=== PATIENT | male | born 1945 | race Caucasian/White ===

== ENCOUNTER 2017-03-01 21:36 | Inpatient (IN) | payer MEDICARE ==
[2017-03-01] MEDS ORDERED: SODIUM CHLORIDE 0.9% 1,000 ML IV STA (23:37)
[2017-03-01] MEDS ORDERED: IV VANCOMYCIN PER PHARMACY 1 EACH MISC MISCELLANE PRN (23:38)
[2017-03-01] MEDS ORDERED: VANCOMYCIN 1,750 MG in SODIUM CHLORIDE 0.9% 250 ML IVPB STA (23:39)
--- NOTE | 2017-03-01 23:43 | ED ---
Extremity Problem HPI - General Chief complaint: Extremity Problem,Nontraumatic Stated complaint: leg sores Time Seen by Provider: 03/01/17 23:31 Source: patient, RN notes reviewed Mode of arrival: wheelchair Limitations: no limitations - History of Present Illness Initial comments: 71 yo Male presents emergency department with a chief complaint of weeping wounds to the left calf. Patient does have chronic swollen legs. 3 days ago they noticed some purulent filled sacs to the lower leg and now they've opened and they have started to drain. Patient is now some eye redness and pain to the legs today was concerned. The patient has not been seen by his physician for this problem yet. There is been no fever or chills. There's been no nausea vomiting. Patient states that his legs is tender. Patient states is not really have sutures at this time.Patient denies any recent fever, chills, shortness of breath, chest pain, back pain, abdominal pain, nausea vomiting, numbness or tingling, dysuria or hematuria, constipation or diarrhea, headaches or visual changes, or any other current symptoms. - Related Data Home Medications Medication Instructions Recorded Confirmed Allopurinol [Zyloprim] 300 mg PO DAILY 08/23/16 03/01/17 Aspirin EC [Ecotrin Low Dose] 81 mg PO DAILY 08/23/16 03/01/17 Atorvastatin [Lipitor] 40 mg PO DAILY 08/23/16 03/01/17 Ergocalciferol [Vitamin D2 50,000 unit PO HALL 08/23/16 03/01/17 (DRISDOL)] Insulin Aspart [NovoLOG] 20 units SQ AC-TID 08/23/16 03/01/17 Insulin Glargine [Lantus] 60 units SQ HS 08/23/16 03/01/17 Lisinopril [Zestril] 10 mg PO DAILY 08/23/16 03/01/17 Omeprazole 20 mg PO DAILY 08/23/16 03/01/17 Torsemide [Demadex] 20 mg PO DAILY 08/23/16 03/01/17 amLODIPine [Norvasc] 5 mg PO BID 08/23/16 03/01/17 glipiZIDE [Glucotrol] 10 mg PO AC-BID 08/23/16 03/01/17 Pregabalin [Lyrica] 25 mg PO TID 03/01/17 03/01/17 Previous Rx's Medication Instructions Recorded Furosemide [Lasix] 40 mg PO BID@0900,1600 #60 tab 08/26/16 hydrALAZINE HCL [Apresoline] 25 mg PO TID #90 tab 08/26/16 Allergies Allergy/AdvReac Type Severity Reaction Status Date / Time cephalexin [From Keflex] Allergy Unknown Verified 03/01/17 23:43 Review of Systems ROS Statement: Those systems with pertinent positive or pertinent negative responses have been documented in the HPI. ROS Other: All systems not noted in ROS Statement are negative. 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, obesity, hyperlipidemia, hypertension, loud snoring, chronic lower oximetry edema, chronic hypersomnia, gout Last Myocardial Infarction Date:: unk History of Any Multi-Drug Resistant Organisms: None Reported Past Surgical History: Heart Catheterization With Stent Additional Past Surgical History / Comment(s): Cardiac catheterization and stenting of the LAD Past Anesthesia/Blood Transfusion Reactions: No Reported Reaction Date of Last Stent Placement:: unk date Past Psychological History: No Psychological Hx Reported Smoking Status: Former smoker Past Alcohol Use History: None Reported Additional Past Alcohol Use History / Comment(s): started smoking at age 22(1967 ), quit by 1975 Past Drug Use History: None Reported - Past Family History Father Family Medical History: Cancer Mother Family Medical History: Renal Disease General Exam - General Exam Comments Initial Comments: General: The patient is awake and alert, in no distress, and does not appear acutely ill. Eye: Pupils are equal, round and reactive to light, extra-ocular movements are intact; there is normal conjunctiva bilaterally. No signs of icterus. Ears, nose, mouth and throat: There are moist mucous membranes. Neck: The neck is supple, there is no tenderness. Cardiovascular: There is a regular rate and rhythm. No murmur, rub or gallop is appreciated. Respiratory: Lungs are clear to auscultation, respirations are non-labored, breath sounds are equal. No wheezes, stridor, rales, or rhonchi. Gastrointestinal: Soft, non-distended, non-tender abdomen without masses or organomegaly noted. There is no rebound or guarding present. No CVA tenderness. Bowel sounds are unremarkable. Back: There is no tenderness to palpation in the midline. There is no obvious deformity. No rashes noted. Musculoskeletal: Normal ROM, no tenderness, There is bilateral calf tenderness and swelling. There is bilateral erythema with increased erythema to the left leg with 2 purulent pus filled sacs to the anterior left leg. Sensation intact. Pulses equal bilaterally 2+. Neurological: CN II-XII intact, There are no obvious motor or sensory deficits. Coordination appears grossly intact. Speech is normal. Skin: Skin is warm and dry and no rashes or lesions are noted. Psychiatric: Cooperative, appropriate mood & affect, normal judgment. Limitations: no limitations Course Vital Signs 03/01/17 03/02/17 22:04 00:28 Temperature 99.1 F Pulse Rate 86 71 Respiratory 20 22 Rate Blood Pressure 228/89 186/84 O2 Sat by Pulse 93 L 93 L Oximetry Medical Decision Making - Medical Decision Making 71-year-old male presents with what appears to be cellulitis left lower extremity associated with abscess. This time the wound culture and blood work. Due to the severity of the patient's legs along with a history of diabetes in for circulation we will admit the patient for IV antibiotics and evaluation. This is discussed the patient is in agreement with the plan and all questions have been answered. Patient will be admitted. - Lab Data Result diagrams: 03/01/17 23:50 Lab Results 03/01/17 Range/Units 23:50 WBC 10.7 H (3.8-10.6) k/uL RBC 4.36 (4.30-5.90) m/uL Hgb 12.4 L (13.0-17.5) gm/dL Hct 36.7 L (39.0-53.0) % MCV 84.2 (80.0-100.0) fL MCH 28.5 (25.0-35.0) pg MCHC 33.8 (31.0-37.0) g/dL RDW 15.2 (11.5-15.5) % Plt Count 157 (150-450) k/uL Neutrophils % 85 % Lymphocytes % 8 % Monocytes % 6 % Eosinophils % 0 % Basophils % 0 % Neutrophils # 9.1 H (1.3-7.7) k/uL Lymphocytes # 0.8 L (1.0-4.8) k/uL Monocytes # 0.6 (0-1.0) k/uL Eosinophils # 0.0 (0-0.7) k/uL Basophils # 0.0 (0-0.2) k/uL - Radiology Data Radiology results: report reviewed, image reviewed Disposition Clinical Impression: Left leg cellulitis, Abscess of left leg Disposition: ADMITTED IP TO THIS [facility] Condition: Stable Referrals: Ankur Burnett DO [Primary Care Provider] - 1-2 days Time of Disposition: 00:42 Decision Date: 03/02/17 Decision Time: 00:42
--- NOTE | 2017-03-02 00:17 | XR ---
EXAM:LEFT TIB/FIB, 2 VIEWS INDICATION: 71-year-old male with pain. COMPARISON: None. FINDINGS: 2 views of the left tibia and fibula are obtained. Bony structures are intact. Bone mineralization is within normal limits. Diffuse soft tissue swelling is nonspecific. No radio-opaque foreign bodies seen. IMPRESSION: No acute osseous abnormality.
[2017-03-02 00:23] LABS: Basophils % (A) 0 %; CH 28.7; CHCM 34.1; Eosinophils % (A) 0 %; HCT 36.7 % (39.0-53.0); HGB 12.4 gm/dL (13.0-17.5); Luc # (Auto) 0.18; Luc % (Auto) 2; Lymphocytes # (A) 0.8 k/uL (1.0-4.8); Lymphocytes % (A) 8 %; MCH 28.5 pg (25.0-35.0); MCHC 33.8 g/dL (31.0-37.0); MCV 84.2 fL (80.0-100.0); Mean Platelet Volume 7.4; Monocytes # (A) 0.6 k/uL (0-1.0); Monocytes % (A) 6 %; Neutrophils # (A) 9.1 k/uL (1.3-7.7); Neutrophils % (A) 85 %; RBC 4.36 m/uL (4.30-5.90); RDW 15.2 % (11.5-15.5); WBC 10.7 k/uL (3.8-10.6); WBC (Perox) 10.11
[2017-03-02] MEDS ORDERED: HYDROmorphone 1 MG/ML 1 ML SYRINGE IVP STA (00:41)
[2017-03-02] MEDS ORDERED: IBUPROFEN 400 MG TAB PO PRN (00:42)
[2017-03-02 00:58] LABS: ALT 20 U/L (21-72); AST 19 U/L (17-59); Alkaline Phosphatase 133 U/L (38-126); Anion Gap 12 mmol/L; Blood Urea Nitrogen 36 mg/dL (9-20); Calcium 8.5 mg/dL (8.4-10.2); Carbon Dioxide 22 mmol/L (22-30); Chloride 105 mmol/L (98-107); Glucose 292 mg/dL (74-99); Non-African American GFR(MDRD) 37 (>60 ml/min/1.73 sqM); Potassium 4.8 mmol/L (3.5-5.1); Sodium 139 mmol/L (137-145); Total Bilirubin 0.8 mg/dL (0.2-1.3); Total Protein 6.9 g/dL (6.3-8.2)
[2017-03-02 01:10] LABS: Erythrocyte Sedimentation Rate 95 mm/hr (0-15)
[2017-03-02] MEDS: SODIUM CHLORIDE 0.9% 1,000 ML IV SCH ×2 (02:02→11:38)
[2017-03-02 02:09] LABS: C Reactive Protein 279.2 mg/L (<10.0)
[2017-03-02] MEDS: HYDROmorphone 1 MG/ML 1 ML SYRINGE IV PRN (05:02)
[2017-03-02 07:04] LABS: Glucose,Whole Blood 271 mg/dL (75-99)
[2017-03-02] MEDS: ENOXAPARIN 40 MG/0.4 ML SYRINGE SQ SCH (08:34)
[2017-03-02] MEDS: ATORVASTATIN 40 MG TAB PO SCH (08:34)
[2017-03-02] MEDS: ASPIRIN 81 MG CHEW PO SCH (08:34)
[2017-03-02] MEDS: PANTOPRAZOLE 40 MG TABLET PO SCH (08:35)
[2017-03-02] MEDS: LISINOPRIL 10 MG TAB PO SCH (08:35)
[2017-03-02] MEDS: hydrALAZINE HCL 25 MG TAB PO SCH ×3 (08:35→21:18)
[2017-03-02] MEDS: INSULIN LISPRO (humaLOG) 300 UNIT/3 ML VIAL SQ SCH ×4 (08:46→21:18)
[2017-03-02] MEDS ORDERED: amLODIPine 5 MG TAB PO SCH (09:00)
[2017-03-02] MEDS ORDERED: ALLOPURINOL 300 MG TAB PO SCH (09:00)
[2017-03-02] MEDS ORDERED: TORSEMIDE 20 MG TAB PO SCH (10:00)
[2017-03-02 11:22] LABS: Hemoglobin A1C 9.9 % (4.2-6.1)
[2017-03-02 11:24] LABS: Glucose,Whole Blood 308 mg/dL (75-99)
[2017-03-02] MEDS: VANCOMYCIN 1,750 MG in SODIUM CHLORIDE 0.9% 250 ML IVPB SCH (11:34)
[2017-03-02] MEDS: FUROSEMIDE 40 MG TAB PO SCH ×2 (11:39→21:17)
[2017-03-02] MEDS ORDERED: PREGABALIN 100 MG CAP ONE (12:19)
--- NOTE | 2017-03-02 15:26 | P.HPIM ---
History of Present Illness H&P Date: 03/02/17 This is a 71-year-old gentleman comes into the hospital with progressive worsening of lower extremity swelling and tenderness over the last 3-4 days. Patient states that he's had chronic changes in his lower extremities for a long period of time. His primary care physician has recommended him to follow up with a subspecialist however patient has not done that yet Patient stated that he's had intermittent chills over the last few days. Pain has been progressively getting worse hence came to the hospital for ongoing care. Patient denies having any recent trauma. Patient states that he's had some blisters on his left lower extremity and noted the symptoms after the blister has popped. No significant tenderness is reported at this time Blood cultures were sent Patient is started on IV vancomycin at this time Patient denies having any history of having heart failure or renal problems He was told that his lower extremity edema are secondary to lymphedema No headaches blurry vision nausea vomiting chest pain difficulty breathing urinary urgency frequency or diarrhea is reported Review of Systems All systems: negative (Noted in HPI) Past Medical History Past Medical History: Chest Pain / Angina, Diabetes Mellitus, Hyperlipidemia, Hypertension, Myocardial Infarction ([place]) Additional Past Medical History / Comment(s): Coronary artery disease and the patient had an acute anterior wall myocardial infarction 2009 requiring emergent cardiac catheterization and stenting and 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 then 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, obesity, hyperlipidemia, hypertension, loud snoring, chronic lower oximetry edema, chronic hypersomnia, gout Last Myocardial Infarction Date:: unk History of Any Multi-Drug Resistant Organisms: None Reported Past Surgical History: Heart Catheterization With Stent Additional Past Surgical History / Comment(s): Cardiac catheterization and stenting of the LAD Past Anesthesia/Blood Transfusion Reactions: No Reported Reaction Date of Last Stent Placement:: unk date Past Psychological History: No Psychological Hx Reported Smoking Status: Former smoker Past Alcohol Use History: None Reported Additional Past Alcohol Use History / Comment(s): started smoking at age 22(1967 ), quit by 1975 Past Drug Use History: None Reported - Past Family History Father Family Medical History: Cancer Mother Family Medical History: Renal Disease Medications and Allergies Home Medications Medication Instructions Recorded Confirmed Type Allopurinol [Zyloprim] 300 mg PO DAILY 08/23/16 03/01/17 History Aspirin EC [Ecotrin Low Dose] 81 mg PO DAILY 08/23/16 03/01/17 History Atorvastatin [Lipitor] 40 mg PO DAILY 08/23/16 03/01/17 History Ergocalciferol [Vitamin D2 50,000 unit PO HALL 08/23/16 03/01/17 History (DRISDOL)] Insulin Aspart [NovoLOG] 20 units SQ AC-TID 08/23/16 03/01/17 History Insulin Glargine [Lantus] 60 units SQ HS 08/23/16 03/01/17 History Omeprazole 20 mg PO DAILY 08/23/16 03/01/17 History glipiZIDE [Glucotrol] 10 mg PO AC-BID 08/23/16 03/01/17 History Pregabalin [Lyrica] 25 mg PO TID 03/01/17 03/01/17 History Allergies Allergy/AdvReac Type Severity Reaction Status Date / Time cephalexin [From Keflex] Allergy Unknown Verified 03/02/17 02:01 Physical Exam Vitals: Vital Signs Temp Pulse Pulse Resp BP BP Pulse Ox 03/02/17 07:00 97.4 F L 89 12 133/85 97 03/02/17 01:58 98.2 F 75 16 145/70 91 L 03/02/17 01:12 75 20 155/66 93 L 03/02/17 00:54 85 16 182/79 92 L 03/02/17 00:28 71 22 186/84 93 L 03/01/17 22:04 99.1 F 86 20 228/89 93 L Intake and Output 03/02/17 03/02/17 03/02/17 06:59 14:59 22:59 Intake Total 400 Output Total 400 Balance 400 -400 Intake: IV 400 Sodium Chloride 0.9% 1, 400 000 ml @ 100 mls/hr IV . Q10H BILLY Rx#:[id number] Output: Urine 400 Other: Voiding Method Urinal Bedside Commode Urinal Diaper # Voids 2 Weight 117.934 kg 117.934 kg Patient Weight 03/03/17 06:59 Weight 117.934 kg Gen. appearance obese male does not appear to be in distress alert oriented 3 Neck is thick supple no JVD Lungs good air movement clear to auscultation no rhonchi or wheezing or crackles Heart S1 and S2 heart regular rate and rhythm no murmurs appreciable Abdomen is soft nontender organomegaly Lower extremities chronic skin changes bilaterally on the left lower extremity there is a wound anteriorly over the lower tibial surface with the previous blister with dried blood that is noted nontender to palpation there is a pus pocket that is noted lateral to it or graft neuro no focal motor or sensory deficits noted Results CBC & Chem 7: 03/01/17 23:50 03/01/17 23:50 Labs: Abnormal Lab Results - Last 24 Hours (Table) 03/01/17 03/01/17 03/01/17 Range/Units 23:50 23:50 23:50 WBC 10.7 H (3.8-10.6) k/uL Hgb 12.4 L (13.0-17.5) gm/dL Hct 36.7 L (39.0-53.0) % Neutrophils # 9.1 H (1.3-7.7) k/uL Lymphocytes # 0.8 L (1.0-4.8) k/uL ESR 95 H (0-15) mm/hr BUN 36 H (9-20) mg/dL Creatinine 1.80 H (0.66-1.25) mg/dL Glucose 292 H (74-99) mg/dL POC Glucose (mg/dL) (75-99) mg/dL Hemoglobin A1c 9.9 H (4.2-6.1) % ALT 20 L (21-72) U/L Alkaline Phosphatase 133 H (38-126) U/L C-Reactive Protein 279.2 H (<10.0) mg/L Albumin 3.3 L (3.5-5.0) g/dL 03/02/17 03/02/17 Range/Units 06:56 11:21 WBC (3.8-10.6) k/uL Hgb (13.0-17.5) gm/dL Hct (39.0-53.0) % Neutrophils # (1.3-7.7) k/uL Lymphocytes # (1.0-4.8) k/uL ESR (0-15) mm/hr BUN (9-20) mg/dL Creatinine (0.66-1.25) mg/dL Glucose (74-99) mg/dL POC Glucose (mg/dL) 271 H 308 H (75-99) mg/dL Hemoglobin A1c (4.2-6.1) % ALT (21-72) U/L Alkaline Phosphatase (38-126) U/L C-Reactive Protein (<10.0) mg/L Albumin (3.5-5.0) g/dL Microbiology - Last 24 Hours (Table) 03/02/17 00:43 Gram Stain - Preliminary Leg - Left Wound Culture - Preliminary Thrombosis Risk Factor Assmnt - Choose All That Apply Each Factor Represents 1 point: Obesity (BMI >25), Swollen legs (current) Each Risk Factor Represents 2 Points: Age 61-74 years Thrombosis Risk Factor Assessment Total Risk Factor Score: 4 Thrombosis Risk Factor Assessment Level: Moderate Risk Assessment and Plan Plan: #1 left lower extremity cellulitis with some concern for systemic infection #2 micrognathia #3 history of a second-degree heart block #4 hypertension. #5 obesity. #6 diabetes most type II #7 chronic lymphedema #8 dyslipidemia #9 gout plan We'll continue with antiemetics at this time. Await blood cultures. Continue diuretics. We'll obtain a lower extremity Doppler to rule out a DVT Wound care with the Aquasol Silver and wrap We'll consult an infectious disease doctor in order for the patient to follow- up with an outpatient as well. Medications were reconciled patient was on 2 diuretics which one abnormal be permanently discontinued her graft patient is also on amlodipine which is also discontinued as it could cause worsening edema as well lisinopril will be increased to 20mg Dvto prophylaxis
[2017-03-02] MEDS ORDERED: FUROSEMIDE 10 MG/ML 4 ML VIAL IV STA (15:27)
[2017-03-02] MEDS: PREGABALIN 25 MG CAP PO SCH ×3 (16:50→21:18)
[2017-03-02 17:31] LABS: Glucose,Whole Blood 229 mg/dL (75-99)
--- NOTE | 2017-03-02 17:33 | US ---
EXAMINATION TYPE: US venous doppler duplex LE BI DATE OF EXAM: 03/02/2017 5:02 PM COMPARISON: 08/25/2016 CLINICAL HISTORY: 71-year-old male, rule out DVT. Bilateral leg swelling, no hx of blood clots. Cell ulitis. SIDE PERFORMED: Bilateral TECHNIQUE: The lower extremity deep venous system is examined utilizing real time linear array sonog carlos with graded compression, doppler sonography and color-flow sonography. 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 IMPRESSION: Technically difficult exam due to soft tissue swelling. No evidence for DVT within the bilateral lowe r extremities imaged from the groin to the upper calves.
[2017-03-02] MEDS: ACETAMINOPHEN TAB 325 MG TAB PO PRN (17:38)
[2017-03-02 20:08] LABS: Glucose,Whole Blood 209 mg/dL (75-99)
[2017-03-02 20:57] LABS: Basophils % (A) 0 %; CH 28.4; Eosinophils % (A) 0 %; HCT 40.1 % (39.0-53.0); HDW 2.95; HGB 12.6 gm/dL (13.0-17.5); Hypochromasia Slight; Luc # (Auto) 0.09; Luc % (Auto) 1; Lymphocytes # (A) 0.9 k/uL (1.0-4.8); Lymphocytes % (A) 11 %; MCH 27.9 pg (25.0-35.0); MCHC 31.4 g/dL (31.0-37.0); Mean Platelet Volume 7.3; Monocytes # (A) 0.2 k/uL (0-1.0); Monocytes % (A) 3 %; Neutrophils # (A) 6.4 k/uL (1.3-7.7); Neutrophils % (A) 84 %; RBC 4.51 m/uL (4.30-5.90); RDW 15.4 % (11.5-15.5); WBC 7.6 k/uL (3.8-10.6); WBC (Perox) 7.76
[2017-03-02 21:07] LABS: Calcium 8.1 mg/dL (8.4-10.2); Potassium 4.6 mmol/L (3.5-5.1)
[2017-03-02] MEDS ORDERED: ACETAMINOPHEN TAB 325 MG TAB PO ONE (21:10)
[2017-03-03] MEDS: ACETAMINOPHEN TAB 325 MG TAB PO PRN ×3 (04:05→21:53)
[2017-03-03] MEDS: HYDROmorphone 1 MG/ML 1 ML SYRINGE IV PRN ×2 (05:59→11:28)
[2017-03-03 06:59] LABS: Glucose,Whole Blood 298 mg/dL (75-99)
[2017-03-03 07:29] LABS: Calcium 7.4 mg/dL (8.4-10.2); Potassium 4.9 mmol/L (3.5-5.1)
[2017-03-03 07:57] LABS: Basophils % (A) 0 %; CH 27.9; Eosinophils % (A) 0 %; HCT 33.5 % (39.0-53.0); HDW 2.91; HGB 10.7 gm/dL (13.0-17.5); Hypochromasia Slight; Luc # (Auto) 0.06; Luc % (Auto) 1; Lymphocytes # (A) 0.4 k/uL (1.0-4.8); Lymphocytes % (A) 4 %; MCH 27.9 pg (25.0-35.0); MCHC 31.8 g/dL (31.0-37.0); MCV 87.6 fL (80.0-100.0); Mean Platelet Volume 8.4; Monocytes # (A) 0.3 k/uL (0-1.0); Monocytes % (A) 4 %; Neutrophils # (A) 8.5 k/uL (1.3-7.7); Neutrophils % (A) 92 %; RBC 3.82 m/uL (4.30-5.90); RDW 15.3 % (11.5-15.5); WBC 9.3 k/uL (3.8-10.6); WBC (Perox) 9.78
[2017-03-03] MEDS: INSULIN LISPRO (humaLOG) 300 UNIT/3 ML VIAL SQ SCH ×4 (08:36→23:06)
[2017-03-03] MEDS: ERGOCALCIFEROL 50,000 UNIT CAP PO SCH (08:37)
[2017-03-03] MEDS: hydrALAZINE HCL 25 MG TAB PO SCH ×3 (08:37→22:58)
[2017-03-03] MEDS: PREGABALIN 25 MG CAP PO SCH ×2 (08:37→18:29)
[2017-03-03] MEDS: VANCOMYCIN 1,750 MG in SODIUM CHLORIDE 0.9% 250 ML IVPB SCH (08:37)
[2017-03-03] MEDS: ENOXAPARIN 40 MG/0.4 ML SYRINGE SQ SCH (08:37)
[2017-03-03] MEDS: ASPIRIN 81 MG CHEW PO SCH (08:37)
[2017-03-03] MEDS: LISINOPRIL 10 MG TAB PO SCH (08:37)
[2017-03-03] MEDS: FUROSEMIDE 40 MG TAB PO SCH (08:37)
[2017-03-03] MEDS: PANTOPRAZOLE 40 MG TABLET PO SCH (08:37)
[2017-03-03] MEDS: ATORVASTATIN 40 MG TAB PO SCH (08:37)
[2017-03-03 11:18] LABS: Glucose,Whole Blood 278 mg/dL (75-99)
[2017-03-03] MEDS: NALOXONE 0.4 MG/ML 1 ML VIAL IV PRN ×3 (13:10→15:03)
[2017-03-03] MEDS ORDERED: SODIUM CHLORIDE 0.9% 250 ML IV ONE (13:30)
[2017-03-03] MEDS ORDERED: SODIUM CHLORIDE 0.9% 1,000 ML IV ONE (15:08)
[2017-03-03 15:40] LABS: ABG PH 7.31 (7.35-7.45)
[2017-03-03 15:41] LABS: ABG Base Excess -6.6 mmol/L; ABG HCO3 18 mmol/L (21-25); ABG Oxygen Saturation 97.2 % (94-97); ABG PCO2 37 mmHg (35-45); ABG PO2 100 mmHg (83-108); ABG TCO2 20 mmol/L (19-24)
[2017-03-03 16:10] LABS: Potassium 4.8 mmol/L (3.5-5.1)
[2017-03-03 17:31] LABS: Glucose,Whole Blood 223 mg/dL (75-99)
--- NOTE | 2017-03-03 17:49 | P.PN ---
Subjective This is a 71-year-old gentleman comes into the hospital with progressive worsening of lower extremity swelling and tenderness over the last 3-4 days. Patient states that he's had chronic changes in his lower extremities for a long period of time. His primary care physician has recommended him to follow up with a subspecialist however patient has not done that yet Patient stated that he's had intermittent chills over the last few days. Pain has been progressively getting worse hence came to the hospital for ongoing care. Patient denies having any recent trauma. Patient states that he's had some blisters on his left lower extremity and noted the symptoms after the blister has popped. No significant tenderness is reported at this time Blood cultures were sent Patient is started on IV vancomycin at this time Patient denies having any history of having heart failure or renal problems He was told that his lower extremity edema are secondary to lymphedema No headaches blurry vision nausea vomiting chest pain difficulty breathing urinary urgency frequency or diarrhea is reported 03/03 today Rapid response was initiated due to pt's AMS had a fever 102.8 Multiple doses of narcan were given which showed some improvement Pt however worsened ABG was done, appear appropriate with metabolic acidosis with appropriate respiratory compensation multiple new blisters were noted in the lower ext. Objective - Vital Signs Vital signs: Vital Signs Temp 101.7 F H 03/03/17 14:57 Pulse 104 H 03/03/17 14:57 Resp 14 03/03/17 14:57 BP 118/56 03/03/17 14:57 Pulse Ox 94 L 03/03/17 14:57 Intake & Output 03/02/17 03/03/17 03/03/17 18:59 06:59 18:59 Intake Total 1050 2080 Output Total 400 Balance 650 2080 Weight 117.934 kg Intake: IV 800 700 Sodium Chloride 0.9% 1, 800 700 000 ml @ 100 mls/hr IV . Q10H BILLY Rx#:[id number] Intake, IV Titration 250 Amount Vancomycin 1,750 mg In 250 Sodium Chloride 0.9% 250 ml @ 125 mls/hr IVPB Q24H BILLY Rx#:[id number] Oral 1380 Output: Urine 400 Other: Voiding Method Bedside Commode Toilet Urinal Diaper # Voids 2 8 # Bowel Movements 1 - Constitutional General appearance: Present: disheveled, obese - EENT Eyes: Present: EOMI, PERRLA - Respiratory Respiratory: bilateral: diminished, negative: dullness, rales, rhonchi - Cardiovascular Rhythm: regular Heart sounds: normal: S1, S2 Abnormal Heart Sounds: Absent: systolic murmur - Gastrointestinal General gastrointestinal: Present: distended, normal bowel sounds, soft. Absent : organomegaly - Integumentary Integumentary Comment(s): multiple blisters noted in the bilateral lower ext. LEft side ant tibia right foot: blister with eschar noted. large blister on the right foot. - Neurologic Neurologic Comment(s): lethargic - Labs CBC & Chem 7: 03/03/17 06:53 03/03/17 15:41 Labs: Abnormal Lab Results - Last 24 Hours (Table) 03/02/17 03/02/17 03/02/17 Range/Units 20:06 20:48 20:48 RBC (4.30-5.90) m/uL Hgb 12.6 L (13.0-17.5) gm/dL Hct (39.0-53.0) % Plt Count 135 L (150-450) k/uL Neutrophils # (1.3-7.7) k/uL Lymphocytes # 0.9 L (1.0-4.8) k/uL ABG pH (7.35-7.45) ABG HCO3 (21-25) mmol/L ABG O2 Saturation (94-97) % Chloride 108 H (98-107) mmol/L Carbon Dioxide 19 L (22-30) mmol/L BUN 44 H (9-20) mg/dL Creatinine 2.15 H (0.66-1.25) mg/dL Glucose 214 H (74-99) mg/dL POC Glucose (mg/dL) 209 H (75-99) mg/dL Calcium 8.1 L (8.4-10.2) mg/dL Total Protein (6.3-8.2) g/dL Albumin (3.5-5.0) g/dL 03/03/17 03/03/17 03/03/17 Range/Units 06:53 06:53 06:57 RBC 3.82 L (4.30-5.90) m/uL Hgb 10.7 L (13.0-17.5) gm/dL Hct 33.5 L (39.0-53.0) % Plt Count 114 L (150-450) k/uL Neutrophils # 8.5 H (1.3-7.7) k/uL Lymphocytes # 0.4 L (1.0-4.8) k/uL ABG pH (7.35-7.45) ABG HCO3 (21-25) mmol/L ABG O2 Saturation (94-97) % Chloride 109 H (98-107) mmol/L Carbon Dioxide 16 L (22-30) mmol/L BUN 50 H (9-20) mg/dL Creatinine 2.63 H (0.66-1.25) mg/dL Glucose 279 H (74-99) mg/dL POC Glucose (mg/dL) 298 H (75-99) mg/dL Calcium 7.4 L (8.4-10.2) mg/dL Total Protein 6.0 L (6.3-8.2) g/dL Albumin 2.6 L (3.5-5.0) g/dL 03/03/17 03/03/17 03/03/17 Range/Units 11:16 15:20 15:41 RBC (4.30-5.90) m/uL Hgb (13.0-17.5) gm/dL Hct (39.0-53.0) % Plt Count (150-450) k/uL Neutrophils # (1.3-7.7) k/uL Lymphocytes # (1.0-4.8) k/uL ABG pH 7.31 L (7.35-7.45) ABG HCO3 18 L (21-25) mmol/L ABG O2 Saturation 97.2 H (94-97) % Chloride 108 H (98-107) mmol/L Carbon Dioxide 19 L (22-30) mmol/L BUN (9-20) mg/dL Creatinine (0.66-1.25) mg/dL Glucose (74-99) mg/dL POC Glucose (mg/dL) 278 H (75-99) mg/dL Calcium (8.4-10.2) mg/dL Total Protein (6.3-8.2) g/dL Albumin (3.5-5.0) g/dL 03/03/17 Range/Units 16:49 RBC (4.30-5.90) m/uL Hgb (13.0-17.5) gm/dL Hct (39.0-53.0) % Plt Count (150-450) k/uL Neutrophils # (1.3-7.7) k/uL Lymphocytes # (1.0-4.8) k/uL ABG pH (7.35-7.45) ABG HCO3 (21-25) mmol/L ABG O2 Saturation (94-97) % Chloride (98-107) mmol/L Carbon Dioxide (22-30) mmol/L BUN (9-20) mg/dL Creatinine (0.66-1.25) mg/dL Glucose (74-99) mg/dL POC Glucose (mg/dL) 223 H (75-99) mg/dL Calcium (8.4-10.2) mg/dL Total Protein (6.3-8.2) g/dL Albumin (3.5-5.0) g/dL Microbiology - Last 24 Hours (Table) 03/01/17 23:50 Blood Culture Gram Stain - Preliminary Blood Blood Culture - Preliminary Presumptive Staph aureus 03/02/17 00:43 Gram Stain - Preliminary Leg - Left Wound Culture - Preliminary Presumptive Staph aureus Strep agalactiae - (group b) Non Hemolytic Strep 03/01/17 23:50 Blood Culture - Preliminary Blood Assessment and Plan Plan: #1 sepsis sec to cellulitis with bacteremia #2 micrognathia #3 history of a second-degree heart block #4 hypertension. #5 obesity. #6 diabetes mellitus type II #7 chronic lymphedema #8 dyslipidemia #9 gout #10. Clinical [place] plan We'll continue with antiemetics at this time. Await blood cultures. Continue diuretics. repeat cxr in the am strict I/O Wound care with the Aquasol Silver and wrap HOld diuretics 2 l crystalloids increase abx coverage to cefepime and vancomycin Dvt prophylaxis
[2017-03-03] MEDS: SODIUM BICARBONATE TAB 650 MG TAB PO SCH ×2 (18:30→22:58)
--- NOTE | 2017-03-03 18:54 | XR ---
EXAMINATION TYPE: XR foot limited RT DATE OF EXAM: 03/03/2017 6:23 PM COMPARISON: NONE HISTORY: 71-year-old male rule out osteomyelitis TECHNIQUE: 2 views FINDINGS: There is severe soft tissue swelling of the foot with possible subtle air dorsal mid foot soft tissue s. Air is seen along the plantar mid to hindfoot soft tissues and there is a metallic wire measuring approximately 3.7 cm long pointing vertically up within the wire projecting over the tarsal bones. No acute fracture. No focal osseous destruction seen radiographically. IMPRESSION: A 3.7 cm long metal wire embedded within the plantar mid to hindfoot soft tissues. This is aligned ve rtically with the tip of the wire projecting over the plantar aspect of the tarsal bones. Contact wit h the underlying bone is not excluded. There is swelling throughout the foot with foci of air. Findings concerning for infection with gas fo rming organism.
[2017-03-03 20:57] LABS: Glucose,Whole Blood 243 mg/dL (75-99)
[2017-03-03 21:43] LABS: Glucose,Whole Blood 265 mg/dL (75-99)
[2017-03-03] MEDS: AZTREONAM 1 GM in SODIUM CHLORIDE 0.9% 50 ML IVPB SCH (21:53)
[2017-03-04 06:30] LABS: Glucose,Whole Blood 156 mg/dL (75-99)
[2017-03-04 06:36] LABS: Basophils % (A) 0 %; CH 27.9; CHCM 31.1; Eosinophils % (A) 0 %; HCT 35.1 % (39.0-53.0); HDW 2.82; HGB 10.8 gm/dL (13.0-17.5); Hypochromasia Slight; Luc # (Auto) 0.31; Luc % (Auto) 4; Lymphocytes % (A) 13 %; MCH 27.7 pg (25.0-35.0); MCHC 30.8 g/dL (31.0-37.0); MCV 90.2 fL (80.0-100.0); Mean Platelet Volume 8.7; Monocytes # (A) 0.4 k/uL (0-1.0); Monocytes % (A) 5 %; Neutrophils # (A) 5.8 k/uL (1.3-7.7); Neutrophils % (A) 78 %; RDW 15.6 % (11.5-15.5); WBC 7.4 k/uL (3.8-10.6)
[2017-03-04] MEDS: PREGABALIN 25 MG CAP PO SCH ×3 (06:50→18:52)
[2017-03-04] MEDS: AZTREONAM 1 GM in SODIUM CHLORIDE 0.9% 50 ML IVPB SCH ×3 (06:52→16:00)
[2017-03-04] MEDS: INSULIN LISPRO (humaLOG) 300 UNIT/3 ML VIAL SQ SCH ×3 (06:53→18:53)
[2017-03-04] MEDS: PANTOPRAZOLE 40 MG TABLET PO SCH (06:55)
[2017-03-04 07:12] LABS: Bilirubin, Delta 0.7 mg/dL (0.0-0.2); Calcium 7.6 mg/dL (8.4-10.2); Total Bilirubin 0.8 mg/dL (0.2-1.3); Total Protein 6.2 g/dL (6.3-8.2)
--- NOTE | 2017-03-04 09:03 | XR ---
EXAMINATION TYPE: XR chest 1V portable DATE OF EXAM: 03/04/2017 8:53 AM HISTORY: CASTILLO. REFERENCE: Previous study dated 08/25/2016. FINDINGS: The heart is enlarged. There is some linear atelectasis in the right midlung. There is mini mal atelectasis at the left lung base. No pleural fluid is seen. IMPRESSION: 1. CARDIOMEGALY. 2. BILATERAL AREAS OF PLATELIKE ATELECTASIS.
[2017-03-04] MEDS: hydrALAZINE HCL 25 MG TAB PO SCH ×2 (09:47→18:52)
[2017-03-04] MEDS: ASPIRIN 81 MG CHEW PO SCH (09:47)
[2017-03-04] MEDS: SODIUM BICARBONATE TAB 650 MG TAB PO SCH ×2 (09:47→18:53)
[2017-03-04] MEDS: ATORVASTATIN 40 MG TAB PO SCH (09:47)
[2017-03-04] MEDS: ENOXAPARIN 40 MG/0.4 ML SYRINGE SQ SCH (09:48)
[2017-03-04 11:25] LABS: Glucose,Whole Blood 227 mg/dL (75-99)
[2017-03-04] MEDS: ACETAMINOPHEN TAB 325 MG TAB PO PRN (14:28)
--- NOTE | 2017-03-04 16:09 | CONS ---
DATE OF CONSULTATION: 03/04/2017 This it s 71-year-old gentleman who has been admitted to [facility] with a history of bilateral lower extremity marked swelling, redness and blister formation. Patient has history of chronic lower extremity changes for a long period of time. Patient also has a history of intermittent chills in the past. He has been admitted for further management. He had some blisters on the left lower extremity. According to the patient, he ruptured them himself. Also now he has developed a large blister on the right foot. Past medical history includes: 1. History of diabetes mellitus. 2. Hyperlipidemia. 3. Hypertension. 4. Myocardial infarction. 5. COPD. PHYSICAL EXAMINATION: Patient was seen in his room. Patient has nasal oxygen. He has some crackles on the lung bases bilaterally. He also has bilateral lower extremity swelling with a large blister formation noted on the right foot. Also he has blister formation of the left big toe and also on the left lower extremity. His femoral pulses are present; posterior dorsalis pedis and tibial by Doppler. Patient has marked swelling in both lower extremities. PLAN: Debridement of the wound. Will continue with local wound care and follow with you. RUTHY
[2017-03-04 16:38] LABS: Glucose,Whole Blood 231 mg/dL (75-99)
--- NOTE | 2017-03-04 17:08 | P.PN ---
Subjective This is a 71-year-old gentleman comes into the hospital with progressive worsening of lower extremity swelling and tenderness over the last 3-4 days. Patient states that he's had chronic changes in his lower extremities for a long period of time. His primary care physician has recommended him to follow up with a subspecialist however patient has not done that yet Patient stated that he's had intermittent chills over the last few days. Pain has been progressively getting worse hence came to the hospital for ongoing care. Patient denies having any recent trauma. Patient states that he's had some blisters on his left lower extremity and noted the symptoms after the blister has popped. No significant tenderness is reported at this time Blood cultures were sent Patient is started on IV vancomycin at this time Patient denies having any history of having heart failure or renal problems He was told that his lower extremity edema are secondary to lymphedema No headaches blurry vision nausea vomiting chest pain difficulty breathing urinary urgency frequency or diarrhea is reported 03/03 today Rapid response was initiated due to pt's AMS had a fever 102.8 Multiple doses of narcan were given which showed some improvement Pt however worsened ABG was done, appear appropriate with metabolic acidosis with appropriate respiratory compensation multiple new blisters were noted in the lower ext. 03/04 on 4 l o2 states to have pain in his lower ext there was concern over 3rd degree heart block overnight no fevers at this time urine output has been suboptimal Objective - Vital Signs Vital signs: Vital Signs Temp 97.1 F L 03/04/17 08:00 Pulse 64 03/04/17 08:00 Resp 18 03/04/17 08:00 BP 122/60 03/04/17 08:00 Pulse Ox 95 03/04/17 08:00 Intake & Output 03/03/17 03/04/17 03/04/17 18:59 06:59 18:59 Intake Total 120 360 Output Total 400 Balance -280 360 Weight 118.5 kg 118.5 kg Intake: Oral 120 360 Output: Urine 400 Other: Voiding Method Toilet Toilet Toilet # Voids 0 0 2 # Bowel Movements 1 - Constitutional General appearance: Present: no acute distress - EENT Eyes: Present: EOMI, PERRLA - Respiratory Respiratory: bilateral: diminished, negative: dullness, rales, rhonchi - Cardiovascular Rhythm: regular Heart sounds: normal: S1, S2 Abnormal Heart Sounds: Absent: systolic murmur - Gastrointestinal General gastrointestinal: Present: normal bowel sounds, soft. Absent: organomegaly - Integumentary Integumentary: Present: ulcer (on the left ant tibial wound, serosanguinous drainage, right blister on the foot with eschar at the base) - Neurologic Neurologic: Present: CNII-XII intact, focal deficits - Labs CBC & Chem 7: 03/04/17 06:01 03/04/17 06:01 Labs: Abnormal Lab Results - Last 24 Hours (Table) 03/03/17 03/03/17 03/03/17 Range/Units 16:49 20:56 21:41 RBC (4.30-5.90) m/uL Hgb (13.0-17.5) gm/dL Hct (39.0-53.0) % MCHC (31.0-37.0) g/dL RDW (11.5-15.5) % Plt Count (150-450) k/uL Chloride (98-107) mmol/L Carbon Dioxide (22-30) mmol/L BUN (9-20) mg/dL Creatinine (0.66-1.25) mg/dL Glucose (74-99) mg/dL POC Glucose (mg/dL) 223 H 243 H 265 H (75-99) mg/dL Calcium (8.4-10.2) mg/dL Delta Bilirubin (0.0-0.2) mg/dL Total Protein (6.3-8.2) g/dL Albumin (3.5-5.0) g/dL 03/04/17 03/04/17 03/04/17 Range/Units 06:01 06:01 06:07 RBC 3.90 L (4.30-5.90) m/uL Hgb 10.8 L (13.0-17.5) gm/dL Hct 35.1 L (39.0-53.0) % MCHC 30.8 L (31.0-37.0) g/dL RDW 15.6 H (11.5-15.5) % Plt Count 122 L (150-450) k/uL Chloride 111 H (98-107) mmol/L Carbon Dioxide 13 L (22-30) mmol/L BUN 71 H (9-20) mg/dL Creatinine 4.05 H (0.66-1.25) mg/dL Glucose 170 H (74-99) mg/dL POC Glucose (mg/dL) 156 H (75-99) mg/dL Calcium 7.6 L (8.4-10.2) mg/dL Delta Bilirubin 0.7 H (0.0-0.2) mg/dL Total Protein 6.2 L (6.3-8.2) g/dL Albumin 2.6 L (3.5-5.0) g/dL 03/04/17 03/04/17 Range/Units 11:23 16:25 RBC (4.30-5.90) m/uL Hgb (13.0-17.5) gm/dL Hct (39.0-53.0) % MCHC (31.0-37.0) g/dL RDW (11.5-15.5) % Plt Count (150-450) k/uL Chloride (98-107) mmol/L Carbon Dioxide (22-30) mmol/L BUN (9-20) mg/dL Creatinine (0.66-1.25) mg/dL Glucose (74-99) mg/dL POC Glucose (mg/dL) 227 H 231 H (75-99) mg/dL Calcium (8.4-10.2) mg/dL Delta Bilirubin (0.0-0.2) mg/dL Total Protein (6.3-8.2) g/dL Albumin (3.5-5.0) g/dL Microbiology - Last 24 Hours (Table) 03/02/17 00:43 Gram Stain - Preliminary Leg - Left Wound Culture - Preliminary Presumptive Staph aureus Strep agalactiae - (group b) Strep agalactiae - (group b)#2 03/01/17 23:50 Blood Culture - Final Blood Assessment and Plan Plan: #1 sepsis sec to cellulitis with bacteremia #2 micrognathia #3 history of a second-degree heart block #4 hypertension. #5 obesity. #6 diabetes mellitus type II #7 chronic lymphedema #8 dyslipidemia #9 gout #10. Clinical CLAYTON MADELAINE, likely prerenal non oliguric at this time, likely due to diuresis plan Await blood cultures. Continue diuretics. repeat cxr in the am strict I/O Wound care with the Aquasol Silver and wrap start sodium bicarb solution moniter urine output abx coverage with azactam and vancomycin surgery consult for debridement Dvt prophylaxis
[2017-03-04] MEDS ORDERED: HYDROcodone/APAP 5-325MG 1 EACH TAB PO PRN (19:08)
--- NOTE | 2017-03-04 20:32 | US ---
EXAMINATION TYPE: US kidneys/renal and bladder DATE OF EXAM: 03/04/2017 8:19 PM COMPARISON: NONE CLINICAL HISTORY: Elevated BUN and Creat. EXAM MEASUREMENTS: Right Kidney: 11.0 x 5.1 x 6.2 cm Left Kidney: 10.6 x 4.8 x 4.9 cm Spleen: 15.4 cm Right Kidney: No hydronephrosis or masses seen Left Kidney: No hydronephrosis or masses seen Bladder: Bilateral Jets seen: No, unable to visualize bilateral jets on this exam Incidental findings: 1.Splenomegaly 2.Ascites noted in the RUQ/RLQ IMPRESSION: No evidence of renal mass or obstruction. Mild ascites fluid noted. Mild splenomegaly.
[2017-03-04 20:53] LABS: Glucose,Whole Blood 191 mg/dL (75-99)
[2017-03-04] MEDS ORDERED: AZTREONAM 1 GM in SODIUM CHLORIDE 0.9% 50 ML IVPB SCH (21:00)
[2017-03-05] MEDS: SODIUM BICARBONATE TAB 650 MG TAB PO SCH (00:13)
[2017-03-05] MEDS: PREGABALIN 25 MG CAP PO SCH ×4 (00:14→21:30)
[2017-03-05] MEDS: INSULIN LISPRO (humaLOG) 300 UNIT/3 ML VIAL SQ SCH ×5 (00:14→21:30)
[2017-03-05] MEDS: hydrALAZINE HCL 25 MG TAB PO SCH ×3 (00:14→17:59)
[2017-03-05] MEDS: DEXTROSE 5% IN WATER 1,000 ML with SODIUM BICARB (1 MEQ/ML) 150 ML IV SCH ×3 (02:53→12:40)
[2017-03-05] MEDS: CLINDAMYCIN 900 MG in DEXTROSE 5% IN WATER 50 ML IVPB SCH ×6 (02:53→17:49)
[2017-03-05 06:23] LABS: Glucose,Whole Blood 226 mg/dL (75-99)
--- NOTE | 2017-03-05 06:36 | PCN ---
DATE OF PROCEDURE: 03/04/2017 PREOPERATIVE DIAGNOSES: 1. Blister right foot, plantar aspect 4 x 5 cm. 2. Necrotic skin, left foot, big toe. PROCEDURE: 1. Debridement of the right foot, excision of the leaking blister. 2. Selective debridement of the left foot big toe. Patient was seen in his room. Right foot was prepped and draped in the usual sterile manner. Hurricaine was applied to the plantar aspect of the foot. Using sharp scissors, we excised the blister. This blister was leaking and full-thickness skin was removed. Underneath we found decent granulation tissue. We took some culture from the right foot. No active bleeding was noted. Then there was some superficial necrosis noted of the left foot big toe. Using sharp scissors, we debrided down to subcutaneous tissue. No active bleeding was noted. After that, Aquacel Silver was applied to the right foot and left foot big toe. Dressing applied. The patient tolerated the procedure well. RUTHY
[2017-03-05 06:58] LABS: Basophils % (A) 0 %; CHCM 31.9; Eosinophils % (A) 1 %; HGB 10.8 gm/dL (13.0-17.5); Luc # (Auto) 0.25; Luc % (Auto) 3; Lymphocytes # (A) 0.8 k/uL (1.0-4.8); Lymphocytes % (A) 10 %; MCH 27.9 pg (25.0-35.0); MCHC 31.7 g/dL (31.0-37.0); MCV 88.1 fL (80.0-100.0); Mean Platelet Volume 8.1; Monocytes # (A) 0.4 k/uL (0-1.0); Monocytes % (A) 5 %; Neutrophils % (A) 81 %; RBC 3.86 m/uL (4.30-5.90); RDW 15.7 % (11.5-15.5); WBC 7.4 k/uL (3.8-10.6); WBC (Perox) 7.66
--- NOTE | 2017-03-05 07:03 | CONS ---
DATE OF CONSULTATION: DATE OF SERVICE: 03/04/2017 Reason for followup is right lower extremity wound, cellulitis and bacteremia. HISTORY OF PRESENT ILLNESS: The patient is a 71-year-old male presenting to the ER at [facility] on 03/01/2017 with chief complaints of extensive swelling of his lower extremity with blister formation and redness. The patient initially did develop some blister on his left anterior allen area which the patient said he ruptured himself; however, subsequently developed another blister on the right medial foot area, which significantly increased in size. The foot became swollen and red and painful and throbbing 5 to 6 out of 10 and no radiation. patient was evaluated by the ER. The patient did have some chills and subsequently spiked a fever of 102 degrees Fahrenheit. The patient did have lower extremity Doppler that was negative for DVT. Blood culture was sent and the patient was started on the vancomycin because of his KEFLEX allergy. Blood culture came back positive for Staphylococcus aureus. Hence, ID was consulted for further recommendation regarding antibiotic therapy. REVIEW OF SYSTEMS: CONSTITUTIONAL: Positive for weakness and fever. EYES: No complaint. ENT: No complaint. RESPIRATORY: Shortness of breath. CARDIOVASCULAR: As per HPI. GENITOURINARY: No complaint. GASTROINTESTINAL: No complaint. MUSCULOSKELETAL: As per HPI. INTEGUMENTARY: As per HPI. PSYCHOLOGIC: No complaint. ENDOCRINE: No complaint. NEUROLOGIC: No complaint. Past medical history is significant for hypertension, hyperlipidemia, diabetes melitis, coronary artery disease, gout and morbid obesity. PAST SURGICAL HISTORY: Cardiac cath and stenting to LAD. SOCIAL HISTORY: Remote history of smoking, quit back in 1975. Denies any drinking or drug use. FAMILY HISTORY: Father had history of cancer. Mother had history of renal disease. Allergy to CEPHALEXIN, which he described to be more of a itching and feeling nauseous. Medications include the patient will be continued on Tylenol, [place], aspirin, Lipitor, aztreonam 1 gram q.12. He is on Lovenox, vitamin D2, hydralazine, vancomycin, pharmacy to dose, Lyrica, Narcan. On examination, blood pressure is 112/64 with a pulse of 81, temperature 97 .3 and T-max is 100.6. He is 96% on 4 L nasal cannula. General description is an elderly male up in the bed in no distress. No tachypnea or accessory muscle of respiration use. HEENT examination shows pallor. No scleral icterus. Oral mucous membranes dry. NECK: Trachea is central. No thyromegaly. LUNGS: Unlabored breathing. Clear to auscultation anteriorly with crackles. HEART: S1, S2. Regular rate and rhythm. ABDOMEN: Soft, no tenderness. Right medial foot area with a large blister with purulent material, surrounding redness, warm to touch. Left leg anterior leg with superficial wound. Some dry necrotic skin area. NEUROLOGICAL: The patient is awake, alert, oriented x3. Mood and affect normal. LABS: Hemoglobin is 10.8, white count 7.4 with a BUN of 71, creatinine is 4.05. On admission, creatinine was 1.80. Random vanco was 17. Wound culture with presumptive staph aureus and Streptococcus agalactiae. Blood culture with presumptive staph aureus. DIAGNOSTIC IMPRESSION AND PLAN: 1. Patient with infected right foot blister with likely underlying abscess and secondary cellulitis. Right leg now with secondary bacteremia with a culture positive for Staphylococcus aureus and Streptococcus agalactiae in a patient who did have worsening of his kidney function and high risk of nephrotoxicity from continued use of vancomycin. 2. Patient with history of CEPHALEXIN allergy that will limit a number of antibiotics that would be safe to use. PLAN: 1. Discontinue vancomycin as well as the Azactam. 2. We will start the patient on daptomycin to cover for the Staphylococcus aureus bacteremia and clindamycin that should provide coverage for Streptococcus agalactiae as well as staph aureus. 3. The patient needs surgical debridement of the blister, which needs to be surgically debrided for which Vascular Surgery has consulted. 4. Will follow up on the clinical condition and cultures to further adjust medications if needed. Thank you for this consultation. Will follow this patient along with you. RUTHY
[2017-03-05] MEDS: PANTOPRAZOLE 40 MG TABLET PO SCH (07:10)
[2017-03-05 07:50] LABS: Calcium 7.5 mg/dL (8.4-10.2); Potassium 4.8 mmol/L (3.5-5.1); Total Bilirubin 0.6 mg/dL (0.2-1.3)
[2017-03-05] MEDS ORDERED: ENOXAPARIN 30 MG/0.3 ML SYRINGE SQ SCH (09:00)
--- NOTE | 2017-03-05 09:39 | P.NPCON ---
History of Present Illness - Reason for Consult acute renal failure - History of Present Illness Reason for consultation: Acute kidney injury History of present illness: Patient is a 71-year-old male seen in renal consultation for acute kidney injury on chronic kidney disease. Patient appears to have chronic kidney disease stage III with baseline creatinine in the range of 1.6-1.7 secondary to diabetic kidney disease. His urinalysis from 2016 revealed 1+ proteinuria without any hematuria. Patient does not follow with a key holder as an outpatient. His creatinine this admission was 1.8 and is progressively getting worse. It is up to 4.17 today. His urine output is also been low and he's only made 50 mL overnight. He does have a Villas[place]or catheter in place. Patient presented to the hospital with lower extremity weeping wounds. He did undergo debridement of the right foot with excision of the leaking blister as well as debridement of the left big toe on March 04. There is no evidence of hydronephrosis. Additionally he was receiving diuretics when he initially came to the hospital but is now maintained on IV fluids. He is noted to have staph aureus bacteremia and his wound cultures are positive for staph aureus as well as strep agalactiae group B. He was initially on IV vancomycin but is now maintained on IV clindamycin as well as daptomycin. Vancomycin level at its highest was 20.2 from this morning. He denies chest pain or shortness of breath. Hemodynamically stable. Denies use of NSAIDs. No family history of renal disease. He does have a long-standing history of insulin-dependent diabetes mellitus. Vital signs are stable. General: The patient appeared well nourished and normally developed. HEENT: Head exam is unremarkable. Neck is without jugular venous distension. LUNGS: Lungs are clear to auscultation and percussion. Breath sounds decreased. HEART: Rate and Rhythm are regular. First and second heart sounds normal. No murmurs, rubs or gallops. ABDOMEN: Abdominal exam reveals normal bowel sounds. Non-tender and non- distended. No evidence of peritonitis. EXTREMITITES: 1+ edema. Wounds wrapped with no obvious drainage. Past Medical History Past Medical History: Chest Pain / Angina, Diabetes Mellitus, Hyperlipidemia, Hypertension, Myocardial Infarction ([place]) Additional Past Medical History / Comment(s): Coronary artery disease and the patient had an acute anterior wall myocardial infarction 2009 requiring emergent cardiac catheterization and stenting and since then he has not seen his dinker, obesity, hyperlipidemia, hypertension, loud snoring, chronic lower oximetry edema, chronic hypersomnia, gout Last Myocardial Infarction Date:: unk History of Any Multi-Drug Resistant Organisms: None Reported Past Surgical History: Heart Catheterization With Stent Additional Past Surgical History / Comment(s): Cardiac catheterization and stenting of the LAD Past Anesthesia/Blood Transfusion Reactions: No Reported Reaction Date of Last Stent Placement:: unk date Past Psychological History: No Psychological Hx Reported Smoking Status: Former smoker Past Alcohol Use History: None Reported Additional Past Alcohol Use History / Comment(s): started smoking at age 22(1967 ), quit by 1975 Past Drug Use History: None Reported - Past Family History Father Family Medical History: Cancer Mother Family Medical History: Renal Disease Medications and Allergies Home Medications Medication Instructions Recorded Confirmed Type Allopurinol [Zyloprim] 300 mg PO DAILY 08/23/16 03/01/17 History Aspirin EC [Ecotrin Low Dose] 81 mg PO DAILY 08/23/16 03/01/17 History Atorvastatin [Lipitor] 40 mg PO DAILY 08/23/16 03/01/17 History Ergocalciferol [Vitamin D2 50,000 unit PO HALL 08/23/16 03/01/17 History (DRISDOL)] Insulin Aspart [NovoLOG] 20 units SQ AC-TID 08/23/16 03/01/17 History Insulin Glargine [Lantus] 60 units SQ HS 08/23/16 03/01/17 History Omeprazole 20 mg PO DAILY 08/23/16 03/01/17 History glipiZIDE [Glucotrol] 10 mg PO AC-BID 08/23/16 03/01/17 History Pregabalin [Lyrica] 25 mg PO TID 03/01/17 03/01/17 History Allergies Allergy/AdvReac Type Severity Reaction Status Date / Time cephalexin [From Keflex] Allergy Unknown Verified 03/02/17 02:01 Physical Exam Vitals: Vital Signs Temp Pulse Resp BP Pulse Ox 03/05/17 08:34 96 03/05/17 08:00 97.3 F L 78 16 108/52 96 03/05/17 07:52 78 16 03/05/17 04:00 98.0 F 72 18 124/80 97 03/05/17 00:00 98.6 F 80 20 133/60 94 L 03/04/17 23:00 98.6 F 80 20 133/60 94 L 03/04/17 20:00 97.3 F L 81 18 112/64 96 03/04/17 16:00 73 18 103/53 98 03/04/17 12:00 66 18 100/52 98 Intake and Output 03/04/17 03/05/17 03/05/17 22:59 06:59 14:59 Intake Total 120 1350 390 Output Total 800 200 50 Balance -680 1150 340 Intake: Intake, IV Titration 1350 Amount Aztreonam 1 gm In Sodium 50 Chloride 0.9% 50 ml @ 100 mls/hr IVPB Q12HR BILLY Rx #:[id number] Clindamycin 900 mg In 50 Dextrose 5% in Water 50 ml @ 100 mls/hr IVPB Q8HR BILLY Rx#:[id number] DAPTOmycin 700 mg In 50 Sodium Chloride 0.9% 50 ml @ 100 mls/hr IV Q48H BILLY Rx#:[id number] Dextrose 5% in Water 1, 1200 000 ml @ 100 mls/hr IV . [id number] BILLY with Sodium Bicarb (1 Meq/ml) 150 ml Rx#:[id number] Oral 120 390 Output: Urine 800 200 50 Other: Voiding Method Toilet Toilet Indwelling Catheter # Voids 1 1 Weight 118.5 kg 126 kg 126 kg Patient Weight 03/06/17 06:59 Weight 126 kg Results - Lab Results Most recent lab results ABG pH 7.31 (7.35-7.45) L 03/03/17 15:20 ABG pCO2 37 mmHg (35-45) 03/03/17 15:20 ABG pO2 100 mmHg (83-108) 03/03/17 15:20 ABG HCO3 18 mmol/L (21-25) L 03/03/17 15:20 ABG O2 Saturation 97.2 % (94-97) H 03/03/17 15:20 Calcium 7.5 mg/dL (8.4-10.2) L 03/05/17 06:23 03/05/17 06:23 03/05/17 06:23 Assessment and Plan Plan: Assessment: #1. Oliguric acute kidney injury secondary to ATN secondary to severe sepsis. Creatinine up to 4.17 today. No evidence of hydronephrosis. #2. Chronic kidney disease stage III secondary to diabetic kidney disease with baseline creatinine near 1.6-1.7. #3. Severe sepsis secondary to staph aureus bacteremia as well as lower extremity cellulitis. #4. Metabolic acidosis secondary to acute kidney injury. #5. Insulin-dependent diabetes mellitus. #6. Hypertension with chronic kidney disease. Controlled. Plan: Continue with isotonic sodium bicarbonate drip to be run at 100 mL an hour. Check urinalysis as well as urine eosinophils. Avoid nephrotoxic agents and hypotensive episodes. Antibiotics per infectious disease recommendations. Repeat electrolytes in the morning. At this time the patient states he does not want renal replacement therapy. Will continue to discuss with him on a day-to-day basis. Thank you for the consultation. I will continue to follow the patient with you during his hospital stay.
[2017-03-05] MEDS ORDERED: VANCOMYCIN 1,750 MG in SODIUM CHLORIDE 0.9% 250 ML IVPB SCH (10:00)
[2017-03-05] MEDS: ASPIRIN 81 MG CHEW PO SCH (11:08)
[2017-03-05 11:21] LABS: Glucose,Whole Blood 224 mg/dL (75-99)
[2017-03-05 11:50] LABS: Appearance,Urine Cloudy (Clear); Bacteria,Urine Rare /hpf; Bilirubin,Urine Negative (Negative); Glucose,Urine (UA) Negative (Negative); Ketones,Urine Negative (Negative); Leukocyte Esterase,Urine Moderate (Negative); Mucus,Urine Rare /hpf; Nitrite,Urine Negative (Negative); Particle Count 21094; Protein,Urine 1+ (Negative); RBC,Urine 50 /hpf (0-5); Specific Gravity,Urine 1.014 (1.001-1.035); Squamous Epithelial Cell,Urine <1 /hpf (0-4); UA Billing (MACRO vs. MICRO) MICRO; WBC,Urine 17 /hpf (0-5)
[2017-03-05] MEDS: traMADol 50 MG TAB PO PRN (12:41)
--- NOTE | 2017-03-05 15:49 | P.PN ---
Subjective This is a 71-year-old gentleman comes into the hospital with progressive worsening of lower extremity swelling and tenderness over the last 3-4 days. Patient states that he's had chronic changes in his lower extremities for a long period of time. His primary care physician has recommended him to follow up with a subspecialist however patient has not done that yet Patient stated that he's had intermittent chills over the last few days. Pain has been progressively getting worse hence came to the hospital for ongoing care. Patient denies having any recent trauma. Patient states that he's had some blisters on his left lower extremity and noted the symptoms after the blister has popped. No significant tenderness is reported at this time Blood cultures were sent Patient is started on IV vancomycin at this time Patient denies having any history of having heart failure or renal problems He was told that his lower extremity edema are secondary to lymphedema No headaches blurry vision nausea vomiting chest pain difficulty breathing urinary urgency frequency or diarrhea is reported 03/03 today Rapid response was initiated due to pt's AMS had a fever 102.8 Multiple doses of narcan were given which showed some improvement Pt however worsened ABG was done, appear appropriate with metabolic acidosis with appropriate respiratory compensation multiple new blisters were noted in the lower ext. 03/04 on 4 l o2 states to have pain in his lower ext there was concern over 3rd degree heart block overnight no fevers at this time urine output has been suboptimal 03/05/17 today pt complaints of pain in his penis since the insertion of gongora states his lower extremity pain is improved No fevers, chills, nausea, vomiting reported Urine output has been 400cc over the last 16 hrs Objective - Vital Signs Vital signs: Vital Signs Temp 97.0 F L 03/05/17 11:25 Pulse 65 03/05/17 11:25 Resp 20 03/05/17 11:25 BP 110/53 03/05/17 11:25 Pulse Ox 97 03/05/17 11:25 Intake & Output 03/04/17 03/05/17 03/05/17 18:59 06:59 18:59 Intake Total 890 1350 1040 Output Total 1000 100 Balance 890 350 940 Weight 118.5 kg 126 kg 126 kg Intake: Intake, IV Titration 50 1350 50 Amount Aztreonam 1 gm In Sodium 50 Chloride 0.9% 50 ml @ 100 mls/hr IVPB Q12HR [facility] Rx #:[id number] Aztreonam 1 gm In Sodium 50 Chloride 0.9% 50 ml @ 100 mls/hr IVPB Q8HR [facility] Rx# :[id number] Clindamycin 900 mg In 50 50 Dextrose 5% in Water 50 ml @ 100 mls/hr IVPB Q8HR [facility] Rx#:[id number] DAPTOmycin 700 mg In 50 Sodium Chloride 0.9% 50 ml @ 100 mls/hr IV Q48H [facility] Rx#:[id number] Dextrose 5% in Water 1, 1200 000 ml @ 100 mls/hr IV . [id number] [facility] with Sodium Bicarb (1 Meq/ml) 150 ml Rx#:[id number] Oral 840 990 Output: Urine 1000 100 Other: Voiding Method Toilet Toilet Indwelling Catheter # Voids 2 1 1 - Constitutional General appearance: Present: mild distress, obese - EENT Eyes: Present: EOMI - Respiratory Respiratory: bilateral: CTA, dullness, negative: diminished, rales, rhonchi, wheezing - Cardiovascular Rhythm: regular Heart sounds: normal: S1, S2 Abnormal Heart Sounds: Absent: systolic murmur - Gastrointestinal General gastrointestinal: Present: normal bowel sounds, soft. Absent: organomegaly - Integumentary Integumentary: Present: cellulitis (bilateral lower extremities, with multiple areas of blisters worse on the left tibial surface and right lower extremity s/ p debridement) - Neurologic Neurologic: Present: CNII-XII intact. Absent: focal deficits - Psychiatric Psychiatric: Present: A&O x's 3 - Labs CBC & Chem 7: 03/05/17 06:23 03/05/17 06:23 Labs: Abnormal Lab Results - Last 24 Hours (Table) 03/04/17 03/04/17 03/05/17 Range/Units 16:25 20:50 06:20 RBC (4.30-5.90) m/uL Hgb (13.0-17.5) gm/dL Hct (39.0-53.0) % RDW (11.5-15.5) % Plt Count (150-450) k/uL Lymphocytes # (1.0-4.8) k/uL Carbon Dioxide (22-30) mmol/L BUN (9-20) mg/dL Creatinine (0.66-1.25) mg/dL Glucose (74-99) mg/dL POC Glucose (mg/dL) 231 H 191 H 226 H (75-99) mg/dL Calcium (8.4-10.2) mg/dL Alkaline Phosphatase (38-126) U/L Total Protein (6.3-8.2) g/dL Albumin (3.5-5.0) g/dL Urine Protein (Negative) Urine Blood (Negative) Ur Leukocyte Esterase (Negative) Urine RBC (0-5) /hpf Urine WBC (0-5) /hpf Urine Bacteria (None) /hpf Hyaline Casts (0-2) /lpf Urine Mucus (None) /hpf Urine Yeast (Budding) (None) /hpf 03/05/17 03/05/17 03/05/17 Range/Units 06:23 06:23 11:15 RBC 3.86 L (4.30-5.90) m/uL Hgb 10.8 L (13.0-17.5) gm/dL Hct 34.0 L (39.0-53.0) % RDW 15.7 H (11.5-15.5) % Plt Count 127 L (150-450) k/uL Lymphocytes # 0.8 L (1.0-4.8) k/uL Carbon Dioxide 17 L (22-30) mmol/L BUN 90 H* (9-20) mg/dL Creatinine 4.17 H (0.66-1.25) mg/dL Glucose 218 H (74-99) mg/dL POC Glucose (mg/dL) (75-99) mg/dL Calcium 7.5 L (8.4-10.2) mg/dL Alkaline Phosphatase 133 H (38-126) U/L Total Protein 6.0 L (6.3-8.2) g/dL Albumin 2.5 L (3.5-5.0) g/dL Urine Protein 1+ H (Negative) Urine Blood Moderate H (Negative) Ur Leukocyte Esterase Moderate H (Negative) Urine RBC 50 H (0-5) /hpf Urine WBC 17 H (0-5) /hpf Urine Bacteria Rare H (None) /hpf Hyaline Casts 3 H (0-2) /lpf Urine Mucus Rare H (None) /hpf Urine Yeast (Budding) Few H (None) /hpf 03/05/17 Range/Units 11:19 RBC (4.30-5.90) m/uL Hgb (13.0-17.5) gm/dL Hct (39.0-53.0) % RDW (11.5-15.5) % Plt Count (150-450) k/uL Lymphocytes # (1.0-4.8) k/uL Carbon Dioxide (22-30) mmol/L BUN (9-20) mg/dL Creatinine (0.66-1.25) mg/dL Glucose (74-99) mg/dL POC Glucose (mg/dL) 224 H (75-99) mg/dL Calcium (8.4-10.2) mg/dL Alkaline Phosphatase (38-126) U/L Total Protein (6.3-8.2) g/dL Albumin (3.5-5.0) g/dL Urine Protein (Negative) Urine Blood (Negative) Ur Leukocyte Esterase (Negative) Urine RBC (0-5) /hpf Urine WBC (0-5) /hpf Urine Bacteria (None) /hpf Hyaline Casts (0-2) /lpf Urine Mucus (None) /hpf Urine Yeast (Budding) (None) /hpf Microbiology - Last 24 Hours (Table) 03/04/17 11:57 Blood Culture - Preliminary Blood No Growth after 24 hours 03/04/17 13:08 Gram Stain - Preliminary Foot - Right Tissue Culture - Preliminary 03/02/17 00:43 Gram Stain - Preliminary Leg - Left Wound Culture - Preliminary Presumptive Staph aureus Strep agalactiae - (group b) Strep agalactiae - (group b)#2 03/01/17 23:50 Blood Culture - Final Blood Assessment and Plan Plan: #1 sepsis sec to cellulitis with bacteremia #2 micrognathia #3 history of a second-degree heart block #4 hypertension. #5 obesity. #6 diabetes mellitus type II #7 chronic lymphedema #8 dyslipidemia #9 gout #10. Clinical CLAYTON MADELAINE, with oliguric ATN due to diuretics and sepsis plan Await blood cultures. strict I/O Sodium bicarb 150meq isotonic solution 100c/hr moniter urine output Antibiotics were changed to daptomycin and clindamycin wound care critcally ill. May need HD if pt's renal function does not improve. Dvt prophylaxis
--- NOTE | 2017-03-05 16:14 | P.CRDCN ---
<Laurie Schafer E - Last Filed: 03/05/17 16:03> History of Present Illness Consult date: 03/05/17 Requesting physician: Aicha Joe Consult reason: hypertension Chief complaint: Cellulitis History of present illness: This is a 71-year-old gentleman comes into the hospital with progressive worsening of lower extremity swelling and tenderness over the last 3-4 days. Patient states that he's had chronic changes in his lower extremities for a long period of time. His primary care physician has recommended him to follow up with a subspecialist however patient has not done that yet.Patient stated that he's had intermittent chills over the last few days. Pain has been progressively getting worse hence came to the hospital for ongoing care. Patient denies having any recent trauma.Patient states that he's had some blisters on his left lower extremity and noted the symptoms after the blister has popped. No significant tenderness is reported at this time. Does have a history of chronic kidney disease. Also has history of diabetes, hypertension, hyperlipidemia, prior myocardial infarction and stent placements. Pressure on arrival here 228/89. A cardiogram with Doppler study remains pending. Patient did have acute mental status changes with associated fever of 102.8. Multiple doses of Narcan were given which did show some improvement in the patient. This occurred on the . Today the patient is more alert. Pressure 110/50 with a heart rate in the 60s. Past Medical History Past Medical History: Chest Pain / Angina, Diabetes Mellitus, Hyperlipidemia, Hypertension, Myocardial Infarction ([place]) Additional Past Medical History / Comment(s): Coronary artery disease and the patient had an acute anterior wall myocardial infarction 2009 requiring emergent cardiac catheterization and stenting and since then he has not seen his psychiatric social worker supervisor, obesity, hyperlipidemia, hypertension, loud snoring, chronic lower oximetry edema, chronic hypersomnia, gout Last Myocardial Infarction Date:: unk History of Any Multi-Drug Resistant Organisms: None Reported Past Surgical History: Heart Catheterization With Stent Additional Past Surgical History / Comment(s): Cardiac catheterization and stenting of the LAD Past Anesthesia/Blood Transfusion Reactions: No Reported Reaction Date of Last Stent Placement:: unk date Past Psychological History: No Psychological Hx Reported Smoking Status: Former smoker Past Alcohol Use History: None Reported Additional Past Alcohol Use History / Comment(s): started smoking at age 22(1967 ), quit by 1975 Past Drug Use History: None Reported - Past Family History Father Family Medical History: Cancer Mother Family Medical History: Renal Disease Medications and Allergies Home Medications Medication Instructions Recorded Confirmed Type Allopurinol [Zyloprim] 300 mg PO DAILY 08/23/16 03/01/17 History Aspirin EC [Ecotrin Low Dose] 81 mg PO DAILY 08/23/16 03/01/17 History Atorvastatin [Lipitor] 40 mg PO DAILY 08/23/16 03/01/17 History Ergocalciferol [Vitamin D2 50,000 unit PO HALL 08/23/16 03/01/17 History (DRISDOL)] Insulin Aspart [NovoLOG] 20 units SQ AC-TID 08/23/16 03/01/17 History Insulin Glargine [Lantus] 60 units SQ HS 08/23/16 03/01/17 History Omeprazole 20 mg PO DAILY 08/23/16 03/01/17 History glipiZIDE [Glucotrol] 10 mg PO AC-BID 08/23/16 03/01/17 History Pregabalin [Lyrica] 25 mg PO TID 03/01/17 03/01/17 History Allergies Allergy/AdvReac Type Severity Reaction Status Date / Time cephalexin [From Keflex] Allergy Unknown Verified 03/02/17 02:01 Physical Exam Vitals: Vital Signs Temp Pulse Resp BP Pulse Ox 03/05/17 11:25 97.0 F L 65 20 110/53 97 03/05/17 08:34 96 03/05/17 08:00 97.3 F L 78 16 108/52 96 03/05/17 07:52 78 16 03/05/17 04:00 98.0 F 72 18 124/80 97 03/05/17 00:00 98.6 F 80 20 133/60 94 L 03/04/17 23:00 98.6 F 80 20 133/60 94 L 03/04/17 20:00 97.3 F L 81 18 112/64 96 Intake and Output 03/05/17 03/05/17 03/05/17 06:59 14:59 22:59 Intake Total 1350 1040 Output Total 200 100 Balance 1150 940 Intake: Intake, IV Titration 1350 50 Amount Aztreonam 1 gm In Sodium 50 Chloride 0.9% 50 ml @ 100 mls/hr IVPB Q12HR [facility] Rx #:[id number] Clindamycin 900 mg In 50 50 Dextrose 5% in Water 50 ml @ 100 mls/hr IVPB Q8HR [facility] Rx#:[id number] DAPTOmycin 700 mg In 50 Sodium Chloride 0.9% 50 ml @ 100 mls/hr IV Q48H [facility] Rx#:[id number] Dextrose 5% in Water 1, 1200 000 ml @ 100 mls/hr IV . [id number] [facility] with Sodium Bicarb (1 Meq/ml) 150 ml Rx#:[id number] Oral 990 Output: Urine 200 100 Other: Voiding Method Toilet Indwelling Catheter # Voids 1 1 Weight 126 kg 126 kg Patient Weight 03/06/17 06:59 Weight 126 kg PHYSICAL EXAMINATION: HEENT: Head is atraumatic, normocephalic. Pupils equal, round. Neck is supple. There is no elevated jugular venous pressure. HEART EXAMINATION: S1 and S2 with systolic murmur is heard. CHEST EXAMINATION: Lungs reveal diminished air entry to bilateral bases with wheezing bilaterally. ABDOMEN: Soft, nontender. Bowel sounds are heard. No organomegaly noted. EXTREMITIES: 2+ peripheral pulses with no evidence of peripheral edema and no calf tenderness noted. NEUROLOGIC pulses with evidence of bilateral cellulitis and multiple areas of blisters. . Results 03/05/17 06:23 03/05/17 06:23 Cardiac Enzymes 03/05/17 Range/Units 06:23 AST 37 (17-59) U/L CBC 03/05/17 Range/Units 06:23 WBC 7.4 (3.8-10.6) k/uL RBC 3.86 L (4.30-5.90) m/uL Hgb 10.8 L (13.0-17.5) gm/dL Hct 34.0 L (39.0-53.0) % Plt Count 127 L (150-450) k/uL Comprehensive Metabolic Panel 03/05/17 Range/Units 06:23 Sodium 137 (137-145) mmol/L Potassium 4.8 (3.5-5.1) mmol/L Chloride 107 (98-107) mmol/L Carbon Dioxide 17 L (22-30) mmol/L BUN 90 H* (9-20) mg/dL Creatinine 4.17 H (0.66-1.25) mg/dL Glucose 218 H (74-99) mg/dL Calcium 7.5 L (8.4-10.2) mg/dL AST 37 (17-59) U/L ALT 33 (21-72) U/L Alkaline Phosphatase 133 H (38-126) U/L Total Protein 6.0 L (6.3-8.2) g/dL Albumin 2.5 L (3.5-5.0) g/dL Current Medications Generic Name Dose Route Start Last Admin Trade Name Freq PRN Reason Stop Dose Admin Acetaminophen 650 mg 03/02/17 00:42 03/04/17 14:28 Tylenol Tab PO 650 mg Q6HR PRN Administration Mild Pain or Fever > 100.5 Aspirin 81 mg 03/02/17 09:00 03/05/17 11:08 Aspirin PO 81 mg DAILY [facility] Administration Ergocalciferol 50,000 unit 03/03/17 09:00 03/03/17 08:37 Vitamin D2 PO 50,000 unit Hall@0900 [facility] Administration Heparin Sodium (Porcine) 5,000 unit 03/05/17 16:00 Heparin SQ Q8HR [facility] Hydralazine HCl 25 mg 03/02/17 09:00 03/05/17 11:08 Apresoline PO 25 mg TID [facility] Administration Sodium Bicarbonate 150 ml/ 1,150 mls @ 100 mls/hr 03/04/17 19:00 03/05/17 12: 40 Dextrose/Water IV 100 mls/hr .[id number] [facility] Administration Clindamycin Phosphate 900 mg/ 56 mls @ 100 mls/hr 03/05/17 00:00 03/05/17 08: 19 Dextrose/Water IVPB 100 mls/hr Q8HR [facility] Administration Daptomycin 700 mg/ Sodium 50 mls @ 100 mls/hr 03/04/17 23:00 03/05/17 01:19 Chloride IV 100 mls/hr Q48H [facility] Administration Insulin Human Lispro 0 unit 03/02/17 07:30 03/05/17 12:44 Humalog SQ 4 unit ACHS [facility] Administration Protocol Naloxone HCl 0.2 mg 03/02/17 00:42 03/03/17 15:03 Narcan IV 0.2 mg Q2M PRN Administration Opioid Reversal Pantoprazole Sodium 40 mg 03/02/17 07:30 03/05/17 07:10 Protonix PO 40 mg AC-BRKFST [facility] Administration Pregabalin 25 mg 03/02/17 09:00 03/05/17 11:08 Lyrica PO 25 mg TID [facility] Administration Tramadol HCl 50 mg 03/05/17 11:31 03/05/17 12:41 Ultram PO 50 mg TID PRN Administration MODERATE Pain Intake and Output 03/05/17 03/05/17 03/05/17 06:59 14:59 22:59 Intake Total 1350 1040 Output Total 200 100 Balance 1150 940 Intake: Intake, IV Titration 1350 50 Amount Aztreonam 1 gm In Sodium 50 Chloride 0.9% 50 ml @ 100 mls/hr IVPB Q12HR [facility] Rx #:[id number] Clindamycin 900 mg In 50 50 Dextrose 5% in Water 50 ml @ 100 mls/hr IVPB Q8HR [facility] Rx#:[id number] DAPTOmycin 700 mg In 50 Sodium Chloride 0.9% 50 ml @ 100 mls/hr IV Q48H [facility] Rx#:[id number] Dextrose 5% in Water 1, 1200 000 ml @ 100 mls/hr IV . [id number] [facility] with Sodium Bicarb (1 Meq/ml) 150 ml Rx#:[id number] Oral 990 Output: Urine 200 100 Other: Voiding Method Toilet Indwelling Catheter # Voids 1 1 Weight 126 kg 126 kg Patient Weight 03/06/17 06:59 Weight 126 kg 03/05/17 06:23 03/05/17 06:23 EKG Interpretations (text) EKG shows normal sinus rhythm with first-degree AV block and right bundle branch block pattern intermittent second-degree AV block. Assessment and Plan (1) Sepsis Status: Acute (2) Second degree heart block Status: Acute (3) HTN (hypertension) Status: Acute (4) Obesity Status: Acute (5) Diabetes Status: Acute (6) Lymphedema Status: Acute (7) Hyperlipemia Status: Acute (8) Gout Status: Acute (9) HTN (hypertension) Status: Acute Plan: Cardiology's perspective we will review the patient's echocardiogram with Doppler study, continue current medications. DNP note has been reviewed, I agree with a documented findings and plan of care. Patient was seen and examined. <Luís Quezada - Last Filed: 03/05/17 17:47> Physical Exam Vitals: Vital Signs Temp Pulse Resp BP Pulse Ox 03/05/17 16:00 76 20 134/60 97 03/05/17 11:25 97.0 F L 65 20 110/53 97 03/05/17 08:34 96 03/05/17 08:00 97.3 F L 78 16 108/52 96 03/05/17 07:52 78 16 03/05/17 04:00 98.0 F 72 18 124/80 97 03/05/17 00:00 98.6 F 80 20 133/60 94 L 03/04/17 23:00 98.6 F 80 20 133/60 94 L 03/04/17 20:00 97.3 F L 81 18 112/64 96 Intake and Output 03/05/17 03/05/17 03/05/17 06:59 14:59 22:59 Intake Total 1350 1040 Output Total 200 100 Balance 1150 940 Intake: Intake, IV Titration 1350 50 Amount Aztreonam 1 gm In Sodium 50 Chloride 0.9% 50 ml @ 100 mls/hr IVPB Q12HR [facility] Rx #:[id number] Clindamycin 900 mg In 50 50 Dextrose 5% in Water 50 ml @ 100 mls/hr IVPB Q8HR [facility] Rx#:[id number] DAPTOmycin 700 mg In 50 Sodium Chloride 0.9% 50 ml @ 100 mls/hr IV Q48H [facility] Rx#:[id number] Dextrose 5% in Water 1, 1200 000 ml @ 100 mls/hr IV . [id number] [facility] with Sodium Bicarb (1 Meq/ml) 150 ml Rx#:[id number] Oral 990 Output: Urine 200 100 Other: Voiding Method Toilet Indwelling Catheter # Voids 1 1 Weight 126 kg 126 kg Patient Weight 03/06/17 06:59 Weight 126 kg Results 03/05/17 06:23 03/05/17 06:23 Cardiac Enzymes 03/05/17 Range/Units 06:23 AST 37 (17-59) U/L CBC 03/05/17 Range/Units 06:23 WBC 7.4 (3.8-10.6) k/uL RBC 3.86 L (4.30-5.90) m/uL Hgb 10.8 L (13.0-17.5) gm/dL Hct 34.0 L (39.0-53.0) % Plt Count 127 L (150-450) k/uL Comprehensive Metabolic Panel 03/05/17 Range/Units 06:23 Sodium 137 (137-145) mmol/L Potassium 4.8 (3.5-5.1) mmol/L Chloride 107 (98-107) mmol/L Carbon Dioxide 17 L (22-30) mmol/L BUN 90 H* (9-20) mg/dL Creatinine 4.17 H (0.66-1.25) mg/dL Glucose 218 H (74-99) mg/dL Calcium 7.5 L (8.4-10.2) mg/dL AST 37 (17-59) U/L ALT 33 (21-72) U/L Alkaline Phosphatase 133 H (38-126) U/L Total Protein 6.0 L (6.3-8.2) g/dL Albumin 2.5 L (3.5-5.0) g/dL Current Medications Generic Name Dose Route Start Last Admin Trade Name Freq PRN Reason Stop Dose Admin Acetaminophen 650 mg 03/02/17 00:42 03/04/17 14:28 Tylenol Tab PO 650 mg Q6HR PRN Administration Mild Pain or Fever > 100.5 Aspirin 81 mg 03/02/17 09:00 03/05/17 11:08 Aspirin PO 81 mg DAILY [facility] Administration Ergocalciferol 50,000 unit 03/03/17 09:00 03/03/17 08:37 Vitamin D2 PO 50,000 unit Hall@0900 [facility] Administration Heparin Sodium (Porcine) 5,000 unit 03/05/17 16:00 Heparin SQ Q8HR [facility] Hydralazine HCl 25 mg 03/02/17 09:00 03/05/17 11:08 Apresoline PO 25 mg TID [facility] Administration Sodium Bicarbonate 150 ml/ 1,150 mls @ 100 mls/hr 03/04/17 19:00 03/05/17 12: 40 Dextrose/Water IV 100 mls/hr .[id number] [facility] Administration Clindamycin Phosphate 900 mg/ 56 mls @ 100 mls/hr 03/05/17 00:00 03/05/17 08: 19 Dextrose/Water IVPB 100 mls/hr Q8HR [facility] Administration Daptomycin 700 mg/ Sodium 50 mls @ 100 mls/hr 03/04/17 23:00 03/05/17 01:19 Chloride IV 100 mls/hr Q48H [facility] Administration Insulin Human Lispro 0 unit 03/02/17 07:30 03/05/17 12:44 Humalog SQ 4 unit ACHS [facility] Administration Protocol Naloxone HCl 0.2 mg 03/02/17 00:42 03/03/17 15:03 Narcan IV 0.2 mg Q2M PRN Administration Opioid Reversal Pantoprazole Sodium 40 mg 03/02/17 07:30 03/05/17 07:10 Protonix PO 40 mg AC-BRKFST [facility] Administration Pregabalin 25 mg 03/02/17 09:00 03/05/17 11:08 Lyrica PO 25 mg TID [facility] Administration Tramadol HCl 50 mg 03/05/17 11:31 03/05/17 12:41 Ultram PO 50 mg TID PRN Administration MODERATE Pain Intake and Output 03/05/17 03/05/17 03/05/17 06:59 14:59 22:59 Intake Total 1350 1040 Output Total 200 100 Balance 1150 940 Intake: Intake, IV Titration 1350 50 Amount Aztreonam 1 gm In Sodium 50 Chloride 0.9% 50 ml @ 100 mls/hr IVPB Q12HR [facility] Rx #:[id number] Clindamycin 900 mg In 50 50 Dextrose 5% in Water 50 ml @ 100 mls/hr IVPB Q8HR [facility] Rx#:[id number] DAPTOmycin 700 mg In 50 Sodium Chloride 0.9% 50 ml @ 100 mls/hr IV Q48H [facility] Rx#:[id number] Dextrose 5% in Water 1, 1200 000 ml @ 100 mls/hr IV . [id number] [facility] with Sodium Bicarb (1 Meq/ml) 150 ml Rx#:[id number] Oral 990 Output: Urine 200 100 Other: Voiding Method Toilet Indwelling Catheter # Voids 1 1 Weight 126 kg 126 kg Patient Weight 03/06/17 06:59 Weight 126 kg 03/05/17 06:23 03/05/17 06:23
[2017-03-05 16:22] LABS: Glucose,Whole Blood 252 mg/dL (75-99)
[2017-03-05 18:50] LABS: ABG HCO3 21 mmol/L (21-25); ABG PCO2 44 mmHg (35-45); ABG PO2 171 mmHg (83-108); ABG TCO2 23 mmol/L (19-24)
[2017-03-05] MEDS ORDERED: SODIUM CHLORIDE 0.9% 1,000 ML IV ONE (19:35)
[2017-03-05 20:35] LABS: Glucose,Whole Blood 245 mg/dL (75-99)
[2017-03-06 05:48] LABS: Glucose,Whole Blood 252 mg/dL (75-99)
[2017-03-06 06:42] LABS: Basophils % (A) 0 %; CH 28.1; CHCM 31.3; Eosinophils # (A) 0.1 k/uL (0-0.7); Eosinophils % (A) 1 %; HCT 33.2 % (39.0-53.0); HDW 2.81; HGB 10.5 gm/dL (13.0-17.5); Hypochromasia Slight; Luc # (Auto) 0.15; Luc % (Auto) 2; Lymphocytes # (A) 0.8 k/uL (1.0-4.8); Lymphocytes % (A) 13 %; MCH 28.5 pg (25.0-35.0); MCHC 31.7 g/dL (31.0-37.0); Mean Platelet Volume 8.3; Monocytes # (A) 0.3 k/uL (0-1.0); Monocytes % (A) 5 %; Neutrophils # (A) 4.8 k/uL (1.3-7.7); Neutrophils % (A) 79 %; RBC 3.69 m/uL (4.30-5.90); RDW 15.9 % (11.5-15.5); WBC 6.1 k/uL (3.8-10.6); WBC (Perox) 6.54
[2017-03-06 07:01] LABS: Calcium 7.3 mg/dL (8.4-10.2); Magnesium 1.7 mg/dL (1.6-2.3); Potassium 4.8 mmol/L (3.5-5.1); Total Bilirubin 0.6 mg/dL (0.2-1.3); Total Protein 5.8 g/dL (6.3-8.2)
[2017-03-06] MEDS: PANTOPRAZOLE 40 MG TABLET PO SCH (07:16)
[2017-03-06] MEDS: INSULIN LISPRO (humaLOG) 300 UNIT/3 ML VIAL SQ SCH ×4 (07:18→21:03)
--- NOTE | 2017-03-06 07:36 | PN ---
DATE OF SERVICE: 03/05/2017 Reason for followup is staph aureus bacteremia and right foot infection. INTERVAL HISTORY: The patient is afebrile. Has been breathing comfortably. Patient denies chest pain, cough, no abdominal pain. Patient complaining of the Villasenor catheter and for the same. Patient denies any worsening pain in the right foot wound area. On examination, blood pressure 93/55 with a pulse of 60, temperature 97. He is 98% on CPAP. General description is an elderly male, up in the chair in no distress. RESPIRATORY SYSTEM: Unlabored breathing with decreased breath sounds at the bases. No wheeze. HEART: S1, S2, regular rate and rhythm. ABDOMEN: Soft, no tenderness. Right foot wound is currently dressed. There was some drainage on the dressing. LABS: Hemoglobin of 10.8, white count of 7.4 and BUN of 90 with a creatinine of 4.17. Blood culture with staph aureus, sensitivities pending. Wound culture with staph aureus and Streptococcus agalactiae. DIAGNOSTIC IMPRESSION AND PLAN: Patient with right foot infection with infected pustule, status post debridement. Culture has been obtained with secondary bacteremia. Patient does have an allergy to cephalexin, is currently on daptomycin. PLAN: Continue local wound care as ordered. Will reevaluate the patient tomorrow. Continue supportive care. RUTHY
[2017-03-06] MEDS ORDERED: FUROSEMIDE 10 MG/ML 10 ML VIAL IV STA (09:02)
--- NOTE | 2017-03-06 09:06 | P.PN ---
Subjective Patient is seen in follow-up for acute kidney injury on chronic kidney disease. Patient has chronic kidney disease stage III secondary to diabetic kidney disease with baseline creatinine near 1.6. Renal function is worsening and creatinine is up to 4.6 today. His urine output overnight was only 100 mL an hour. Patient is currently being treated for staph aureus bacteremia as well as right foot infection for which she underwent debridement this admission. Patient is currently sitting up in chair. Appetite is good. No vomiting or diarrhea. Denies chest pain or shortness of breath. He does have a Villasenor catheter in place. Vital signs are stable. General: The patient appeared well nourished and normally developed. HEENT: Head exam is unremarkable. Neck is without jugular venous distension. LUNGS: Lungs are clear to auscultation and percussion. Breath sounds decreased. HEART: Rate and Rhythm are regular. First and second heart sounds normal. No murmurs, rubs or gallops. ABDOMEN: Abdominal exam reveals normal bowel sounds. Non-tender and non- distended. No evidence of peritonitis. EXTREMITITES: 1+ edema. Wound dressing intact with no obvious drainage. Objective - Vital Signs Vital signs: Vital Signs Temp 96.8 F L 03/06/17 04:00 Pulse 56 L 03/06/17 04:00 Resp 20 03/06/17 04:00 BP 109/66 03/06/17 04:00 Pulse Ox 96 03/06/17 04:00 Intake & Output 03/05/17 03/06/17 03/06/17 18:59 06:59 18:59 Intake Total 1040 660 Output Total 100 100 Balance 940 560 Weight 126 kg 128 kg Intake: Intake, IV Titration 50 Amount Clindamycin 900 mg In 50 Dextrose 5% in Water 50 ml @ 100 mls/hr IVPB Q8HR [facility] Rx#:[id number] Oral 990 660 Output: Urine 100 100 Other: Voiding Method Indwelling Catheter Indwelling Catheter # Voids 1 1 - Labs CBC & Chem 7: 03/06/17 06:13 03/06/17 06:13 Labs: Abnormal Lab Results - Last 24 Hours (Table) 03/05/17 03/05/17 03/05/17 Range/Units 11:15 11:19 16:19 RBC (4.30-5.90) m/uL Hgb (13.0-17.5) gm/dL Hct (39.0-53.0) % RDW (11.5-15.5) % Plt Count (150-450) k/uL Lymphocytes # (1.0-4.8) k/uL ABG pH (7.35-7.45) ABG pO2 (83-108) mmHg ABG O2 Saturation (94-97) % Carbon Dioxide (22-30) mmol/L BUN (9-20) mg/dL Creatinine (0.66-1.25) mg/dL Glucose (74-99) mg/dL POC Glucose (mg/dL) 224 H 252 H (75-99) mg/dL Calcium (8.4-10.2) mg/dL Alkaline Phosphatase (38-126) U/L Total Protein (6.3-8.2) g/dL Albumin (3.5-5.0) g/dL Urine Protein 1+ H (Negative) Urine Blood Moderate H (Negative) Ur Leukocyte Esterase Moderate H (Negative) Urine RBC 50 H (0-5) /hpf Urine WBC 17 H (0-5) /hpf Urine Bacteria Rare H (None) /hpf Hyaline Casts 3 H (0-2) /lpf Urine Mucus Rare H (None) /hpf Urine Yeast (Budding) Few H (None) /hpf 03/05/17 03/05/17 03/06/17 Range/Units 18:45 20:32 05:46 RBC (4.30-5.90) m/uL Hgb (13.0-17.5) gm/dL Hct (39.0-53.0) % RDW (11.5-15.5) % Plt Count (150-450) k/uL Lymphocytes # (1.0-4.8) k/uL ABG pH 7.30 L (7.35-7.45) ABG pO2 171 H (83-108) mmHg ABG O2 Saturation 99.0 H (94-97) % Carbon Dioxide (22-30) mmol/L BUN (9-20) mg/dL Creatinine (0.66-1.25) mg/dL Glucose (74-99) mg/dL POC Glucose (mg/dL) 245 H 252 H (75-99) mg/dL Calcium (8.4-10.2) mg/dL Alkaline Phosphatase (38-126) U/L Total Protein (6.3-8.2) g/dL Albumin (3.5-5.0) g/dL Urine Protein (Negative) Urine Blood (Negative) Ur Leukocyte Esterase (Negative) Urine RBC (0-5) /hpf Urine WBC (0-5) /hpf Urine Bacteria (None) /hpf Hyaline Casts (0-2) /lpf Urine Mucus (None) /hpf Urine Yeast (Budding) (None) /hpf 03/06/17 03/06/17 Range/Units 06:13 06:13 RBC 3.69 L (4.30-5.90) m/uL Hgb 10.5 L (13.0-17.5) gm/dL Hct 33.2 L (39.0-53.0) % RDW 15.9 H (11.5-15.5) % Plt Count 125 L (150-450) k/uL Lymphocytes # 0.8 L (1.0-4.8) k/uL ABG pH (7.35-7.45) ABG pO2 (83-108) mmHg ABG O2 Saturation (94-97) % Carbon Dioxide 17 L (22-30) mmol/L BUN 105 H* (9-20) mg/dL Creatinine 4.62 H (0.66-1.25) mg/dL Glucose 251 H (74-99) mg/dL POC Glucose (mg/dL) (75-99) mg/dL Calcium 7.3 L (8.4-10.2) mg/dL Alkaline Phosphatase 129 H (38-126) U/L Total Protein 5.8 L (6.3-8.2) g/dL Albumin 2.4 L (3.5-5.0) g/dL Urine Protein (Negative) Urine Blood (Negative) Ur Leukocyte Esterase (Negative) Urine RBC (0-5) /hpf Urine WBC (0-5) /hpf Urine Bacteria (None) /hpf Hyaline Casts (0-2) /lpf Urine Mucus (None) /hpf Urine Yeast (Budding) (None) /hpf Microbiology - Last 24 Hours (Table) 03/02/17 00:43 Gram Stain - Final Leg - Left Wound Culture - Preliminary Presumptive Staph aureus Strep agalactiae - (group b) Strep agalactiae - (group b)#2 03/01/17 23:50 Blood Culture Gram Stain - Final Blood Blood Culture - Preliminary Presumptive Staph aureus 03/04/17 11:57 Blood Culture - Preliminary Blood No Growth after 24 hours Assessment and Plan Plan: Assessment: #1. Oliguric acute kidney injury secondary to ATN secondary to severe sepsis. Creatinine up to 4.62 today. No evidence of hydronephrosis. Urine eosinophils negative. #2. Chronic kidney disease stage III secondary to diabetic kidney disease with baseline creatinine near 1.6-1.7. #3. Severe sepsis secondary to staph aureus bacteremia as well as lower extremity cellulitis. #4. Metabolic acidosis secondary to acute kidney injury. #5. Insulin-dependent diabetes mellitus. #6. Hypertension with chronic kidney disease. Controlled. Plan: Continue with isotonic sodium bicarbonate drip to be run at 100 mL an hour. Lasix 100 mg IV once today. Maintain Villasenor catheter. Strict I's and O's. Check serologies including complement levels and Anca titers. Avoid nephrotoxic agents and hypotensive episodes. Antibiotics per infectious disease recommendations. Repeat electrolytes in the morning. I did discuss with the patient the need for renal replacement therapy in view of minimal urine output and worsening renal function. Patient continues to refuse dialysis and states he will continue to think about it.
[2017-03-06] MEDS: CLINDAMYCIN 900 MG in DEXTROSE 5% IN WATER 50 ML IVPB SCH ×8 (09:23→23:53)
[2017-03-06] MEDS: DEXTROSE 5% IN WATER 1,000 ML with SODIUM BICARB (1 MEQ/ML) 150 ML IV SCH ×2 (09:24→17:23)
[2017-03-06] MEDS: PREGABALIN 25 MG CAP PO SCH ×3 (09:42→21:03)
[2017-03-06] MEDS: traMADol 50 MG TAB PO PRN (09:42)
[2017-03-06] MEDS: ASPIRIN 81 MG CHEW PO SCH (09:43)
--- NOTE | 2017-03-06 11:32 | P.CNPUL ---
History of Present Illness Consult date: 03/06/17 Requesting physician: Gabe Deras Reason for consult: other (Respiratory status decline) Chief complaint: Lower extremities swelling and cellulitis History of present illness: This is a 71-year-old white male with history of multiple medical problems including diabetes, hypertension, coronary artery disease and previous PR, history of pleural effusion requiring drainage by Dr. Acharya, back in August of 2016. Patient presented this time with mostly significant swelling of lower extremities/lymphedema, and ulcerations with cellulitis findings on both lower extremities. Patient is being treated for cellulitis, he is also receiving diuretics for chronic swelling of lower extremities, however he is at a point where he is not responding more to Lasix, and his renal functioning seems to be worsening gradually to the point that the patient is becoming quite oliguric. Hemodialysis is being considered but according the low voltage electrician, patient is declining to have hemodialysis at this point. I was asked to see the patient because of slight shortness of breath and impending fluid overload and pulmonary edema. At the time of my evaluation today, patient denied any shortness of breath, no cough, no wheezing, and his chest x-ray which was done on this admission showed cardiomegaly, and bilateral areas of platelike atelectasis. At least no evidence of congestive heart failure on the chest x- ray based on the chest x-ray from 03/04/2017. Today the patient denies any cough no wheezing no shortness of breath. No fever no chills no hemoptysis no chest pain. No nausea no vomiting no abdominal pain. He is complaining however of significant worsening swelling and lymphedema of both lower extremities both are wrapped with Odell bandage. Patient is being treated by infectious disease specialist for staph aureus bacteremia and for coverage of Streptococcus agalactiae as well as staph aureus. He is now on daptomycin and clindamycin, patient was on vancomycin and Azactam on admission. Review of Systems 14 point review of systems were obtained, please refer to pertinent positives and negatives as per HPI. 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 Acharya. Last Myocardial Infarction Date:: unk History of Any Multi-Drug Resistant Organisms: None Reported Past Surgical History: Heart Catheterization With Stent Additional Past Surgical History / Comment(s): Cardiac catheterization and stenting of the LAD Past Anesthesia/Blood Transfusion Reactions: No Reported Reaction Date of Last Stent Placement:: unk date Past Psychological History: No Psychological Hx Reported Smoking Status: Former smoker Past Alcohol Use History: None Reported Additional Past Alcohol Use History / Comment(s): started smoking at age 22(1967 ), quit by 1975 Past Drug Use History: None Reported - Past Family History Father Family Medical History: Cancer Mother Family Medical History: Renal Disease Medications and Allergies Home Medications Medication Instructions Recorded Confirmed Type Allopurinol [Zyloprim] 300 mg PO DAILY 08/23/16 03/01/17 History Aspirin EC [Ecotrin Low Dose] 81 mg PO DAILY 08/23/16 03/01/17 History Atorvastatin [Lipitor] 40 mg PO DAILY 08/23/16 03/01/17 History Ergocalciferol [Vitamin D2 50,000 unit PO HALL 08/23/16 03/01/17 History (DRISDOL)] Insulin Aspart [NovoLOG] 20 units SQ AC-TID 08/23/16 03/01/17 History Insulin Glargine [Lantus] 60 units SQ HS 08/23/16 03/01/17 History Omeprazole 20 mg PO DAILY 08/23/16 03/01/17 History glipiZIDE [Glucotrol] 10 mg PO AC-BID 08/23/16 03/01/17 History Pregabalin [Lyrica] 25 mg PO TID 03/01/17 03/01/17 History Allergies Allergy/AdvReac Type Severity Reaction Status Date / Time cephalexin [From Keflex] Allergy Unknown Verified 03/02/17 02:01 Physical Exam Vitals: Vital Signs Temp Pulse Resp BP BP Pulse Ox 03/06/17 09:45 97.8 F 64 16 105/59 96 03/06/17 04:00 96.8 F L 56 L 20 109/66 96 03/06/17 00:00 96.8 F L 52 L 20 125/60 97 05/23/17 20:00 97.0 F L 60 20 84/46 93/54 98 03/05/17 16:00 76 20 134/60 97 03/05/17 11:25 97.0 F L 65 20 110/53 97 Intake and Output 03/05/17 03/06/17 03/06/17 22:59 06:59 14:59 Intake Total 460 200 240 Output Total 100 Balance 360 200 240 Intake: Oral 460 200 240 Output: Urine 100 Other: Voiding Method Indwelling Catheter Indwelling Catheter Indwelling Catheter # Voids 1 Weight 128 kg Physical Exam: Revealed a 71-year-old, obese, in no distress. Patient is on nasal cannula, O2 saturation at present is 97% on 2 L nasal cannula. HEENT:[Neck is supple.] [No neck masses.] [No thyromegaly.] [No JVD.] The neck is short obese, patient very narrow oropharynx. Chest: [Diminished breath sounds at the bases no crackles or rhonchi or wheezes] Cardiac Exam: [Normal S1 and S2, no S3 gallop, no murmur.] Abdomen: [Soft, nontender, no megaly, no rebound, no guarding, normal bowel sounds.] Extremities: [Extensive edema is noted, no cyanosis, both lower extremities are wrapped with sterile bandages and Odell wrapping. Neurological Exam: [No focal neurologic deficit.] Results - Laboratory Findings CBC and BMP: 03/06/17 06:13 03/06/17 06:13 ABG ABG pH 7.30 (7.35-7.45) L 03/05/17 18:45 ABG pCO2 44 mmHg (35-45) 03/05/17 18:45 ABG pO2 171 mmHg (83-108) H 03/05/17 18:45 ABG O2 Saturation 99.0 % (94-97) H 03/05/17 18:45 Abnormal lab findings: Abnormal Labs 03/01/17 03/01/17 03/01/17 23:50 23:50 23:50 WBC 10.7 H RBC Hgb 12.4 L Hct 36.7 L MCHC RDW Plt Count Neutrophils # 9.1 H Lymphocytes # 0.8 L ESR 95 H ABG pH ABG pO2 ABG HCO3 ABG O2 Saturation Chloride Carbon Dioxide BUN 36 H Creatinine 1.80 H Glucose 292 H POC Glucose (mg/dL) Hemoglobin A1c 9.9 H Calcium Delta Bilirubin ALT 20 L Alkaline Phosphatase 133 H C-Reactive Protein 279.2 H Total Protein Albumin 3.3 L Urine Protein Urine Blood Ur Leukocyte Esterase Urine RBC Urine WBC Urine Bacteria Hyaline Casts Urine Mucus Urine Yeast (Budding) 03/02/17 03/02/17 03/02/17 06:56 11:21 17:28 WBC RBC Hgb Hct MCHC RDW Plt Count Neutrophils # Lymphocytes # ESR ABG pH ABG pO2 ABG HCO3 ABG O2 Saturation Chloride Carbon Dioxide BUN Creatinine Glucose POC Glucose (mg/dL) 271 H 308 H 229 H Hemoglobin A1c Calcium Delta Bilirubin ALT Alkaline Phosphatase C-Reactive Protein Total Protein Albumin Urine Protein Urine Blood Ur Leukocyte Esterase Urine RBC Urine WBC Urine Bacteria Hyaline Casts Urine Mucus Urine Yeast (Budding) 03/02/17 03/02/17 03/02/17 20:06 20:48 20:48 WBC RBC Hgb 12.6 L Hct MCHC RDW Plt Count 135 L Neutrophils # Lymphocytes # 0.9 L ESR ABG pH ABG pO2 ABG HCO3 ABG O2 Saturation Chloride 108 H Carbon Dioxide 19 L BUN 44 H Creatinine 2.15 H Glucose 214 H POC Glucose (mg/dL) 209 H Hemoglobin A1c Calcium 8.1 L Delta Bilirubin ALT Alkaline Phosphatase C-Reactive Protein Total Protein Albumin Urine Protein Urine Blood Ur Leukocyte Esterase Urine RBC Urine WBC Urine Bacteria Hyaline Casts Urine Mucus Urine Yeast (Budding) 03/03/17 03/03/17 03/03/17 06:53 06:53 06:57 WBC RBC 3.82 L Hgb 10.7 L Hct 33.5 L MCHC RDW Plt Count 114 L Neutrophils # 8.5 H Lymphocytes # 0.4 L ESR ABG pH ABG pO2 ABG HCO3 ABG O2 Saturation Chloride 109 H Carbon Dioxide 16 L BUN 50 H Creatinine 2.63 H Glucose 279 H POC Glucose (mg/dL) 298 H Hemoglobin A1c Calcium 7.4 L Delta Bilirubin ALT Alkaline Phosphatase C-Reactive Protein Total Protein 6.0 L Albumin 2.6 L Urine Protein Urine Blood Ur Leukocyte Esterase Urine RBC Urine WBC Urine Bacteria Hyaline Casts Urine Mucus Urine Yeast (Budding) 03/03/17 03/03/17 03/03/17 11:16 15:20 15:41 WBC RBC Hgb Hct MCHC RDW Plt Count Neutrophils # Lymphocytes # ESR ABG pH 7.31 L ABG pO2 ABG HCO3 18 L ABG O2 Saturation 97.2 H Chloride 108 H Carbon Dioxide 19 L BUN Creatinine Glucose POC Glucose (mg/dL) 278 H Hemoglobin A1c Calcium Delta Bilirubin ALT Alkaline Phosphatase C-Reactive Protein Total Protein Albumin Urine Protein Urine Blood Ur Leukocyte Esterase Urine RBC Urine WBC Urine Bacteria Hyaline Casts Urine Mucus Urine Yeast (Budding) 03/03/17 03/03/17 03/03/17 16:49 20:56 21:41 WBC RBC Hgb Hct MCHC RDW Plt Count Neutrophils # Lymphocytes # ESR ABG pH ABG pO2 ABG HCO3 ABG O2 Saturation Chloride Carbon Dioxide BUN Creatinine Glucose POC Glucose (mg/dL) 223 H 243 H 265 H Hemoglobin A1c Calcium Delta Bilirubin ALT Alkaline Phosphatase C-Reactive Protein Total Protein Albumin Urine Protein Urine Blood Ur Leukocyte Esterase Urine RBC Urine WBC Urine Bacteria Hyaline Casts Urine Mucus Urine Yeast (Budding) 03/04/17 03/04/17 03/04/17 06:01 06:01 06:07 WBC RBC 3.90 L Hgb 10.8 L Hct 35.1 L MCHC 30.8 L RDW 15.6 H Plt Count 122 L Neutrophils # Lymphocytes # ESR ABG pH ABG pO2 ABG HCO3 ABG O2 Saturation Chloride 111 H Carbon Dioxide 13 L BUN 71 H Creatinine 4.05 H Glucose 170 H POC Glucose (mg/dL) 156 H Hemoglobin A1c Calcium 7.6 L Delta Bilirubin 0.7 H ALT Alkaline Phosphatase C-Reactive Protein Total Protein 6.2 L Albumin 2.6 L Urine Protein Urine Blood Ur Leukocyte Esterase Urine RBC Urine WBC Urine Bacteria Hyaline Casts Urine Mucus Urine Yeast (Budding) 03/04/17 03/04/17 03/04/17 11:23 16:25 20:50 WBC RBC Hgb Hct MCHC RDW Plt Count Neutrophils # Lymphocytes # ESR ABG pH ABG pO2 ABG HCO3 ABG O2 Saturation Chloride Carbon Dioxide BUN Creatinine Glucose POC Glucose (mg/dL) 227 H 231 H 191 H Hemoglobin A1c Calcium Delta Bilirubin ALT Alkaline Phosphatase C-Reactive Protein Total Protein Albumin Urine Protein Urine Blood Ur Leukocyte Esterase Urine RBC Urine WBC Urine Bacteria Hyaline Casts Urine Mucus Urine Yeast (Budding) 03/05/17 03/05/17 03/05/17 06:20 06:23 06:23 WBC RBC 3.86 L Hgb 10.8 L Hct 34.0 L MCHC RDW 15.7 H Plt Count 127 L Neutrophils # Lymphocytes # 0.8 L ESR ABG pH ABG pO2 ABG HCO3 ABG O2 Saturation Chloride Carbon Dioxide 17 L BUN 90 H* Creatinine 4.17 H Glucose 218 H POC Glucose (mg/dL) 226 H Hemoglobin A1c Calcium 7.5 L Delta Bilirubin ALT Alkaline Phosphatase 133 H C-Reactive Protein Total Protein 6.0 L Albumin 2.5 L Urine Protein Urine Blood Ur Leukocyte Esterase Urine RBC Urine WBC Urine Bacteria Hyaline Casts Urine Mucus Urine Yeast (Budding) 03/05/17 03/05/17 03/05/17 11:15 11:19 16:19 WBC RBC Hgb Hct MCHC RDW Plt Count Neutrophils # Lymphocytes # ESR ABG pH ABG pO2 ABG HCO3 ABG O2 Saturation Chloride Carbon Dioxide BUN Creatinine Glucose POC Glucose (mg/dL) 224 H 252 H Hemoglobin A1c Calcium Delta Bilirubin ALT Alkaline Phosphatase C-Reactive Protein Total Protein Albumin Urine Protein 1+ H Urine Blood Moderate H Ur Leukocyte Esterase Moderate H Urine RBC 50 H Urine WBC 17 H Urine Bacteria Rare H Hyaline Casts 3 H Urine Mucus Rare H Urine Yeast (Budding) Few H 03/05/17 03/05/17 03/06/17 18:45 20:32 05:46 WBC RBC Hgb Hct MCHC RDW Plt Count Neutrophils # Lymphocytes # ESR ABG pH 7.30 L ABG pO2 171 H ABG HCO3 ABG O2 Saturation 99.0 H Chloride Carbon Dioxide BUN Creatinine Glucose POC Glucose (mg/dL) 245 H 252 H Hemoglobin A1c Calcium Delta Bilirubin ALT Alkaline Phosphatase C-Reactive Protein Total Protein Albumin Urine Protein Urine Blood Ur Leukocyte Esterase Urine RBC Urine WBC Urine Bacteria Hyaline Casts Urine Mucus Urine Yeast (Budding) 03/06/17 03/06/17 06:13 06:13 WBC RBC 3.69 L Hgb 10.5 L Hct 33.2 L MCHC RDW 15.9 H Plt Count 125 L Neutrophils # Lymphocytes # 0.8 L ESR ABG pH ABG pO2 ABG HCO3 ABG O2 Saturation Chloride Carbon Dioxide 17 L BUN 105 H* Creatinine 4.62 H Glucose 251 H POC Glucose (mg/dL) Hemoglobin A1c Calcium 7.3 L Delta Bilirubin ALT Alkaline Phosphatase 129 H C-Reactive Protein Total Protein 5.8 L Albumin 2.4 L Urine Protein Urine Blood Ur Leukocyte Esterase Urine RBC Urine WBC Urine Bacteria Hyaline Casts Urine Mucus Urine Yeast (Budding) - Diagnostic Findings Chest x-ray: image reviewed (No evidence of congestive heart failure, there is cardiomegaly, and there is by basilar atelectasis.) Assessment and Plan Plan: Impression: 1 impending congestive heart failure and fluid overload secondary to oliguria and secondary to acute on chronic renal failure. Patient is not showing much response to diuretics at this point. 2 acute bacteremia from cellulitis, blood cultures are positive for presumptive staph, one cultures from the lower left lower extremity were positive for strep agalactiae group B. 2 multiple comorbidities including morbid obesity, chronic lower extremity lymph edema with cellulitis, features of obstructive sleep apnea syndrome, diabetes, insulin-dependent, hyperlipidemia, coronary artery disease and previous acute anterior wall PR requiring LAD stenting and history of hypertension. History of right pleural effusion back in August requiring thoracentesis. Recommendation: I fully agree with the present treatment plan, I will strongly recommend hemodialysis for this patient, however the patient himself seems to be reluctant to proceed with hemodialysis plans at this point. Prognosis is definitely poor and guarded, we'll continue to follow. I reviewed the chest x- ray, no evidence of significant fluid overload at this point and no evidence of pleural effusion at this point. Time with Patient: Greater than 30
[2017-03-06 11:38] LABS: Glucose,Whole Blood 252 mg/dL (75-99)
[2017-03-06] MEDS: HEPARIN SODIUM,PORCINE 5,000 UNIT/ML 1 ML VIAL SQ SCH ×3 (12:08→23:53)
[2017-03-06 13:41] LABS: Hepatitis B Surface Ag Index 0.06
[2017-03-06 13:46] LABS: Hepatitis B Core IgM Index 0.02
[2017-03-06 13:58] LABS: Hepatitis C Virus IgG Ab Negative (Negative); Hepatitis C Virus IgG Index 0.04
[2017-03-06 16:37] LABS: Glucose,Whole Blood 252 mg/dL (75-99)
--- NOTE | 2017-03-06 16:41 | P.PN ---
Subjective This is a 71-year-old gentleman comes into the hospital with progressive worsening of lower extremity swelling and tenderness over the last 3-4 days. Patient states that he's had chronic changes in his lower extremities for a long period of time. His primary care physician has recommended him to follow up with a subspecialist however patient has not done that yet Patient stated that he's had intermittent chills over the last few days. Pain has been progressively getting worse hence came to the hospital for ongoing care. Patient denies having any recent trauma. Patient states that he's had some blisters on his left lower extremity and noted the symptoms after the blister has popped. No significant tenderness is reported at this time Blood cultures were sent Patient is started on IV vancomycin at this time Patient denies having any history of having heart failure or renal problems He was told that his lower extremity edema are secondary to lymphedema No headaches blurry vision nausea vomiting chest pain difficulty breathing urinary urgency frequency or diarrhea is reported 03/03 today Rapid response was initiated due to pt's AMS had a fever 102.8 Multiple doses of narcan were given which showed some improvement Pt however worsened ABG was done, appear appropriate with metabolic acidosis with appropriate respiratory compensation multiple new blisters were noted in the lower ext. 03/04 on 4 l o2 states to have pain in his lower ext there was concern over 3rd degree heart block overnight no fevers at this time urine output has been suboptimal 03/05/17 today pt complaints of pain in his penis since the insertion of gongora states his lower extremity pain is improved No fevers, chills, nausea, vomiting reported Urine output has been 400cc over the last 16 hrs 03/06/17 pt appears to have episodes of confusion during my eval, pt was awake, denies having any complaints does not want to undergo HD yet no fevers, chills, nausea, vomiting. Objective - Vital Signs Vital signs: Vital Signs Temp 97.5 F L 03/06/17 13:04 Pulse 64 03/06/17 13:04 Resp 20 03/06/17 13:04 BP 118/58 03/06/17 13:04 Pulse Ox 93 L 03/06/17 13:04 Intake & Output 03/05/17 03/06/17 03/06/17 18:59 06:59 18:59 Intake Total 1040 660 480 Output Total 100 100 250 Balance 940 560 230 Weight 126 kg 128 kg Intake: Intake, IV Titration 50 Amount Clindamycin 900 mg In 50 Dextrose 5% in Water 50 ml @ 100 mls/hr IVPB Q8HR [facility] Rx#:[id number] Oral 990 660 480 Output: Urine 100 100 250 Other: Voiding Method Indwelling Catheter Indwelling Catheter Indwelling Catheter # Voids 1 1 # Bowel Movements 0 - Constitutional General appearance: Present: mild distress - EENT Eyes: Present: EOMI - Respiratory Respiratory: bilateral: rales, negative: diminished, dullness, rhonchi, wheezing - Cardiovascular Rhythm: regular Heart sounds: normal: S1, S2 Abnormal Heart Sounds: Absent: systolic murmur - Gastrointestinal General gastrointestinal: Present: normal bowel sounds, soft. Absent: organomegaly - Integumentary Integumentary: Present: cellulitis (bilaterally, wrapped today. 2 + edema bilaterally to the knees.) - Neurologic Neurologic: Present: CNII-XII intact. Absent: focal deficits - Musculoskeletal Musculoskeletal: Present: generalized weakness - Psychiatric Psychiatric: Present: A&O x's 3 (however has periods of confusion) - Labs CBC & Chem 7: 03/06/17 06:13 03/06/17 06:13 Labs: Abnormal Lab Results - Last 24 Hours (Table) 03/05/17 03/05/17 03/06/17 Range/Units 18:45 20:32 05:46 RBC (4.30-5.90) m/uL Hgb (13.0-17.5) gm/dL Hct (39.0-53.0) % RDW (11.5-15.5) % Plt Count (150-450) k/uL Lymphocytes # (1.0-4.8) k/uL ABG pH 7.30 L (7.35-7.45) ABG pO2 171 H (83-108) mmHg ABG O2 Saturation 99.0 H (94-97) % Carbon Dioxide (22-30) mmol/L BUN (9-20) mg/dL Creatinine (0.66-1.25) mg/dL Glucose (74-99) mg/dL POC Glucose (mg/dL) 245 H 252 H (75-99) mg/dL Calcium (8.4-10.2) mg/dL Alkaline Phosphatase (38-126) U/L Total Protein (6.3-8.2) g/dL Albumin (3.5-5.0) g/dL 03/06/17 03/06/17 03/06/17 Range/Units 06:13 06:13 11:36 RBC 3.69 L (4.30-5.90) m/uL Hgb 10.5 L (13.0-17.5) gm/dL Hct 33.2 L (39.0-53.0) % RDW 15.9 H (11.5-15.5) % Plt Count 125 L (150-450) k/uL Lymphocytes # 0.8 L (1.0-4.8) k/uL ABG pH (7.35-7.45) ABG pO2 (83-108) mmHg ABG O2 Saturation (94-97) % Carbon Dioxide 17 L (22-30) mmol/L BUN 105 H* (9-20) mg/dL Creatinine 4.62 H (0.66-1.25) mg/dL Glucose 251 H (74-99) mg/dL POC Glucose (mg/dL) 252 H (75-99) mg/dL Calcium 7.3 L (8.4-10.2) mg/dL Alkaline Phosphatase 129 H (38-126) U/L Total Protein 5.8 L (6.3-8.2) g/dL Albumin 2.4 L (3.5-5.0) g/dL Microbiology - Last 24 Hours (Table) 03/04/17 11:57 Blood Culture - Preliminary Blood No Growth after 48 hours 03/02/17 00:43 Gram Stain - Final Leg - Left Wound Culture - Preliminary Presumptive Staph aureus Strep agalactiae - (group b) Strep agalactiae - (group b)#2 03/01/17 23:50 Blood Culture Gram Stain - Final Blood Blood Culture - Preliminary Presumptive Staph aureus Assessment and Plan Plan: #1 sepsis sec to cellulitis with bacteremia #2 micrognathia #3 history of a second-degree heart block #4 hypertension. #5 obesity. #6 diabetes mellitus type II #7 chronic lymphedema #8 dyslipidemia #9 gout #10. Clinical CLAYTON MADELAINE, with Anuric ATN due to diuretics and sepsis plan Await final blood cultures. strict I/O moniter urine output Antibiotics were changed to daptomycin and clindamycin wound care critcally ill. will need HD. pt is currently not ready to undergo HD did discuss that would cause his demise if he chooses not to undergo HD even temporarily. Dvt prophylaxis
--- NOTE | 2017-03-06 16:55 | PN ---
DATE OF SERVICE: 03/06/2017 REASON FOR FOLLOWUP: Right lower extremity infected blister with secondary cellulitis and bacteremia. INTERVAL HISTORY: The patient is afebrile. He is complaining of some shortness of breath and cough. Denies any significant chest pain or cough. No significant abdominal pain or any worsening pain in the leg area. On examination, blood pressure is 118/58 with pulse of 55, temperature 97.5. He is 93% on 3 L nasal cannula. General description is an elderly male up in the bed in no distress. RESPIRATORY SYSTEM: Unlabored breathing with decreased breath sounds at the base. No wheeze. HEART: S1, S2. Regular rate and rhythm. ABDOMEN: Soft. No tenderness. LABS: Hemoglobin is 10.5, white count 6.1. BUN of 105 with a creatinine of 4.62. The culture is presumptive Staph aureus. Sensitivities are still pending. Follow-up blood cultures from 03/04 are negative so far. DIAGNOSTIC IMPRESSION AND PLAN: Patient with a right lower extremity infected blister, status post drainage with secondary cellulitis and bacteremia. Patient is currently on daptomycin and clindamycin. Because of high risk of nephrotoxicity, patient kidney function get worse and is being followed by Nephrology closely. Local wound care to continue. Continue with current antibiotics. Continue supportive care. MTDD
[2017-03-06 20:56] LABS: Glucose,Whole Blood 206 mg/dL (75-99)
[2017-03-06] MEDS: INSULIN DETEMIR 100 UNIT/ML 10 ML VIAL SQ SCH (21:03)
[2017-03-07] MEDS: DEXTROSE 5% IN WATER 1,000 ML with SODIUM BICARB (1 MEQ/ML) 150 ML IV SCH (03:33)
[2017-03-07] MEDS: traMADol 50 MG TAB PO PRN ×2 (03:38→21:38)
[2017-03-07 06:27] LABS: Calcium 7.2 mg/dL (8.4-10.2); Potassium 4.2 mmol/L (3.5-5.1)
[2017-03-07 06:28] LABS: Glucose,Whole Blood 169 mg/dL (75-99)
[2017-03-07] MEDS: PANTOPRAZOLE 40 MG TABLET PO SCH (06:29)
[2017-03-07] MEDS: INSULIN LISPRO (humaLOG) 300 UNIT/3 ML VIAL SQ SCH ×4 (06:29→21:27)
[2017-03-07] MEDS: CLINDAMYCIN 900 MG in DEXTROSE 5% IN WATER 50 ML IVPB SCH ×4 (09:21→16:54)
[2017-03-07] MEDS ORDERED: FUROSEMIDE 10 MG/ML 10 ML VIAL IV STA (09:47)
--- NOTE | 2017-03-07 09:47 | P.PN ---
Subjective Patient is seen in follow-up for acute kidney injury on chronic kidney disease. Patient has chronic kidney disease stage III secondary to diabetic kidney disease with baseline creatinine near 1.6. Creatinine peaked at 4.6 to this admission and is down to 4.14 today. His urine output overnight was 700 mL. Patient is currently being treated for staph aureus bacteremia as well as right foot infection for which she underwent debridement this admission. Patient is currently sitting up in chair. Appetite is good. No vomiting or diarrhea. Denies chest pain or shortness of breath. He does have a Villasenor catheter in place. He feels uncomfortable with the Villasenor catheter. Vital signs are stable. General: The patient appeared well nourished and normally developed. HEENT: Head exam is unremarkable. Neck is without jugular venous distension. LUNGS: Lungs are clear to auscultation and percussion. Breath sounds decreased. HEART: Rate and Rhythm are regular. First and second heart sounds normal. No murmurs, rubs or gallops. ABDOMEN: Abdominal exam reveals normal bowel sounds. Non-tender and non- distended. No evidence of peritonitis. EXTREMITITES: 1+ edema. Wound dressing intact with no obvious drainage. Objective - Vital Signs Vital signs: Vital Signs Temp 97.1 F L 03/07/17 04:00 Pulse 60 03/07/17 04:00 Resp 20 03/07/17 04:00 BP 130/59 03/07/17 04:00 Pulse Ox 93 L 03/07/17 09:09 Intake & Output 03/06/17 03/07/17 03/07/17 18:59 06:59 18:59 Intake Total 480 1200 Output Total 250 700 Balance 230 500 Weight 131 kg Intake: Intake, IV Titration 1200 Amount Clindamycin 900 mg In 50 Dextrose 5% in Water 50 ml @ 100 mls/hr IVPB Q8HR [facility] Rx#:[id number] DAPTOmycin 700 mg In 50 Sodium Chloride 0.9% 50 ml @ 100 mls/hr IV Q48H [facility] Rx#:[id number] Dextrose 5% in Water 1, 1100 000 ml @ 100 mls/hr IV . [id number] [facility] with Sodium Bicarb (1 Meq/ml) 150 ml Rx#:[id number] Oral 480 Output: Urine 250 700 Other: Voiding Method Indwelling Catheter Indwelling Catheter # Bowel Movements 0 - Labs CBC & Chem 7: 03/06/17 06:13 03/07/17 05:42 Labs: Abnormal Lab Results - Last 24 Hours (Table) 03/06/17 03/06/17 03/06/17 Range/Units 11:36 16:35 20:55 BUN (9-20) mg/dL Creatinine (0.66-1.25) mg/dL Glucose (74-99) mg/dL POC Glucose (mg/dL) 252 H 252 H 206 H (75-99) mg/dL Calcium (8.4-10.2) mg/dL 03/07/17 03/07/17 Range/Units 05:42 06:27 BUN 112 H* (9-20) mg/dL Creatinine 4.14 H (0.66-1.25) mg/dL Glucose 163 H (74-99) mg/dL POC Glucose (mg/dL) 169 H (75-99) mg/dL Calcium 7.2 L (8.4-10.2) mg/dL Microbiology - Last 24 Hours (Table) 03/04/17 13:08 Gram Stain - Preliminary Foot - Right Tissue Culture - Preliminary Escherichia coli Strep agalactiae - (group b) Presumptive Staph aureus 03/04/17 11:57 Blood Culture - Preliminary Blood No Growth after 48 hours 03/02/17 00:43 Gram Stain - Final Leg - Left Wound Culture - Preliminary Presumptive Staph aureus Strep agalactiae - (group b) Strep agalactiae - (group b)#2 Assessment and Plan Plan: Assessment: #1. Oliguric - now nonoliguric - acute kidney injury secondary to ATN secondary to severe sepsis. Creatinine peaked at 4.6 to this admission and is 4.14. No evidence of hydronephrosis. Urine eosinophils negative. Serologic workup negative so far. #2. Chronic kidney disease stage III secondary to diabetic kidney disease with baseline creatinine near 1.6-1.7. #3. Severe sepsis secondary to staph aureus bacteremia as well as lower extremity cellulitis. #4. Metabolic acidosis secondary to acute kidney injury. Improved. #5. Insulin-dependent diabetes mellitus. #6. Hypertension with chronic kidney disease. Controlled. Plan: Discontinue sodium bicarbonate drip. Start normal saline to be run at 100 mL an hour. Start oral sodium bicarbonate 1300 mg twice daily. Lasix 80 mg IV once today. Maintain Villasenor catheter. Strict I's and O's. Follow-up serologies. Avoid nephrotoxic agents and hypotensive episodes. Antibiotics per infectious disease recommendations. Repeat electrolytes in the morning. I have been discussing daily with the patient the need for renal replacement therapy and he continues to refuse. Urine output and renal function are both a little improved. Continue to monitor closely.
[2017-03-07] MEDS: PREGABALIN 25 MG CAP PO SCH ×3 (10:10→21:27)
[2017-03-07] MEDS: ASPIRIN 81 MG CHEW PO SCH (10:10)
[2017-03-07] MEDS: HEPARIN SODIUM,PORCINE 5,000 UNIT/ML 1 ML VIAL SQ SCH ×2 (11:11→17:02)
[2017-03-07 11:56] LABS: Glucose,Whole Blood 160 mg/dL (75-99)
--- NOTE | 2017-03-07 12:06 | P.PN ---
Subjective This is a 71-year-old white male with history of multiple medical problems including diabetes, hypertension, coronary artery disease and previous [place], history of pleural effusion requiring drainage by Dr. Acharya, back in August of 2016. Patient presented this time with mostly significant swelling of lower extremities/lymphedema, and ulcerations with cellulitis findings on both lower extremities. Patient is being treated for cellulitis, he is also receiving diuretics for chronic swelling of lower extremities, however he is at a point where he is not responding more to Lasix, and his renal functioning seems to be worsening gradually to the point that the patient is becoming quite oliguric. Hemodialysis is being considered but according the flat ironer, patient is declining to have hemodialysis at this point. I was asked to see the patient because of slight shortness of breath and impending fluid overload and pulmonary edema. At the time of my evaluation today, patient denied any shortness of breath, no cough, no wheezing, and his chest x-ray which was done on this admission showed cardiomegaly, and bilateral areas of platelike atelectasis. At least no evidence of congestive heart failure on the chest x- ray based on the chest x-ray from 03/04/2017. Today the patient denies any cough no wheezing no shortness of breath. No fever no chills no hemoptysis no chest pain. No nausea no vomiting no abdominal pain. He is complaining however of significant worsening swelling and lymphedema of both lower extremities both are wrapped with Odell bandage. Patient is being treated by infectious disease specialist for staph aureus bacteremia and for coverage of Streptococcus agalactiae as well as staph aureus. He is now on daptomycin and clindamycin, patient was on vancomycin and Azactam on admission. The patient is seen again today 03/07/2017 in follow-up on the selective care unit. He is currently sitting up in a chair at the bedside. He is in no acute distress. He denies any worsening shortness of breath, cough or congestion. He is maintaining O2 saturations in the 90s on 3 L/m per nasal cannula. Currently afebrile. BUN 112, creatinine 4.14. Objective - Vital Signs Vital signs: Vital Signs Temp 96.1 F L 03/07/17 08:00 Pulse 82 03/07/17 08:00 Resp 20 03/07/17 08:00 BP 143/97 03/07/17 08:00 Pulse Ox 93 L 03/07/17 09:09 Intake & Output 03/06/17 03/07/17 03/07/17 18:59 06:59 18:59 Intake Total 480 1200 Output Total 250 700 Balance 230 500 Weight 131 kg 131 kg Intake: Intake, IV Titration 1200 Amount Clindamycin 900 mg In 50 Dextrose 5% in Water 50 ml @ 100 mls/hr IVPB Q8HR [facility] Rx#:[id number] DAPTOmycin 700 mg In 50 Sodium Chloride 0.9% 50 ml @ 100 mls/hr IV Q48H [facility] Rx#:[id number] Dextrose 5% in Water 1, 1100 000 ml @ 100 mls/hr IV . [id number] [facility] with Sodium Bicarb (1 Meq/ml) 150 ml Rx#:[id number] Oral 480 Output: Urine 250 700 Other: Voiding Method Indwelling Catheter Indwelling Catheter # Bowel Movements 0 - Exam GENERAL EXAM: Morbidly obese. Alert, comfortable in no apparent distress. HEAD: Normocephalic. EYES: Normal reaction of pupils, equal size. NOSE: Clear with pink turbinates. THROAT: There is crowding of the posterior pharynx. No erythema or exudates. NECK: Short. No masses, no JVD. CHEST: No chest wall deformity. LUNGS: Equal air entry diminished in the posterior bases. CVS: S1 and S2 normal with no audible mumurs, regular rhythm. ABDOMEN: No hepatosplenomegaly, normal bowel sounds, no guarding or rigidity. Extremities: ODELL wraps to the bilateral lower extremities. No clubbing, no cyanosis. Peripheral pulses are intact. - Labs CBC & Chem 7: 03/06/17 06:13 03/07/17 05:42 Labs: Abnormal Lab Results - Last 24 Hours (Table) 03/06/17 03/06/17 03/07/17 Range/Units 16:35 20:55 05:42 BUN 112 H* (9-20) mg/dL Creatinine 4.14 H (0.66-1.25) mg/dL Glucose 163 H (74-99) mg/dL POC Glucose (mg/dL) 252 H 206 H (75-99) mg/dL Calcium 7.2 L (8.4-10.2) mg/dL 03/07/17 Range/Units 06:27 BUN (9-20) mg/dL Creatinine (0.66-1.25) mg/dL Glucose (74-99) mg/dL POC Glucose (mg/dL) 169 H (75-99) mg/dL Calcium (8.4-10.2) mg/dL Microbiology - Last 24 Hours (Table) 03/04/17 13:08 Gram Stain - Preliminary Foot - Right Tissue Culture - Preliminary Escherichia coli Strep agalactiae - (group b) Presumptive Staph aureus 03/04/17 11:57 Blood Culture - Preliminary Blood No Growth after 48 hours Assessment and Plan Plan: Impression: 1 impending congestive heart failure and fluid overload secondary to oliguria and secondary to acute on chronic renal failure. Patient is not showing much response to diuretics at this point. 2 acute bacteremia from cellulitis, blood cultures are positive for presumptive staph, one cultures from the lower left lower extremity were positive for strep agalactiae group B and presumptive staph aureus, right foot cultures positive for E. coli and strep agalactiae group B. 2 multiple comorbidities including morbid obesity, chronic lower extremity lymph edema with cellulitis, features of obstructive sleep apnea syndrome, diabetes, insulin-dependent, hyperlipidemia, coronary artery disease and previous acute anterior wall WA requiring LAD stenting and history of hypertension. History of right pleural effusion back in August requiring thoracentesis. Plan: The patient was seen and evaluated by Dr. Louis. The patient is currently stable from the pulmonary standpoint. Maintain O2 saturations in the 90s on 3 L. The patient does continue to refuse hemodialysis. Nephrology is on the case and has discontinued the bicarb drip and started him on oral sodium bicarbonate and discontinue her Lasix 80 mg 1 today. Continue antibiotics. Continue to follow.
[2017-03-07 13:47] LABS: C-ANCA <1:20 Titer (<1:20); P-ANCA <1:20 Titer (<1:20)
[2017-03-07 17:03] LABS: Glucose,Whole Blood 154 mg/dL (75-99)
[2017-03-07] MEDS: SODIUM CHLORIDE 0.9% 1,000 ML IV SCH (18:15)
--- NOTE | 2017-03-07 18:15 | PN ---
A 71-year-old admitted with sepsis, acute tubular necrosis. Patient is unable to make urine and patient will require dialysis and patient is declining dialysis at this point of time. I had an extensive discussion with him today and we are unable to treat him appropriately, as patient is denying a lot of things, including placement in subacute rehabilitation, which will take some time, and declining to take IV antibiotics as an outpatient, for example in subacute rehabilitation, and patient declining hemodialysis. Extensive discussion was done with him. Only 2 choices: Treatment or comfort care. The same thing was discussed with the patient and patient's family members will be here at 3:00 p.m. Will also discuss with the family regarding the options and overall goals of care. Patient is excessively drowsy, although I am unable to assess orientation, although he appears to understand about his medical problems. I had an extensive discussion with him today and patient went into respiratory failure during this hospitalization due to acute pulmonary edema as patient is unable to urinate, because of which he will need hemodialysis. Patient is presently on 3L of oxygen, saturating at 93%. REVIEW OF SYSTEMS: Unable to obtain due to his clinical condition. Medications were reviewed. PHYSICAL EXAMINATION: VITAL SIGNS: Temperature 96.1, pulse of 82, respiratory rate of 20. Blood pressure is 143/97, saturating at 93% on 3L of O2 by nasal cannula. GENERAL: The patient is arousable by verbal stimulus; excessively drowsy, unable to assess orientation. Patient is very ill-appearing. HEENT: Pupils are round and equally reacting to light. EOMI. No scleral icterus. No conjunctival pallor. Normocephalic, atraumatic. No pharyngeal erythema. No thyromegaly. CARDIOVASCULAR: S1 and S2 present. I am unable to appreciate JVD. No murmurs, rubs, or gallops. PULMONARY: Rhonchus sounds bilaterally. ABDOMEN: Soft, nontender, nondistended, normoactive bowel sounds. No palpable organomegaly. MUSCULOSKELETAL: No joint swelling or deformity. EXTREMITIES: Patient has bilateral lower limb edema, most significant on the right side, with lymphedema and cellulitis of the right lower extremity. NEUROLOGICAL: Gross neurological examination did not reveal any focal deficits. SKIN: No rashes. LABORATORY DATA: CBC and BMP are abnormal for elevated BUN and creatinine of 112 and 4.14. ASSESSMENT: 1. Sepsis secondary to cellulitis with bacteremia with Escherichia coli, Streptococcus agalactiae and Staphylococcus aureus. Initial blood cultures showed Staphylococcus aureus. Patient is presently on clindamycin and daptomycin and Dr. Ling is following the patient. 2. Second-degree heart block. 3. Hypertension. 4. Acute renal failure secondary to acute tubular necrosis from diuretics and from sepsis and patient will require at least temporary hemodialysis. 5. Chronic lymphedema. 6. Dyslipidemia. 7. Gout. 8. Obesity. PLAN: As mentioned in the interval history, continue with antibiotics. Discuss with the family regarding his overall goals of care and hemodialysis.
[2017-03-07 20:30] LABS: Glucose,Whole Blood 137 mg/dL (75-99)
[2017-03-07] MEDS: INSULIN DETEMIR 100 UNIT/ML 10 ML VIAL SQ SCH (21:27)
[2017-03-07] MEDS: SODIUM BICARBONATE TAB 650 MG TAB PO SCH (21:27)
[2017-03-08] MEDS ORDERED: traMADol 50 MG TAB PO STA (00:55)
[2017-03-08] MEDS: CLINDAMYCIN 900 MG in DEXTROSE 5% IN WATER 50 ML IVPB SCH ×6 (01:01→16:08)
[2017-03-08] MEDS: HEPARIN SODIUM,PORCINE 5,000 UNIT/ML 1 ML VIAL SQ SCH ×3 (01:01→16:12)
[2017-03-08 03:36] LABS: Complement Total (CH50) 289 CAE (54-144)
[2017-03-08] MEDS: SODIUM CHLORIDE 0.9% 1,000 ML IV SCH ×3 (05:00→21:41)
[2017-03-08 06:10] LABS: Glucose,Whole Blood 119 mg/dL (75-99)
[2017-03-08] MEDS: INSULIN LISPRO (humaLOG) 300 UNIT/3 ML VIAL SQ SCH ×4 (06:26→21:32)
[2017-03-08 06:27] LABS: Basophils % (A) 0 %; CH 28.2; CHCM 32.8; Eosinophils # (A) 0.1 k/uL (0-0.7); Eosinophils % (A) 1 %; HCT 31.8 % (39.0-53.0); HDW 2.79; HGB 10.4 gm/dL (13.0-17.5); Luc # (Auto) 0.16; Luc % (Auto) 2; Lymphocytes # (A) 0.6 k/uL (1.0-4.8); Lymphocytes % (A) 7 %; MCH 28.3 pg (25.0-35.0); MCHC 32.8 g/dL (31.0-37.0); MCV 86.3 fL (80.0-100.0); Mean Platelet Volume 7.3; Monocytes # (A) 0.4 k/uL (0-1.0); Monocytes % (A) 5 %; Neutrophils # (A) 7.1 k/uL (1.3-7.7); Neutrophils % (A) 86 %; RBC 3.69 m/uL (4.30-5.90); RDW 15.6 % (11.5-15.5); WBC 8.3 k/uL (3.8-10.6); WBC (Perox) 8.85
[2017-03-08 06:38] LABS: Calcium 7.2 mg/dL (8.4-10.2); Phosphorous 6.6 mg/dL (2.5-4.5); Potassium 4.3 mmol/L (3.5-5.1); Total Bilirubin 0.7 mg/dL (0.2-1.3); Total Protein 5.9 g/dL (6.3-8.2)
[2017-03-08] MEDS: PANTOPRAZOLE 40 MG TABLET PO SCH (06:47)
--- NOTE | 2017-03-08 08:05 | P.PN ---
Subjective Patient is seen in follow-up for acute kidney injury on chronic kidney disease. Patient has chronic kidney disease stage III secondary to diabetic kidney disease with baseline creatinine near 1.6. Creatinine peaked at 4.6 to this admission and is down to 3.37 today. His urine output has also improved significantly with near 2 L in the last 24 hours. Patient is currently being treated for staph aureus bacteremia as well as right foot infection for which she underwent debridement this admission. Patient is currently resting in bed. Appetite is good. No vomiting or diarrhea. Denies chest pain or shortness of breath. He does have a Villasenor catheter in place. He feels uncomfortable with the Villasenor catheter. Vital signs are stable. General: The patient appeared well nourished and normally developed. HEENT: Head exam is unremarkable. Neck is without jugular venous distension. LUNGS: Lungs are clear to auscultation and percussion. Breath sounds decreased. HEART: Rate and Rhythm are regular. First and second heart sounds normal. No murmurs, rubs or gallops. ABDOMEN: Abdominal exam reveals normal bowel sounds. Non-tender and non- distended. No evidence of peritonitis. EXTREMITITES: 1+ edema. Wound dressing intact with no obvious drainage. Objective - Vital Signs Vital signs: Vital Signs Temp 97.2 F L 03/08/17 04:00 Pulse 62 03/08/17 04:00 Resp 20 03/08/17 04:00 BP 136/61 03/08/17 04:00 Pulse Ox 93 L 03/08/17 04:00 Intake & Output 03/07/17 03/08/17 03/08/17 18:59 06:59 18:59 Intake Total 120 1200 Output Total 1300 675 Balance -1180 525 Weight 131 kg 130 kg Intake: Intake, IV Titration 1150 Amount Clindamycin 900 mg In 50 Dextrose 5% in Water 50 ml @ 100 mls/hr IVPB Q8HR B[facility] Rx#:[id number] Sodium Chloride 0.9% 1, 1100 000 ml @ 100 mls/hr IV . Q10H [facility]Y Rx#:[id number] Oral 120 50 Output: Urine 1300 675 Other: Voiding Method Indwelling Catheter - Labs CBC & Chem 7: 03/08/17 05:51 03/08/17 05:51 Labs: Abnormal Lab Results - Last 24 Hours (Table) 0503/07/17 03/07/17 Range/Units 11:45 11:18 16:55 RBC (4.30-5.90) m/uL Hgb (13.0-17.5) gm/dL Hct (39.0-53.0) % RDW (11.5-15.5) % Lymphocytes # (1.0-4.8) k/uL BUN (9-20) mg/dL Creatinine (0.66-1.25) mg/dL Glucose (74-99) mg/dL POC Glucose (mg/dL) 160 H 154 H (75-99) mg/dL Calcium (8.4-10.2) mg/dL Phosphorus (2.5-4.5) mg/dL Alkaline Phosphatase (38-126) U/L Total Protein (6.3-8.2) g/dL Albumin (3.5-5.0) g/dL Tot Complement (CH50) 289 H (54-144) [facility] 03/07/17 03/08/17 03/08/17 Range/Units 20:29 05:51 05:51 RBC 3.69 L (4.30-5.90) m/uL Hgb 10.4 L (13.0-17.5) gm/dL Hct 31.8 L (39.0-53.0) % RDW 15.6 H (11.5-15.5) % Lymphocytes # 0.6 L (1.0-4.8) k/uL BUN 111 H* (9-20) mg/dL Creatinine 3.37 H (0.66-1.25) mg/dL Glucose 123 H (74-99) mg/dL POC Glucose (mg/dL) 137 H (75-99) mg/dL Calcium 7.2 L (8.4-10.2) mg/dL Phosphorus 6.6 H (2.5-4.5) mg/dL Alkaline Phosphatase 189 H (38-126) U/L Total Protein 5.9 L (6.3-8.2) g/dL Albumin 2.4 L (3.5-5.0) g/dL Tot Complement (CH50) (54-144) 03/08/17 Range/Units 06:09 RBC (4.30-5.90) m/uL Hgb (13.0-17.5) gm/dL Hct (39.0-53.0) % RDW (11.5-15.5) % Lymphocytes # (1.0-4.8) k/uL BUN (9-20) mg/dL Creatinine (0.66-1.25) mg/dL Glucose (74-99) mg/dL POC Glucose (mg/dL) 119 H (75-99) mg/dL Calcium (8.4-10.2) mg/dL Phosphorus (2.5-4.5) mg/dL Alkaline Phosphatase (38-126) U/L Total Protein (6.3-8.2) g/dL Albumin (3.5-5.0) g/dL Tot Complement (CH50) (54-144) Microbiology - Last 24 Hours (Table) 03/04/17 13:08 Gram Stain - Preliminary Foot - Right Tissue Culture - Preliminary Escherichia coli Strep agalactiae - (group b) Presumptive Staph aureus Clostridium perfringens 03/04/17 11:57 Blood Culture - Preliminary Blood No Growth after 72 hours Assessment and Plan Plan: Assessment: #1. Oliguric - now nonoliguric - acute kidney injury secondary to ATN secondary to severe sepsis. Creatinine peaked at 4.6 to this admission and is 3.37. No evidence of hydronephrosis. Urine eosinophils negative. Serologic workup also negative. #2. Chronic kidney disease stage III secondary to diabetic kidney disease with baseline creatinine near 1.6-1.7. #3. Severe sepsis secondary to staph aureus bacteremia as well as lower extremity cellulitis. #4. Metabolic acidosis secondary to acute kidney injury. Improved. #5. Insulin-dependent diabetes mellitus. #6. Hypertension with chronic kidney disease. Controlled. Plan: Decrease normal saline to be run at 75 mL an hour. Continue oral sodium bicarbonate 1300 mg twice daily. Lasix 80 mg IV once today (he received a dose of Lasix the last 2 days as well). Maintain Villasenor catheter. Strict I's and O's. Avoid nephrotoxic agents and hypotensive episodes. Antibiotics per infectious disease recommendations. Repeat electrolytes in the morning. The last 2 days his urine output was low with worsening renal function. Dialysis was discussed in detail however the patient was declining. His renal function is now improving and so is his urine output No need for for renal replacement therapy at this time.
--- NOTE | 2017-03-08 08:17 | XR ---
EXAMINATION TYPE: XR chest 1V portable DATE OF EXAM: 03/08/2017 8:14 AM COMPARISON: 03/04/2017 HISTORY: CHF TECHNIQUE: Single frontal view of the chest is obtained. FINDINGS: Bilateral consolidation and pleural effusion seen. No pneumothorax. Heart enlarged. IMPRESSION: 1. Stable bilateral consolidation and pleural effusion. Mild central edema not excluded
--- NOTE | 2017-03-08 08:17 | PN ---
DATE OF SERVICE: 03/07/2017 Reason for followup is right foot infected blister with secondary cellulitis and bacteremia. INTERVAL HISTORY: The patient is afebrile. Has been breathing slightly comfortably. Denies significant chest pain. Occasional cough. No abdominal pain. Denies any worsening pain in the right foot area. On examination, blood pressure is 147/66 with a pulse of 60, temperature 97. He is 94% on 3 L nasal cannula. General description is an elderly male up in the bed in no distress. RESPIRATORY SYSTEM: Unlabored breathing. Clear to auscultation anteriorly. HEART: S1, S2. Regular rate and rhythm. ABDOMEN: Soft, no tenderness. Right foot remains to be swollen and red and with wound on the medial aspect has the infected blister. LABS: BUN is 112 with a creatinine 4.14. Sensitivities of Staphylococcus aureus remains to be pending. DIAGNOSTIC IMPRESSION AND PLAN: Patient with right foot infected blister, status post debridement at the bedside. Culture has been positive for Escherichia coli and strep with staph in the blood. Unfortunately sensitivity of the staph still pending. He is currently on daptomycin and clindamycin because of his risk of nephrotoxicity from vancomycin and CEPHALEXIN allergy. Local wound care with Aquacel Silver. Continue supportive care. MTDD
[2017-03-08] MEDS: ASPIRIN 81 MG CHEW PO SCH (09:34)
[2017-03-08] MEDS: PREGABALIN 25 MG CAP PO SCH ×3 (09:34→21:48)
[2017-03-08] MEDS: SODIUM BICARBONATE TAB 650 MG TAB PO SCH ×2 (09:35→21:40)
[2017-03-08] MEDS ORDERED: FUROSEMIDE 10 MG/ML 10 ML VIAL IV ONE (11:00)
[2017-03-08 11:35] LABS: Glucose,Whole Blood 127 mg/dL (75-99)
--- NOTE | 2017-03-08 14:15 | P.PN ---
Subjective This is a 71-year-old white male with history of multiple medical problems including diabetes, hypertension, coronary artery disease and previous ME, history of pleural effusion requiring drainage by Dr. Acharya, back in August of 2016. Patient presented this time with mostly significant swelling of lower extremities/lymphedema, and ulcerations with cellulitis findings on both lower extremities. Patient is being treated for cellulitis, he is also receiving diuretics for chronic swelling of lower extremities, however he is at a point where he is not responding more to Lasix, and his renal functioning seems to be worsening gradually to the point that the patient is becoming quite oliguric. Hemodialysis is being considered but according the automobile damage appraiser, patient is declining to have hemodialysis at this point. I was asked to see the patient because of slight shortness of breath and impending fluid overload and pulmonary edema. At the time of my evaluation today, patient denied any shortness of breath, no cough, no wheezing, and his chest x-ray which was done on this admission showed cardiomegaly, and bilateral areas of platelike atelectasis. At least no evidence of congestive heart failure on the chest x- ray based on the chest x-ray from 03/04/2017. Today the patient denies any cough no wheezing no shortness of breath. No fever no chills no hemoptysis no chest pain. No nausea no vomiting no abdominal pain. He is complaining however of significant worsening swelling and lymphedema of both lower extremities both are wrapped with Odell bandage. Patient is being treated by infectious disease specialist for staph aureus bacteremia and for coverage of Streptococcus agalactiae as well as staph aureus. He is now on daptomycin and clindamycin, patient was on vancomycin and Azactam on admission. The patient is seen again today 03/07/2017 in follow-up on the selective care unit. He is currently sitting up in a chair at the bedside. He is in no acute distress. He denies any worsening shortness of breath, cough or congestion. He is maintaining O2 saturations in the 90s on 3 L/m per nasal cannula. Currently afebrile. BUN 112, creatinine 4.14. The patient is seen again today 03/08/2017 in follow-up on the selective care unit. He is currently resting quite comfortably in bed. He is maintaining good O2 saturations in the mid 90s on 3 L/m per nasal cannula. Today's chest x- ray shows stable bilateral consolidation/pleural effusion. No worse. He has been afebrile. Hemodynamically stable. Hemoglobin 10.4. BUN is 111 with a creatinine of 3.37. He is making urine currently in a -1125 balance. He has improved and nephrology now feels the patient may not require renal replacement therapy as the patient has been declining it anyway. Objective - Vital Signs Vital signs: Vital Signs Temp 96.6 F L 03/08/17 12:00 Pulse 64 03/08/17 12:00 Resp 18 03/08/17 12:00 BP 134/84 03/08/17 12:00 Pulse Ox 94 L 03/08/17 12:00 Intake & Output 03/07/17 03/08/17 03/08/17 18:59 06:59 18:59 Intake Total 120 1200 330 Output Total 1300 675 Balance -1180 525 330 Weight 131 kg 130 kg Intake: Intake, IV Titration 1150 Amount Clindamycin 900 mg In 50 Dextrose 5% in Water 50 ml @ 100 mls/hr IVPB Q8HR [facility] Rx#:[id number] Sodium Chloride 0.9% 1, 1100 000 ml @ 100 mls/hr IV . Q10H [facility]ILL[facility] Rx#:[id number] Oral 120 50 330 Output: Urine 1300 675 Other: Voiding Method Indwelling Catheter Indwelling Catheter - Exam GENERAL EXAM: Morbidly obese. Alert, comfortable in no apparent distress. HEAD: Normocephalic. EYES: Normal reaction of pupils, equal size. NOSE: Clear with pink turbinates. THROAT: There is crowding of the posterior pharynx. No erythema or exudates. NECK: Short. No masses, no JVD. CHEST: No chest wall deformity. LUNGS: Equal air entry diminished in the posterior bases. CVS: S1 and S2 normal with no audible mumurs, regular rhythm. ABDOMEN: No hepatosplenomegaly, normal bowel sounds, no guarding or rigidity. Extremities: ODELL wraps to the bilateral lower extremities. No clubbing, no cyanosis. Peripheral pulses are intact. - Labs CBC & Chem 7: 03/08/17 05:51 03/08/17 05:51 Labs: Abnormal Lab Results - Last 24 Hours (Table) 03/06/17 03/07/17 03/07/17 Range/Units 11:45 16:55 20:29 RBC (4.30-5.90) m/uL Hgb (13.0-17.5) gm/dL Hct (39.0-53.0) % RDW (11.5-15.5) % Lymphocytes # (1.0-4.8) k/uL BUN (9-20) mg/dL Creatinine (0.66-1.25) mg/dL Glucose (74-99) mg/dL POC Glucose (mg/dL) 154 H 137 H (75-99) mg/dL Calcium (8.4-10.2) mg/dL Phosphorus (2.5-4.5) mg/dL Alkaline Phosphatase (38-126) U/L Total Protein (6.3-8.2) g/dL Albumin (3.5-5.0) g/dL Tot Complement (CH50) 289 H (54-144) [facility] 03/08/17 03/08/17 03/08/17 Range/Units 05:51 05:51 06:09 RBC 3.69 L (4.30-5.90) m/uL Hgb 10.4 L (13.0-17.5) gm/dL Hct 31.8 L (39.0-53.0) % RDW 15.6 H (11.5-15.5) % Lymphocytes # 0.6 L (1.0-4.8) k/uL BUN 111 H* (9-20) mg/dL Creatinine 3.37 H (0.66-1.25) mg/dL Glucose 123 H (74-99) mg/dL POC Glucose (mg/dL) 119 H (75-99) mg/dL Calcium 7.2 L (8.4-10.2) mg/dL Phosphorus 6.6 H (2.5-4.5) mg/dL Alkaline Phosphatase 189 H (38-126) U/L Total Protein 5.9 L (6.3-8.2) g/dL Albumin 2.4 L (3.5-5.0) g/dL Tot Complement (CH50) (54-144) 03/08/17 Range/Units 11:33 RBC (4.30-5.90) m/uL Hgb (13.0-17.5) gm/dL Hct (39.0-53.0) % RDW (11.5-15.5) % Lymphocytes # (1.0-4.8) k/uL BUN (9-20) mg/dL Creatinine (0.66-1.25) mg/dL Glucose (74-99) mg/dL POC Glucose (mg/dL) 127 H (75-99) mg/dL Calcium (8.4-10.2) mg/dL Phosphorus (2.5-4.5) mg/dL Alkaline Phosphatase (38-126) U/L Total Protein (6.3-8.2) g/dL Albumin (3.5-5.0) g/dL Tot Complement (CH50) (54-144) Microbiology - Last 24 Hours (Table) 03/04/17 13:08 Gram Stain - Preliminary Foot - Right Tissue Culture - Preliminary Escherichia coli Strep agalactiae - (group b) Presumptive Staph aureus Clostridium perfringens 03/04/17 11:57 Blood Culture - Preliminary Blood No Growth after 72 hours Assessment and Plan Plan: Impression: 1 impending congestive heart failure and fluid overload secondary to oliguria and secondary to acute on chronic renal failure. Patient is not showing much response to diuretics at this point. 2 acute bacteremia from cellulitis, blood cultures are positive for presumptive staph, one cultures from the lower left lower extremity were positive for strep agalactiae group B and presumptive staph aureus, right foot cultures positive for E. coli and strep agalactiae group B. 2 multiple comorbidities including morbid obesity, chronic lower extremity lymph edema with cellulitis, features of obstructive sleep apnea syndrome, diabetes, insulin-dependent, hyperlipidemia, coronary artery disease and previous acute anterior wall ME requiring LAD stenting and history of hypertension. History of right pleural effusion back in August requiring thoracentesis. Plan: The patient was seen and evaluated by Dr. Louis. Chest x-ray and labs were reviewed. Maintain O2 saturations in the 90s on 3 L. His renal function has improved. He is making more urine. He is maintained on IV Lasix. Continue antibiotics. Continue to follow.
[2017-03-08 16:35] LABS: Glucose,Whole Blood 149 mg/dL (75-99)
--- NOTE | 2017-03-08 19:33 | PN ---
Patient is admitted with sepsis and acute tubular necrosis. Patient was initially thought to require dialysis but patient's kidney function started improving. Patient started urinating well. At this point of time patient probably will not require dialysis and patient's acute tubular necrosis is improving and sepsis is improving. Patient is more awake today. REVIEW OF SYSTEMS: CARDIOVASCULAR: No chest pain, no orthopnea, no PND, no palpitations. PULMONARY: Denied any shortness of breath. No cough or hemoptysis. GASTROINTESTINAL: No diarrhea, nausea or vomiting. No abdominal pain. Normoactive bowel sounds. NEUROLOGIC: No headaches, no weakness, no numbness. Medications were reviewed. The patient is complaining of pain in that urethral area where he has Villasenor catheter. PHYSICAL EXAMINATION: VITAL SIGNS: Temperature 96.6, pulse of 64, respiratory rate of 18, blood pressure is 134/84, saturating at 94% on 4 liters of O2 nasal cannula. GENERAL: Today, patient is much alert, oriented times almost 3 and appears to be quite weak clinically. HEENT: Pupils are round and equally reacting to light. EOMI. No scleral icterus. No conjunctival pallor. Normocephalic, atraumatic. No pharyngeal erythema. No thyromegaly. CARDIOVASCULAR: S1 and S2 present. No murmurs, rubs, or gallops. PULMONARY: Bibasilar crackles are appreciated. No wheezing was appreciated. ABDOMEN: Soft, nontender, nondistended, normoactive bowel sounds. No palpable organomegaly. Patient has Villasenor catheter with good urine output. MUSCULOSKELETAL: No joint swelling or deformity. EXTREMITIES: No cyanosis, clubbing, or pedal edema. NEUROLOGICAL: Gross neurological examination did not reveal any focal deficits. SKIN: No rashes. LABORATORY DATA: CBC, CMP are abnormal for elevated BUN and creatinine but improved to 111 and 3.37. ASSESSMENT AND PLAN: 1. Severe sepsis secondary to cellulitis and bacteremia due to Escherichia coli and strep agalactiae and Staphylococcus aureus and patient is on daptomycin and clindamycin which is being continued and Dr. Ling is following the patient. 2. Second degree heart block. Cardiology is following the patient. 3. Hypertension. 4. Acute renal failure secondary to acute tubular necrosis, which appears to be improving at this point of time. 5. Chronic lymphedema. 6. Dyslipidemia. 7. Gout. 8. Obesity. PLAN: Continue with present antibiotics. Continue with present medications. Repeat electrolytes. Monitor kidney function. I&Os.
[2017-03-08 21:02] LABS: Glucose,Whole Blood 140 mg/dL (75-99)
[2017-03-08] MEDS: INSULIN DETEMIR 100 UNIT/ML 10 ML VIAL SQ SCH (21:39)
[2017-03-08] MEDS: traMADol 50 MG TAB PO PRN (21:40)
--- NOTE | 2017-03-08 22:14 | PN ---
DATE OF SERVICE: 03/08/2017 REASON FOR FOLLOWUP: Right diabetic foot infection with infected blister and bacteremia. INTERVAL HISTORY: The patient is afebrile. He has been breathing comfortably. Patient denies significant chest pain or cough and no abdominal pain. He has been complaining about the Villasenor catheter. No significant pain in the right foot area. On examination, blood pressure is 149/69 with a pulse of 60, temperature of 98. He is 96% on 4 L nasal cannula. General description is an elderly male lying in bed in no distress. RESPIRATORY SYSTEM: Unlabored breathing. Clear to auscultation anteriorly. HEART: S1, S2. Regular rate and rhythm. ABDOMEN: Soft. No tenderness. Foot is currently dressed up. No obvious drainage on the dressing. LABS: Hemoglobin is 10.4, white count 8.3. BUN of 111, creatinine is 2.37. DIAGNOSTIC IMPRESSION AND PLAN: Patient with right diabetic foot infection with an infected blister, status post debridement of the same. Culture has been Staphylococcus aureus and Streptococcus agalactiae. Patient is currently being treated with daptomycin because of his CEPHALEXIN ALLERGY and Staphylococcus aureus bacteremia. Sensitivity on Staphylococcus aureus still pending. Follow blood cultures. Continue local wound care with Aquacel Silver. Continue supportive care. MTDD
[2017-03-09 06:06] LABS: Glucose,Whole Blood 112 mg/dL (75-99)
[2017-03-09] MEDS: INSULIN LISPRO (humaLOG) 300 UNIT/3 ML VIAL SQ SCH ×4 (06:22→22:10)
[2017-03-09] MEDS: traMADol 50 MG TAB PO PRN (06:28)
[2017-03-09] MEDS: PANTOPRAZOLE 40 MG TABLET PO SCH (06:28)
[2017-03-09 06:44] LABS: Calcium 7.6 mg/dL (8.4-10.2); Potassium 4.6 mmol/L (3.5-5.1)
[2017-03-09] MEDS: HEPARIN SODIUM,PORCINE 5,000 UNIT/ML 1 ML VIAL SQ SCH ×3 (08:40→17:01)
[2017-03-09] MEDS: ASPIRIN 81 MG CHEW PO SCH (08:41)
[2017-03-09] MEDS: SODIUM BICARBONATE TAB 650 MG TAB PO SCH ×2 (08:41→22:15)
[2017-03-09] MEDS: PREGABALIN 25 MG CAP PO SCH ×3 (08:45→22:15)
[2017-03-09] MEDS: CLINDAMYCIN 900 MG in DEXTROSE 5% IN WATER 50 ML IVPB SCH ×6 (08:45→17:30)
--- NOTE | 2017-03-09 11:24 | P.PN ---
Subjective Principal diagnosis: Congestive heart failure, fluid overload secondary to renal failure. This is a 71-year-old white male with history of multiple medical problems including diabetes, hypertension, coronary artery disease and previous MS, history of pleural effusion requiring drainage by Dr. Acharya, back in August of 2016. Patient presented this time with mostly significant swelling of lower extremities/lymphedema, and ulcerations with cellulitis findings on both lower extremities. Patient is being treated for cellulitis, he is also receiving diuretics for chronic swelling of lower extremities, however he is at a point where he is not responding more to Lasix, and his renal functioning seems to be worsening gradually to the point that the patient is becoming quite oliguric. Hemodialysis is being considered but according the public policy coordinator, patient is declining to have hemodialysis at this point. I was asked to see the patient because of slight shortness of breath and impending fluid overload and pulmonary edema. At the time of my evaluation today, patient denied any shortness of breath, no cough, no wheezing, and his chest x-ray which was done on this admission showed cardiomegaly, and bilateral areas of platelike atelectasis. At least no evidence of congestive heart failure on the chest x- ray based on the chest x-ray from 03/04/2017. Today the patient denies any cough no wheezing no shortness of breath. No fever no chills no hemoptysis no chest pain. No nausea no vomiting no abdominal pain. He is complaining however of significant worsening swelling and lymphedema of both lower extremities both are wrapped with Odell bandage. Patient is being treated by infectious disease specialist for staph aureus bacteremia and for coverage of Streptococcus agalactiae as well as staph aureus. He is now on daptomycin and clindamycin, patient was on vancomycin and Azactam on admission. The patient is seen again today 03/07/2017 in follow-up on the selective care unit. He is currently sitting up in a chair at the bedside. He is in no acute distress. He denies any worsening shortness of breath, cough or congestion. He is maintaining O2 saturations in the 90s on 3 L/m per nasal cannula. Currently afebrile. BUN 112, creatinine 4.14. The patient is seen again today 03/08/2017 in follow-up on the selective care unit. He is currently resting quite comfortably in bed. He is maintaining good O2 saturations in the mid 90s on 3 L/m per nasal cannula. Today's chest x- ray shows stable bilateral consolidation/pleural effusion. No worse. He has been afebrile. Hemodynamically stable. Hemoglobin 10.4. BUN is 111 with a creatinine of 3.37. He is making urine currently in a -1125 balance. He has improved and nephrology now feels the patient may not require renal replacement therapy as the patient has been declining it anyway. On 03/09/2017, patient remains about the same. No major issues, less shortness of breath, continues to have some decent urine output. BUN is 107 creatinine is 2.71. Patient had acute kidney injury on chronic kidney disease, normally he had a stage III kidney disease secondary to diabetes. His baseline creatinine is 1.6. At one point on this admission, it peaked up to 4.6. And it seems to be gradually improving. Urine output is also improving. Patient is being treated for staph aureus bacteremia and cellulitis of lower extremities. Pulmonary-cardenas, less shortness of breath noted today. Objective - Vital Signs Vital signs: Vital Signs Temp 97.3 F L 03/09/17 08:00 Pulse 58 L 03/09/17 08:00 Resp 18 03/09/17 08:00 BP 159/71 03/09/17 08:00 Pulse Ox 95 03/09/17 08:00 Intake & Output 03/08/17 03/09/17 03/09/17 18:59 06:59 18:59 Intake Total 330 475 360 Output Total 1700 1150 Balance -1370 -675 360 Weight 130 kg Intake: IV 325 0.9 @ 75 mls/hr 225 Clindamycin 900 mg In 50 Dextrose 5% in Water 50 ml @ 100 mls/hr IVPB Q8HR BILLY Rx#:[id number] DAPTOmycin 700 mg In 50 Sodium Chloride 0.9% 50 ml @ 100 mls/hr IV Q48H BILLY Rx#:[id number] Oral 330 150 360 Output: Urine 1700 1150 Uretheral (Villasenor) 450 Other: Voiding Method Indwelling Catheter Indwelling Catheter Indwelling Catheter # Voids 1 # Bowel Movements 0 - Exam GENERAL EXAM: Morbidly obese. Alert, comfortable in no apparent distress. HEAD: Normocephalic. EYES: Normal reaction of pupils, equal size. NOSE: Clear with pink turbinates. THROAT: There is crowding of the posterior pharynx. No erythema or exudates. NECK: Short. No masses, no JVD. CHEST: No chest wall deformity. LUNGS: Equal air entry diminished in the posterior bases. CVS: S1 and S2 normal with no audible mumurs, regular rhythm. ABDOMEN: No hepatosplenomegaly, normal bowel sounds, no guarding or rigidity. Extremities: ODELL wraps to the bilateral lower extremities. No clubbing, no cyanosis. Peripheral pulses are intact. - Labs CBC & Chem 7: 03/08/17 05:51 03/09/17 05:52 Labs: Abnormal Lab Results - Last 24 Hours (Table) 03/08/17 03/08/17 03/08/17 Range/Units 11:33 16:34 21:00 BUN (9-20) mg/dL Creatinine (0.66-1.25) mg/dL POC Glucose (mg/dL) 127 H 149 H 140 H (75-99) mg/dL Calcium (8.4-10.2) mg/dL 03/09/17 03/09/17 Range/Units 05:52 06:04 BUN 107 H* (9-20) mg/dL Creatinine 2.71 H (0.66-1.25) mg/dL POC Glucose (mg/dL) 112 H (75-99) mg/dL Calcium 7.6 L (8.4-10.2) mg/dL Microbiology - Last 24 Hours (Table) 03/04/17 13:08 Gram Stain - Final Foot - Right Tissue Culture - Final Escherichia coli Strep agalactiae - (group b) Staphylococcus aureus Clostridium perfringens 03/04/17 11:57 Blood Culture - Preliminary Blood No Growth after 96 hours Assessment and Plan Plan: Impression: 1 impending congestive heart failure and fluid overload secondary to oliguria and secondary to acute on chronic renal failure. Patient is showing some improvement over the last 24 hours. Renal functioning is improving, and urine output is also improving. 2 acute bacteremia from cellulitis, 2 multiple comorbidities including morbid obesity, chronic lower extremity lymph edema with cellulitis, features of obstructive sleep apnea syndrome, diabetes, insulin-dependent, hyperlipidemia, coronary artery disease and previous acute anterior wall MS requiring LAD stenting and history of hypertension. History of right pleural effusion back in August requiring thoracentesis. Recommendation: I fully agree with the present treatment plan, will continue to follow, long-term prognosis is definitely poor and guarded. Time with Patient: Less than 30
[2017-03-09 11:33] LABS: Glucose,Whole Blood 166 mg/dL (75-99)
[2017-03-09] MEDS: SODIUM CHLORIDE 0.9% 1,000 ML IV SCH (12:18)
[2017-03-09] MEDS ORDERED: FUROSEMIDE 10 MG/ML 4 ML VIAL IV STA (13:28)
--- NOTE | 2017-03-09 16:15 | PN ---
The patient is seen for followup for acute kidney injury. This morning he is sitting up in bed. He states he is feeling short of breath. He has IV fluids at 75 mL an hour. His extremities are currently wrapped. The patient denies any significant chest pain. On examination, blood pressure was 158/68, heart rate 52 per minute. He is afebrile. EXAMINATION OF THE HEART: S1 and S2. EXAMINATION OF THE LUNGS: Bilateral breath sounds are heard. There is bilateral basal crackles heard. Abdomen is soft, nontender, obese. Examination of lower extremities shows bilateral extremities to be wrapped. Edema is noted 3+ bilaterally. Labs show sodium 143, potassium 4.6, BUN 107, serum creatinine 2.71. Calcium 7.6. ASSESSMENT: 1. Acute kidney injury, acute tubular necrosis, currently nonoliguric and improving. 2. Volume overload. We will discontinue IV fluids and I will give him a dose of Lasix 40 mg IV. No need for renal replacement therapy. Renal function continues to improve. 3. Cellulitis and bacteremia, which was Staphylococcus aureus. 4. Right diabetic foot infection with infected blister, status post debridement, maintained on daptomycin. PLAN: Hep-Lock IV fluids, Lasix x1. Repeat labs in a.m.
[2017-03-09 16:25] LABS: Glucose,Whole Blood 122 mg/dL (75-99)
--- NOTE | 2017-03-09 21:07 | PN ---
Patient appears to be improving slowly clinically and also patient's kidney function started improving and did not require any dialysis. REVIEW OF SYSTEMS: CARDIOVASCULAR: No chest pain, no orthopnea, no PND, no palpitations. PULMONARY: Denied any shortness of breath. No cough or hemoptysis. GASTROINTESTINAL: No diarrhea, nausea or vomiting. No abdominal pain. Normoactive bowel sounds. NEUROLOGIC: No headaches, no weakness, no numbness. Medications were reviewed. PHYSICAL EXAMINATION: VITAL SIGNS: Temperature 96.8, pulse of 88, respiratory rate of 18, blood pressure 158/88, saturating at 93% on room air. GENERAL: The patient is alert, oriented times almost close to 3. Patient has anasarca, extensive edema bilateral lower limbs. Patient has good urine output. Lung examination bibasilar crackles were appreciated. HEENT: Pupils are round and equally reacting to light. EOMI. No scleral icterus. No conjunctival pallor. Normocephalic, atraumatic. No pharyngeal erythema. No thyromegaly. CARDIOVASCULAR: S1 and S2 present. No murmurs, rubs, or gallops. PULMONARY: Chest is clear to auscultation, no wheezing or crackles. ABDOMEN: Soft, nontender, nondistended, normoactive bowel sounds. No palpable organomegaly. MUSCULOSKELETAL: No joint swelling or deformity. EXTREMITIES: No cyanosis, clubbing, or pedal edema. NEUROLOGICAL: Gross neurological examination did not reveal any focal deficits. SKIN: No rashes. LABORATORY DATA: Basic metabolic profile showed improvement in BUN and creatinine to 107 and 2.7 respectively. ASSESSMENT AND PLAN: 1. Severe sepsis secondary to cellulitis and bacteremia with E. coli and ( ) Staphylococcus aureus all of which are improving. Patient continues to be on ( ) and Clinda. 2. Anasarca secondary to anuria from acute tubular necrosis that is improving. 3. Acute renal failure secondary to acute tubular necrosis, which is improving. Patient has chronic kidney disease Stage III. 4. Second-degree heart block, which resolved at this point of time. 5. Hypertension. 6. Chronic lymphedema bilateral lower extremity. Patient has cellulitis of the right lower extremity. 7. Dyslipidemia. 8. Gout. 9. Obesity. 10. The patient has significant deconditioning secondary to bedridden state and severe sepsis.
[2017-03-09 21:16] LABS: Glucose,Whole Blood 125 mg/dL (75-99)
[2017-03-09] MEDS: CIPROFLOXACIN HCL 250 MG TAB PO SCH (22:15)
[2017-03-09] MEDS: INSULIN DETEMIR 100 UNIT/ML 10 ML VIAL SQ SCH (22:16)
[2017-03-10] MEDS: HEPARIN SODIUM,PORCINE 5,000 UNIT/ML 1 ML VIAL SQ SCH ×4 (00:35→23:39)
[2017-03-10] MEDS: traMADol 50 MG TAB PO PRN ×3 (03:07→23:39)
[2017-03-10 06:04] LABS: Glucose,Whole Blood 129 mg/dL (75-99)
[2017-03-10] MEDS: PANTOPRAZOLE 40 MG TABLET PO SCH (06:14)
[2017-03-10] MEDS: INSULIN LISPRO (humaLOG) 300 UNIT/3 ML VIAL SQ SCH ×4 (06:14→21:02)
[2017-03-10] MEDS: CIPROFLOXACIN HCL 250 MG TAB PO SCH ×2 (08:45→21:02)
[2017-03-10] MEDS: SODIUM BICARBONATE TAB 650 MG TAB PO SCH (08:45)
[2017-03-10] MEDS: ERGOCALCIFEROL 50,000 UNIT CAP PO SCH (08:45)
[2017-03-10] MEDS: PREGABALIN 25 MG CAP PO SCH ×3 (08:45→21:02)
[2017-03-10] MEDS: ASPIRIN 81 MG CHEW PO SCH (08:46)
[2017-03-10 11:26] LABS: Glucose,Whole Blood 160 mg/dL (75-99)
[2017-03-10 12:15] LABS: Potassium 5.1 mmol/L (3.5-5.1)
--- NOTE | 2017-03-10 12:30 | PN ---
DATE OF SERVICE: 03/09/2017 Reason for follow-up is diabetic foot infection with bacteremia. INTERVAL HISTORY: The patient is afebrile. Has been breathing comfortably. Denies significant chest pain. No cough. No abdominal pain or any worsening pain in the right leg area. On examination, blood pressure 186/77 with pulse of 88. Temperature 96.8. He is 93% on 2- L nasal cannula. General description is an elderly male, lying in bed in no distress. RESPIRATORY SYSTEM: Unlabored breathing. Clear to auscultation anteriorly. HEART: S1, S2 with regular rate and rhythm. ABDOMEN: Soft, no tenderness. Right leg overall swelling has improved. Wound is dressed. No obvious drainage on the dressing. LABS: BUN of 107, creatinine 2.5. DIAGNOSTIC IMPRESSION AND PLAN: Patient with right diabetic foot infection with infected blister, status post debridement of the same with secondary bacteremia and cultures being positive for multiple pathogens currently on daptomycin, oral Cipro to cover for the Escherichia coli. Doubt clinical significance of the same. Continue supportive care.
--- NOTE | 2017-03-10 12:31 | P.PN ---
Subjective Principal diagnosis: Congestive heart failure, fluid overload secondary to renal failure. This is a 71-year-old white male with history of multiple medical problems including diabetes, hypertension, coronary artery disease and previous [place], history of pleural effusion requiring drainage by Dr. Acharya, back in August of 2016. Patient presented this time with mostly significant swelling of lower extremities/lymphedema, and ulcerations with cellulitis findings on both lower extremities. Patient is being treated for cellulitis, he is also receiving diuretics for chronic swelling of lower extremities, however he is at a point where he is not responding more to Lasix, and his renal functioning seems to be worsening gradually to the point that the patient is becoming quite oliguric. Hemodialysis is being considered but according the tankage grinder, patient is declining to have hemodialysis at this point. I was asked to see the patient because of slight shortness of breath and impending fluid overload and pulmonary edema. At the time of my evaluation today, patient denied any shortness of breath, no cough, no wheezing, and his chest x-ray which was done on this admission showed cardiomegaly, and bilateral areas of platelike atelectasis. At least no evidence of congestive heart failure on the chest x- ray based on the chest x-ray from 03/04/2017. Today the patient denies any cough no wheezing no shortness of breath. No fever no chills no hemoptysis no chest pain. No nausea no vomiting no abdominal pain. He is complaining however of significant worsening swelling and lymphedema of both lower extremities both are wrapped with Odell bandage. Patient is being treated by infectious disease specialist for staph aureus bacteremia and for coverage of Streptococcus agalactiae as well as staph aureus. He is now on daptomycin and clindamycin, patient was on vancomycin and Azactam on admission. The patient is seen again today 03/07/2017 in follow-up on the selective care unit. He is currently sitting up in a chair at the bedside. He is in no acute distress. He denies any worsening shortness of breath, cough or congestion. He is maintaining O2 saturations in the 90s on 3 L/m per nasal cannula. Currently afebrile. BUN 112, creatinine 4.14. The patient is seen again today 03/08/2017 in follow-up on the selective care unit. He is currently resting quite comfortably in bed. He is maintaining good O2 saturations in the mid 90s on 3 L/m per nasal cannula. Today's chest x- ray shows stable bilateral consolidation/pleural effusion. No worse. He has been afebrile. Hemodynamically stable. Hemoglobin 10.4. BUN is 111 with a creatinine of 3.37. He is making urine currently in a -1125 balance. He has improved and nephrology now feels the patient may not require renal replacement therapy as the patient has been declining it anyway. On 03/09/2017, patient remains about the same. No major issues, less shortness of breath, continues to have some decent urine output. BUN is 107 creatinine is 2.71. Patient had acute kidney injury on chronic kidney disease, normally he had a stage III kidney disease secondary to diabetes. His baseline creatinine is 1.6. At one point on this admission, it peaked up to 4.6. And it seems to be gradually improving. Urine output is also improving. Patient is being treated for staph aureus bacteremia and cellulitis of lower extremities. Pulmonary-cardenas, less shortness of breath noted today. Reevaluated today on 03/02/2017, patient is slightly better, less short of breath , continues to make an decent amount of urine with diuretics, renal profile is holding with a BUN of 92 creatinine of 2.03. His creatinine a few days ago was 4.62, seems to be improving. Objective - Vital Signs Vital signs: Vital Signs Temp 97.8 F 03/10/17 12:00 Pulse 72 03/10/17 12:00 Resp 18 03/10/17 12:00 BP 182/78 03/10/17 12:00 Pulse Ox 95 03/10/17 12:00 Intake & Output 03/09/17 03/10/17 03/10/17 18:59 06:59 18:59 Intake Total 1250 Output Total 2700 2515 1200 Balance -1450 -2515 -1200 Weight 127.5 kg Intake: IV 650 0.9 @ 75 mls/hr 600 Clindamycin 900 mg In 50 Dextrose 5% in Water 50 ml @ 100 mls/hr IVPB Q8HR [facility] Rx#:[id number] Oral 600 Output: Urine 2700 2515 1200 Uretheral (Villasenor) 1075 Other: Voiding Method Indwelling Catheter Indwelling Catheter Indwelling Catheter # Voids 1 - Exam GENERAL EXAM: Morbidly obese. Alert, comfortable in no apparent distress. HEAD: Normocephalic. EYES: Normal reaction of pupils, equal size. NOSE: Clear with pink turbinates. THROAT: There is crowding of the posterior pharynx. No erythema or exudates. NECK: Short. No masses, no JVD. CHEST: No chest wall deformity. LUNGS: Equal air entry diminished in the posterior bases. CVS: S1 and S2 normal with no audible mumurs, regular rhythm. ABDOMEN: No hepatosplenomegaly, normal bowel sounds, no guarding or rigidity. Extremities: ODELL wraps to the bilateral lower extremities. No clubbing, no cyanosis. Peripheral pulses are intact. - Labs CBC & Chem 7: 03/08/17 05:51 03/10/17 11:34 Labs: Abnormal Lab Results - Last 24 Hours (Table) 03/09/17 03/09/17 03/10/17 Range/Units 16:13 21:15 06:01 Chloride (98-107) mmol/L BUN (9-20) mg/dL Creatinine (0.66-1.25) mg/dL Glucose (74-99) mg/dL POC Glucose (mg/dL) 122 H 125 H 129 H (75-99) mg/dL Calcium (8.4-10.2) mg/dL 03/10/17 03/10/17 Range/Units 11:21 11:34 Chloride 108 H (98-107) mmol/L BUN 92 H* (9-20) mg/dL Creatinine 2.03 H (0.66-1.25) mg/dL Glucose 155 H (74-99) mg/dL POC Glucose (mg/dL) 160 H (75-99) mg/dL Calcium 8.0 L (8.4-10.2) mg/dL Microbiology - Last 24 Hours (Table) 03/04/17 11:57 Blood Culture - Preliminary Blood No Growth after 120 hours Assessment and Plan Plan: Impression: 1 impending congestive heart failure and fluid overload secondary to oliguria and secondary to acute on chronic renal failure. Patient is showing some improvement over the last few days, his improvement has been noted to be clinical and renal profile seems to be gradually improved and it is best today. 2 acute bacteremia from cellulitis, 2 multiple comorbidities including morbid obesity, chronic lower extremity lymph edema with cellulitis, features of obstructive sleep apnea syndrome, diabetes, insulin-dependent, hyperlipidemia, coronary artery disease and previous acute anterior wall [place] requiring LAD stenting and history of hypertension. History of right pleural effusion back in August requiring thoracentesis. Recommendation: I fully agree with the present treatment plan, will continue to follow, long-term prognosis is definitely poor and guarded. We'll sign off for now, and will follow on when necessary basis. Time with Patient: Less than 30
--- NOTE | 2017-03-10 14:10 | PN ---
Patient is seen for follow-up for acute kidney injury. Renal function has been improving; however, he has been volume overloaded. IV fluids were discontinued yesterday. This morning the patient states that he is less short of breath. He wants to sit up and come out of bed. He has had good urine output. Currently there is an indwelling Villasenor catheter. 24-hour urine was about 2.8 liters. Patient received one dose of Lasix yesterday. On examination, he is awake, comfortable. He is not in any acute distress. Blood pressure is elevated at 182/78, heart rate 72 per minute. He is afebrile. Examination of the heart S1 and S2. Examination of the lungs: Decreased breath sounds bilateral bases, occasional bilateral crackles are heard. ABDOMEN: Soft, obese. Examination of lower extremities shows bilateral edema about 2+ bilaterally. Both extremities are wrapped. AERIAL SPRAYER exam is grossly intact. Labs show sodium 143, potassium 5.1, BUN 92, serum creatinine 2.03. ASSESSMENT: 1. Acute kidney injury, acute tubular necrosis, currently significantly improved. 2. Volume overload. We will start patient on scheduled IV Lasix. He is already in negative balance for the last 24 hours. 3. Right diabetic foot infection with infected blister status post debridement. 4. Bacteremia with Staphylococcus aureus, with repeat blood cultures showing no growth from 03/04. Patient is being followed by ID. 5. Hypertension, partly volume sensitive. Will add Coreg and discontinue the sodium bicarb. 6. Metabolic acidosis, currently improved. Discontinue sodium bicarb as that is large salt load. PLAN: Discontinue sodium bicarb, add Coreg IV and maintain IV Lasix daily for now. Repeat labs in a.m. Encourage increased oral intake.
[2017-03-10 16:29] LABS: Glucose,Whole Blood 153 mg/dL (75-99)
[2017-03-10] MEDS: FUROSEMIDE 10 MG/ML 4 ML VIAL IV SCH (16:30)
[2017-03-10] MEDS ORDERED: CARVEDILOL 6.25 MG TAB PO SCH (17:30)
[2017-03-10 21:01] LABS: Glucose,Whole Blood 143 mg/dL (75-99)
[2017-03-10] MEDS: INSULIN DETEMIR 100 UNIT/ML 10 ML VIAL SQ SCH (21:01)
--- NOTE | 2017-03-10 22:11 | PN ---
Patient is a 71-year-old admitted with severe sepsis and acute tubular necrosis secondary to right lower limb cellulitis. Blood cultures were positive. The patient repeat blood cultures are negative. Patient has multiple organisms including E. coli, streptogalactaie, Staph aureus and Clostridium perfringens in the wound and patient's kidney function at present is improving and patient is on Lasix. Patient has good urine output. The patient was retaining fluid because he was anuric. Patient now has third degree heart block, probably multifactorial, because of the anemia, I will go ahead and discontinue AV shelbi agents that is Coreg and patient will be started on amlodipine for blood pressure. REVIEW OF SYSTEMS: CARDIOVASCULAR: No chest pain, no orthopnea, no PND, no palpitations. PULMONARY: Denied any shortness of breath. No cough or hemoptysis. GASTROINTESTINAL: No diarrhea, nausea or vomiting. No abdominal pain. Normoactive bowel sounds. NEUROLOGIC: No headaches, no weakness, no numbness. MUSCULOSKELETAL: Complaining of back pain. Medications are reviewed. PHYSICAL EXAMINATION: Temperature 97.5, pulse of 72, respiratory rate of 18, blood pressure 182/78, saturating at 95% on 3 L O2 by nasal cannula. GENERAL: The patient is alert, and oriented times close to 3. Patient does have generalized edema. HEENT: Pupils are round and equally reacting to light. EOMI. No scleral icterus. No conjunctival pallor. Normocephalic, atraumatic. No pharyngeal erythema. No thyromegaly. CARDIOVASCULAR: S1 and S2 present. No murmurs, rubs, or gallops. PULMONARY: Chest is clear to auscultation, no wheezing or crackles. ABDOMEN: Soft, nontender, nondistended, normoactive bowel sounds. No palpable organomegaly. MUSCULOSKELETAL: No joint swelling or deformity. EXTREMITIES: No cyanosis, clubbing, or pedal edema. NEUROLOGICAL: Gross neurological examination did not reveal any focal deficits. SKIN: No rashes. LABORATORY DATA: Basic metabolic profile is abnormal for elevated BUN of 92, creatinine of 2.03. ASSESSMENT AND PLAN: 1. Severe sepsis secondary to cellulitis bacteremia and patient is on clindamycin and daptomycin. 2. Anasarca because of anuria and acute tubular necrosis, which is improving. Continue with Lasix. 3. Acute renal failure secondary to acute tubular necrosis. Patient does have chronic kidney disease Stage III. 4. Third degree heart block. Cardiology is recommending close monitoring. This is secondary to uremia. I will discontinue beta blockers. 5. Chronic lymphedema bilateral lower extremities. 6. Dyslipidemia. 7. Gout. 8. Obesity. 9. Generalized deconditioning.
[2017-03-11] MEDS ORDERED: traMADol 50 MG TAB PO STA (01:10)
[2017-03-11 05:34] LABS: Glucose,Whole Blood 116 mg/dL (75-99)
[2017-03-11] MEDS: INSULIN LISPRO (humaLOG) 300 UNIT/3 ML VIAL SQ SCH ×4 (05:44→20:28)
[2017-03-11] MEDS: PANTOPRAZOLE 40 MG TABLET PO SCH (05:45)
[2017-03-11 07:55] LABS: CH 27.7; CHCM 31.2; HCT 35.2 % (39.0-53.0); HDW 2.56; HGB 11.1 gm/dL (13.0-17.5); Hypochromasia Slight; MCHC 31.4 g/dL (31.0-37.0); MCV 89.1 fL (80.0-100.0); RBC 3.95 m/uL (4.30-5.90); RDW 15.5 % (11.5-15.5); WBC 8.5 k/uL (3.8-10.6)
[2017-03-11] MEDS: SODIUM BICARBONATE TAB 650 MG TAB PO SCH (08:00)
[2017-03-11 08:11] LABS: Calcium 8.2 mg/dL (8.4-10.2); Potassium 4.9 mmol/L (3.5-5.1)
[2017-03-11] MEDS: HEPARIN SODIUM,PORCINE 5,000 UNIT/ML 1 ML VIAL SQ SCH ×2 (08:25→16:04)
[2017-03-11] MEDS: CIPROFLOXACIN HCL 250 MG TAB PO SCH ×2 (08:26→20:25)
[2017-03-11] MEDS: FUROSEMIDE 10 MG/ML 4 ML VIAL IV SCH (08:26)
[2017-03-11] MEDS: amLODIPine 10 MG TAB PO SCH (08:26)
[2017-03-11] MEDS: ASPIRIN 81 MG CHEW PO SCH (08:26)
[2017-03-11] MEDS: PREGABALIN 25 MG CAP PO SCH ×3 (08:28→20:27)
[2017-03-11] MEDS: traMADol 50 MG TAB PO PRN ×2 (08:39→20:25)
--- NOTE | 2017-03-11 11:42 | PN ---
DATE OF SERVICE: 03/10/2017 Reason for follow-up: Right diabetic wound infection with secondary bacteremia. INTERVAL HISTORY: The patient is afebrile. He has been breathing comfortably. Denies significant chest pain or cough. Complaining of some pain in the right leg area, unable to explain further. On examination, blood pressure 182/78 with a pulse of 72, temperature 97.8. He is 95% on 3 liters nasal cannula. General description is an elderly male, lying in bed in no distress. RESPIRATORY SYSTEM: Unlabored breathing. Clear to auscultation anteriorly. HEART: S1, S2 regular rate and rhythm. ABDOMEN: Soft, no tenderness. The right leg is currently dressed up. No obvious drainage on the dressing. LABS: BUN of 92 with a creatinine 2.03. DIAGNOSTIC IMPRESSION AND PLAN: Patient with right hand diabetic wound infection with infected blister status post debridement with secondary bacteremia. Currently on daptomycin, dose to be adjusted in view of the improvement in his creatinine clearance, continue with daptomycin along with flagyl and Aquacel silver dressing to the wound area. Continue supportive care. MTDD
[2017-03-11 11:48] LABS: Glucose,Whole Blood 123 mg/dL (75-99)
--- NOTE | 2017-03-11 15:02 | PN ---
Patient is seen for follow-up for acute kidney injury. His renal function has been improving. Patient also was volume overloaded. He is maintained on IV Lasix and he continues to have good urine output and remains in negative balance. He is currently complaining of increased scrotal edema. He has an indwelling Villasenor catheter. On examination, blood pressure is 146/69, heart rate of 78 per minute. He is afebrile. Examination of the heart: S1 and S2. Examination of the lungs: Decreased breath sounds at bases. No crackles or wheezing is heard. Abdomen is soft, obese, nontender. Essential lower extremities shows bilateral extremities to be wrapped. There is edema about 2+ bilaterally with scrotal edema noted as well. CUFF RUNNER exam is grossly intact. Labs show sodium 146, potassium 4.9, BUN 78, serum creatinine 1.84. Hemoglobin 11.1 g/dL. ASSESSMENT: 1. Acute kidney injury, acute tubular necrosis, currently significantly improved. 2. Hypervolemia/fluid overload, currently improving. Continue with current dose of Lasix at 40 mg IV daily. 3. Hypertension, now better controlled. Patient was started on Coreg and sodium bicarb was discontinued. 4. Metabolic acidosis, currently improved, off of sodium bicarb now. 5. Bacteremia with Staphylococcus aureus with repeat blood cultures being negative from 03/04. Patient is being followed by Infectious Disease. PLAN: Continue current dose of Lasix. Repeat labs in a.m. Monitor serum sodium level.
[2017-03-11] MEDS: HYDROcodone/APAP 7.5-325MG 1 EACH TAB PO PRN (16:08)
[2017-03-11 16:40] LABS: Glucose,Whole Blood 131 mg/dL (75-99)
[2017-03-11 20:17] LABS: Glucose,Whole Blood 226 mg/dL (75-99)
[2017-03-11] MEDS: INSULIN DETEMIR 100 UNIT/ML 10 ML VIAL SQ SCH (20:25)
[2017-03-11] MEDS: MELATONIN 5 MG TABLET PO SCH (20:25)
--- NOTE | 2017-03-11 21:58 | PN ---
Patient is a 71-year-old, patient is clinically doing much better today, but complaining of pain in the canal area secondary to the Villasenor catheter, which probably can be discontinued. REVIEW OF SYSTEMS: CARDIOVASCULAR: No chest pain, no orthopnea, no PND, no palpitations. PULMONARY: Denied any shortness of breath. No cough or hemoptysis. GASTROINTESTINAL: No diarrhea, nausea or vomiting. No abdominal pain. Normoactive bowel sounds. NEUROLOGIC: No headaches, no weakness, no numbness. Genitourinary as described in HPI. Medications are reviewed. PHYSICAL EXAMINATION: Temperature 97.5, pulse of 78, respiratory rate of 18, blood pressure 146/69, saturating at 92% on 3 liters of oxygen by nasal cannula. GENERAL: The patient is sleepy although easily arousable and oriented times close to 3. HEENT: Pupils are round and equally reacting to light. EOMI. No scleral icterus. No conjunctival pallor. Normocephalic, atraumatic. No pharyngeal erythema. No thyromegaly. CARDIOVASCULAR: S1 and S2 present. No murmurs, rubs, or gallops. PULMONARY: Bibasilar crackles are appreciated. ABDOMEN: Soft, nontender, nondistended, normoactive bowel sounds. No palpable organomegaly. MUSCULOSKELETAL: No joint swelling or deformity. EXTREMITIES: No cyanosis, clubbing, or pedal edema. NEUROLOGICAL: Gross neurological examination did not reveal any focal deficits. SKIN: No rashes. LABORATORY DATA: BUN and creatinine improved to 78 and 1.84. Sodium is 146 and chloride is 108. ASSESSMENT AND PLAN: 1. Severe sepsis secondary to cellulitis and bacteremia with multiple organisms. Patient is on a clindamycin and daptomycin anasarca due to anuria which is improving. Patient had acute tubular necrosis, which is improving and creatinine is close to his baseline. 2. Third-degree heart block, which improved at this point of time. Patient is off beta shelbi and AV francis blockers. 3. Chronic lymphedema of the bilateral lower extremities. 4. Diabetes mellitus, fairly controlled blood sugars. 5. Deep venous thrombosis prophylaxis for which patient is on heparin subcu. 6. Dyslipidemia. 7. Gout. 8. Obesity. 9. Generalized deconditioning. PLAN: Continue to follow kidney function. Continue with present medications. His clinical condition is still guarded. Overall clinical condition is still guarded.
[2017-03-12] MEDS: HEPARIN SODIUM,PORCINE 5,000 UNIT/ML 1 ML VIAL SQ SCH ×4 (00:18→22:25)
[2017-03-12] MEDS: HYDROcodone/APAP 7.5-325MG 1 EACH TAB PO PRN ×2 (02:59→08:42)
[2017-03-12] MEDS: diphenhydrAMINE 25 MG CAP PO PRN (03:35)
[2017-03-12 05:47] LABS: Glucose,Whole Blood 121 mg/dL (75-99)
[2017-03-12] MEDS: INSULIN LISPRO (humaLOG) 300 UNIT/3 ML VIAL SQ SCH ×4 (05:53→22:24)
[2017-03-12] MEDS: PANTOPRAZOLE 40 MG TABLET PO SCH (06:05)
[2017-03-12 07:37] LABS: CH 27.9; HCT 35.5 % (39.0-53.0); HGB 11.5 gm/dL (13.0-17.5); Hypochromasia Slight; MCH 29.1 pg (25.0-35.0); MCHC 32.3 g/dL (31.0-37.0); MCV 90.1 fL (80.0-100.0); Mean Platelet Volume 7.3; RBC 3.94 m/uL (4.30-5.90); RDW 15.4 % (11.5-15.5); WBC 7.4 k/uL (3.8-10.6)
[2017-03-12 07:50] LABS: Calcium 8.3 mg/dL (8.4-10.2); Potassium 4.8 mmol/L (3.5-5.1)
[2017-03-12] MEDS: ASPIRIN 81 MG CHEW PO SCH (08:42)
[2017-03-12] MEDS: amLODIPine 10 MG TAB PO SCH (08:42)
[2017-03-12] MEDS: FUROSEMIDE 10 MG/ML 4 ML VIAL IV SCH (08:43)
[2017-03-12] MEDS: CIPROFLOXACIN HCL 250 MG TAB PO SCH ×2 (08:43→22:23)
[2017-03-12] MEDS: PREGABALIN 25 MG CAP PO SCH ×3 (08:46→22:25)
--- NOTE | 2017-03-12 09:15 | P.PN ---
Subjective Patient is seen in follow-up for acute kidney injury on chronic kidney disease. Patient has chronic kidney disease stage III secondary to diabetic kidney disease with baseline creatinine near 1.6. Creatinine peaked at 4.6 to this admission and is down to 1.67 today. He is nonoliguric. Patient is currently being treated for staph aureus bacteremia as well as right foot infection for which she underwent debridement this admission. Patient is currently resting in bed. Appetite is good. No vomiting or diarrhea. Denies chest pain or shortness of breath. Villasenor catheter has been discontinued. Vital signs are stable. General: The patient appeared well nourished and normally developed. HEENT: Head exam is unremarkable. Neck is without jugular venous distension. LUNGS: Lungs are clear to auscultation and percussion. Breath sounds decreased. HEART: Rate and Rhythm are regular. First and second heart sounds normal. No murmurs, rubs or gallops. ABDOMEN: Abdominal exam reveals normal bowel sounds. Non-tender and non- distended. No evidence of peritonitis. EXTREMITITES: 1+ edema. Wound dressing intact with no obvious drainage. Objective - Vital Signs Vital signs: Vital Signs Temp 97.2 F L 03/12/17 04:00 Pulse 95 03/12/17 04:00 Resp 18 03/12/17 04:00 BP 141/91 03/12/17 04:00 Pulse Ox 95 03/12/17 04:00 Intake & Output 03/11/17 03/12/17 03/12/17 18:59 06:59 18:59 Output Total 3000 200 Balance -3000 -200 Weight 116.3 kg Output: Urine 3000 200 Other: Voiding Method Indwelling Catheter Urinal Diaper # Voids 1 2 # Bowel Movements 1 - Labs CBC & Chem 7: 03/12/17 07:17 03/12/17 07:17 Labs: Abnormal Lab Results - Last 24 Hours (Table) 03/11/17 03/11/17 03/11/17 Range/Units 11:47 16:39 20:15 RBC (4.30-5.90) m/uL Hgb (13.0-17.5) gm/dL Hct (39.0-53.0) % Sodium (137-145) mmol/L Chloride (98-107) mmol/L Carbon Dioxide (22-30) mmol/L BUN (9-20) mg/dL Creatinine (0.66-1.25) mg/dL Glucose (74-99) mg/dL POC Glucose (mg/dL) 123 H 131 H 226 H (75-99) mg/dL Calcium (8.4-10.2) mg/dL 03/12/17 03/12/17 03/12/17 Range/Units 05:45 07:17 07:17 RBC 3.94 L (4.30-5.90) m/uL Hgb 11.5 L (13.0-17.5) gm/dL Hct 35.5 L (39.0-53.0) % Sodium 146 H (137-145) mmol/L Chloride 108 H (98-107) mmol/L Carbon Dioxide 32 H (22-30) mmol/L BUN 71 H (9-20) mg/dL Creatinine 1.67 H (0.66-1.25) mg/dL Glucose 126 H (74-99) mg/dL POC Glucose (mg/dL) 121 H (75-99) mg/dL Calcium 8.3 L (8.4-10.2) mg/dL Assessment and Plan Plan: Assessment: #1. Oliguric - now nonoliguric - acute kidney injury secondary to ATN secondary to severe sepsis. Creatinine peaked at 4.6 to this admission and is 1.67 today. No evidence of hydronephrosis. Urine eosinophils negative. Serologic workup also negative. #2. Chronic kidney disease stage III secondary to diabetic kidney disease with baseline creatinine near 1.6-1.7. #3. Severe sepsis secondary to staph aureus bacteremia as well as lower extremity cellulitis. #4. Metabolic acidosis secondary to acute kidney injury. Resolved. #5. Insulin-dependent diabetes mellitus. #6. Hypertension with chronic kidney disease. Controlled. #7. Hypernatremia secondary to diuresis and lack of oral water intake. Sodium level stable at 146. #8. Fluid overload. Improving. Plan: Continue Lasix 40 mg IV once daily. Encourage oral intake, including water. Avoid nephrotoxic agents and hypotensive episodes. Antibiotics per infectious disease recommendations. Repeat electrolytes in the morning.
--- NOTE | 2017-03-12 09:48 | PN ---
DATE OF SERVICE: 03/11/2017 Reason for followup is right diabetic foot infection with secondary bacteremia. INTERVAL HISTORY: The patient is afebrile. He is breathing comfortably. The patient has been complaining of his Villasenor catheter and pain associated with it. Patient denies significant chest pain. No cough. No abdominal pain. No diarrhea. On examination, blood pressure is 152/71 with a pulse of 78, temperature 97.7. He is 92% on 3 L nasal cannula. General description is an elderly male, lying in bed in no distress. RESPIRATORY SYSTEM: Unlabored breathing. Clear to auscultation anteriorly. HEART: S1, S2. Regular rate and rhythm. ABDOMEN: Soft. No tenderness. Right leg is currently dressed up, no obvious drainage on the dressing. LABS: Hemoglobin 11.1. White count 8.5 with a BUN of 78, creatinine 1.84. DIAGNOSTIC IMPRESSION AND PLAN: Patient with right diabetic foot infection with infected blister status post debridement. Culture has been positive for multiple pathogens methicillin susceptible Staphylococcus aureus with a methicillin-susceptible Staphylococcus aureus bacteremia. Patient currently on daptomycin and Cipro, will be continued. Local wound care with Aquacel Silver. Continue supportive care.
[2017-03-12 11:44] LABS: Glucose,Whole Blood 157 mg/dL (75-99)
[2017-03-12] MEDS ORDERED: LIDOCAINE 2% INJ 20 MG/ML (20 ML MDV) ONE (15:04)
--- NOTE | 2017-03-12 15:56 | IR ---
EXAMINATION TYPE: IR cvc insert >=5 years DATE OF EXAM: 03/12/2017 COMPARISON: NONE CLINICAL HISTORY: Cellulitis Needs long-term intravenous access for antibiotics. PROCEDURE: After informed consent, the skin overlying the left brachial vein was localized with ultrasound and n oted to be compressible and patent. An ultrasound image was obtained and submitted on the patient's chart. The overlying skin was prepped and draped and Lidocaine was used for local anesthesia. A ski n mariam was made with a scalpel. Access was gained to the vein under ultrasound guidance with a 21 ga uge needle and a 0.018 inch wire was advanced. Access site was dilated with Peel-Away sheath and cat heter tailored to the appropriate length and advanced such that the distal tip is at the cavoatrial j unction. Spot image was obtained verifying placement. Catheter was fixed to the skin with suture an d a sterile dressing was placed following hemostasis. Catheter was aspirated and flushed with saline . Patient was discharged in stable condition without complication. Maximal barrier technique is util ized. Ultrasound image is documented on the chart. Ultrasound used with sterile technique. Fluoro time and fluoroscopic images submitted to document procedure: 1 minutes fluoroscopy time, intr aoperative C-arm image documents the procedure IMPRESSION: STATUS POST ULTRASOUND AND FLUOROSCOPIC GUIDED PICC LINE PLACEMENT, READY FOR USE. THIS PROCEDURE WAS PERFORMED BY THE UNDERSIGNED.
--- NOTE | 2017-03-12 16:15 | P.CONS ---
History of Present Illness - Chief Complaint Medical debility - History of Present Illness I had the op to see patient for inpatient rehabilitation consultation with regard to medical debility. He was admitted to [facility] March 02 with lower extremity weakness and cellulitis and associated sepsis. Seen by Dr. Haywood who notes oliguric acute kidney injury, acute tubular necrosis, chronic kidney disease stage III. Seen by Dr. Quezada who notes second-degree heart block and hypertension. Seen by Dr. Lackey who notes CHF and CK D. PICC line just place. Chest x-ray demonstrates bilateral consolidation and effusions and mild central edema. PT reports two-person assistance for functional mobility. OT reports unable to perform bathing dressing and toileting. 3+ assistance for functional debility and transfers. Previous functional history, as elicited from patient: 71-year-old right-handed white male who is lives in one floor home with . Retired. Describes chairs cooking, laundry, driving with . Previously independent with standing shower. Regular doctor is. Review of Systems Review of systems: ENT: Denies sneezes or discharge. Eyes: Denies discharge or photophobia. Cardiac: Denies chest pain or palpitation. Pulmonary: Denies cough or shortness of breath. Gastrointestinal: Denies nausea, emesis, constipation, diarrhea. Genitourinary: Complains of penis discomfort or pain as well as tremendous urgency. Musculoskeletal: Discomfort and legs. Neurologic: Generalized weakness. Endocrine: Denies shakes or sweats. Oncology: Denies cancers. Dermatologic: Denies rash, itching, pruritus. ALLERGY/immunology: Denies sneezes, rashes. 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 Acharya. Last Myocardial Infarction Date:: unk History of Any Multi-Drug Resistant Organisms: None Reported Past Surgical History: Heart Catheterization With Stent Additional Past Surgical History / Comment(s): Cardiac catheterization and stenting of the LAD Past Anesthesia/Blood Transfusion Reactions: No Reported Reaction Date of Last Stent Placement:: unk date Past Psychological History: No Psychological Hx Reported Smoking Status: Former smoker Past Alcohol Use History: None Reported Additional Past Alcohol Use History / Comment(s): started smoking at age 22(1967 ), quit by 1975 Past Drug Use History: None Reported - Past Family History Father Family Medical History: Cancer Mother Family Medical History: Renal Disease Medications and Allergies Home Medications Medication Instructions Recorded Confirmed Type Allopurinol [Zyloprim] 300 mg PO DAILY 08/23/16 03/01/17 History Aspirin EC [Ecotrin Low Dose] 81 mg PO DAILY 08/23/16 03/01/17 History Atorvastatin [Lipitor] 40 mg PO DAILY 08/23/16 03/01/17 History Ergocalciferol [Vitamin D2 50,000 unit PO HALL 08/23/16 03/01/17 History (DRISDOL)] Insulin Aspart [NovoLOG] 20 units SQ AC-TID 08/23/16 03/01/17 History Insulin Glargine [Lantus] 60 units SQ HS 08/23/16 03/01/17 History Omeprazole 20 mg PO DAILY 08/23/16 03/01/17 History glipiZIDE [Glucotrol] 10 mg PO AC-BID 08/23/16 03/01/17 History Pregabalin [Lyrica] 25 mg PO TID 03/01/17 03/01/17 History Allergies Allergy/AdvReac Type Severity Reaction Status Date / Time cephalexin [From Keflex] Allergy Unknown Verified 03/02/17 02:01 Physical Exam Vitals: Vital Signs Temp Pulse Resp BP Pulse Ox 03/12/17 15:47 74 18 148/88 95 03/12/17 12:00 97 18 127/59 95 03/12/17 08:00 97.2 F L 80 18 196/84 97 03/12/17 04:00 97.2 F L 95 18 141/91 95 03/12/17 00:00 97.4 F L 63 18 168/74 94 L 03/11/17 20:00 97.1 F L 58 L 18 139/63 94 L Intake and Output 03/12/17 03/12/17 03/12/17 06:59 14:59 22:59 Intake Total 200 Output Total 200 Balance -200 200 Intake: Oral 200 Output: Urine 200 Other: Voiding Method Urinal Urinal Urinal Diaper Diaper Diaper # Voids 2 2 Weight 116.3 kg 116.3 kg Patient Weight 03/13/17 06:59 Weight 116.3 kg Skin: Good color, texture, turgor. General: Obese and uncomfortable appearance. Head: Normocephalic, atraumatic. Eyes: Symmetric. Pupils equal round. Ears: Symmetric. Hearing within normal limits. Mouth: Clear. Neck: Supple. Carotid without bruit. Cardiac: Regular rate and rhythm. Lungs: Clear anteriorly and posteriorly. Abdomen: Soft active nontender obese. Extremities: Lower extremity edema that is 2-3+ and forelegs and feet. Dressed cellulitis bilateral lowers. Neurological: Mental status: Alert, cooperative, pleasant. Cranial nerves: Symmetric facial tone and trapezius. Motor: At best antigravity in arms and definitely less than antigravity in legs but demonstrates active movement of hands and ankles. Sensation: Intact throughout. DTRs: Symmetric and equal throughout. Mobility: Unable to sit or stand it just came back from PICC line. Therapies and nursing report 2-3 person assistance for transfers though. Results CBC & Chem 7: 03/12/17 07:17 03/12/17 07:17 Labs: Abnormal Lab Results - Last 24 Hours (Table) 03/11/17 03/11/17 03/12/17 Range/Units 16:39 20:15 05:45 RBC (4.30-5.90) m/uL Hgb (13.0-17.5) gm/dL Hct (39.0-53.0) % Sodium (137-145) mmol/L Chloride (98-107) mmol/L Carbon Dioxide (22-30) mmol/L BUN (9-20) mg/dL Creatinine (0.66-1.25) mg/dL Glucose (74-99) mg/dL POC Glucose (mg/dL) 131 H 226 H 121 H (75-99) mg/dL Calcium (8.4-10.2) mg/dL 03/12/17 03/12/17 03/12/17 Range/Units 07:17 07:17 11:40 RBC 3.94 L (4.30-5.90) m/uL Hgb 11.5 L (13.0-17.5) gm/dL Hct 35.5 L (39.0-53.0) % Sodium 146 H (137-145) mmol/L Chloride 108 H (98-107) mmol/L Carbon Dioxide 32 H (22-30) mmol/L BUN 71 H (9-20) mg/dL Creatinine 1.67 H (0.66-1.25) mg/dL Glucose 126 H (74-99) mg/dL POC Glucose (mg/dL) 157 H (75-99) mg/dL Calcium 8.3 L (8.4-10.2) mg/dL Chest x-ray: report reviewed (Chest x-ray with bilateral consolidation and effusions.) Assessment and Plan (1) Abscess of left leg Status: Acute Plan: Impression: 1. Medical debility. 2. Cellulitis and abscess left leg. 3. Acute on chronic kidney disease. 4. Congestive heart for. 5. Morbid obesity. 6. Diabetes. 7. Hypertension. 8. Cardiac disease with history of OK. 9. Dyslipidemia. Comments and plan: At this time PT and OT are ongoing. Patient currently 3+ assistance for any mobility. Currently would require 24/7 multiple persons assist. Not currently ready for inpatient rehab.
[2017-03-12 16:55] LABS: Glucose,Whole Blood 143 mg/dL (75-99)
--- NOTE | 2017-03-12 18:57 | P.PN ---
Subjective Date of service 03/12/2017. Progress note being dictated for Dr. Guzman Interval history: This a 71-year-old gentleman admitted with right diabetic foot infection, bacteremia and multiple other medical issues. Wound Cultures positive for multiple pathogens MSSA, blood cultures positive presumptive staph aureus. Repeat blood culture negative. Scheduled for PICC line. Maintained on Cipro and daptomycin, Aquacel Silver local wound care as per infectious disease. Pain controlled. Villasenor catheter removed, penile pain improving. Renal function improving. Denies chest pain, palpitations or increased shortness of breath. Afebrile. Sodium 146. Objective - Vital Signs Vital signs: Vital Signs Temp 97.2 F L 03/12/17 08:00 Pulse 74 03/12/17 15:47 Resp 18 03/12/17 15:47 BP 148/88 03/12/17 15:47 Pulse Ox 95 03/12/17 15:47 Intake & Output 03/11/17 03/12/17 03/12/17 18:59 06:59 18:59 Intake Total 200 Output Total 3000 200 Balance -3000 -200 200 Weight 116.3 kg 116.3 kg Intake: Oral 200 Output: Urine 3000 200 Other: Voiding Method Indwelling Catheter Urinal Urinal Diaper Diaper # Voids 1 2 2 # Bowel Movements 1 - Exam PHYSICAL EXAM: VITAL SIGNS: [As above] GENERAL: [Sitting up in bed, no acute distress] HEENT: [Pupils equal conjunctiva normal.] NECK: [Supple, no JVD] RESPIRATORY EFFORT:[ Normal] LUNGS: [Clear to auscultation, no wheezes rhonchi or crackles] CARDIOVASCULAR[ regular S1-S2, no murmurs rubs or gallop, positive edema] GI: [Abdomen soft, nontender, positive bowel sounds.] PSYCH: [Alert and oriented -3, mood and affect normal.] SKIN: right Leg dressing clean dry and intact] NEURO: No focal deficits. Microbiology 03/04/17 11:57 Blood Blood Culture - Final No Growth after 144 hours 03/04/17 13:08 Foot - Right Gram Stain - Final 03/04/17 13:08 Foot - Right Tissue Culture - Final Escherichia coli Strep agalactiae - (group b) Staphylococcus aureus Clostridium perfringens 03/02/17 00:43 Leg - Left Gram Stain - Final 03/02/17 00:43 Leg - Left Wound Culture - Preliminary Presumptive Staph aureus Strep agalactiae - (group b) Strep agalactiae - (group b)#2 03/01/17 23:50 Blood Blood Culture Gram Stain - Final 03/01/17 23:50 Blood Blood Culture - Preliminary Presumptive Staph aureus 03/01/17 23:50 Blood Blood Culture - Final - Labs CBC & Chem 7: 03/12/17 07:17 03/12/17 07:17 Labs: Abnormal Lab Results - Last 24 Hours (Table) 03/11/17 03/12/17 03/12/17 Range/Units 20:15 05:45 07:17 RBC 3.94 L (4.30-5.90) m/uL Hgb 11.5 L (13.0-17.5) gm/dL Hct 35.5 L (39.0-53.0) % Sodium (137-145) mmol/L Chloride (98-107) mmol/L Carbon Dioxide (22-30) mmol/L BUN (9-20) mg/dL Creatinine (0.66-1.25) mg/dL Glucose (74-99) mg/dL POC Glucose (mg/dL) 226 H 121 H (75-99) mg/dL Calcium (8.4-10.2) mg/dL 03/12/17 03/12/17 03/12/17 Range/Units 07:17 11:40 16:37 RBC (4.30-5.90) m/uL Hgb (13.0-17.5) gm/dL Hct (39.0-53.0) % Sodium 146 H (137-145) mmol/L Chloride 108 H (98-107) mmol/L Carbon Dioxide 32 H (22-30) mmol/L BUN 71 H (9-20) mg/dL Creatinine 1.67 H (0.66-1.25) mg/dL Glucose 126 H (74-99) mg/dL POC Glucose (mg/dL) 157 H 143 H (75-99) mg/dL Calcium 8.3 L (8.4-10.2) mg/dL Assessment and Plan Plan: 1. Severe sepsis secondary to cellulitis and bacteremia with multiple organisms. 2. [ Acute on chronic renal failure, stage III, acute tubular necrosis, improving]. 3. [ Third-degree heart block, off of beta blockers and AV franics blockers, improved]. 4. [ Chronic lymphedema of bilateral lower extremities]. 5. [ Diabetes mellitus, fairly controlled]. 6. [Dyslipidemia 7. [Gout 8. Obesity, BMI 40.2 9. Generalized deconditioning]. 10. Hypernatremia secondary to decreased oral intake, diuresis Plan: Continue on current medication regime ,monitoring and symptomatic treatment. Antibiotics as per ID. PICC line pending. Discharge planning in progress for tomorrow for subacute rehab. Evaluated by Dr. Campbell, recommendations pending. Close monitoring of electrolytes with repeat labs ordered for a.m. Prognosis guarded. Further recommendations to follow. The impression and plan of care has been dictated as directed. : I performed a H&P examination of this patient and discussed the same with the dictator. I agree with the dictator's note. Any additional findings/opinions/ etc. will be noted.
[2017-03-12 20:55] LABS: Glucose,Whole Blood 146 mg/dL (75-99)
[2017-03-12] MEDS: INSULIN DETEMIR 100 UNIT/ML 10 ML VIAL SQ SCH (22:23)
[2017-03-12] MEDS: ACETAMINOPHEN TAB 325 MG TAB PO PRN (22:25)
[2017-03-12] MEDS: MELATONIN 5 MG TABLET PO SCH (22:25)
[2017-03-12] MEDS: traMADol 50 MG TAB PO PRN (22:26)
--- NOTE | 2017-03-12 23:43 | PN ---
DATE OF SERVICE: 03/12/2017 REASON FOR FOLLOWUP: Right diabetic foot infection with secondary bacteremia. INTERVAL HISTORY: The patient is afebrile. He has been breathing comfortably. Denies significant chest pain or cough. No abdominal pain. Denies any worsening pain in the right leg area. On examination, blood pressure is 148/88 with a pulse of 74, temperature 98. He is 95% on 3 L nasal cannula. General description is an elderly male up in the bed in no distress. RESPIRATORY SYSTEM: Unlabored breathing. Clear to auscultation anteriorly. HEART: S1, S2. Regular rate and rhythm. ABDOMEN: Soft. No tenderness. RIGHT LEG: Overall swelling and redness have improved. LABS: Hemoglobin 11.5, white count 7.4. BUN of 71, creatinine 1.67. DIAGNOSTIC IMPRESSION AND PLAN: Patient with a right diabetic foot infection with an infected blister, status post debridement. Cultures with multiple pathogens, mostly MSSA and E coli, currently on daptomycin. That will continue for another 2 weeks in view of his bacteremia along with oral Cipro, for which a PICC line be placed. Continue supportive care. SOPHIAD
[2017-03-13] MEDS: NYSTATIN 100,000UNIT/GM CREAM 30 GM TUBE TOPICAL SCH ×3 (00:17→21:17)
[2017-03-13 06:16] LABS: Glucose,Whole Blood 140 mg/dL (75-99)
[2017-03-13] MEDS: INSULIN LISPRO (humaLOG) 300 UNIT/3 ML VIAL SQ SCH ×4 (06:41→21:16)
[2017-03-13] MEDS: PANTOPRAZOLE 40 MG TABLET PO SCH (06:41)
[2017-03-13 06:57] LABS: Calcium 8.1 mg/dL (8.4-10.2); Magnesium 1.9 mg/dL (1.6-2.3); Potassium 4.5 mmol/L (3.5-5.1)
[2017-03-13] MEDS: HEPARIN SODIUM,PORCINE 5,000 UNIT/ML 1 ML VIAL SQ SCH ×3 (08:17→23:16)
[2017-03-13] MEDS: CIPROFLOXACIN HCL 250 MG TAB PO SCH ×2 (08:17→21:18)
[2017-03-13] MEDS: ASPIRIN 81 MG CHEW PO SCH (08:17)
[2017-03-13] MEDS: amLODIPine 10 MG TAB PO SCH (08:18)
[2017-03-13] MEDS: FUROSEMIDE 10 MG/ML 4 ML VIAL IV SCH (08:18)
[2017-03-13] MEDS: PREGABALIN 25 MG CAP PO SCH ×3 (08:26→21:18)
[2017-03-13] MEDS: HYDROcodone/APAP 7.5-325MG 1 EACH TAB PO PRN ×2 (08:26→19:15)
--- NOTE | 2017-03-13 09:20 | P.PN ---
Subjective Patient is seen in follow-up for acute kidney injury on chronic kidney disease. Patient has chronic kidney disease stage III secondary to diabetic kidney disease with baseline creatinine near 1.6. Creatinine peaked at 4.6 to this admission and is a little worse compared to yesterday at 1.86. He is nonoliguric. Patient is currently being treated for staph aureus bacteremia as well as right foot infection for which she underwent debridement this admission. Patient is currently resting in bed. Appetite is good. No vomiting or diarrhea. Denies chest pain or shortness of breath. Villasenor catheter has been discontinued and he has been voiding. Vital signs are stable. General: The patient appeared well nourished and normally developed. HEENT: Head exam is unremarkable. Neck is without jugular venous distension. LUNGS: Lungs are clear to auscultation and percussion. Breath sounds decreased. HEART: Rate and Rhythm are regular. First and second heart sounds normal. No murmurs, rubs or gallops. ABDOMEN: Abdominal exam reveals normal bowel sounds. Non-tender and non- distended. No evidence of peritonitis. EXTREMITITES: 1+ edema. Wound dressing intact with no obvious drainage. Objective - Vital Signs Vital signs: Vital Signs Temp 96.7 F L 03/13/17 05:00 Pulse 56 L 03/13/17 05:00 Resp 18 03/13/17 05:00 BP 144/66 03/13/17 05:00 Pulse Ox 95 03/13/17 05:00 Intake & Output 03/12/17 03/13/17 03/13/17 18:59 06:59 18:59 Intake Total 200 400 Output Total 200 Balance 200 400 -200 Weight 116.3 kg 115 kg Intake: Oral 200 400 Output: Urine 200 Other: Voiding Method Urinal Urinal Diaper Diaper # Voids 2 2 1 - Labs CBC & Chem 7: 03/12/17 07:17 03/13/17 06:15 Labs: Abnormal Lab Results - Last 24 Hours (Table) 03/12/17 03/12/17 03/12/17 Range/Units 11:40 16:37 20:54 Sodium (137-145) mmol/L Chloride (98-107) mmol/L Carbon Dioxide (22-30) mmol/L BUN (9-20) mg/dL Creatinine (0.66-1.25) mg/dL Glucose (74-99) mg/dL POC Glucose (mg/dL) 157 H 143 H 146 H (75-99) mg/dL Calcium (8.4-10.2) mg/dL 03/13/17 03/13/17 Range/Units 06:15 06:15 Sodium 146 H (137-145) mmol/L Chloride 108 H (98-107) mmol/L Carbon Dioxide 32 H (22-30) mmol/L BUN 67 H (9-20) mg/dL Creatinine 1.86 H (0.66-1.25) mg/dL Glucose 145 H (74-99) mg/dL POC Glucose (mg/dL) 140 H (75-99) mg/dL Calcium 8.1 L (8.4-10.2) mg/dL Assessment and Plan Plan: Assessment: #1. Oliguric - now nonoliguric - acute kidney injury secondary to ATN secondary to severe sepsis. Creatinine peaked at 4.6 to this admission and is 1.86 today. No evidence of hydronephrosis. Urine eosinophils negative. Serologic workup also negative. #2. Chronic kidney disease stage III secondary to diabetic kidney disease with baseline creatinine near 1.6-1.7. #3. Severe sepsis secondary to staph aureus bacteremia as well as lower extremity cellulitis. #4. Metabolic acidosis secondary to acute kidney injury. Resolved. #5. Insulin-dependent diabetes mellitus. #6. Hypertension with chronic kidney disease. Controlled. #7. Hypernatremia secondary to diuresis and lack of oral water intake. Sodium level stable at 146. #8. Fluid overload. Improving. Plan: I will change the Lasix to 40 mg orally once daily. Encourage oral intake, including water. Avoid nephrotoxic agents and hypotensive episodes. Antibiotics per infectious disease recommendations. Repeat electrolytes in the morning.
[2017-03-13 11:44] LABS: Glucose,Whole Blood 216 mg/dL (75-99)
[2017-03-13] MEDS ORDERED: HYDROmorphone 1 MG/ML 1 ML SYRINGE IVP STA (12:39)
[2017-03-13] MEDS: PHENAZOPYRIDINE 100 MG TAB PO SCH ×3 (12:44→21:17)
[2017-03-13 16:34] LABS: Glucose,Whole Blood 187 mg/dL (75-99)
--- NOTE | 2017-03-13 18:05 | P.PN ---
Subjective Date of service 03/13/2017. Progress note being dictated for Dr. Guzman Interval history: This a 71-year-old gentleman admitted with right diabetic foot infection, bacteremia, positive wound cultures for multiple pathogens MSSA , blood cultures positive presumptive staph aureus with repeat blood culture negative, status post debridement of right foot and left foot big toe. and multiple other medical issues. PICC line placed yesterday. Continues on Cipro and daptomycin as per infectious disease. Increased Right foot pain- uncontrolled, patient crying, cradling leg, rocking back and forth. Afebrile, T- max 101.3. Right foot worsening, increased foul-smelling drainage, edema. Renal function worsened today, 1.86. Denies chest pain, palpitations or increased shortness of breath. Objective - Vital Signs Vital signs: Vital Signs Temp 97.8 F 03/13/17 08:00 Pulse 77 03/13/17 11:28 Resp 18 03/13/17 11:28 BP 143/65 03/13/17 11:28 Pulse Ox 90 L 03/13/17 11:28 Intake & Output 03/12/17 03/13/17 03/13/17 18:59 06:59 18:59 Intake Total 200 400 240 Output Total 200 Balance 200 400 40 Weight 116.3 kg 115 kg Intake: Oral 200 400 240 Output: Urine 200 Other: Voiding Method Urinal Urinal Urinal Diaper Diaper Diaper # Voids 2 2 1 - Exam PHYSICAL EXAM: VITAL SIGNS: [As above] GENERAL: [Sitting up in bed, having significant pain, agitated ] HEENT: [Pupils equal conjunctiva normal.] NECK: [Supple, no JVD] RESPIRATORY EFFORT:[ Normal] LUNGS: [Clear to auscultation, no wheezes rhonchi or crackles] CARDIOVASCULAR[ regular S1-S2, no murmurs rubs or gallop, positive edema] GI: [Abdomen soft, nontender, positive bowel sounds.] PSYCH: [Alert and oriented -3, mood and affect normal.] SKIN: right foot as mentioned above increased edema, [id number], worsened appearance] NEURO: No focal deficits. Microbiology 03/04/17 11:57 Blood Blood Culture - Final No Growth after 144 hours 03/04/17 13:08 Foot - Right Gram Stain - Final 03/04/17 13:08 Foot - Right Tissue Culture - Final Escherichia coli Strep agalactiae - (group b) Staphylococcus aureus Clostridium perfringens 03/02/17 00:43 Leg - Left Gram Stain - Final 03/02/17 00:43 Leg - Left Wound Culture - Preliminary Presumptive Staph aureus Strep agalactiae - (group b) Strep agalactiae - (group b)#2 03/01/17 23:50 Blood Blood Culture Gram Stain - Final 03/01/17 23:50 Blood Blood Culture - Preliminary Presumptive Staph aureus 03/01/17 23:50 Blood Blood Culture - Final - Labs CBC & Chem 7: 03/12/17 07:17 03/13/17 06:15 Labs: Abnormal Lab Results - Last 24 Hours (Table) 03/12/17 03/12/17 03/13/17 Range/Units 16:37 20:54 06:15 Sodium 146 H (137-145) mmol/L Chloride 108 H (98-107) mmol/L Carbon Dioxide 32 H (22-30) mmol/L BUN 67 H (9-20) mg/dL Creatinine 1.86 H (0.66-1.25) mg/dL Glucose 145 H (74-99) mg/dL POC Glucose (mg/dL) 143 H 146 H (75-99) mg/dL Calcium 8.1 L (8.4-10.2) mg/dL 03/13/17 03/13/17 Range/Units 06:15 11:39 Sodium (137-145) mmol/L Chloride (98-107) mmol/L Carbon Dioxide (22-30) mmol/L BUN (9-20) mg/dL Creatinine (0.66-1.25) mg/dL Glucose (74-99) mg/dL POC Glucose (mg/dL) 140 H 216 H (75-99) mg/dL Calcium (8.4-10.2) mg/dL Assessment and Plan Plan: 1. Severe sepsis secondary to cellulitis and bacteremia with multiple organisms.right foot plantar blister, necrotic tissue of left great toe ,status post debridement of right foot and left foot big toe. 2. [ Acute on chronic renal failure, stage III, acute tubular necrosis]. 3. [ Third-degree heart block, off of beta blockers and AV francis blockers, improved]. 4. [ Chronic lymphedema of bilateral lower extremities]. 5. [ Diabetes mellitus, fairly controlled]. 6. [Dyslipidemia 7. [Gout 8. Obesity, BMI 40.2 9. Generalized deconditioning]. 10. Hypernatremia secondary to decreased oral intake, diuresis 11. PICC line placement Plan: Continue on current medication regime ,monitoring and symptomatic treatment. Right foot to be reevaluated by vascular surgery, potential further debridement. Antibiotics as per ID. Close monitoring of electrolytes with repeat labs ordered for a.m. blood sugars mildly elevated, will not increase Levemir at this time as patient is likely to be nothing by mouth at midnight for procedure. Pyridium recently added to med regime, will also add a one-time Dilaudid 0.5 mg IV push. Prognosis guarded. Further recommendations to follow. The impression and plan of care has been dictated as directed. : I performed a H&P examination of this patient and discussed the same with the dictator. I agree with the dictator's note. Any additional findings/opinions/ etc. will be noted.
[2017-03-13 21:07] LABS: Glucose,Whole Blood 136 mg/dL (75-99)
[2017-03-13] MEDS: INSULIN DETEMIR 100 UNIT/ML 10 ML VIAL SQ SCH (21:16)
[2017-03-13] MEDS: MELATONIN 5 MG TABLET PO SCH (21:17)
[2017-03-13] MEDS: diphenhydrAMINE 25 MG CAP PO PRN (21:18)
[2017-03-14] MEDS: HYDROcodone/APAP 7.5-325MG 1 EACH TAB PO PRN ×2 (02:44→21:16)
[2017-03-14] MEDS: diphenhydrAMINE 25 MG CAP PO PRN (02:46)
[2017-03-14 06:11] LABS: Glucose,Whole Blood 116 mg/dL (75-99)
[2017-03-14] MEDS: INSULIN LISPRO (humaLOG) 300 UNIT/3 ML VIAL SQ SCH ×4 (06:44→21:15)
[2017-03-14] MEDS: PANTOPRAZOLE 40 MG TABLET PO SCH (06:46)
[2017-03-14 06:58] LABS: Basophils % (A) 0 %; CH 27.8; CHCM 31.1; Eosinophils # (A) 0.1 k/uL (0-0.7); Eosinophils % (A) 2 %; HCT 33.5 % (39.0-53.0); HDW 2.64; HGB 10.4 gm/dL (13.0-17.5); Hypochromasia Slight; Luc # (Auto) 0.12; Luc % (Auto) 2; Lymphocytes # (A) 1.2 k/uL (1.0-4.8); Lymphocytes % (A) 19 %; MCH 27.9 pg (25.0-35.0); MCHC 31.1 g/dL (31.0-37.0); MCV 89.6 fL (80.0-100.0); Mean Platelet Volume 7.1; Monocytes # (A) 0.2 k/uL (0-1.0); Monocytes % (A) 3 %; Neutrophils # (A) 4.6 k/uL (1.3-7.7); Neutrophils % (A) 74 %; RBC 3.74 m/uL (4.30-5.90); RDW 15.4 % (11.5-15.5); WBC 6.2 k/uL (3.8-10.6); WBC (Perox) 6.58
[2017-03-14 07:14] LABS: Calcium 8.3 mg/dL (8.4-10.2); Potassium 4.8 mmol/L (3.5-5.1)
--- NOTE | 2017-03-14 07:24 | PN ---
DATE OF SERVICE: 03/13/2017 Reason for follow up is right diabetic foot infection and significant bacteremia. INTERVAL HISTORY: The patient is afebrile. Has been complaining mostly of pain on urination but no difficult urination. Denies significant chest pain, shortness of breath or cough. No abdominal pain. No worsening pain in the right foot area. On examination, blood pressure is 145/56 with a pulse of 82, temperature 98. He is 91% on room air. General description is an elderly male lying in bed in no distress. RESPIRATORY SYSTEM: Unlabored breathing. Clear to auscultation anteriorly. HEART: S1, S2 regular rate and rhythm. ABDOMEN: Soft, no tenderness. Right foot wound and dressing was removed. The patient did have more slough tissue and blister formation though the redness has improved. LABS: BUN of 67, creatinine 1.86. DIAGNOSTIC IMPRESSION AND PLAN: Patient with right diabetic foot infection with infected blister, status post debridement. The wound still has significant amount of slough tissue and that may need to have more surgical debridement. This was discussed with Dr. Bhat who is planning to do it tomorrow. In the meantime, the patient will continue on Cipro and daptomycin. He already has a PICC line. Continue supportive care.
[2017-03-14] MEDS: HEPARIN SODIUM,PORCINE 5,000 UNIT/ML 1 ML VIAL SQ SCH ×3 (07:40→23:13)
[2017-03-14] MEDS: CIPROFLOXACIN HCL 250 MG TAB PO SCH ×2 (07:40→21:15)
[2017-03-14] MEDS: amLODIPine 10 MG TAB PO SCH (07:40)
[2017-03-14] MEDS: FUROSEMIDE 40 MG TAB PO SCH (07:40)
[2017-03-14] MEDS: ASPIRIN 81 MG CHEW PO SCH (07:41)
[2017-03-14] MEDS: PHENAZOPYRIDINE 100 MG TAB PO SCH ×3 (07:41→22:36)
[2017-03-14] MEDS: NYSTATIN 100,000UNIT/GM CREAM 30 GM TUBE TOPICAL SCH ×2 (07:41→21:16)
[2017-03-14] MEDS: PREGABALIN 25 MG CAP PO SCH ×3 (07:45→21:16)
[2017-03-14] MEDS: HYDROmorphone 1 MG/ML 1 ML SYRINGE IVP PRN ×3 (09:55→22:24)
[2017-03-14 11:56] LABS: Glucose,Whole Blood 187 mg/dL (75-99)
--- NOTE | 2017-03-14 15:05 | P.PN ---
Subjective Date of service . Progress note being dictated for Dr. Guzman Interval history: This a 71-year-old gentleman admitted with right diabetic foot infection, bacteremia, status post debridement of right foot and left foot big toe. and multiple other medical issues. Maintained on Cipro and daptomycin as per infectious disease. Increased Right foot pain, sloughing and drainage .Re-Evaluated by vascular surgery, Dr. Bhat, further debridement pending for tomorrow. Afebrile. Renal function mildly improved. Denies chest pain, palpitations or increased shortness of breath. Objective - Vital Signs Vital signs: Vital Signs Temp 97.8 F 03/14/17 11:53 Pulse 76 03/14/17 11:55 Resp 18 03/14/17 11:55 BP 151/70 03/14/17 11:53 Pulse Ox 95 03/14/17 11:53 Intake & Output 03/13/17 03/14/17 03/14/17 18:59 06:59 18:59 Intake Total 360 120 652 Output Total 200 100 Balance 160 120 552 Weight 113 kg Intake: Oral 360 120 652 Output: Urine 200 100 Other: Voiding Method Urinal Urinal Urinal Diaper Diaper Diaper # Voids 1 1 1 - Exam PHYSICAL EXAM: VITAL SIGNS: [As above] GENERAL: [Sitting up in bed, no acute distress ] HEENT: [Pupils equal conjunctiva normal.] NECK: [Supple, no JVD] RESPIRATORY EFFORT:[ Normal] LUNGS: [Clear to auscultation, no wheezes rhonchi or crackles] CARDIOVASCULAR[ regular S1-S2, no murmurs rubs or gallop, positive edema] GI: [Abdomen soft, nontender, positive bowel sounds.] PSYCH: [Alert and oriented -3, mood and affect normal.] SKIN: right foot as mentioned above edema, sloughing with drainage-foul- smelling] NEURO: No focal deficits. Microbiology 03/04/17 11:57 Blood Blood Culture - Final No Growth after 144 hours 03/04/17 13:08 Foot - Right Gram Stain - Final 03/04/17 13:08 Foot - Right Tissue Culture - Final Escherichia coli Strep agalactiae - (group b) Staphylococcus aureus Clostridium perfringens 03/02/17 00:43 Leg - Left Gram Stain - Final 03/02/17 00:43 Leg - Left Wound Culture - Preliminary Presumptive Staph aureus Strep agalactiae - (group b) Strep agalactiae - (group b)#2 03/01/17 23:50 Blood Blood Culture Gram Stain - Final 03/01/17 23:50 Blood Blood Culture - Preliminary Presumptive Staph aureus 03/01/17 23:50 Blood Blood Culture - Final - Labs CBC & Chem 7: 03/14/17 06:38 03/14/17 06:38 Labs: Abnormal Lab Results - Last 24 Hours (Table) 03/13/17 03/13/17 03/14/17 Range/Units 16:30 21:06 06:08 RBC (4.30-5.90) m/uL Hgb (13.0-17.5) gm/dL Hct (39.0-53.0) % Chloride (98-107) mmol/L BUN (9-20) mg/dL Creatinine (0.66-1.25) mg/dL Glucose (74-99) mg/dL POC Glucose (mg/dL) 187 H 136 H 116 H (75-99) mg/dL Calcium (8.4-10.2) mg/dL 03/14/17 03/14/17 03/14/17 Range/Units 06:38 06:38 11:33 RBC 3.74 L (4.30-5.90) m/uL Hgb 10.4 L (13.0-17.5) gm/dL Hct 33.5 L (39.0-53.0) % Chloride 108 H (98-107) mmol/L BUN 56 H (9-20) mg/dL Creatinine 1.75 H (0.66-1.25) mg/dL Glucose 123 H (74-99) mg/dL POC Glucose (mg/dL) 187 H (75-99) mg/dL Calcium 8.3 L (8.4-10.2) mg/dL Assessment and Plan Plan: 1. Severe sepsis secondary to cellulitis and bacteremia with multiple organisms.right foot plantar blister, necrotic tissue of left great toe ,status post debridement of right foot and left foot big toe.Foot Right Tissue Culture, Escherichia coli, Strep agalactiae - (group b),MSSA,ECOLI,Clostridium perfringens. Leg - Left Wound Culture - Preliminary Presumptive Staph aureus, Strep agalactiae - (group b),Strep agalactiae - (group b)#2 2. [ Acute on chronic renal failure, stage III, acute tubular necrosis]. 3. [ Third-degree heart block, off of beta blockers and AV francis blockers, improved]. 4. [ Chronic lymphedema of bilateral lower extremities]. 5. [ Diabetes mellitus, fairly controlled]. 6. [Dyslipidemia 7. [Gout 8. Obesity, BMI 40.2 9. Generalized deconditioning]. 10. Hypernatremia secondary to decreased oral intake, diuresis 11. PICC line placement Plan: Continue on current medication regime ,monitoring and symptomatic treatment.Reevaluated by vascular surgery, debridement tomorrow. Antibiotics continue as per ID. Close monitoring of electrolytes with repeat labs ordered for a.m. blood sugars better controlled, close monitoring of Accu-Cheks. Prognosis guarded. Further recommendations to follow. The impression and plan of care has been dictated as directed. : I performed a H&P examination of this patient and discussed the same with the dictator. I agree with the dictator's note. Any additional findings/opinions/ etc. will be noted.
[2017-03-14 16:29] LABS: Glucose,Whole Blood 134 mg/dL (75-99)
[2017-03-14 20:59] LABS: Glucose,Whole Blood 138 mg/dL (75-99)
[2017-03-14] MEDS: INSULIN DETEMIR 100 UNIT/ML 10 ML VIAL SQ SCH (21:15)
[2017-03-14] MEDS: MELATONIN 5 MG TABLET PO SCH (21:16)
[2017-03-14] MEDS: ACETAMINOPHEN TAB 325 MG TAB PO PRN (22:23)
[2017-03-14] MEDS: metroNIDAZOLE 500 MG TAB PO SCH (22:37)
[2017-03-14] MEDS: AZTREONAM 2 GM in SODIUM CHLORIDE 0.9% 100 ML IVPB SCH (23:06)
--- NOTE | 2017-03-14 23:06 | PN ---
Patient is seen for followup for acute kidney injury. Patient's renal function continues to improve. He is currently lying in bed. His volume status has improved as well. The Lasix has been switched to p.o. On examination, blood pressure is 151/70, heart rate 76 per minute. He is afebrile. HEART: S1 and S2. LUNGS: Bilateral breath sounds are heard. ABDOMEN: Soft, obese, nontender. Lower extremities show edema; chronic, bilateral. Extremities are now wrapped. Edema appears to have improved. Labs show sodium 144, potassium 4.8, BUN 56, serum creatinine 1.75. Hemoglobin 10.4 g/dL. ASSESSMENT: 1. Acute kidney injury, acute tubular necrosis, currently improving. Serum creatinine now down to 1.75 from 4.62 on 03/06. 2. Volume overload, also improved. Continue with current oral Lasix. 3. Right foot ulcer being followed by Infectious Disease, maintained on daptomycin. 4. Type 2 diabetes. 5. Hypernatremia, currently improved. PLAN: Continue current dose of Lasix. Repeat labs in a.m.
[2017-03-15] MEDS: HYDROmorphone 1 MG/ML 1 ML SYRINGE IVP PRN ×3 (05:11→23:29)
[2017-03-15 06:21] LABS: Glucose,Whole Blood 128 mg/dL (75-99)
[2017-03-15] MEDS: INSULIN LISPRO (humaLOG) 300 UNIT/3 ML VIAL SQ SCH ×4 (06:47→20:43)
[2017-03-15] MEDS: PANTOPRAZOLE 40 MG TABLET PO SCH (06:49)
[2017-03-15] MEDS ORDERED: LIDOCAINE (PF) 10 MG/ML 2 ML VIAL ONE ×2 (07:37)
[2017-03-15] MEDS: AZTREONAM 2 GM in SODIUM CHLORIDE 0.9% 100 ML IVPB SCH (07:44)
[2017-03-15] MEDS: HEPARIN SODIUM,PORCINE 5,000 UNIT/ML 1 ML VIAL SQ SCH ×3 (07:44→23:29)
[2017-03-15 07:47] LABS: Basophils % (A) 0 %; CH 27.6; Eosinophils # (A) 0.1 k/uL (0-0.7); Eosinophils % (A) 1 %; HCT 34.3 % (39.0-53.0); HDW 2.67; HGB 10.7 gm/dL (13.0-17.5); Hypochromasia Marked; Luc # (Auto) 0.11; Luc % (Auto) 2; Lymphocytes % (A) 16 %; MCH 28.8 pg (25.0-35.0); MCHC 31.2 g/dL (31.0-37.0); MCV 92.3 fL (80.0-100.0); Mean Platelet Volume 7.6; Monocytes # (A) 0.3 k/uL (0-1.0); Monocytes % (A) 5 %; Neutrophils # (A) 4.8 k/uL (1.3-7.7); Neutrophils % (A) 76 %; RBC 3.72 m/uL (4.30-5.90); WBC 6.3 k/uL (3.8-10.6)
[2017-03-15] MEDS: FUROSEMIDE 40 MG TAB PO SCH (07:49)
[2017-03-15] MEDS: metroNIDAZOLE 500 MG TAB PO SCH ×3 (07:49→20:43)
[2017-03-15] MEDS: amLODIPine 10 MG TAB PO SCH (07:49)
[2017-03-15] MEDS: ASPIRIN 81 MG CHEW PO SCH (07:49)
[2017-03-15] MEDS: PHENAZOPYRIDINE 100 MG TAB PO SCH ×3 (07:49→20:43)
[2017-03-15] MEDS: NYSTATIN 100,000UNIT/GM CREAM 30 GM TUBE TOPICAL SCH ×2 (07:51→20:43)
[2017-03-15] MEDS: PREGABALIN 25 MG CAP PO SCH ×3 (07:53→20:49)
--- NOTE | 2017-03-15 08:05 | PN ---
DATE OF SERVICE: 03/14/2017 Reason for follow up is right diabetic foot infection with bacteremia. INTERVAL HISTORY: The patient does have fever this evening. The patient was afebrile this morning. Overall breathing comfortably. Denies significant chest pain, shortness of breath or cough. No abdominal pain. urinary symptom has improved. Some pain in the right foot area. On examination, blood pressure is 169/75 with a pulse of 90, temperature 101.9. He is 90% on 2-L nasal cannula. General description is an elderly male, lying in bed in no distress. RESPIRATORY SYSTEM: Unlabored breathing. Clear to auscultation anteriorly. HEART: S1, S2. Regular rate and rhythm. ABDOMEN: Soft. No tenderness. Right foot is currently dressed up. No obvious drainage on the dressing. LABS: Hemoglobin 10.4, white count 6.2 with a BUN of 56, creatinine 1.75. DIAGNOSTIC IMPRESSION AND PLAN: Patient with right foot infection with secondary bacteremia with MSSA now with a new fever. Blood culture will be repeated. Change the antibiotic to cover for Gram-negative and continue with daptomycin. Await surgical debridement tomorrow and deep cultures. Continue supportive care. RUTHY
[2017-03-15] MEDS: HYDROcodone/APAP 7.5-325MG 1 EACH TAB PO PRN (10:18)
[2017-03-15 12:14] LABS: Glucose,Whole Blood 201 mg/dL (75-99)
[2017-03-15 12:48] VITALS: BMI 38.0
[2017-03-15] MEDS ORDERED: COLLAGENASE 250 UNIT/GM OINTMENT 30 GM TUBE TOPICAL SCH (14:15)
--- NOTE | 2017-03-15 14:39 | PCN ---
DATE OF PROCEDURE: Procedure is debridement of the wound, right foot plantar aspect. DESCRIPTION OF PROCEDURE: This patient has at the right foot, plantar aspect, there is a necrotic skin and subcutaneous tissue at the plantar aspect of the right foot. The measurement is 2 x 2 cm. The right foot was prepped and draped in a sterile manner, 1% lidocaine were used on the plantar aspect. Using sharp knife, we excised the necrotic tissue down into subcutaneous tissue and the fat. All the necrotic tissue was excised. The tendon were intact. Wound was irrigated with saline and no active bleeding was noted Aquacel Silver was applied to the wound and dressing applied. The patient tolerated the procedure well.
--- NOTE | 2017-03-15 15:32 | PN ---
DATE OF SERVICE: 03/15/2017 Reason for followup is right diabetic foot infection with secondary bacteremia. INTERVAL HISTORY: The patient did spike a fever last night of 101.8 to 101.9 at which time we did obtain blood cultures. The patient scheduled to be evaluated by Vascular Surgery with debridement of his right foot wound and possible deep cultures. The patient denies significant chest pain, shortness of breath, or cough. No significant abdominal pain or any diarrhea. On examination, blood pressure 128/51 with a pulse of 55, temperature 96.6, T-max is 101. He is 95% on room air. General description is an elderly male, up in the bed in no distress. RESPIRATORY SYSTEM: Unlabored breathing. Clear to auscultation anteriorly. HEART: S1, S2. Regular rate and rhythm. ABDOMEN: Soft. No tenderness. Right foot is dressed with minimal drainage on the dressing. The patient also has a wound on his left foot and big toe mostly a dried up blister with no significant redness or drainage. LABS: Hemoglobin is 10.7, white is 6.3. DIAGNOSTIC IMPRESSION AND PLAN: Patient with right diabetic foot infection with multiple pathogen with secondary bacteremia secondary to methicillin-sensitive Staphylococcus aureus. At this time, we will go ahead and start the patient on Zosyn. Patient does have history of KEFLEX allergy with not feeling well, denies having any rash. Patient did have a keflex allergy and continue daptomycin. Await repeat cultures both locally as well as blood cultures to determine discharge antibiotic. Discussed in detail with the attending physician. RUTHY
--- NOTE | 2017-03-15 16:08 | PN ---
Patient is seen for followup for acute kidney injury. His renal function has improved significantly. Patient was also volume-overloaded. He is maintained on p.o. Lasix now, with significant improvement in his volume status. On examination, blood pressure is 128/61, heart rate 65 per minute. He is afebrile. EXAMINATION OF THE HEART: S1 and S2. EXAMINATION OF THE LUNGS: Bilateral breath sounds are heard. ABDOMEN: Soft, nontender. Examination of lower extremities shows bilateral extremities to be wrapped. Edema is significantly improved. There is some wrinkling of the skin noted. Labs show hemoglobin 10.7, sodium 144, potassium 4.8 from yesterday, and serum creatinine was 1.75 mg/dL. ASSESSMENT: 1. Acute kidney injury, acute tubular necrosis, currently significantly improved. 2. Volume overload, maintained on oral Lasix now, which we can continue for now. 3. Lower extremity cellulitis, currently on daptomycin and Zosyn. His wound cultures have grown Escherichia coli, Clostridium perfringens from the right foot and otherwise presumptive staphylococcus from the left leg wounds. Blood cultures have been negative. 4. Hypertension, currently stable. 5. Hypernatremia, now improved. PLAN: Continue current dose of Lasix. Repeat labs in a.m. Continue with antibiotics and local wound dressings.
[2017-03-15] MEDS: PIPERACILLIN-TAZOBACTAM 3.375 GM in DEXTROSE/WATER 1 50ML.BAG IVPB SCH ×2 (17:17→23:32)
[2017-03-15 17:20] LABS: Glucose,Whole Blood 142 mg/dL (75-99)
[2017-03-15] MEDS: INSULIN DETEMIR 100 UNIT/ML 10 ML VIAL SQ SCH (20:43)
[2017-03-15] MEDS: MELATONIN 5 MG TABLET PO SCH (20:43)
[2017-03-15 20:44] LABS: Glucose,Whole Blood 196 mg/dL (75-99)
[2017-03-15] MEDS: ACETAMINOPHEN TAB 325 MG TAB PO PRN (21:57)
[2017-03-15] MEDS: diphenhydrAMINE 25 MG CAP PO PRN (23:29)
[2017-03-16] MEDS: HYDROcodone/APAP 7.5-325MG 1 EACH TAB PO PRN ×2 (06:45→16:02)
[2017-03-16 07:23] LABS: Glucose,Whole Blood 109 mg/dL (75-99)
[2017-03-16] MEDS: INSULIN LISPRO (humaLOG) 300 UNIT/3 ML VIAL SQ SCH ×4 (08:18→22:57)
[2017-03-16] MEDS: ASPIRIN 81 MG CHEW PO SCH (08:18)
[2017-03-16] MEDS: PHENAZOPYRIDINE 100 MG TAB PO SCH ×3 (08:18→22:55)
[2017-03-16] MEDS: amLODIPine 10 MG TAB PO SCH (08:18)
[2017-03-16] MEDS: PANTOPRAZOLE 40 MG TABLET PO SCH (08:19)
[2017-03-16] MEDS: PIPERACILLIN-TAZOBACTAM 3.375 GM in DEXTROSE/WATER 1 50ML.BAG IVPB SCH ×2 (08:19→15:58)
[2017-03-16] MEDS: HEPARIN SODIUM,PORCINE 5,000 UNIT/ML 1 ML VIAL SQ SCH ×3 (08:19→22:57)
[2017-03-16] MEDS: FUROSEMIDE 40 MG TAB PO SCH (08:19)
[2017-03-16] MEDS: metroNIDAZOLE 500 MG TAB PO SCH ×3 (08:19→22:56)
[2017-03-16 08:20] LABS: Basophils % (A) 0 %; CH 27.8; CHCM 30.9; Eosinophils # (A) 0.1 k/uL (0-0.7); Eosinophils % (A) 1 %; HCT 31.3 % (39.0-53.0); HGB 9.8 gm/dL (13.0-17.5); Hypochromasia Slight; Luc # (Auto) 0.12; Luc % (Auto) 2; Lymphocytes # (A) 0.9 k/uL (1.0-4.8); Lymphocytes % (A) 15 %; MCH 28.2 pg (25.0-35.0); MCHC 31.2 g/dL (31.0-37.0); MCV 90.4 fL (80.0-100.0); Mean Platelet Volume 7.4; Monocytes # (A) 0.3 k/uL (0-1.0); Monocytes % (A) 5 %; Neutrophils # (A) 4.7 k/uL (1.3-7.7); Neutrophils % (A) 77 %; RBC 3.46 m/uL (4.30-5.90); RDW 15.2 % (11.5-15.5); WBC 6.1 k/uL (3.8-10.6); WBC (Perox) 6.31
[2017-03-16] MEDS: NYSTATIN 100,000UNIT/GM CREAM 30 GM TUBE TOPICAL SCH ×2 (08:21→23:00)
[2017-03-16] MEDS: PREGABALIN 25 MG CAP PO SCH ×3 (08:25→22:59)
[2017-03-16] MEDS: HYDROmorphone 1 MG/ML 1 ML SYRINGE IVP PRN (11:04)
[2017-03-16 12:20] LABS: Glucose,Whole Blood 198 mg/dL (75-99)
--- NOTE | 2017-03-16 13:09 | P.PN ---
Subjective Principal diagnosis: This is a 71-year-old male seen in follow-up with acute kidney injury secondary to cellulitis of the leg, volume overload and chronic kidney disease with a baseline creatinine of 1.7. He is doing better and has improved. He has a right diabetic foot infection with multi organisms he also had debridement of his right foot plantar aspect yesterday 03/15/2017. He is known with diabetes and chronic edema Objective - Vital Signs Vital signs: Vital Signs Temp 97 F L 03/16/17 07:00 Pulse 57 L 03/16/17 07:00 Resp 21 03/16/17 08:00 BP 145/68 03/16/17 07:00 Pulse Ox 92 L 03/16/17 07:00 Intake & Output 03/15/17 03/16/17 03/16/17 18:59 06:59 18:59 Intake Total 750 300 Output Total 600 Balance 150 300 Weight 110 kg Intake: Oral 750 300 Output: Urine 600 Other: Voiding Method Urinal Urinal Urinal Diaper Diaper Diaper # Voids 1 1 On examination he is awake alert oriented. HEENT exam no JVP neck is supple no facial asymmetry Lungs clear to auscultation percussion good air entry bilaterally. Heart sounds are unremarkable for any murmur rub gallop. Abdomen soft nontender no organomegaly status masses Extremity exam reveals mild edema bilaterally, right foot debrided and has Odell wrap around it and the left big toe has a reddish eschar. Neurologically awake alert oriented. No focal motor deficit - Labs CBC & Chem 7: 03/16/17 07:38 03/14/17 06:38 Labs: Abnormal Lab Results - Last 24 Hours (Table) 03/15/17 03/15/17 03/16/17 Range/Units 16:51 20:34 07:17 RBC (4.30-5.90) m/uL Hgb (13.0-17.5) gm/dL Hct (39.0-53.0) % Lymphocytes # (1.0-4.8) k/uL POC Glucose (mg/dL) 142 H 196 H 109 H (75-99) mg/dL 03/16/17 03/16/17 Range/Units 07:38 12:01 RBC 3.46 L (4.30-5.90) m/uL Hgb 9.8 L (13.0-17.5) gm/dL Hct 31.3 L (39.0-53.0) % Lymphocytes # 0.9 L (1.0-4.8) k/uL POC Glucose (mg/dL) 198 H (75-99) mg/dL Microbiology - Last 24 Hours (Table) 03/15/17 13:51 Gram Stain - Preliminary Foot - Right Tissue Culture - Preliminary 03/14/17 22:39 Blood Culture - Preliminary Blood No Growth after 24 hours 03/14/17 22:22 Blood Culture - Preliminary Blood No Growth after 24 hours 03/15/17 13:51 Anaerobic Culture - Preliminary Foot - Right Assessment and Plan Plan: Impression. 1. Acute kidney injury secondary to sepsis and leg cellulitis right side. Creatinine is improved from a peak of 4.6-1 03/06/2017 down to 1.7 2. Chronic kidney disease with a baseline creatinine of 1.7-1.8. UA shows 1+ proteinuria therefore likely nephrosclerosis 3. Anemia of chronic kidney disease, hemoglobin is 9.8, down from 10.7 yesterday and 11.5 on 03/12/2017. Recommendation. 1. No changes in medications. 2. We'll continue to watch his labs. 2. Patient is on Lasix Lasix for now he can maintain that
--- NOTE | 2017-03-16 17:10 | PN ---
Patient is fairly stable compared to yesterday. Patient had a high-grade temperature of 101.9. Patient was febrile with high-grade temperature. Patient underwent debridement yesterday. REVIEW OF SYSTEMS: CARDIOVASCULAR: No chest pain, no orthopnea, no PND, no palpitations. PULMONARY: Denied any shortness of breath. No cough or hemoptysis. GASTROINTESTINAL: No diarrhea, nausea or vomiting. No abdominal pain. Normoactive bowel sounds. NEUROLOGIC: No headaches, no weakness, no numbness. Medications were reviewed. PHYSICAL EXAMINATION: Temperature 97.0, pulse of 57, respiratory rate of 21, blood pressure is 145/68, saturating at 98% on 2 L of O2 by nasal cannula. GENERAL: The patient is alert and oriented x3, not in any acute distress. Well developed, well nourished. HEENT: Pupils are round and equally reacting to light. EOMI. No scleral icterus. No conjunctival pallor. Normocephalic, atraumatic. No pharyngeal erythema. No thyromegaly. CARDIOVASCULAR: S1 and S2 present. No murmurs, rubs, or gallops. PULMONARY: Chest is clear to auscultation, no wheezing or crackles. ABDOMEN: Soft, nontender, nondistended, normoactive bowel sounds. No palpable organomegaly. MUSCULOSKELETAL: No joint swelling or deformity. EXTREMITIES: No cyanosis, clubbing, or pedal edema. NEUROLOGICAL: Gross neurological examination did not reveal any focal deficits. SKIN: No rashes. EXTREMITIES: Status post debridement and redness did improve. Patient continues to have edema predominantly in the right leg, right foot where he has an infection. ASSESSMENT AND PLAN: 1. Severe sepsis secondary to cellulitis and right leg ulcer and the wound, status post debridement of the big toe. Multiple organisms including E. coli, strep agalactiae, Clostridium perfringens, continues to be febrile. 2. Acute renal failure secondary to acute tubular necrosis, which improved at this point of time. Patient has chronic kidney disease stage III for which patient's creatinine is almost at his baseline. 3. Second degree heart block at this point of time, improved with AV node blockers. 4. Chronic lymphedema of bilateral lower extremities. 5. Type 2 diabetes mellitus. 6. Dyslipidemia. 7. Gout. 8. Obesity. Will repeat electrolytes, kidney function tomorrow. PLAN: Continue with present antibiotics. Patient continues to be febrile. Infectious Disease is following the patient. Patient got blood cultures a couple days ago. If he is febrile again, will get blood cultures again.
[2017-03-16 17:41] LABS: Glucose,Whole Blood 158 mg/dL (75-99)
[2017-03-16 20:48] LABS: Glucose,Whole Blood 168 mg/dL (75-99)
[2017-03-16] MEDS: MELATONIN 5 MG TABLET PO SCH (22:56)
[2017-03-16] MEDS: INSULIN DETEMIR 100 UNIT/ML 10 ML VIAL SQ SCH (23:08)
[2017-03-17] MEDS: HYDROmorphone 1 MG/ML 1 ML SYRINGE IVP PRN (01:24)
[2017-03-17] MEDS: PIPERACILLIN-TAZOBACTAM 3.375 GM in DEXTROSE/WATER 1 50ML.BAG IVPB SCH ×4 (01:29→23:52)
[2017-03-17] MEDS: HYDROcodone/APAP 7.5-325MG 1 EACH TAB PO PRN ×2 (04:35→14:04)
[2017-03-17 06:24] LABS: Glucose,Whole Blood 123 mg/dL (75-99)
[2017-03-17] MEDS: INSULIN LISPRO (humaLOG) 300 UNIT/3 ML VIAL SQ SCH ×4 (07:39→22:24)
[2017-03-17 07:56] LABS: Glucose,Whole Blood 125 mg/dL (75-99)
[2017-03-17 08:03] LABS: CH 27.9; CHCM 31.8; HCT 31.7 % (39.0-53.0); HDW 2.87; HGB 10.2 gm/dL (13.0-17.5); Hypochromasia Slight; MCH 28.4 pg (25.0-35.0); MCHC 32.3 g/dL (31.0-37.0); Mean Platelet Volume 7.7; RDW 15.1 % (11.5-15.5); WBC 5.5 k/uL (3.8-10.6)
[2017-03-17] MEDS: ERGOCALCIFEROL 50,000 UNIT CAP PO SCH (08:06)
[2017-03-17] MEDS: HEPARIN SODIUM,PORCINE 5,000 UNIT/ML 1 ML VIAL SQ SCH ×3 (08:06→23:53)
[2017-03-17] MEDS: FUROSEMIDE 40 MG TAB PO SCH (08:06)
[2017-03-17] MEDS: amLODIPine 10 MG TAB PO SCH (08:06)
[2017-03-17] MEDS: PHENAZOPYRIDINE 100 MG TAB PO SCH ×3 (08:06→22:34)
[2017-03-17] MEDS: metroNIDAZOLE 500 MG TAB PO SCH ×3 (08:07→22:24)
[2017-03-17] MEDS: ASPIRIN 81 MG CHEW PO SCH (08:07)
[2017-03-17] MEDS: PANTOPRAZOLE 40 MG TABLET PO SCH (08:07)
[2017-03-17] MEDS: NYSTATIN 100,000UNIT/GM CREAM 30 GM TUBE TOPICAL SCH ×2 (08:07→22:25)
[2017-03-17] MEDS: PREGABALIN 25 MG CAP PO SCH ×3 (08:08→22:24)
[2017-03-17 08:18] LABS: Potassium 4.5 mmol/L (3.5-5.1)
[2017-03-17 12:22] LABS: Glucose,Whole Blood 180 mg/dL (75-99)
--- NOTE | 2017-03-17 14:33 | P.PN ---
Subjective Principal diagnosis: This is a 71-year-old male seen in follow-up with acute kidney injury secondary to cellulitis of the right foot plantar aspect which had debridement done 2016. Additionally he had volume overload and chronic kidney disease with a baseline creatinine of 1.7. He is doing better and has improved. His edema is significantly improved. He is known with diabetes and chronic edema Has good appetite no chest pain fever chills cough shortness of breath nausea vomiting. His right foot continues to drain through the dressings. Objective - Vital Signs Vital signs: Vital Signs Temp 97.1 F L 03/17/17 07:00 Pulse 47 L 03/17/17 07:00 Resp 20 03/17/17 08:00 BP 140/68 03/17/17 07:00 Pulse Ox 96 03/17/17 07:00 Intake & Output 03/16/17 03/17/17 03/17/17 18:59 06:59 18:59 Intake Total 200 Output Total 300 Balance -100 Intake: Oral 200 Output: Urine 300 Other: Voiding Method Urinal Urinal Urinal Diaper Diaper Diaper # Voids 6 2 # Bowel Movements 2 1 Examination he is awake alert oriented comfortable. HEENT exam no JVP neck is supple no facial asymmetry Lungs clear to auscultation percussion good air entry bilaterally Heart sounds are unremarkable no murmur rub gallop. Abdomen soft nontender Extremity exam reveals minimal edema now difficult to ascertain because of the Odell wraps on both legs. There is some redness of his right foot. This is the area of the surgical debridement. Neurologically awake alert oriented. - Labs CBC & Chem 7: 03/17/17 07:44 03/17/17 07:44 Labs: Abnormal Lab Results - Last 24 Hours (Table) 03/16/17 03/16/17 03/17/17 Range/Units 17:39 20:42 06:10 RBC (4.30-5.90) m/uL Hgb (13.0-17.5) gm/dL Hct (39.0-53.0) % BUN (9-20) mg/dL Creatinine (0.66-1.25) mg/dL Glucose (74-99) mg/dL POC Glucose (mg/dL) 158 H 168 H 123 H (75-99) mg/dL Calcium (8.4-10.2) mg/dL 03/17/17 03/17/17 03/17/17 Range/Units 07:33 07:44 07:44 RBC 3.60 L (4.30-5.90) m/uL Hgb 10.2 L (13.0-17.5) gm/dL Hct 31.7 L (39.0-53.0) % BUN 42 H (9-20) mg/dL Creatinine 2.00 H (0.66-1.25) mg/dL Glucose 127 H (74-99) mg/dL POC Glucose (mg/dL) 125 H (75-99) mg/dL Calcium 8.0 L (8.4-10.2) mg/dL 03/17/17 Range/Units 12:03 RBC (4.30-5.90) m/uL Hgb (13.0-17.5) gm/dL Hct (39.0-53.0) % BUN (9-20) mg/dL Creatinine (0.66-1.25) mg/dL Glucose (74-99) mg/dL POC Glucose (mg/dL) 180 H (75-99) mg/dL Calcium (8.4-10.2) mg/dL Microbiology - Last 24 Hours (Table) 03/15/17 13:51 Gram Stain - Preliminary Foot - Right Tissue Culture - Preliminary 03/14/17 22:39 Blood Culture - Preliminary Blood No Growth after 48 hours 03/14/17 22:22 Blood Culture - Preliminary Blood No Growth after 48 hours Assessment and Plan Plan: Impression. 1. Acute kidney injury secondary to sepsis and leg cellulitis right side. Creatinine is improved from a peak of 4.6-1 03/06/2017 down to 1.7 yesterday but has up to 2 today. Blood pressures are stable. He might be intravascularly volume depleted. 2. Chronic kidney disease with a baseline creatinine of 1.7-1.8. UA shows 1+ proteinuria therefore likely nephrosclerosis 3. Anemia of chronic kidney disease, hemoglobin is 9.8, down from 10.7 yesterday and 11.5 on 03/12/2017. Recommendation. 1. Reduce his Lasix to 20 mg daily from 40 mg. Otherwise 2. Patient is on Lasix Lasix for now he can maintain that
[2017-03-17 17:20] LABS: Glucose,Whole Blood 200 mg/dL (75-99)
[2017-03-17 20:34] LABS: Glucose,Whole Blood 231 mg/dL (75-99)
--- NOTE | 2017-03-17 21:46 | PN ---
The patient ( ). REVIEW OF SYSTEMS: CARDIOVASCULAR: No chest pain, no orthopnea, no PND, no palpitations. PULMONARY: Denied any shortness of breath. No cough or hemoptysis. GASTROINTESTINAL: No diarrhea, nausea or vomiting. No abdominal pain. Normoactive bowel sounds. NEUROLOGIC: No headaches, no weakness, no numbness. Medications were reviewed. PHYSICAL EXAMINATION: Temperature 97.1, pulse of about 100, respiratory rate 20. Blood pressure is 140/68, saturating at 96% on room air. GENERAL: The patient is alert and oriented x3, not in any acute distress. Well developed, well nourished. HEENT: Pupils are round and equally reacting to light. EOMI. No scleral icterus. No conjunctival pallor. Normocephalic, atraumatic. No pharyngeal erythema. No thyromegaly. CARDIOVASCULAR: S1 and S2 present. No murmurs, rubs, or gallops. PULMONARY: Chest is clear to auscultation, no wheezing or crackles. ABDOMEN: Soft, nontender, nondistended, normoactive bowel sounds. No palpable organomegaly. MUSCULOSKELETAL: No joint swelling or deformity. EXTREMITIES: No significant change compared to yesterday. Redness did improve in the right lower extremity. Continues to have swelling of bilateral lower extremities. NEUROLOGICAL: Gross neurological examination did not reveal any focal deficits. SKIN: No rashes. ASSESSMENT AND PLAN: 1. Severe sepsis secondary to cellulitis of the right leg along with wound infection of the right leg. Patient underwent status post debridement and patient is afebrile. Patient has multiple organism, E. coli, ( ) perfringens and patient is clinically doing well. 2. Acute renal failure secondary to acute tubular necrosis, which improved at this point of time. Patient has a chronic kidney disease Stage III which creatinine is at baseline. 3. Second-degree heart block, asymptomatic at this time. 4. Chronical lymphedema. 5. Type 2 diabetes mellitus. 6. Dyslipidemia. 7. Gout. 8. Obesity. PLAN: Continue with present antibiotics. Possibility of discharge tomorrow on IV antibiotics. The patient had mild worsening of kidney function. Nephrology is managing that aspect. His acute tubular necrosis significantly improved. Patient is doing much better at this time.
[2017-03-17] MEDS: MELATONIN 5 MG TABLET PO SCH (22:24)
[2017-03-17] MEDS: INSULIN DETEMIR 100 UNIT/ML 10 ML VIAL SQ SCH (22:35)
[2017-03-18] MEDS: HYDROmorphone 1 MG/ML 1 ML SYRINGE IVP PRN ×2 (00:49→12:18)
[2017-03-18 07:24] LABS: Glucose,Whole Blood 115 mg/dL (75-99)
[2017-03-18 07:56] LABS: CH 27.8; HCT 35.4 % (39.0-53.0); HDW 2.74; HGB 10.9 gm/dL (13.0-17.5); Hypochromasia Slight; MCH 27.5 pg (25.0-35.0); MCHC 30.6 g/dL (31.0-37.0); MCV 89.9 fL (80.0-100.0); Mean Platelet Volume 7.3; RBC 3.94 m/uL (4.30-5.90); RDW 15.2 % (11.5-15.5); WBC 5.8 k/uL (3.8-10.6)
--- NOTE | 2017-03-18 08:28 | PN ---
DATE OF SERVICE: 03/17/2017 Reason for followup is right diabetic foot infection with significant bacteremia. INTERVAL HISTORY: The patient is afebrile, has been breathing comfortably. Denies significant chest pain or shortness of breath, no cough, no significant abdominal pain, and no significant pain in the right foot area. On examination, blood pressure 153/72 with a pulse of 55, temperature 97.5 he is 95% on 2 L nasal cannula. General description is an elderly male, up in the bed in no distress. RESPIRATORY SYSTEM: Unlabored breathing. Clear to auscultation anteriorly. HEART: S1, S2, regular rate and rhythm. ABDOMEN: Soft, no tenderness. Right foot is currently in a dressing. LABS: Hemoglobin 10.2, white count 5.5 with a BUN of 42, creatinine is 2.8. Repeat wound cultures so far pending. DIAGNOSTIC IMPRESSION AND PLAN: Patient with diabetic foot infection, initial culture with an E. coli strep agalactiae, clostridium with an methicillin-susceptible Staphylococcus bacteremia. Repeat blood culture has been negative. Patient is currently on daptomycin and Zosyn. The patient continued to improve and no resistant organism is grown in the repeat cultures. He will be able to finish therapy with Unasyn 3 gm q.8 for another 2 to 3 weeks. Local wound care with aquacel silver to the right leg and medahoney to the left. Continue supportive care. RUTHY
[2017-03-18] MEDS: HEPARIN SODIUM,PORCINE 5,000 UNIT/ML 1 ML VIAL SQ SCH ×3 (08:30→23:21)
[2017-03-18] MEDS: PREGABALIN 25 MG CAP PO SCH ×3 (08:30→21:24)
[2017-03-18] MEDS: HYDROcodone/APAP 7.5-325MG 1 EACH TAB PO PRN (08:30)
[2017-03-18] MEDS: metroNIDAZOLE 500 MG TAB PO SCH ×3 (08:30→21:22)
[2017-03-18] MEDS: amLODIPine 10 MG TAB PO SCH (08:30)
[2017-03-18] MEDS: PANTOPRAZOLE 40 MG TABLET PO SCH (08:30)
[2017-03-18] MEDS: ASPIRIN 81 MG CHEW PO SCH (08:30)
[2017-03-18] MEDS: PHENAZOPYRIDINE 100 MG TAB PO SCH ×3 (08:30→21:21)
[2017-03-18] MEDS: PIPERACILLIN-TAZOBACTAM 3.375 GM in DEXTROSE/WATER 1 50ML.BAG IVPB SCH ×3 (08:30→23:21)
[2017-03-18] MEDS: FUROSEMIDE 20 MG TAB PO SCH (08:30)
[2017-03-18] MEDS: INSULIN LISPRO (humaLOG) 300 UNIT/3 ML VIAL SQ SCH ×4 (08:31→21:24)
[2017-03-18] MEDS: NYSTATIN 100,000UNIT/GM CREAM 30 GM TUBE TOPICAL SCH ×2 (08:31→21:20)
[2017-03-18 08:57] LABS: Calcium 8.2 mg/dL (8.4-10.2); Potassium 4.6 mmol/L (3.5-5.1)
[2017-03-18] MEDS ORDERED: LIDOCAINE 1% INJ 10MG/ML (20 ML MDV) SQ ONE (11:57)
[2017-03-18 12:06] LABS: Glucose,Whole Blood 212 mg/dL (75-99)
--- NOTE | 2017-03-18 12:22 | DS ---
DATE OF ADMISSION: 03/02/2017 DATE OF DISCHARGE: Patient was admitted secondary to acute renal failure due to acute tubular necrosis which is again secondary to severe sepsis and bacteremia, bacteremia with polymicrobial organisms and source of bacteremia being right lower limb ulcer and cellulitis and patient's wound cultures were positive for E. coli strep agalactiae, staph aureus, Clostridium perfringens and patient had a blood culture that is positive for streptococci, staph aureus. Patient was evaluated by Infectious Disease and he is recommending Unasyn. Patient is otherwise clinically doing well and patient has CKD stage IV and kidney function is close to baseline. Baseline creatinine is 1.6, now around 2 and patient's edema improved quite a bit and patient will be discharged today and patient was seen and examined on the day of discharge. Vitals are stable. PHYSICAL EXAMINATION: GENERAL: The patient is alert and oriented x3, not in any acute distress. Well developed, well nourished. HEENT: Pupils are round and equally reacting to light. EOMI. No scleral icterus. No conjunctival pallor. Normocephalic, atraumatic. No pharyngeal erythema. No thyromegaly. CARDIOVASCULAR: S1 and S2 present. No murmurs, rubs, or gallops. PULMONARY: Chest is clear to auscultation, no wheezing or crackles. ABDOMEN: Soft, nontender, nondistended, normoactive bowel sounds. No palpable organomegaly. MUSCULOSKELETAL: No joint swelling or deformity. NEUROLOGICAL: Gross neurological examination did not reveal any focal deficits. SKIN: No rashes. EXTREMITIES: The patient's edema improved and patient has a wound that probably might need to be debrided again. FINAL DIAGNOSES: 1. Severe sepsis secondary to cellulitis of the right leg along with infection of the wound of the right leg, status post of debridement. Multiple organisms as mentioned above. 2. Acute renal failure due to acute tubular necrosis which resolved. 3. Second degree heart block, asymptomatic at this time. No further intervention, beta shelbi was discontinued. 4. Chronic lymphedema, bilateral lower limb lymphedema. 5. Type 2 diabetes mellitus. 6. Dyslipidemia. 7. Gout. 8. Obesity. Please refer to my depart summary for the details of discharge medications. Activity as tolerated. Cardiac and diabetic ADA 1800 calorie diet. Patient is on 35 units of Lantus, may need sliding scale premeal insulin which was not ordered here. Can be done as an outpatient if needed. As of now, he is not requiring any premeal insulin. Spent greater than 35 minutes in total discharge process. Patient will follow with Dr. Vinson or Dr. Israel in the subacute rehab. Patient will follow with Dr. Ankur Burnett once he is discharged from the rehab. Patient will follow with Dr. Ling in about a week, Infectious Disease doctor. Spent greater than 35 minutes in total discharge process.
[2017-03-18 17:13] LABS: Glucose,Whole Blood 135 mg/dL (75-99)
--- NOTE | 2017-03-18 19:50 | PN ---
DATE OF SERVICE: 03/18/2017 REASON FOR FOLLOWUP: Right foot infection with secondary bacteremia. INTERVAL HISTORY: The patient is afebrile. He has been breathing comfortably. Denies significant chest pain. No abdominal pain. Pain in the right foot area. On examination, blood pressure 129/65, pulse of 73, temperature 97.6. He is 96% on 2 liters nasal cannula. GENERAL DESCRIPTION: Elderly male, lying in bed in no distress. RESPIRATORY SYSTEM: Unlabored breathing. Clear to auscultation anteriorly. HEART: S1, S2 regular. ABDOMEN: Soft, no tenderness. Right foot plantar aspect of the wound still has one necrotic area which needs further surgical debridement and some purulent material which has improved;. LABS: Repeat culture so far negative. DIAGNOSTIC IMPRESSION AND PLAN: Right diabetic foot infection with secondary bacteremia. Patient received more than 2 weeks of daptomycin and it will be discontinued. Continue with Zosyn. We will try to switch over to Unasyn every 8 hours. the antibiotic will be switched to unasyn on discharge. Local wound care per Surgery. Plan discussed with Dr. Bhat on the phone. RUTHY
[2017-03-18] MEDS: INSULIN DETEMIR 100 UNIT/ML 10 ML VIAL SQ SCH (21:19)
[2017-03-18] MEDS: MELATONIN 5 MG TABLET PO SCH (21:20)
[2017-03-18] MEDS: ACETAMINOPHEN TAB 325 MG TAB PO PRN (21:24)
[2017-03-18 21:26] LABS: Glucose,Whole Blood 241 mg/dL (75-99)
--- NOTE | 2017-03-18 21:34 | CONS ---
DATE OF CONSULTATION: Patient is seen for follow-up for acute kidney injury. He is currently sitting up in bed, comfortable. He is not in any acute distress. Patient's renal function has been improving. His volume status has also improved. Lasix has been decreased. Creatinine has been at about 2.0 mg/dL. Lasix is only at 20 mg p.o. daily. On examination, blood pressure is 119/74, heart rate of 79 per minute. He is afebrile. Examination of the heart S1 and S2. Examination of the lungs: Bilateral breath sounds are heard. ABDOMEN: Soft, nontender. Examination of lower extremities shows bilateral extremities to be wrapped. Edema has significantly improved. The left foot shows some drainage at the bottom. [employer]END[employer] exam is grossly intact. Labs show serum creatinine 2.0 mg/dL, sodium 142, potassium 4.6. Hemoglobin 10.9 g/dL. ASSESSMENT: 1. Acute kidney injury, acute tubular necrosis, currently significantly improved. Etiology was sepsis, hypoperfusion. 2. Hypovolemia, currently significantly improved. May continue with current dose of Lasix. 3. Hypotension. Blood pressure has been on the lower side. Will discontinue the Norvasc for now and reevaluate as outpatient. Continue to hold off on MARY ANNE inhibitors. 4. Right diabetic foot infection Staphylococcus aureus bacteremia being followed by infectious disease. PLAN: Discontinue the Norvasc. Okay for discharge. Follow up as outpatient and repeat labs as outpatient and avoid any nephrotoxic agents.
[2017-03-19] MEDS: HYDROmorphone 1 MG/ML 1 ML SYRINGE IVP PRN ×4 (03:43→22:01)
--- NOTE | 2017-03-19 06:09 | PCN ---
DATE OF PROCEDURE: 03/18/2017 PREOPERATIVE DIAGNOSIS: Infected wound right foot, plantar aspect measurement is 3 x 3 cm with necrotic skin at the plantar aspect of the foot. PROCEDURE: Debridement of the wound down into subcutaneous tissue and the fat. PROCEDURE: This patient had a blister on the plantar aspect of the foot, which was drained and also patient had a wound debridement in the past. Today we have seen there is more skin necrosis noted at plantar aspect of the right foot with some tunneling noted. Patient's foot was prepped and dressed per usual sterile manner and 1% lidocaine ( ). An elliptical incision was made around the necrotic skin, deepened through the skin, fat, and all the necrotic tissue was removed. There was some more tunneling noted on the plantar aspect of the foot. We removed the necrotic skin. We took the deep culture and wound was irrigated with saline. No active bleeding was noted. Medihoney was applied to the wound and dressing was applied. We will discuss with Infectious Disease and with the family. Prognosis is guarded. The patient may end up with amputation because healing is going to be a problem on the plantar aspect of the foot. In the meantime, we will continue with local wound care.
[2017-03-19 07:35] LABS: Glucose,Whole Blood 147 mg/dL (75-99)
[2017-03-19] MEDS: PHENAZOPYRIDINE 100 MG TAB PO SCH ×3 (08:42→21:58)
[2017-03-19] MEDS: FUROSEMIDE 20 MG TAB PO SCH (08:43)
[2017-03-19] MEDS: PREGABALIN 25 MG CAP PO SCH ×3 (08:43→22:00)
[2017-03-19] MEDS: ASPIRIN 81 MG CHEW PO SCH (08:43)
[2017-03-19] MEDS: metroNIDAZOLE 500 MG TAB PO SCH ×3 (08:44→22:00)
[2017-03-19] MEDS: PANTOPRAZOLE 40 MG TABLET PO SCH (08:44)
[2017-03-19] MEDS: HEPARIN SODIUM,PORCINE 5,000 UNIT/ML 1 ML VIAL SQ SCH ×2 (08:44→17:07)
[2017-03-19] MEDS: INSULIN LISPRO (humaLOG) 300 UNIT/3 ML VIAL SQ SCH ×4 (08:44→22:00)
[2017-03-19] MEDS: HYDROcodone/APAP 7.5-325MG 1 EACH TAB PO PRN (08:45)
[2017-03-19] MEDS: PIPERACILLIN-TAZOBACTAM 3.375 GM in DEXTROSE/WATER 1 50ML.BAG IVPB SCH ×2 (10:36→17:09)
[2017-03-19] MEDS: NYSTATIN 100,000UNIT/GM CREAM 30 GM TUBE TOPICAL SCH ×2 (10:39→21:58)
[2017-03-19 12:06] LABS: Glucose,Whole Blood 208 mg/dL (75-99)
--- NOTE | 2017-03-19 15:00 | CDI ---
In responding to this query, please exercise your independent professional judgment. The [facility] Coding Staff and Clinical Documentation Specialists appreciate your assistance in clarifying documentation, maintaining compliance with coding guidelines, accurately documenting patients condition and capturing severity of illness. The fact that a question is asked does not imply that any particular answer is desired or expected. Communication forms are a method of clarifying documentation and are not made part of the Legal Health Record. Thank you in advance for your clarification. Last Revision, August 2015 Gerardo Kerr [address] [place] [address] Documentation Clarification Form Date: 03/19/2017 2:50:00 PM From: Pebbles Crain RN, CCDS Admit Date: 03/02/2017 12:42:00 AM Patient Name: Liang Guerin Visit Number: [id number] Dr. Peewee Bhat Per your progress notes/operative note, a debridement was performed on 03/18/17 History/Risk Factors: 2 previous Excisional debridements this admission of same area Clinical Indicators: 03/18 Vascular procedure note: "An elliptical incision was made around the necrotic skin, deepened through the skin, fat, and all the necrotic tissue was removed. There was some more tunneling noted on the plantar aspect of the foot. We removed the necrotic skin." Treatment: Repeated debridements, local wound care Five elements required for accurate and compliant documentation of a debridement : 1. Technique used (e.g., Excisional, excised, cutting, etc.) 2. Instrument(s) used (e.g., scalpel, curette, etc.) 3. Nature of the tissue removed (e.g., necrotic, devitalized tissues, non- viable tissue, etc.) 4. Appearance and size of the wound (e.g., down to fresh bleeding tissue, 7cm x 10cm, etc.) 5. Depth of the debridement* (e.g., skin, subcutaneous tissue, fascia, muscle , bone, etc.) In order to capture the severity of condition and code the appropriate procedure could you please document the following: Excisional debridement (the removal of necrotic, devitalized tissue or slough by means of cutting away of tissue) Non-Excisional debridement (the removal of necrotic, devitalized tissue or slough by means of flushing, brushing, or washing. (Irrigation) Other; with explanation for clinical findings Unable to determine (no explanation for clinical findings) Please document in your progress notes and discharge summary in order to capture severity of illness and risk of mortality. Include clinical findings that support your diagnosis. FYI: Press F11 to launch patient chart. Place X here if this finding has no clinical significance, is not applicable or if you are not able to provide any additional documentation. RUTHY
--- NOTE | 2017-03-19 16:10 | XR ---
EXAMINATION TYPE: XR foot limited RT DATE OF EXAM: 03/19/2017 CLINICAL HISTORY: Evaluate for foreign body. TECHNIQUE: Frontal and lateral images of the right foot are obtained. COMPARISON: Right foot x-ray March 03, 2017 FINDINGS: There is overlying bandage material seen which is noted to lower radiographic sensitivity. Previously visualized linear or metallic foreign body midfoot plantar surface is not identified afte r interval surgery. Lucency consistent with recent surgery at this level is identified. No acute fracture or dislocation is evident. Small inferior calcaneal spur is seen. There is addition al spurring along course of distal Achilles tendon. There is moderate to severe diffuse soft tissue s welling most pronounced in the forefoot along dorsal surface redemonstrated. IMPRESSION: Interval successful surgery or removal of linear or metallic foreign body.
--- NOTE | 2017-03-19 16:29 | P.PN ---
Subjective Date of service 03/19/2017. Progress note being dictated for Dr. Jenkins Interval history: This a 71-year-old gentleman admitted with right diabetic foot infection, bacteremia, status post debridement and further debridement of right foot and multiple other medical issues. Maintained on antibiotics as per infectious disease. Vascular surgery reevaluating affected extremity and the next 24-48 hours, with possible amputation being discussed. Denies extremity pain. Denies chest pain, palpitations or increased shortness of breath. Afebrile. Objective - Vital Signs Vital signs: Vital Signs Temp 97.0 F L 03/19/17 07:00 Pulse 78 03/19/17 07:00 Resp 16 03/19/17 07:00 BP 143/85 03/19/17 07:00 Pulse Ox 97 03/19/17 08:31 Intake & Output 03/18/17 03/19/17 03/19/17 18:59 06:59 18:59 Intake Total 118 Output Total 200 Balance 118 -200 Intake: Oral 118 Output: Urine 200 Other: Voiding Method Urinal Diaper # Voids 2 2 1 # Bowel Movements 3 1 - Exam PHYSICAL EXAM: VITAL SIGNS: [As above] GENERAL: [Sitting up in bed, no acute distress] HEENT: [Pupils equal conjunctiva normal.] NECK: [Supple, no JVD] RESPIRATORY EFFORT:[ Normal] LUNGS: [Clear to auscultation, no wheezes rhonchi or crackles] CARDIOVASCULAR[ regular S1-S2, no murmurs rubs or gallop, improving edema] GI: [Abdomen soft, nontender, positive bowel sounds.] PSYCH: [Alert and oriented -3, mood and affect normal.] SKIN: Bilateral lower extremity dressings clean dry and intact NEURO: No focal deficits. Microbiology 03/15/17 13:51 Foot - Right Gram Stain - Final 03/15/17 13:51 Foot - Right Tissue Culture - Final 03/18/17 12:20 Foot - Right Gram Stain - Preliminary 03/18/17 12:20 Foot - Right Wound Culture - Preliminary 03/14/17 22:39 Blood Blood Culture - Preliminary No Growth after 96 hours 03/14/17 22:22 Blood Blood Culture - Preliminary No Growth after 96 hours 03/18/17 12:20 Foot - Right Anaerobic Culture - Preliminary 03/02/17 00:43 Leg - Left Gram Stain - Final 03/02/17 00:43 Leg - Left Wound Culture - Final Staphylococcus aureus Strep agalactiae - (group b) Strep agalactiae - (group b)#2 03/01/17 23:50 Blood Blood Culture Gram Stain - Final 03/01/17 23:50 Blood Blood Culture - Final Staphylococcus aureus 03/15/17 13:51 Foot - Right Anaerobic Culture - Preliminary 03/04/17 11:57 Blood Blood Culture - Final No Growth after 144 hours 03/04/17 13:08 Foot - Right Gram Stain - Final 03/04/17 13:08 Foot - Right Tissue Culture - Final Escherichia coli Strep agalactiae - (group b) Staphylococcus aureus Clostridium perfringens 03/01/17 23:50 Blood Blood Culture - Final - Labs CBC & Chem 7: 03/18/17 07:21 03/18/17 07:21 Labs: Abnormal Lab Results - Last 24 Hours (Table) 03/18/17 03/18/17 03/19/17 Range/Units 17:06 21:23 07:11 POC Glucose (mg/dL) 135 H 241 H 147 H (75-99) mg/dL 03/19/17 Range/Units 11:59 POC Glucose (mg/dL) 208 H (75-99) mg/dL Microbiology - Last 24 Hours (Table) 03/15/17 13:51 Gram Stain - Final Foot - Right Tissue Culture - Final 03/18/17 12:20 Gram Stain - Preliminary Foot - Right Wound Culture - Preliminary 03/14/17 22:39 Blood Culture - Preliminary Blood No Growth after 96 hours 03/14/17 22:22 Blood Culture - Preliminary Blood No Growth after 96 hours 03/18/17 12:20 Anaerobic Culture - Preliminary Foot - Right 03/02/17 00:43 Gram Stain - Final Leg - Left Wound Culture - Final Staphylococcus aureus Strep agalactiae - (group b) Strep agalactiae - (group b)#2 03/01/17 23:50 Blood Culture Gram Stain - Final Blood Blood Culture - Final Staphylococcus aureus Assessment and Plan Plan: 1. Severe sepsis secondary to cellulitis and bacteremia with multiple organisms.right foot plantar blister, necrotic tissue of left great toe ,status post further debridement of right foot, debridement of left foot big toe.Foot Right Tissue Culture, Escherichia coli, Strep agalactiae - (group b),MSSA,ECOLI, Clostridium perfringens.Leg - Left Wound Culture - Preliminary Presumptive Staph aureus, Strep agalactiae - (group b),Strep agalactiae - (group b)#2 2. [ Acute on chronic renal failure, stage IV, acute tubular necrosis]. 3. [Second-degree heart block, off of beta blockers and AV francis blockers, asymptomatic 4. [ Chronic lymphedema of bilateral lower extremities]. 5. [ Diabetes mellitus, fairly controlled]. 6. [Dyslipidemia 7. [Gout 8. Obesity, BMI 40.2 9. PICC line placement Plan: Continue on current medication regime ,monitoring and symptomatic treatment.Reevaluated by vascular surgery. As mentioned above vascular surgery discussing potential amputation with reevaluation of affected extremity in the next 24-48 hours .Antibiotics continue as per ID. Close monitoring of electrolytes with repeat labs ordered for a.m. close monitoring of Accu-Cheks. Prognosis guarded. At discharge patient will go to [facility] rehab. The impression and plan of care has been dictated as directed. : I performed a H&P examination of this patient and discussed the same with the dictator. I agree with the dictator's note. Any additional findings/opinions/ etc. will be noted.
[2017-03-19 17:06] LABS: Glucose,Whole Blood 173 mg/dL (75-99)
[2017-03-19 21:28] LABS: Glucose,Whole Blood 200 mg/dL (75-99)
[2017-03-19] MEDS: MELATONIN 5 MG TABLET PO SCH (21:58)
[2017-03-19] MEDS: INSULIN DETEMIR 100 UNIT/ML 10 ML VIAL SQ SCH (22:00)
[2017-03-20] MEDS: HEPARIN SODIUM,PORCINE 5,000 UNIT/ML 1 ML VIAL SQ SCH ×4 (00:28→23:43)
[2017-03-20] MEDS: PIPERACILLIN-TAZOBACTAM 3.375 GM in DEXTROSE/WATER 1 50ML.BAG IVPB SCH ×4 (00:30→23:43)
[2017-03-20] MEDS: HYDROcodone/APAP 7.5-325MG 1 EACH TAB PO PRN ×2 (03:37→15:50)
[2017-03-20] MEDS: HYDROmorphone 1 MG/ML 1 ML SYRINGE IVP PRN ×2 (05:58→20:13)
[2017-03-20 07:28] LABS: Glucose,Whole Blood 158 mg/dL (75-99)
[2017-03-20] MEDS: PHENAZOPYRIDINE 100 MG TAB PO SCH ×3 (08:28→21:47)
[2017-03-20] MEDS: ASPIRIN 81 MG CHEW PO SCH (08:28)
[2017-03-20] MEDS: metroNIDAZOLE 500 MG TAB PO SCH ×3 (08:28→21:48)
[2017-03-20] MEDS: PREGABALIN 25 MG CAP PO SCH ×3 (08:28→21:49)
[2017-03-20] MEDS: FUROSEMIDE 20 MG TAB PO SCH (08:28)
[2017-03-20] MEDS: PANTOPRAZOLE 40 MG TABLET PO SCH (08:28)
[2017-03-20] MEDS: NYSTATIN 100,000UNIT/GM CREAM 30 GM TUBE TOPICAL SCH ×2 (08:29→21:48)
[2017-03-20] MEDS: INSULIN LISPRO (humaLOG) 300 UNIT/3 ML VIAL SQ SCH ×4 (08:29→21:48)
--- NOTE | 2017-03-20 09:27 | PN ---
DATE OF SERVICE: 03/19/2017 This 71-year-old gentleman who was admitted with severe sepsis secondary to bacteremia is being closely monitored. I have seen and evaluated the patient with the nurse practitioner. Please refer to nurse practitioner notes and impression for further information. PAST MEDICAL HISTORY: Reviewed. REVIEW OF SYSTEMS: CARDIOVASCULAR: None. : As mentioned earlier. : No dysuria. NERVOUS SYSTEM: No numbness or weakness. Medications: 1. Tylenol. 2. [place]. 3. Aspirin. 4. Daptomycin. 5. Vitamin D2. 6. Lasix. 7. Heparin. 8. Dilaudid. 9. Levemir. 10. Humalog. 11. Melatonin. 12. Flagyl. 13. Narcan. 14. Zosyn. 15. Lyrica. Recommend continue current medications, continue with monitoring. Symptomatic treatment. Closely follow with Vascular Surgery. Further recommendations to follow including any possible plans for surgery. Further recommendations to follow.
--- NOTE | 2017-03-20 10:25 | PN ---
DATE OF SERVICE: 03/19/2017 Reason for follow-up: Right foot infection with secondary bacteremia. INTERVAL HISTORY: The patient is afebrile. Currently feeling better. Breathing comfortably. Denies significant chest pain, shortness of breath, cough, no abdominal pain. Worsening pain in the right foot area. On examination, blood pressure 175/79 with a pulse 57, temperature 97. He is 94% on room air. General description is an elderly male, lying in bed in no distress. RESPIRATORY SYSTEM: Unlabored breathing. Clear to auscultation anteriorly. HEART: S1, S2. Regular rate and rhythm. ABDOMEN: Soft. No tenderness. Right foot currently dressed up with some drainage on the dressing. LABS: No new labs have been obtained today. Cultures repeat on the sixth so far negative. DIAGNOSTIC IMPRESSION AND PLAN: Patient with right foot infection with multiple pathogens. Currently the patient covered with Zosyn. Go ahead and discontinue the daptomycin. Continue local wound care per surgery. Once cleared by vascular surgery, will go home to rehab with continued IV antibiotic therapy. Continue supportive care. RUTHY
--- NOTE | 2017-03-20 10:27 | PN ---
Patient is seen for follow-up for acute kidney injury on top of chronic kidney disease, currently patient's renal function is fairly stable and he was volume overloaded and is maintained on oral Lasix. He is doing fairly well. He has wound on his right foot and a necrotic area on the left great toe. On examination today, blood pressure is 143/85, heart rate of 67 per minute. The patient is afebrile. Examination of the heart: S1, S2. Examination of the lungs: Decreased breath sounds in bases. ABDOMEN: Soft, obese, nontender. Examination of lower extremities shows bilateral extremities to be wrapped. Is draining wound noted on the plantar aspect of his right foot. Labs not available from today. ASSESSMENT: 1. Acute kidney injury, currently significantly improved. Serum creatinine staying at about 2 mg/dL for the last 2 to 3 days. 2. Volume overload, currently improved. 3. Wound infection on the right foot as well as left toe, with cultures growing Escherichia coli, Clostridium perfringens and Staphylococcus aureus being followed by infectious disease and maintained on daptomycin and Flagyl and Zosyn. PLAN: May continue with oral Lasix and repeat labs in a.m.
[2017-03-20 11:47] LABS: Calcium 8.4 mg/dL (8.4-10.2); Potassium 5.3 mmol/L (3.5-5.1)
[2017-03-20 12:02] LABS: Glucose,Whole Blood 179 mg/dL (75-99)
[2017-03-20 12:38] LABS: Basophils % (A) 0 %; CH 28.2; CHCM 31.7; Eosinophils # (A) 0.1 k/uL (0-0.7); Eosinophils % (A) 2 %; HCT 33.9 % (39.0-53.0); HDW 2.79; HGB 10.6 gm/dL (13.0-17.5); Hypochromasia Slight; Luc # (Auto) 0.07; Luc % (Auto) 2; Lymphocytes % (A) 23 %; MCH 27.9 pg (25.0-35.0); MCHC 31.3 g/dL (31.0-37.0); Mean Platelet Volume 8.5; Monocytes # (A) 0.3 k/uL (0-1.0); Monocytes % (A) 7 %; Neutrophils % (A) 66 %; RBC 3.81 m/uL (4.30-5.90); RDW 15.4 % (11.5-15.5); WBC 4.5 k/uL (3.8-10.6); WBC (Perox) 4.43
--- NOTE | 2017-03-20 13:16 | PN ---
Patient is seen for followup for acute kidney injury. He is currently comfortable, sitting up on a bedside chair. He denies any significant complaints. His renal function has improved significantly. Patient was also volume overloaded and volume status has also improved. He is maintained on Lasix 20 mg p.o. daily. On examination, blood pressure is 171/72, heart rate 78 per minute. He is afebrile. HEART: S1 and S2. LUNGS: Bilateral breath sounds are heard. ABDOMEN: Soft, nontender. Lower extremities show bilateral extremities to be wrapped. There is drainage noted from the plantar aspect of his right foot. SLASHER RUNNER: Grossly intact. Labs show sodium 142, potassium 5.3, BUN 35, serum creatinine 1.76. Hemoglobin 10.6 g/dL. ASSESSMENT: 1. Acute kidney injury, acute tubular necrosis, currently improved significantly. Creatinine down to 1.7 mg/dL. 2. Volume overload, significantly improved. May continue with current dose of Lasix. 3. Mild hyperkalemia. The patient will be maintained on a low-potassium diet and hopefully the Lasix at the current dose will be enough. If his serum potassium increases further, we can increase the dose of Lasix to 40 mg daily along with low-potassium diet. 4. Right foot wound infection in the plantar aspect with left toe infection as well as with cultures growing Escherichia coli, Clostridium perfringens, Staphylococcus aureus. Patient is being followed by Infectious Disease and maintained on daptomycin, Flagyl and Zosyn. 5. Anemia of chronic disease. 6. Chronic kidney disease stage 3 with baseline creatinine about 1.7 secondary to nephrosclerosis. UA showing 1+ protein. PLAN: Maintain low-potassium diet and continue with Lasix. May increase dose to 40 mg daily if potassium is higher tomorrow. Patient will need labs as outpatient to follow up on his electrolytes and renal function. He will need followup as outpatient as well for his chronic kidney disease.
[2017-03-20 17:25] LABS: Glucose,Whole Blood 186 mg/dL (75-99)
--- NOTE | 2017-03-20 18:11 | P.PN ---
Subjective Date of service 03/20/2017. Progress note being dictated for Dr. Jenkins Interval history: This a 71-year-old gentleman admitted with right diabetic foot infection, bacteremia, status post debridement and further debridement of right foot and multiple other medical issues. Maintained on antibiotics as per infectious disease. Reevaluated by Vascular surgery , discussing wound VAC placement. Pain controlled. Denies chest pain, palpitations or increased shortness of breath. Afebrile. Renal function improving, potassium 5.3. Review of systems: HEENT: Denies headache or focal deficits. Denies any dizziness or lightheadedness. Respiratory: Denies any increased shortness of breath. Cardiac: Denies any chest pain, palpitations. GI: Denies any nausea, vomiting, or diarrhea. Denies any abdominal tenderness. : Denies any dysuria. Denies frequency or urgency Active Medications Generic Name Dose Route Start Last Admin Trade Name Freq PRN Reason Stop Dose Admin Acetaminophen 650 mg 03/02/17 00:42 03/18/17 21:24 Tylenol Tab PO 650 mg Q6HR PRN Administration Mild Pain or Fever > 100.5 Hydrocodone Bitart/Acetaminophen 1 each 03/11/17 14:17 03/20/17 15:50 [place] 7.5-325 PO 1 each Q6H PRN Administration MODERATE Pain Aspirin 81 mg 03/02/17 09:00 03/20/17 08:28 Aspirin PO 81 mg DAILY BILLY Administration Diphenhydramine HCl 25 mg 03/12/17 03:25 03/15/17 23:29 Benadryl PO 25 mg Q4H PRN Administration Itching Ergocalciferol 50,000 unit 03/03/17 09:00 03/17/17 08:06 Vitamin D2 PO 50,000 unit Felder@0900 BILLY Administration Furosemide 20 mg 03/18/17 09:00 03/20/17 08:28 Lasix PO 20 mg DAILY BILLY Administration Heparin Sodium (Porcine) 5,000 unit 03/05/17 16:00 03/20/17 15:51 Heparin SQ 5,000 unit Q8HR BILLY Administration Hydromorphone HCl 1 mg 03/14/17 07:12 03/20/17 05:58 Dilaudid IVP 1 mg Q6HR PRN Administration Severe Pain Piperacillin/Tazobactam/ 50 mls @ 12.5 mls/hr 03/15/17 16:00 03/20/17 15:48 Dextrose 3.375 gm/ IV Solution IVPB 12.5 mls/hr Q8HR BILLY Administration Insulin Detemir 35 unit 03/06/17 21:00 03/19/17 22:00 Levemir SQ 35 unit HS BILLY Administration Insulin Human Lispro 0 unit 03/02/17 07:30 03/20/17 12:25 Humalog SQ 3 unit ACHS BILLY Administration Protocol Melatonin 5 mg 03/11/17 21:00 03/19/17 21:58 Melatonin PO 5 mg HS BILLY Administration Metronidazole 500 mg 03/14/17 22:15 03/20/17 15:50 Flagyl PO 500 mg TID BILLY Administration Naloxone HCl 0.2 mg 03/02/17 00:42 03/03/17 15:03 Narcan IV 0.2 mg Q2M PRN Administration Opioid Reversal Nystatin 1 applic 03/12/17 22:00 03/20/17 08:29 Mycostatin Cream TOPICAL 1 applic BID BILLY Administration Pantoprazole Sodium 40 mg 03/02/17 07:30 03/20/17 08:28 Protonix PO 40 mg [id number] BILLY Administration Phenazopyridine HCl 100 mg 03/13/17 12:00 03/20/17 15:48 Pyridium PO 100 mg TID BILLY Administration Pregabalin 25 mg 03/02/17 09:00 03/20/17 15:48 Lyrica PO 25 mg TID BILLY Administration Sodium Chloride 20 ml 03/12/17 15:52 Saline Flush IV Q4HR PRN PICC Line Sodium Chloride 10 ml 03/19/17 09:00 03/19/17 10:39 Saline Flush IV 10 ml WEEKLY BILLY Administration Sodium Chloride 10 ml 03/12/17 15:52 Saline Flush IV Q4HR PRN PICC Line Psychiatry: Denies any anxiety or depression. Objective - Vital Signs Vital signs: Vital Signs Temp 96.3 F L 03/20/17 15:00 Pulse 71 03/20/17 15:00 Resp 16 03/20/17 15:00 BP 140/72 03/20/17 15:00 Pulse Ox 98 03/20/17 15:00 Intake & Output 03/19/17 03/20/17 03/20/17 18:59 06:59 18:59 Output Total 200 Balance -200 Weight 110 kg Output: Urine 200 Other: # Voids 1 1 # Bowel Movements 1 1 - Exam PHYSICAL EXAM: VITAL SIGNS: [As above] GENERAL: [Sitting up in bed, no acute distress] HEENT: [Pupils equal conjunctiva normal. Oral mucosa moist] NECK: [Supple, no JVD] RESPIRATORY EFFORT:[ Normal] LUNGS: [Clear to auscultation, no wheezes rhonchi or crackles] CARDIOVASCULAR[ regular S1-S2, no murmurs rubs or gallop, improving edema] GI: [Abdomen soft, nontender, positive bowel sounds. No guarding, no rigidity.] PSYCH: [Alert and oriented -3, mood and affect normal.] SKIN: Bilateral lower extremity dressings clean dry and intact NEURO: No focal deficits. Microbiology 03/15/17 13:51 Foot - Right Gram Stain - Final 03/15/17 13:51 Foot - Right Tissue Culture - Final 03/18/17 12:20 Foot - Right Gram Stain - Preliminary 03/18/17 12:20 Foot - Right Wound Culture - Preliminary 03/14/17 22:39 Blood Blood Culture - Preliminary No Growth after 96 hours 03/14/17 22:22 Blood Blood Culture - Preliminary No Growth after 96 hours 03/18/17 12:20 Foot - Right Anaerobic Culture - Preliminary 03/02/17 00:43 Leg - Left Gram Stain - Final 03/02/17 00:43 Leg - Left Wound Culture - Final Staphylococcus aureus Strep agalactiae - (group b) Strep agalactiae - (group b)#2 03/01/17 23:50 Blood Blood Culture Gram Stain - Final 03/01/17 23:50 Blood Blood Culture - Final Staphylococcus aureus 03/15/17 13:51 Foot - Right Anaerobic Culture - Preliminary 03/04/17 11:57 Blood Blood Culture - Final No Growth after 144 hours 03/04/17 13:08 Foot - Right Gram Stain - Final 03/04/17 13:08 Foot - Right Tissue Culture - Final Escherichia coli Strep agalactiae - (group b) Staphylococcus aureus Clostridium perfringens 03/01/17 23:50 Blood Blood Culture - Final - Labs CBC & Chem 7: 03/20/17 11:01 03/20/17 11:01 Labs: Abnormal Lab Results - Last 24 Hours (Table) 03/19/17 03/20/17 03/20/17 Range/Units 21:19 07:08 11:01 RBC 3.81 L (4.30-5.90) m/uL Hgb 10.6 L (13.0-17.5) gm/dL Hct 33.9 L (39.0-53.0) % Potassium (3.5-5.1) mmol/L Chloride (98-107) mmol/L Carbon Dioxide (22-30) mmol/L BUN (9-20) mg/dL Creatinine (0.66-1.25) mg/dL Glucose (74-99) mg/dL POC Glucose (mg/dL) 200 H 158 H (75-99) mg/dL 03/20/17 03/20/17 03/20/17 Range/Units 11:01 11:47 17:21 RBC (4.30-5.90) m/uL Hgb (13.0-17.5) gm/dL Hct (39.0-53.0) % Potassium 5.3 H (3.5-5.1) mmol/L Chloride 110 H (98-107) mmol/L Carbon Dioxide 21 L (22-30) mmol/L BUN 35 H (9-20) mg/dL Creatinine 1.76 H (0.66-1.25) mg/dL Glucose 190 H (74-99) mg/dL POC Glucose (mg/dL) 179 H 186 H (75-99) mg/dL Microbiology - Last 24 Hours (Table) 03/18/17 12:20 Anaerobic Culture - Preliminary Foot - Right 03/15/17 13:51 Anaerobic Culture - Preliminary Foot - Right Anaerobic Gm Negative Bacilli Anaerobic Gm Negative Bacilli#2 03/18/17 12:20 Gram Stain - Final Foot - Right Wound Culture - Final 03/14/17 22:39 Blood Culture - Preliminary Blood No Growth after 120 hours 03/14/17 22:22 Blood Culture - Preliminary Blood No Growth after 120 hours Assessment and Plan Plan: 1. Severe sepsis secondary to cellulitis and bacteremia with multiple organisms.right foot plantar blister, necrotic tissue of left great toe ,status post further debridement of right foot, debridement of left foot big toe.Foot Right Tissue Culture, Escherichia coli, Strep agalactiae - (group b),MSSA,ECOLI, Clostridium perfringens.Leg - Left Wound Culture - Preliminary Presumptive Staph aureus, Strep agalactiae - (group b),Strep agalactiae - (group b)#2 2. [ Acute on chronic renal failure, stage IV, acute tubular necrosis]. 3. [Second-degree heart block, off of beta blockers and AV francis blockers, asymptomatic 4. [ Chronic lymphedema of bilateral lower extremities]. 5. [ Diabetes mellitus, fairly controlled]. 6. [Dyslipidemia 7. [Gout 8. Obesity, BMI 40.2 9. PICC line placement Plan: Continue on current medication regime ,monitoring and symptomatic treatment.Reevaluated by vascular surgery. Reevaluated by vascular surgery, wound VAC ordered .Antibiotics continue as per ID. low potassium diet. Close monitoring of electrolytes, renal function with repeat labs ordered for a.m. close monitoring of Accu-Cheks. Prognosis guarded. Discharge planning in progress for [facility] rehab tomorrow. The impression and plan of care has been dictated as directed. : I performed a H&P examination of this patient and discussed the same with the dictator. I agree with the dictator's note. Any additional findings/opinions/ etc. will be noted.
--- NOTE | 2017-03-20 18:11 | PN ---
DATE OF SERVICE: 03/19/2017 This gentleman has an abscess and had debridement of the right foot, plantar aspect. Today we changed the dressing and I found a foreign body piece of metal in the wound. Patient did not know about it. We will do an x-ray of the foot to see if there is any other foreign body. The wound has some minimal drainage. We will continue with local wound care, Aquacel Silver, and irrigate the wound. We may be starting V.A.C. therapy.
[2017-03-20 21:26] LABS: Glucose,Whole Blood 176 mg/dL (75-99)
--- NOTE | 2017-03-20 21:37 | PN ---
This is a 71 -year-old gentleman who had a wound debridement right foot, plantar aspect, yesterday when we changed the dressing we found a piece metallic foreign body which was removed. There is some minimal drainage noted. Patient on IV antibiotic Unasyn, we have been treating with Aqua Silver. Plan is the patient will be going to [facility] and we will place order for placement of the VAC therapy and patient will follow up with me in the wound clinic. I have discussed in detail with the patient and the daughter.
[2017-03-20] MEDS: MELATONIN 5 MG TABLET PO SCH (21:47)
[2017-03-20] MEDS: INSULIN DETEMIR 100 UNIT/ML 10 ML VIAL SQ SCH (21:48)
--- NOTE | 2017-03-20 23:16 | PN ---
DATE OF SERVICE: 03/20/2017 REASON FOR FOLLOWUP: Right diabetic foot infection with secondary bacteremia. INTERVAL HISTORY: The patient is afebrile. He has been breathing comfortably. Patient denies significant chest pain, shortness of breath or cough. No abdominal pain. Currently waiting for placement. On examination, blood pressure is 140/72 with a pulse of 71, temperature 96.3. He is 98% on room air. General description is an elderly male lying in bed in no distress. RESPIRATORY SYSTEM: Unlabored breathing. Clear to auscultation anteriorly. HEART: S1, S2. Regular rate and rhythm. ABDOMEN: Soft. No tenderness. Right foot is currently dressed up. No obvious drainage on the dressing. LABS: Hemoglobin is 10.6, white count 4.5 with a BUN of 35, creatinine of 1.76. DIAGNOSTIC IMPRESSION AND PLAN: Patient with right diabetic foot infection with multiple pathogens with secondary bacteremia. Follow-up blood culture has been negative. Currently on Zosyn. Unfortunately non-availability of the Unasyn on discharge. Will be kept on the Zosyn for another 3 to 4 weeks, depending on the clinical response. Continue supportive care. Local wound care per Surgery.
--- NOTE | 2017-03-21 05:51 | PN ---
DATE OF SERVICE: 03/20/2017 This 71-year-old gentleman admitted with significant cellulitis and infection of right foot has a recovered yesterday. Patient also has severe sepsis. Seen and evaluated the patient along with the nurse practitioner. Please refer to nurse practitioner notes and impression documented for further information. Patient is followed by Infectious Disease as well as the Vascular Surgery also. Further recommendations to follow. SOPHIAD
[2017-03-21 07:50] LABS: Glucose,Whole Blood 191 mg/dL (75-99)
[2017-03-21] MEDS: PANTOPRAZOLE 40 MG TABLET PO SCH (08:25)
[2017-03-21] MEDS: metroNIDAZOLE 500 MG TAB PO SCH ×2 (08:25→15:57)
[2017-03-21] MEDS: HYDROcodone/APAP 7.5-325MG 1 EACH TAB PO PRN ×2 (08:25→14:11)
[2017-03-21] MEDS: PHENAZOPYRIDINE 100 MG TAB PO SCH ×2 (08:25→15:57)
[2017-03-21] MEDS: FUROSEMIDE 20 MG TAB PO SCH (08:25)
[2017-03-21] MEDS: PIPERACILLIN-TAZOBACTAM 3.375 GM in DEXTROSE/WATER 1 50ML.BAG IVPB SCH ×2 (08:26→15:56)
[2017-03-21] MEDS: ASPIRIN 81 MG CHEW PO SCH (08:26)
[2017-03-21] MEDS: HEPARIN SODIUM,PORCINE 5,000 UNIT/ML 1 ML VIAL SQ SCH ×2 (08:26→15:57)
[2017-03-21] MEDS: INSULIN LISPRO (humaLOG) 300 UNIT/3 ML VIAL SQ SCH ×2 (08:31→12:55)
[2017-03-21 08:33] VITALS: RESP 16
[2017-03-21] MEDS: NYSTATIN 100,000UNIT/GM CREAM 30 GM TUBE TOPICAL SCH (09:26)
[2017-03-21] MEDS: PREGABALIN 25 MG CAP PO SCH ×2 (09:26→15:57)
[2017-03-21 11:56] LABS: Glucose,Whole Blood 251 mg/dL (75-99)
[2017-03-21 15:46] VITALS: BP 154/74; PULSE 59; TEMP 97.4
--- NOTE | 2017-03-21 16:36 | DS ---
DATE OF ADMISSION: 03/02/2017 DATE OF DISCHARGE: FINAL DIAGNOSES: 1. Acute diabetic foot on the right with cellulitis and severe sepsis, present on admission, with polymicrobial baljeet. 2. Status post excisional debridement of necrotic tissue of the left big toe. 3. Methicillin-susceptible Staphylococcus aureus sepsis. 4. Organisms, including Streptococcus agalactiae, MSSA, Escherichia coli, Clostridium perfringens, Staphylococcus aureus. 5. Acute on chronic renal failure with prerenal factors, acute tubular necrosis. 6. Stage IV chronic kidney disease. 7. Second-degree AV block, off beta blockers and AV francis blockers, asymptomatic currently. 8. Chronic lymphedema, bilateral lower extremities. 9. Diabetes mellitus, type 2. 10. Dyslipidemia. 11. Gout. 12. Obesity; body mass index 40.2. 13. Status post PICC line placement. 14. Anemia, normocytic; anemia of chronic disease. 15. FULL CODE. DISCHARGE DISPOSITION: Patient will be discharged in stable condition with guarded prognosis. Patient will be transferred to [facility]. HISTORY OF PRESENT ILLNESS: This 71-year-old gentleman with a past medical history of medical problems was admitted with right diabetic foot polymicrobial infection. Patient was treated with IV antibiotics and debridement. Dr. Bhat saw the patient as well as Dr. Ling. The patient was followed by Dr. Burnett in the outpatient setting. The patient improved significantly with multiple antibiotics. PICC line was inserted. IV antibiotics will be given in the ECF. Further surgical procedures and followup per Dr. Bhat. Infectious Disease followed the patient during hospitalization. On exam, vitals are stable. CARDIOVASCULAR SYSTEM: S1, S2 muffled. ABDOMEN: Soft. NERVOUS SYSTEM: No focal deficit. LEGS: Right leg diabetic foot present. DISCHARGE ADVICE AND MEDICATIONS: 1. Tylenol 650 q.6 p.r.n. 2. Norvasc 5 mg p.o. daily. 3. Zosyn 3.375 IV q.8. 4. Ecotrin 81 mg p.o. daily. 5. Lipitor 40 mg p.o. daily. 6. Vitamin D2 50,000. 7. Lasix 20 mg p.o. daily. 8. Heparin 5000 units subcutaneously b.i.d. until the patient is more ambulatory. 9. Floweree 7.5 q.6 p.r.n. for pain. 10. Lantus 30 units subcutaneously at bedtime. 11. Accu-Cheks before meals and at bedtime. 12. NovoLog scale: 150 to 200, 2 units; 201 to 250, 4 units; 251 to 300, 6 units; 301 to 350, 8 units; 351 to 400, 10 units; more than 400, call. 13. Melatonin 5 mg p.o. at bedtime. 14. Nystatin 100,000 topically daily. 15. Protonix 40 mg daily. 16. Lyrica 25 mg p.o. t.i.d. 17. Follow up with Dr. Israel as recommended. 18. CBC, BMP in the ECF. 19. Continued monitoring. Once again, the patient will be discharged in stable condition with guarded prognosis. MTDD
[2017-03-21 17:10] LABS: Glucose,Whole Blood 119 mg/dL (75-99)
--- NOTE | 2017-03-21 17:57 | PN ---
DATE OF SERVICE: 03/21/2017 REASON FOR FOLLOWUP: Right diabetic foot infection with bacteremia. INTERVAL HISTORY: The patient is afebrile. He is currently breathing comfortably. Denies significant chest pain. No shortness of breath or cough. No abdominal pain. Did have some diarrhea. Stool for C difficile was sent which was negative. Denies any pain in the right foot area. On examination, blood pressure is 155/73 with a pulse of 64, temperature 97.5. He is 95% on 3 L nasal cannula. General description is an elderly male up in the chair in no distress. RESPIRATORY SYSTEM: Unlabored breathing. Clear to auscultation anteriorly. HEART: S1, S2. Regular rate and rhythm. ABDOMEN: Soft. No tenderness. Right foot is currently dressed up. No obvious drainage on the dressing. LABS: No new labs have been obtained today. Follow-up culture from 03/15 showed anaerobic Gram-negative bacilli. DIAGNOSTIC IMPRESSION AND PLAN: Patient with right diabetic foot infection with a foreign body that has been removed. Culture initially with an E coli Streptococcus agalactiae and Staphylococcus aureus bacteremia. Follow-up blood cultures have been negative. Patient is currently on Zosyn. That will be continued for another 3 to 4 weeks, depending upon his clinical response. Continue supportive care.
--- NOTE | 2017-03-26 11:41 | CDI ---
In responding to this query, please exercise your independent professional judgment. The [facility] Coding Staff and Clinical Documentation Specialists appreciate your assistance in clarifying documentation, maintaining compliance with coding guidelines, accurately documenting patients condition and capturing severity of illness. The fact that a question is asked does not imply that any particular answer is desired or expected. Communication forms are a method of clarifying documentation and are not made part of the Legal Health Record. Thank you in advance for your clarification. Last Revision, August 2015 Gerardo Kerr [address] [place] [address] Documentation Clarification Form 2nd Request Date: 03/19/2017 2:50:00 PM From: Pebbles Crain RN, CCDS Admit Date: 03/02/2017 12:42:00 AM Patient Name: Liang Guerin Visit Number: [id number] Dr. Peewee Bhat Per your progress notes/operative note, a debridement was performed on 03/18/17 History/Risk Factors: 2 previous Excisional debridements this admission of same area Clinical Indicators: 03/18 Vascular procedure note: "An elliptical incision was made around the necrotic skin, deepened through the skin, fat, and all the necrotic tissue was removed. There was some more tunneling noted on the plantar aspect of the foot. We removed the necrotic skin." Treatment: Repeated debridements, local woundcare Five elements required for accurate and compliant documentation of a debridement : 1. Technique used (e.g., Excisional, excised, cutting, etc.) 2. Instrument(s) used (e.g., scalpel, curette, etc.) 3. Nature of the tissue removed (e.g., necrotic, devitalized tissues, non- viable tissue, etc.) 4. Appearance and size of the wound (e.g., down to fresh bleeding tissue, 7cm x 10cm, etc.) 5. Depth of the debridement* (e.g., skin, subcutaneous tissue, fascia, muscle , bone, etc.) In order to capture the severity of condition and code the appropriate procedure could you please document the following: Excisional debridement (the removal of necrotic, devitalized tissue or slough by means of cutting away of tissue) Non-Excisional debridement (the removal of necrotic, devitalized tissue or slough by means of flushing, brushing, or washing. (Irrigation) Other; with explanation for clinical findings Unable to determine (no explanation for clinical findings) Please document in your progress notes and discharge summary in order to capture severity of illness and risk of mortality. Include clinical findings that support your diagnosis. FYI: Press F11 to launch patient chart. Place X here if this finding has no clinical significance, is not applicable or if you are not able to provide any additional documentation. RUTHY
--- NOTE | 2017-03-31 17:04 | P.PN ---
Subjective Date of service 03/15/2017. Progress note being dictated for Dr. Guzman Interval history: This a 71-year-old gentleman admitted with right diabetic foot infection, bacteremia, status post debridement and multiple other medical issues. Tmax 101.9. NPO,Scheduled for further debridement of right foot today . Maintained on antibiotics as per infectious disease. Pain currently controlled. Denies chest pain, palpitations or increased shortness of breath. R Objective - Vital Signs Vital signs: Vital Signs Temp 97.4 F L 03/21/17 15:00 Pulse 59 L 03/21/17 15:00 Resp 16 03/21/17 15:41 BP 154/74 03/21/17 15:00 Pulse Ox 93 L 03/21/17 15:00 - Exam PHYSICAL EXAM: VITAL SIGNS: [97.2 oral, HR 65, BP 128/61, RR 18, O2 Saturation 94% on 2LNC GENERAL: [Sitting up in bed, no acute distress] HEENT: [Pupils equal conjunctiva normal. Oral mucosa moist. No conjunctival pallor] NECK: [Supple, no JVD] RESPIRATORY EFFORT:[ Normal] LUNGS: [Clear to auscultation, occasional scattered rhonchi, no wheezes or crackles] CARDIOVASCULAR[ regular S1-S2, no murmurs rubs or gallop, improving edema] GI: [Abdomen soft, nontender, positive bowel sounds. No guarding, no rigidity.] PSYCH: [Alert and oriented -3, mood and affect normal.] SKIN: Bilateral lower extremity dressings clean dry and intact NEURO: No focal deficits. Microbiology 03/02/17 00:43 Leg - Left Gram Stain - Final 03/02/17 00:43 Leg - Left Wound Culture - Final Staphylococcus aureus Strep agalactiae - (group b) Strep agalactiae - (group b)#2 03/01/17 23:50 Blood Blood Culture Gram Stain - Final 03/01/17 23:50 Blood Blood Culture - Final Staphylococcus aureus 03/04/17 11:57 Blood Blood Culture - Final No Growth after 144 hours 03/04/17 13:08 Foot - Right Gram Stain - Final 03/04/17 13:08 Foot - Right Tissue Culture - Final Escherichia coli Strep agalactiae - (group b) Staphylococcus aureus Clostridium perfringens 03/01/17 23:50 Blood Blood Culture - Final - Labs CBC & Chem 7: 0607/17 11:01 03/20/17 11:01 Assessment and Plan Plan: 1. Severe sepsis secondary to cellulitis and bacteremia with multiple organisms.right foot plantar blister, necrotic tissue of left great toe ,status post debridement of right foot and left foot big toe.Foot Right Tissue Culture, Escherichia coli, Strep agalactiae - (group b),MSSA,ECOLI,Clostridium perfringens. Leg - Left Wound Culture - Preliminary Presumptive Staph aureus, Strep agalactiae - (group b),Strep agalactiae - (group b)#2 2. [ Acute on chronic renal failure, stage III, acute tubular necrosis]. 3. [ Third-degree heart block, off of beta blockers and AV francis blockers, improved]. 4. [ Chronic lymphedema of bilateral lower extremities]. 5. [ Diabetes mellitus, fairly controlled]. 6. [Dyslipidemia 7. [Gout 8. Obesity, BMI 40.2 9. Generalized deconditioning]. 10. Hypernatremia secondary to decreased oral intake, diuresis 11. PICC line placement Plan: Continue on current medication regime ,monitoring and symptomatic treatment.Reevaluated by vascular surgery. Further debridement with vascular surgery pending.Antibiotics as per ID. Close monitoring of electrolytes, renal function. Diuretics as per nephrology .close monitoring of Accu-Cheks. Prognosis guarded. The impression and plan of care has been dictated as directed. : I performed a H&P examination of this patient and discussed the same with the dictator. I agree with the dictator's note. Any additional findings/opinions/ etc. will be noted.
--- NOTE | 2017-03-31 17:21 | P.PN ---
Subjective Date of service 03/15/2017. Progress note being dictated for Dr. Guzman Interval history: This a 71-year-old gentleman admitted with right diabetic foot infection, bacteremia, status post debridement and multiple other medical issues. Tmax 101.9. NPO,Scheduled for further debridement of right foot today . Maintained on antibiotics as per infectious disease. Pain currently controlled. Denies chest pain, palpitations or increased shortness of breath. R Objective - Vital Signs Vital signs: Vital Signs Temp 97.0 F L 03/19/17 07:00 Pulse 78 03/19/17 07:00 Resp 16 03/19/17 07:00 BP 143/85 03/19/17 07:00 Pulse Ox 97 03/19/17 08:31 Intake & Output 03/18/17 03/19/17 03/19/17 18:59 06:59 18:59 Intake Total 118 Output Total 200 Balance 118 -200 Intake: Oral 118 Output: Urine 200 Other: Voiding Method Urinal Diaper # Voids 2 2 1 # Bowel Movements 3 1 - Exam PHYSICAL EXAM: VITAL SIGNS: [97.2 oral, HR 65, BP 128/61, RR 18, O2 Saturation 94% on 2LNC GENERAL: [Sitting up in bed, no acute distress] HEENT: [Pupils equal conjunctiva normal. Oral mucosa moist. No conjunctival pallor] NECK: [Supple, no JVD] RESPIRATORY EFFORT:[ Normal] LUNGS: [Clear to auscultation, occasional scattered rhonchi, no wheezes or crackles] CARDIOVASCULAR[ regular S1-S2, no murmurs rubs or gallop, improving edema] GI: [Abdomen soft, nontender, positive bowel sounds. No guarding, no rigidity.] PSYCH: [Alert and oriented -3, mood and affect normal.] SKIN: Bilateral lower extremity dressings clean dry and intact NEURO: No focal deficits. Microbiology 03/02/17 00:43 Leg - Left Gram Stain - Final 03/02/17 00:43 Leg - Left Wound Culture - Final Staphylococcus aureus Strep agalactiae - (group b) Strep agalactiae - (group b)#2 03/01/17 23:50 Blood Blood Culture Gram Stain - Final 03/01/17 23:50 Blood Blood Culture - Final Staphylococcus aureus 03/04/17 11:57 Blood Blood Culture - Final No Growth after 144 hours 03/04/17 13:08 Foot - Right Gram Stain - Final 03/04/17 13:08 Foot - Right Tissue Culture - Final Escherichia coli Strep agalactiae - (group b) Staphylococcus aureus Clostridium perfringens 03/01/17 23:50 Blood Blood Culture - Final - Labs CBC & Chem 7: 03/20/17 11:01 03/20/17 11:01 Labs: Abnormal Lab Results - Last 24 Hours (Table) 03/18/17 03/18/17 03/19/17 Range/Units 17:06 21:23 07:11 POC Glucose (mg/dL) 135 H 241 H 147 H (75-99) mg/dL 03/19/17 Range/Units 11:59 POC Glucose (mg/dL) 208 H (75-99) mg/dL Microbiology - Last 24 Hours (Table) 03/15/17 13:51 Gram Stain - Final Foot - Right Tissue Culture - Final 03/18/17 12:20 Gram Stain - Preliminary Foot - Right Wound Culture - Preliminary 03/14/17 22:39 Blood Culture - Preliminary Blood No Growth after 96 hours 03/14/17 22:22 Blood Culture - Preliminary Blood No Growth after 96 hours 03/18/17 12:20 Anaerobic Culture - Preliminary Foot - Right 03/02/17 00:43 Gram Stain - Final Leg - Left Wound Culture - Final Staphylococcus aureus Strep agalactiae - (group b) Strep agalactiae - (group b)#2 03/01/17 23:50 Blood Culture Gram Stain - Final Blood Blood Culture - Final Staphylococcus aureus Assessment and Plan Plan: 1. Severe sepsis secondary to cellulitis and bacteremia with multiple organisms.right foot plantar blister, necrotic tissue of left great toe ,status post debridement of right foot and left foot big toe.Foot Right Tissue Culture, Escherichia coli, Strep agalactiae - (group b),MSSA,ECOLI,Clostridium perfringens. Leg - Left Wound Culture - Preliminary Presumptive Staph aureus, Strep agalactiae - (group b),Strep agalactiae - (group b)#2 2. [ Acute on chronic renal failure, stage III, acute tubular necrosis]. 3. [ Third-degree heart block, off of beta blockers and AV francis blockers, improved]. 4. [ Chronic lymphedema of bilateral lower extremities]. 5. [ Diabetes mellitus, fairly controlled]. 6. [Dyslipidemia 7. [Gout 8. Obesity, BMI 40.2 9. Generalized deconditioning]. 10. Hypernatremia secondary to decreased oral intake, diuresis 11. PICC line placement Plan: Continue on current medication regime ,monitoring and symptomatic treatment.Reevaluated by vascular surgery. NPO.Further debridement with vascular surgery scheduled for today..Antibiotics as per ID. Close monitoring of electrolytes, renal function. Diuretics as per nephrology .close monitoring of Accu-Cheks. Prognosis guarded. The impression and plan of care has been dictated as directed. : I performed a H&P examination of this patient and discussed the same with the dictator. I agree with the dictator's note. Any additional findings/opinions/ etc. will be noted.
--- NOTE | 2017-04-02 05:19 | PCN ---
QUERY: DATE OF PROCEDURE: 03/18/2017 TECHNIQUE USED: Excision. INSTRUMENT USED: Scalpel. The tissue was necrotic. Debridement went down to subcutaneous tissue. It was excision debridement.
== END 2017-03-21 17:47 | DRG 853 ==
LOC: EC 21:36 → 3SUR 03-02 00:42 → 6SEL 03-03 15:50 → 4MS4W 03-15 21:27
PROVIDERS: ADMIT Internal Medicine; ATTEND Internal Medicine
PROC: 0JBR0ZZ Excision of Left Foot Subcutaneous Tissue and Fascia, Open Approach (ICD-10-PCS; 2017-03-04)
PROC: 0JBQ0ZZ Excision of Right Foot Subcutaneous Tissue and Fascia, Open Approach (ICD-10-PCS; 2017-03-04)
PROC: 02HV33Z Insertion of Infusion Device into Superior Vena Cava, Percutaneous Approach (ICD-10-PCS; principal; 2017-03-12 15:00)
PROC: B5181ZA Fluoroscopy of Superior Vena Cava using Low Osmolar Contrast, Guidance (ICD-10-PCS; principal; 2017-03-12 15:00)
PROC: B548ZZA Ultrasonography of Superior Vena Cava, Guidance (ICD-10-PCS; principal; 2017-03-12 15:00)
PROC: 0JBQ0ZZ Excision of Right Foot Subcutaneous Tissue and Fascia, Open Approach (ICD-10-PCS; 2017-03-15)
PROC: 0JBQ0ZZ Excision of Right Foot Subcutaneous Tissue and Fascia, Open Approach (ICD-10-PCS; 2017-03-18)
DX: A40.9 Streptococcal sepsis, unspecified (principal); N17.0 Acute kidney failure with tubular necrosis; I44.2 Atrioventricular block, complete; E87.0 Hyperosmolality and hypernatremia; E87.2 Acidosis; N18.4 Chronic kidney disease, stage 4 (severe); I13.0 Hypertensive heart and chronic kidney disease with heart failure and stage 1 through stage 4 chronic kidney disease, or unspecified chronic kidney disease; J98.11 Atelectasis; L02.416 Cutaneous abscess of left lower limb; L03.115 Cellulitis of right lower limb; L03.116 Cellulitis of left lower limb; Z68.41 Body mass index [BMI] 40.0-44.9, adult; I50.9 Heart failure, unspecified; E11.22 Type 2 diabetes mellitus with diabetic chronic kidney disease; E11.621 Type 2 diabetes mellitus with foot ulcer; D63.8 Anemia in other chronic diseases classified elsewhere; A41.01 Sepsis due to Methicillin susceptible Staphylococcus aureus; A41.51 Sepsis due to Escherichia coli [E. coli]; R65.20 Severe sepsis without septic shock; E11.628 Type 2 diabetes mellitus with other skin complications; E66.01 Morbid (severe) obesity due to excess calories; E78.5 Hyperlipidemia, unspecified; E86.1 Hypovolemia; E87.5 Hyperkalemia; G47.33 Obstructive sleep apnea (adult) (pediatric); I25.10 Atherosclerotic heart disease of native coronary artery without angina pectoris; I25.2 Old myocardial infarction; I89.0 Lymphedema, not elsewhere classified; J44.9 Chronic obstructive pulmonary disease, unspecified; L97.519 Non-pressure chronic ulcer of other part of right foot with unspecified severity; M10.9 Gout, unspecified; M26.09 Other specified anomalies of jaw size; T50.2X5A Adverse effect of carbonic-anhydrase inhibitors, benzothiadiazides and other diuretics, initial encounter; Z79.4 Long term (current) use of insulin; Z79.899 Other long term (current) drug therapy; Z87.891 Personal history of nicotine dependence; Z88.1 Allergy status to other antibiotic agents; Z95.5 Presence of coronary angioplasty implant and graft
CPT/HCPCS: 36415; 36569; 36600; 71010; 76770; 76937; 77001; 80048; 80051; 80053; 80074; 80202; 81001; 82009; 82248; 82805; 83036; 83605; 83735; 84100; 84443; 85025; 85027; 85652; 86038; 86140; 86160; 86162; 86255; 87040; 87070; 87075; 87077; 87186; 87205; 87324; 93005; 93970; 94660; 94760; 96365; 99285

== ENCOUNTER 2018-04-03 12:51 | Inpatient (IN) | payer OTHER, MEDICARE ==
[2018-04-03 14:25] LABS: Anisocytosis Slight; Basophils % (A) 0 %; Eosinophils # (A) 0.1 k/uL (0-0.7); Eosinophils % (A) 1 %; HCT 31.7 % (39.0-53.0); HGB 10.2 gm/dL (13.0-17.5); Hypochromasia Slight; Lymphocytes % (A) 13 %; MCH 25.2 pg (25.0-35.0); MCHC 32.4 g/dL (31.0-37.0); MCV 77.9 fL (80.0-100.0); Mean Platelet Volume 7.9; Microcytosis Slight; Monocytes # (A) 0.3 k/uL (0-1.0); Monocytes % (A) 4 %; Neutrophils # (A) 6.1 k/uL (1.3-7.7); Neutrophils % (A) 81 %; Platelet Count 286 k/uL (150-450); RBC 4.07 m/uL (4.30-5.90); RDW 17.3 % (11.5-15.5); WBC 7.5 k/uL (3.8-10.6)
--- NOTE | 2018-04-03 14:32 | ED ---
General Adult HPI <Chele Ramesh - Last Filed: 04/03/18 15:20> - General Source: patient, RN notes reviewed Mode of arrival: wheelchair Limitations: no limitations <Ankur Bales - Last Filed: 04/03/18 15:24> - General Chief complaint: Recheck/Abnormal Lab/Rx Stated complaint: abn labs Time Seen by Provider: 04/03/18 13:03 - History of Present Illness Initial comments: This is a 72-year-old male presents emergency Department chief complaint abnormal labs. Patient states that he was told his potassium was elevated in his hemoglobin is low. Patient also states that he has a wound in his right foot in which she's had in the past and was seeing Dr. Bhat for diabetic foot ulcer. Patient states he stopped seen him in November. Patient states that he has increased ordered, sore to his right foot. Patient denies any fevers or chills. Patient denies any worsening leg swelling that he normally has. Patient states that he has felt tired but denies any chest pain or shortness breath at this time. Patient states that he normally is tired and not more tired than usual. Patient states that he was advised to stop taking one of his blood pressure medications because his PCP felt this is causing his elevated potassium. Patient denies any nausea vomiting diarrhea constipation. ( Ankur Bales) - Related Data Home Medications Medication Instructions Recorded Confirmed Aspirin EC [Ecotrin Low Dose] 81 mg PO DAILY 04/01/17 04/03/18 Ergocalciferol (Vitamin D2) 50,000 unit PO HALL 04/01/17 04/03/18 [Vitamin D2] Insulin Glargine [Lantus] 60 unit SQ HS 04/01/17 04/03/18 Pregabalin [Lyrica] 100 mg PO QID 04/01/17 04/03/18 amLODIPine [Norvasc] 5 mg PO BID 04/01/17 04/03/18 Torsemide [Demadex] 20 mg PO DAILY 06/03/17 04/03/18 Allopurinol [Zyloprim] 300 mg PO DAILY 04/03/18 04/03/18 Atorvastatin [Lipitor] 40 mg PO HS 04/03/18 04/03/18 Clopidogrel [Plavix] 75 mg PO DAILY 04/03/18 04/03/18 Colloidal Oatmeal [Eucerin Eczema 1 applic TOPICAL BID PRN 04/03/18 04/03/18 Relief] Lisinopril [Zestril] 10 mg PO DAILY 04/03/18 04/03/18 Metolazone [Zaroxolyn] 2.5 mg PO DAILY 04/03/18 04/03/18 Omeprazole 20 mg PO DAILY 04/03/18 04/03/18 glipiZIDE [Glucotrol] 10 mg PO [id number]-[id number] 04/03/18 04/03/18 Allergies Allergy/AdvReac Type Severity Reaction Status Date / Time cephalexin [From Keflex] Allergy Unknown Verified 04/03/18 13:42 Review of Systems ROS Other: All systems not noted in ROS Statement are negative. <Chele Ramesh - Last Filed: 04/03/18 15:20> ROS Other: All systems not noted in ROS Statement are negative. <Ankur Bales - Last Filed: 04/03/18 15:24> ROS Statement: Those systems with pertinent positive or pertinent negative responses have been documented in the HPI. Past Medical History Past Medical History: Chest Pain / Angina, Diabetes Mellitus, Hyperlipidemia, Hypertension, Myocardial Infarction ([place]) Additional Past Medical History / Comment(s): Coronary artery disease and the patient had an acute anterior wall myocardial infarction 2009 requiring emergent cardiac catheterization and stenting and since then he has not seen his bowl attendant, obesity, hyperlipidemia, hypertension, loud snoring, chronic lower oximetry edema, chronic hypersomnia, gout, history of right pleural effusion requiring thoracentesis back in August of 2016 and this was done by Dr. Acharya. Last Myocardial Infarction Date:: unk History of Any Multi-Drug Resistant Organisms: None Reported Past Surgical History: Heart Catheterization With Stent Additional Past Surgical History / Comment(s): Cardiac catheterization and stenting of the LAD Past Anesthesia/Blood Transfusion Reactions: No Reported Reaction Date of Last Stent Placement:: unk date Past Psychological History: No Psychological Hx Reported Smoking Status: Former smoker Past Alcohol Use History: None Reported Past Drug Use History: None Reported - Past Family History Father Family Medical History: Cancer Mother Family Medical History: Renal Disease <Ankur Bales - Last Filed: 04/03/18 15:24> General Exam Limitations: no limitations General appearance: alert, in no apparent distress Respiratory exam: Present: normal lung sounds bilaterally. Absent: respiratory distress, wheezes, rales, rhonchi, stridor Cardiovascular Exam: Present: regular rate, normal rhythm, normal heart sounds. Absent: systolic murmur, diastolic murmur, rubs, gallop, clicks GI/Abdominal exam: Present: soft, normal bowel sounds. Absent: distended, tenderness, guarding, rebound, rigid Extremities exam: Present: pedal edema, other (Severe swelling of the right foot , multiple areas of callus skin open sore approximately 4 cm a 4 cm on the sole of foot with erythema, foul odor and drainage. faint pulse) Skin exam: Present: warm, dry, intact, normal color. Absent: rash <Ankur Bales - Last Filed: 04/03/18 15:24> Vital Signs 04/03/18 12:59 Temperature 98.5 F Pulse Rate 91 Respiratory 18 Rate Blood Pressure 173/68 O2 Sat by Pulse 98 Oximetry Medical Decision Making - Lab Data Result diagrams: 04/03/18 14:11 04/03/18 14:11 <Chele Ramesh - Last Filed: 04/03/18 15:20> - Lab Data Result diagrams: 04/03/18 14:11 04/03/18 14:11 <Ankur Bales - Last Filed: 04/03/18 15:24> - Medical Decision Making Patient reevaluated by myself, Dr. Ramesh. Chart reviewed including results. Patient updated on results and plan. Patient does have significant +4 edema with right plantar foot ulcer approximately 4 x 5 cm, stage III. Patient admits that he used to have debridement done however has not been making appointments in quite a while. Case was discussed in detail with Dr. Bal, who [facility]. (Chele Ramesh) - Lab Data Lab Results 04/03/18 04/03/18 04/03/18 Range/Units 14:11 14:11 14:11 WBC 7.5 (3.8-10.6) k/uL RBC 4.07 L (4.30-5.90) m/uL Hgb 10.2 L (13.0-17.5) gm/dL Hct 31.7 L (39.0-53.0) % MCV 77.9 L (80.0-100.0) fL MCH 25.2 (25.0-35.0) pg MCHC 32.4 (31.0-37.0) g/dL RDW 17.3 H (11.5-15.5) % Plt Count 286 (150-450) k/uL Neutrophils % 81 % Lymphocytes % 13 % Monocytes % 4 % Eosinophils % 1 % Basophils % 0 % Neutrophils # 6.1 (1.3-7.7) k/uL Lymphocytes # 1.0 (1.0-4.8) k/uL Monocytes # 0.3 (0-1.0) k/uL Eosinophils # 0.1 (0-0.7) k/uL Basophils # 0.0 (0-0.2) k/uL Hypochromasia Slight Anisocytosis Slight Microcytosis Slight Sodium 144 (137-145) mmol/L Potassium 5.6 H (3.5-5.1) mmol/L Chloride 111 H (98-107) mmol/L Carbon Dioxide 16 L (22-30) mmol/L Anion Gap 17 mmol/L BUN 61 H (9-20) mg/dL Creatinine 2.30 H (0.66-1.25) mg/dL Est GFR (CKD-EPI)AfAm 32 (>60 ml/min/1.73 sqM) Est GFR (CKD-EPI)NonAf 28 (>60 ml/min/1.73 sqM) Glucose 202 H (74-99) mg/dL Plasma Lactic Acid Garrick 1.4 (0.7-2.0) mmol/L Calcium 8.5 (8.4-10.2) mg/dL Total Bilirubin 0.3 (0.2-1.3) mg/dL AST 12 L (17-59) U/L ALT 25 (21-72) U/L Alkaline Phosphatase 172 H (38-126) U/L C-Reactive Protein 70.0 H (<10.0) mg/L Total Protein 7.8 (6.3-8.2) g/dL Albumin 3.4 L (3.5-5.0) g/dL Disposition <Chele Ramesh - Last Filed: 04/03/18 15:20> <Ankur Bales - Last Filed: 04/03/18 15:24> Clinical Impression: Diabetic ulcer of left foot, Diabetes, Acute kidney injury Disposition: ADMITTED IP TO THIS [facility] Condition: Fair Referrals: [facility],Clinic [Primary Care Provider] - 1-2 days
[2018-04-03 14:37] LABS: Albumin 3.4 g/dL (3.5-5.0); Calcium 8.5 mg/dL (8.4-10.2); Potassium 5.6 mmol/L (3.5-5.1); Total Bilirubin 0.3 mg/dL (0.2-1.3); Total Protein 7.8 g/dL (6.3-8.2)
--- NOTE | 2018-04-03 14:53 | XR ---
EXAMINATION TYPE: XR foot complete RT DATE OF EXAM: 04/03/2018 COMPARISON: NONE HISTORY: Swelling and bruising TECHNIQUE: Three-view right foot FINDINGS: There is prominent soft tissue swelling present. No acute fractures are identified. Joint s paces are preserved. There is a large plantar soft tissue abnormality. Significant soft tissue swelling is over the dorsum of foot. Plantar and Achilles tendon calcaneal heel spurs are present. There is widening of the plan tar arch. IMPRESSION: 1. Soft tissue wound on the plantar surface of the right foot. 2. Prominent soft tissue swelling. 3. Calcaneal heel spurs
[2018-04-03] MEDS ORDERED: SODIUM CHLORIDE 0.9% 500 ML IV ONE (15:24)
[2018-04-03] MEDS ORDERED: SODIUM POLYSTYRENE SULFONATE 15 GM/60 ML BOTTLE PO STA (15:24)
[2018-04-03] MEDS ORDERED: VANCOMYCIN IV PER PHARMACY 1 EACH MISC MISCELLANE PRN (15:25)
[2018-04-03] MEDS ORDERED: NALOXONE 0.4 MG/ML 1 ML VIAL IV PRN (15:25)
[2018-04-03] MEDS ORDERED: HYDROcodone/APAP 5-325MG 1 EACH TAB PO PRN (15:25)
[2018-04-03] MEDS ORDERED: VANCOMYCIN 2,000 MG in SODIUM CHLORIDE 0.9% 500 ML IVPB STA (15:30)
[2018-04-03] MEDS ORDERED: SODIUM CHLORIDE 0.9% 1,000 ML IV SCH (15:30)
[2018-04-03 17:44] LABS: Glucose,Whole Blood 152 mg/dL (75-99)
[2018-04-03] MEDS: PREGABALIN 100 MG CAP PO SCH ×2 (17:50→22:02)
[2018-04-03] MEDS: INSULIN ASPART 100 UNIT/ML 1 ML 10 ML VIAL SQ SCH ×2 (17:50→21:44)
[2018-04-03 20:42] LABS: Glucose,Whole Blood 148 mg/dL (75-99)
--- NOTE | 2018-04-03 21:31 | P.HPIM ---
History of Present Illness H&P Date: 04/03/18 Chief Complaint: Elevated potassium level Patient is a 72-year-old male with a known history of hypertension, diabetes type 2, hyperlipidemia and morbid obesity and chronic bilateral lower extremities swelling came to ER with complaints of abnormal labs.Patient states that he was told his potassium was elevated in his hemoglobin is low. Patient was found have bilateral lower activity swelling and redness which is getting worse especially right lower extremities with opposing serous fluid. Patient also states that he has a wound in his right foot in which she's had in the past and was seeing Dr. Bhat for diabetic foot ulcer. Patient states he stopped seen him in November. Patient states that he has increased odor, sore to his right foot. Patient denies any fevers or chills. Patient states that he has felt tired but denies any chest pain or shortness breath at this time. Patient states that he normally is tired and not more tired than usual. Patient states that he was advised to stop taking one of his blood pressure medications because his PCP felt this is causing his elevated potassium. Patient denies any nausea vomiting diarrhea constipation. Patient says that he has a right plantar ulcer/wound followed by a nail injury. Potassium 5.6 BUN 61 creatinine 2.3 X-ray of the right foot showed soft tissue wound on the plantar surface of the right foot. Prominent soft tissue swelling. Calcaneal heel spur's and Review of Systems Constitutional: Patient denies any fever or chills . No generalized weakness or weight loss. Abdomen: Patient denied nausea vomiting and diarrhea and abdominal pain. Cardiovascular: Patient denies any chest pain or short of breath no palpitations. Respiratory: patient denied any cough is from production. No shortness of breath Neurologic: Patient denied any numbness or tingling headache. Musculoskeletal: Patient denies any complaints of joint swelling or deformity. Right leg swelling Skin: Negative Psychiatric: Negative Endocrine: No heat or cold intolerance. No recent weight gain. Genitourinary: No dysuria or hematuria. 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 . Last Myocardial Infarction Date:: unk History of Any Multi-Drug Resistant Organisms: None Reported Past Surgical History: Heart Catheterization With Stent Additional Past Surgical History / Comment(s): Cardiac catheterization and stenting of the LAD Past Anesthesia/Blood Transfusion Reactions: No Reported Reaction Additional Past Anesthesia/Blood Transfusion Reaction / Comment(s): CLAUSTERPHOBIA Date of Last Stent Placement:: unk date Smoking Status: Former smoker - Past Family History Father Family Medical History: Cancer Mother Family Medical History: Renal Disease Medications and Allergies Home Medications Medication Instructions Recorded Confirmed Type Aspirin EC [Ecotrin Low Dose] 81 mg PO DAILY 04/01/17 04/03/18 History Ergocalciferol (Vitamin D2) 50,000 unit PO HALL 04/01/17 04/03/18 History [Vitamin D2] Insulin Glargine [Lantus] 60 unit SQ HS 04/01/17 04/03/18 History Pregabalin [Lyrica] 100 mg PO QID 04/01/17 04/03/18 History amLODIPine [Norvasc] 5 mg PO BID 04/01/17 04/03/18 History Torsemide [Demadex] 20 mg PO DAILY 06/03/17 04/03/18 History Allopurinol [Zyloprim] 300 mg PO DAILY 04/03/18 04/03/18 History Atorvastatin [Lipitor] 40 mg PO HS 04/03/18 04/03/18 History Clopidogrel [Plavix] 75 mg PO DAILY 04/03/18 04/03/18 History Colloidal Oatmeal [Eucerin Eczema 1 applic TOPICAL BID PRN 04/03/18 04/03/18 History Relief] Lisinopril [Zestril] 10 mg PO DAILY 04/03/18 04/03/18 History Metolazone [Zaroxolyn] 2.5 mg PO DAILY 04/03/18 04/03/18 History Omeprazole 20 mg PO DAILY 04/03/18 04/03/18 History glipiZIDE [Glucotrol] 10 mg PO [id number] 04/03/18 04/03/18 History Allergies Allergy/AdvReac Type Severity Reaction Status Date / Time cephalexin [From Keflex] Allergy Unknown Verified 04/03/18 13:42 Physical Exam Vitals: Vital Signs Temp Pulse Pulse Resp BP BP Pulse Ox 04/03/18 17:28 97.8 F 58 L 20 165/63 97 04/03/18 16:57 64 18 158/71 97 04/03/18 15:22 65 18 149/68 98 04/03/18 12:59 98.5 F 91 18 173/68 98 Intake and Output 04/03/18 04/03/18 04/03/18 06:59 14:59 22:59 Other: Weight 119.295 kg PHYSICAL EXAMINATION: Patient is lying in the bed comfortably, no acute distress, awake alert and oriented. Morbidly obese. HEENT: Normocephalic. Neck is supple. Pupils reactive. Nostrils clear. Oral cavity is moist. Ears reveal no drainage. Neck reveals no JVD, carotid bruits, or thyromegaly. CHEST EXAMINATION: Trachea is central. Symmetrical expansion. Lung olmstead clear to auscultation and percussion. CARDIAC: Normal S1, S2 with no gallops. No murmurs ABDOMEN: Soft. Bowel sounds normal. No organomegaly. No abdominal bruits. Extremities: Bilateral lower activity significant swelling and redness right greater than left with the right plantar wound. No clubbing or cyanosis Neurologically awake, alert, oriented x3 with well-coordinated movements. No focal deficits noted Skin: No rash or skin lesions. Psychiatric: Cooperative. Nonsuicidal Musculoskeletal: No joint swelling or deformity. Normal range of motion. Results CBC & Chem 7: 04/03/18 14:11 04/03/18 14:11 Labs: Abnormal Lab Results - Last 24 Hours (Table) 04/03/18 04/03/18 04/03/18 Range/Units 14:11 14:11 17:28 RBC 4.07 L (4.30-5.90) m/uL Hgb 10.2 L (13.0-17.5) gm/dL Hct 31.7 L (39.0-53.0) % MCV 77.9 L (80.0-100.0) fL RDW 17.3 H (11.5-15.5) % Potassium 5.6 H (3.5-5.1) mmol/L Chloride 111 H (98-107) mmol/L Carbon Dioxide 16 L (22-30) mmol/L BUN 61 H (9-20) mg/dL Creatinine 2.30 H (0.66-1.25) mg/dL Glucose 202 H (74-99) mg/dL POC Glucose (mg/dL) 152 H (75-99) mg/dL AST 12 L (17-59) U/L Alkaline Phosphatase 172 H (38-126) U/L C-Reactive Protein 70.0 H (<10.0) mg/L Albumin 3.4 L (3.5-5.0) g/dL 04/03/18 Range/Units 20:31 RBC (4.30-5.90) m/uL Hgb (13.0-17.5) gm/dL Hct (39.0-53.0) % MCV (80.0-100.0) fL RDW (11.5-15.5) % Potassium (3.5-5.1) mmol/L Chloride (98-107) mmol/L Carbon Dioxide (22-30) mmol/L BUN (9-20) mg/dL Creatinine (0.66-1.25) mg/dL Glucose (74-99) mg/dL POC Glucose (mg/dL) 148 H (75-99) mg/dL AST (17-59) U/L Alkaline Phosphatase (38-126) U/L C-Reactive Protein (<10.0) mg/L Albumin (3.5-5.0) g/dL Thrombosis Risk Factor Assmnt - DVT/VTE Prophylaxis DVT/VTE Prophylaxis: Pharmacologic Prophylaxis ordered - Choose All That Apply Any of the Below Risk Factors Present?: Yes Each Factor Represents 1 point: Obesity (BMI >25) Other Risk Factors: Yes Each Risk Factor Represents 2 Points: Age 61-74 years Other congenital or acquired thrombophilia - If yes, enter type in comment: No Thrombosis Risk Factor Assessment Total Risk Factor Score: 3 Thrombosis Risk Factor Assessment Level: Moderate Risk Assessment and Plan Assessment: Worsening Bilateral chronic lower activity swelling/lymphedema due to chronic venous stasis along with right plantar ulcer possibly diabetic foot ulcer Mild hyperkalemia 5.6 Acute on chronic kidney disease stage III Coronary artery disease with history of stent placement Diabetes type 2 with hyperglycemia Hyperlipidemia Hypertension History of [place] Gout History of pleural effusion and thoracentesis in August 2016 Morbid obesity with BMI 41.2 DVT prophylaxis Plan: Patient be continued on antibiotics in the form of vancomycin and pain management. We will continue the wound dressing and vascular surgery was consulted. Continue the home medications and insulin dosing and follow closely. Discussed with his at bedside. Further recommendations based on the clinical course. Time with Patient: Greater than 30
[2018-04-03] MEDS: ATORVASTATIN 40 MG TAB PO SCH (21:43)
[2018-04-03] MEDS: amLODIPine 5 MG TAB PO SCH (21:43)
[2018-04-03] MEDS: INSULIN DETEMIR 100 UNIT/ML 10 ML VIAL SQ SCH (21:48)
[2018-04-03] MEDS: HEPARIN SODIUM,PORCINE 5,000 UNIT/ML 1 ML VIAL SQ SCH (23:25)
[2018-04-04 03:01] LABS: Glucose,Whole Blood 147 mg/dL (75-99)
[2018-04-04 07:17] LABS: Glucose,Whole Blood 131 mg/dL (75-99)
[2018-04-04] MEDS: INSULIN ASPART 100 UNIT/ML 1 ML 10 ML VIAL SQ SCH ×4 (08:33→22:26)
[2018-04-04] MEDS ORDERED: VANCOMYCIN 1,750 MG in SODIUM CHLORIDE 0.9% 500 ML IVPB ONE (09:00)
[2018-04-04] MEDS: ALLOPURINOL 300 MG TAB PO SCH (09:22)
[2018-04-04] MEDS: PANTOPRAZOLE 40 MG TABLET PO SCH (09:22)
[2018-04-04] MEDS: HEPARIN SODIUM,PORCINE 5,000 UNIT/ML 1 ML VIAL SQ SCH ×3 (09:22→23:48)
[2018-04-04] MEDS: ASPIRIN 81 MG PO SCH (09:22)
[2018-04-04] MEDS: METOLAZONE 2.5 MG TAB PO SCH (09:22)
[2018-04-04] MEDS: CLOPIDOGREL 75 MG TAB PO SCH (09:22)
[2018-04-04] MEDS: PREGABALIN 100 MG CAP PO SCH ×4 (09:22→22:30)
[2018-04-04] MEDS: LISINOPRIL 10 MG TAB PO SCH ×2 (09:24→09:43)
[2018-04-04] MEDS: amLODIPine 5 MG TAB PO SCH ×2 (09:50→22:26)
[2018-04-04 10:13] LABS: Anisocytosis Slight; Basophils % (A) 0 %; Eosinophils # (A) 0.2 k/uL (0-0.7); Eosinophils % (A) 2 %; HCT 30.3 % (39.0-53.0); HGB 9.4 gm/dL (13.0-17.5); Hypochromasia Moderate; Lymphocytes % (A) 16 %; MCH 25.2 pg (25.0-35.0); MCHC 30.9 g/dL (31.0-37.0); MCV 81.5 fL (80.0-100.0); Mean Platelet Volume 6.7; Monocytes # (A) 0.2 k/uL (0-1.0); Monocytes % (A) 3 %; Neutrophils # (A) 4.9 k/uL (1.3-7.7); Neutrophils % (A) 77 %; Platelet Count 260 k/uL (150-450); RBC 3.72 m/uL (4.30-5.90); RDW 17.6 % (11.5-15.5); WBC 6.4 k/uL (3.8-10.6)
[2018-04-04 10:29] LABS: Calcium 8.3 mg/dL (8.4-10.2); Potassium 5.5 mmol/L (3.5-5.1)
[2018-04-04 11:31] VITALS: BMI 41.1
[2018-04-04] MEDS ORDERED: SODIUM POLYSTYRENE SULFONATE 15 GM/60 ML BOTTLE PO STA (11:37)
[2018-04-04 12:18] LABS: Glucose,Whole Blood 143 mg/dL (75-99)
[2018-04-04] MEDS: SODIUM CHLORIDE 0.9% 1,000 ML IV SCH (13:05)
[2018-04-04] MEDS ORDERED: LIDOCAINE 1% INJ 10MG/ML (20 ML MDV) SQ STA (16:27)
[2018-04-04 17:16] LABS: Glucose,Whole Blood 207 mg/dL (75-99)
[2018-04-04] MEDS: HYDROCHLOROTHIAZIDE 12.5 MG CAP PO SCH (17:17)
[2018-04-04 20:59] LABS: Glucose,Whole Blood 166 mg/dL (75-99)
[2018-04-04] MEDS: ATORVASTATIN 40 MG TAB PO SCH (22:25)
[2018-04-04] MEDS: INSULIN DETEMIR 100 UNIT/ML 10 ML VIAL SQ SCH (22:27)
--- NOTE | 2018-04-04 23:01 | P.PN ---
Subjective Progress Note Date: 04/04/18 Principal diagnosis: Hyperkalemia and diabetic foot ulcer Patient is a 72-year-old male with a known history of hypertension, diabetes type 2, hyperlipidemia and morbid obesity and chronic bilateral lower extremities swelling came to ER with complaints of abnormal labs.Patient states that he was told his potassium was elevated in his hemoglobin is low. Patient was found have bilateral lower activity swelling and redness which is getting worse especially right lower extremities with opposing serous fluid. Patient also states that he has a wound in his right foot in which she's had in the past and was seeing Dr. Bhat for diabetic foot ulcer. Patient states he stopped seen him in November. Patient states that he has increased odor, sore to his right foot. Patient denies any fevers or chills. Patient states that he has felt tired but denies any chest pain or shortness breath at this time. Patient states that he normally is tired and not more tired than usual. Patient states that he was advised to stop taking one of his blood pressure medications because his PCP felt this is causing his elevated potassium. Patient denies any nausea vomiting diarrhea constipation. Patient says that he has a right plantar ulcer/wound followed by a nail injury. Potassium 5.6 BUN 61 creatinine 2.3 X-ray of the right foot showed soft tissue wound on the plantar surface of the right foot. Prominent soft tissue swelling. Calcaneal heel spur's and 04/04/2018 Patient denied any complaints of chest pain or shortness of breath. Bilateral legs are Odell wraped at this time. Swelling seems to be improving. Otherwise potassium level is 5.5. Since the blood pressure is also elevated only had hydrochlorothiazide along with lisinopril and follow-up potassium level tomorrow. Patient will be seen by vascular surgery and further recommendations to follow. Continue with antibiotics and follow-up culture reports. Wound care will be continued. Blood sugar is better controlled now. All other review of systems negative except the above Current medications reviewed Active Medications Hydrocodone Bitart/Acetaminophen (Powell 5-325) 1 each PO Q4HR PRN PRN Reason: Moderate Pain Allopurinol (Zyloprim) 300 mg PO DAILY [facility] Last Admin: 04/04/18 09:22 Dose: 300 mg Amlodipine Besylate (Norvasc) 5 mg PO BID [facility] Last Admin: 06/22/18 22:26 Dose: 5 mg Aspirin (Aspirin) 81 mg PO DAILY [facility] Last Admin: 04/04/18 09:22 Dose: 81 mg Atorvastatin Calcium (Lipitor) 40 mg PO HS [facility] Last Admin: 04/04/18 22:25 Dose: 40 mg Clopidogrel Bisulfate (Plavix) 75 mg PO DAILY [facility] Last Admin: 04/04/18 09:22 Dose: 75 mg Heparin Sodium (Porcine) (Heparin) 5,000 unit SQ Q8HR [facility] Last Admin: 04/04/18 16:55 Dose: 5,000 unit Hydrochlorothiazide (Hydrodiuril) 12.5 mg PO DAILY [facility] Last Admin: 04/04/18 17:17 Dose: 12.5 mg Vancomycin HCl 2,000 mg/ (Sodium Chloride) 500 mls @ 167 mls/hr IVPB Q48H [facility] Sodium Chloride (Saline 0.9%) 1,000 mls @ 75 mls/hr IV .[id number] [facility] Last Admin: 04/04/18 13:05 Dose: 75 mls/hr Insulin Aspart (Novolog) 0 unit SQ ACHS [facility] PRN Reason: Protocol Last Admin: 04/04/18 22:26 Dose: 2 unit Insulin Detemir (Levemir) 60 unit SQ HS [facility] Last Admin: 04/04/18 22:27 Dose: 60 unit Lisinopril (Zestril) 10 mg PO DAILY [facility] Last Admin: 04/04/18 09:43 Dose: 10 mg Metolazone (Zaroxolyn) 2.5 mg PO DAILY [facility] Last Admin: 04/04/18 09:22 Dose: 2.5 mg Miscellaneous Information (Pharmacy To Dose Iv Vancomycin) 1 each MISCELLANE DIRECTED PRN PRN Reason: Per Protocol Naloxone HCl (Narcan) 0.2 mg IV Q2M PRN PRN Reason: Opioid Reversal Pantoprazole Sodium (Protonix) 40 mg PO DAILY [facility] Last Admin: 04/04/18 09:22 Dose: 40 mg Pregabalin (Lyrica) 100 mg PO QID [facility] Last Admin: 04/04/18 22:30 Dose: 100 mg Objective - Vital Signs Vital signs: Vital Signs Temp 97.5 F L 04/04/18 14:07 Pulse 62 04/04/18 14:07 Resp 20 04/04/18 14:07 BP 160/66 04/04/18 14:07 Pulse Ox 96 04/04/18 14:07 Intake & Output 04/04/18 04/04/18 04/05/18 06:59 18:59 06:59 Intake Total 600 240 Balance 600 240 Weight 119.295 kg Intake: Oral 600 240 Other: Voiding Method Toilet # Voids 3 2 1 # Bowel Movements 2 - Exam Patient is lying in the bed comfortably, no acute distress, awake alert and oriented. Morbidly obese. HEENT: Normocephalic. Neck is supple. Pupils reactive. Nostrils clear. Oral cavity is moist. Ears reveal no drainage. Neck reveals no JVD, carotid bruits, or thyromegaly. CHEST EXAMINATION: Trachea is central. Symmetrical expansion. Lung olmstead clear to auscultation and percussion. CARDIAC: Normal S1, S2 with no gallops. No murmurs ABDOMEN: Soft. Bowel sounds normal. No organomegaly. No abdominal bruits. Extremities: Bilateral lower activity significant swelling and redness right greater than left with the right plantar wound. No clubbing or cyanosis Neurologically awake, alert, oriented x3 with well-coordinated movements. No focal deficits noted Skin: No rash or skin lesions. Psychiatric: Cooperative. Nonsuicidal Musculoskeletal: No joint swelling or deformity. Normal range of motion. - Labs CBC & Chem 7: 04/04/18 10:00 04/04/18 10:00 Labs: Abnormal Lab Results - Last 24 Hours (Table) 04/04/18 04/04/18 04/04/18 Range/Units 03:00 07:07 10:00 RBC 3.72 L (4.30-5.90) m/uL Hgb 9.4 L (13.0-17.5) gm/dL Hct 30.3 L (39.0-53.0) % MCHC 30.9 L (31.0-37.0) g/dL RDW 17.6 H (11.5-15.5) % Potassium (3.5-5.1) mmol/L Chloride (98-107) mmol/L Carbon Dioxide (22-30) mmol/L BUN (9-20) mg/dL Creatinine (0.66-1.25) mg/dL Glucose (74-99) mg/dL POC Glucose (mg/dL) 147 H 131 H (75-99) mg/dL Calcium (8.4-10.2) mg/dL 04/04/18 04/04/18 04/04/18 Range/Units 10:00 12:13 17:10 RBC (4.30-5.90) m/uL Hgb (13.0-17.5) gm/dL Hct (39.0-53.0) % MCHC (31.0-37.0) g/dL RDW (11.5-15.5) % Potassium 5.5 H (3.5-5.1) mmol/L Chloride 115 H (98-107) mmol/L Carbon Dioxide 18 L (22-30) mmol/L BUN 55 H (9-20) mg/dL Creatinine 2.10 H (0.66-1.25) mg/dL Glucose 167 H (74-99) mg/dL POC Glucose (mg/dL) 143 H 207 H (75-99) mg/dL Calcium 8.3 L (8.4-10.2) mg/dL 04/04/18 Range/Units 20:48 RBC (4.30-5.90) m/uL Hgb (13.0-17.5) gm/dL Hct (39.0-53.0) % MCHC (31.0-37.0) g/dL RDW (11.5-15.5) % Potassium (3.5-5.1) mmol/L Chloride (98-107) mmol/L Carbon Dioxide (22-30) mmol/L BUN (9-20) mg/dL Creatinine (0.66-1.25) mg/dL Glucose (74-99) mg/dL POC Glucose (mg/dL) 166 H (75-99) mg/dL Calcium (8.4-10.2) mg/dL Microbiology - Last 24 Hours (Table) 04/03/18 15:16 Gram Stain - Preliminary Foot - Right Wound Culture - Preliminary Gram Neg Bacilli Presumptive Staph aureus 04/03/18 14:11 Blood Culture - Preliminary Blood No Growth after 24 hours Assessment and Plan Assessment: Worsening Bilateral chronic lower activity swelling/lymphedema due to chronic venous stasis along with right plantar ulcer possibly diabetic foot ulcer Mild hyperkalemia 5.6--5.5 Acute on chronic kidney disease stage III Coronary artery disease with history of stent placement Diabetes type 2 with hyperglycemia Hyperlipidemia Hypertension fairly controlled History of [place] Gout History of pleural effusion and thoracentesis in August 2016 Morbid obesity with BMI 41.2 DVT prophylaxis Plan: Patient be continued on antibiotics in the form of vancomycin and pain management. Continue with wound dressing and vascular surgery was consulted. Continue the home medications and insulin dosing and follow closely. Discussed with his at bedside. Further recommendations based on the clinical course. Time with Patient: Greater than 30
[2018-04-05] MEDS: SODIUM CHLORIDE 0.9% 1,000 ML IV SCH (02:57)
[2018-04-05 07:29] LABS: Glucose,Whole Blood 145 mg/dL (75-99)
[2018-04-05 08:12] LABS: Anisocytosis Slight; Basophils % (A) 0 %; Eosinophils # (A) 0.2 k/uL (0-0.7); Eosinophils % (A) 2 %; HCT 31.1 % (39.0-53.0); HGB 9.9 gm/dL (13.0-17.5); Hypochromasia Slight; Lymphocytes # (A) 1.1 k/uL (1.0-4.8); Lymphocytes % (A) 17 %; MCH 25.4 pg (25.0-35.0); MCV 79.6 fL (80.0-100.0); Mean Platelet Volume 7.1; Microcytosis Slight; Monocytes # (A) 0.3 k/uL (0-1.0); Monocytes % (A) 5 %; Neutrophils # (A) 4.8 k/uL (1.3-7.7); Neutrophils % (A) 74 %; Platelet Count 269 k/uL (150-450); RDW 17.4 % (11.5-15.5); WBC 6.5 k/uL (3.8-10.6)
[2018-04-05] MEDS: HYDROCHLOROTHIAZIDE 12.5 MG CAP PO SCH ×2 (08:18→12:04)
[2018-04-05] MEDS: CLOPIDOGREL 75 MG TAB PO SCH ×2 (08:18→12:04)
[2018-04-05] MEDS: HEPARIN SODIUM,PORCINE 5,000 UNIT/ML 1 ML VIAL SQ SCH ×3 (08:18→23:50)
[2018-04-05] MEDS: PREGABALIN 100 MG CAP PO SCH ×5 (08:18→22:16)
[2018-04-05] MEDS: METOLAZONE 2.5 MG TAB PO SCH ×2 (08:18→12:04)
[2018-04-05] MEDS: ASPIRIN 81 MG PO SCH ×2 (08:18→12:04)
[2018-04-05] MEDS: ALLOPURINOL 300 MG TAB PO SCH ×2 (08:18→12:04)
[2018-04-05] MEDS: amLODIPine 5 MG TAB PO SCH ×3 (08:19→22:17)
[2018-04-05] MEDS: INSULIN ASPART 100 UNIT/ML 1 ML 10 ML VIAL SQ SCH ×4 (08:19→22:17)
[2018-04-05] MEDS: PANTOPRAZOLE 40 MG TABLET PO SCH ×2 (08:19→12:04)
[2018-04-05 08:23] LABS: Potassium 4.6 mmol/L (3.5-5.1)
[2018-04-05 11:42] LABS: Glucose,Whole Blood 125 mg/dL (75-99)
[2018-04-05 17:09] LABS: Glucose,Whole Blood 123 mg/dL (75-99)
[2018-04-05 21:03] LABS: Glucose,Whole Blood 163 mg/dL (75-99)
[2018-04-05] MEDS: ATORVASTATIN 40 MG TAB PO SCH (22:17)
[2018-04-05] MEDS: INSULIN DETEMIR 100 UNIT/ML 10 ML VIAL SQ SCH (22:18)
--- NOTE | 2018-04-06 00:41 | P.PN ---
Subjective Progress Note Date: 04/05/18 Principal diagnosis: Hyperkalemia and diabetic foot ulcer Patient is a 72-year-old male with a known history of hypertension, diabetes type 2, hyperlipidemia and morbid obesity and chronic bilateral lower extremities swelling came to ER with complaints of abnormal labs.Patient states that he was told his potassium was elevated in his hemoglobin is low. Patient was found have bilateral lower activity swelling and redness which is getting worse especially right lower extremities with opposing serous fluid. Patient also states that he has a wound in his right foot in which she's had in the past and was seeing Dr. Bhat for diabetic foot ulcer. Patient states he stopped seen him in November. Patient states that he has increased odor, sore to his right foot. Patient denies any fevers or chills. Patient states that he has felt tired but denies any chest pain or shortness breath at this time. Patient states that he normally is tired and not more tired than usual. Patient states that he was advised to stop taking one of his blood pressure medications because his PCP felt this is causing his elevated potassium. Patient denies any nausea vomiting diarrhea constipation. Patient says that he has a right plantar ulcer/wound followed by a nail injury. Potassium 5.6 BUN 61 creatinine 2.3 X-ray of the right foot showed soft tissue wound on the plantar surface of the right foot. Prominent soft tissue swelling. Calcaneal heel spur's and 04/04/2018 Patient denied any complaints of chest pain or shortness of breath. Bilateral legs are Odell wraped at this time. Swelling seems to be improving. Otherwise potassium level is 5.5. Since the blood pressure is also elevated only had hydrochlorothiazide along with lisinopril and follow-up potassium level tomorrow. Patient will be seen by vascular surgery and further recommendations to follow. Continue with antibiotics and follow-up culture reports. Wound care will be continued. Blood sugar is better controlled now. 04/05/2018 Patient's leg swelling is improved. Otherwise potassium level came down to 4.6. Wound cultures are growing gram-positive cocci and gram-negative bacilli. ID was consulted. Patient was seen by vascular surgery. Recommended no further debridement at this time. Anticipate discharge and 24 hours with wound culture report and ID recommendations Patient is eager to be discharged home. All other review of systems negative except the above Current medications reviewed Active Medications Hydrocodone Bitart/Acetaminophen (Clos[place] 5-325) 1 each PO Q4HR PRN PRN Reason: Moderate Pain Allopurinol (Zyloprim) 300 mg PO DAILY [facility] Last Admin: 04/04/18 09:22 Dose: 300 mg Amlodipine Besylate (Norvasc) 5 mg PO BID [facility] Last Admin: 04/04/18 22:26 Dose: 5 mg Aspirin (Aspirin) 81 mg PO DAILY [facility] Last Admin: 04/04/18 09:22 Dose: 81 mg Atorvastatin Calcium (Lipitor) 40 mg PO HS [facility] Last Admin: 04/04/18 22:25 Dose: 40 mg Clopidogrel Bisulfate (Plavix) 75 mg PO DAILY [facility] Last Admin: 04/04/18 09:22 Dose: 75 mg Heparin Sodium (Porcine) (Heparin) 5,000 unit SQ Q8HR [facility] Last Admin: 04/04/18 16:55 Dose: 5,000 unit Hydrochlorothiazide (Hydrodiuril) 12.5 mg PO DAILY [facility] Last Admin: 04/04/18 17:17 Dose: 12.5 mg Vancomycin HCl 2,000 mg/ (Sodium Chloride) 500 mls @ 167 mls/hr IVPB Q48H [facility] Sodium Chloride (Saline 0.9%) 1,000 mls @ 75 mls/hr IV .[id number] [facility] Last Admin: 04/04/18 13:05 Dose: 75 mls/hr Insulin Aspart (Novolog) 0 unit SQ ACHS [facility] PRN Reason: Protocol Last Admin: 04/04/18 22:26 Dose: 2 unit Insulin Detemir (Levemir) 60 unit SQ HS [facility] Last Admin: 04/04/18 22:27 Dose: 60 unit Lisinopril (Zestril) 10 mg PO DAILY [facility] Last Admin: 04/04/18 09:43 Dose: 10 mg Metolazone (Zaroxolyn) 2.5 mg PO DAILY [facility] Last Admin: 04/04/18 09:22 Dose: 2.5 mg Miscellaneous Information (Pharmacy To Dose Iv Vancomycin) 1 each MISCELLANE DIRECTED PRN PRN Reason: Per Protocol Naloxone HCl (Narcan) 0.2 mg IV Q2M PRN PRN Reason: Opioid Reversal Pantoprazole Sodium (Protonix) 40 mg PO DAILY [facility] Last Admin: 04/04/18 09:22 Dose: 40 mg Pregabalin (Lyrica) 100 mg PO QID [facility] Last Admin: 04/04/18 22:30 Dose: 100 mg Objective - Vital Signs Vital signs: Vital Signs Temp 97.7 F 04/05/18 14:50 Pulse 61 04/05/18 14:50 Resp 16 04/05/18 14:50 BP 144/70 04/05/18 14:50 Pulse Ox 95 04/05/18 14:50 Intake & Output 04/04/18 04/05/18 04/05/18 18:59 06:59 18:59 Intake Total 240 600 Balance 240 600 Weight 119.295 kg Intake: Intake, IV Titration 600 Amount Sodium Chloride 0.9% 1, 600 000 ml @ 75 mls/hr IV . [id number] [facility] Rx#:[id number] Oral 240 Other: Voiding Method Toilet # Voids 2 3 1 # Bowel Movements 2 - Exam Patient is lying in the bed comfortably, no acute distress, awake alert and oriented. Morbidly obese. HEENT: Normocephalic. Neck is supple. Pupils reactive. Nostrils clear. Oral cavity is moist. Ears reveal no drainage. Neck reveals no JVD, carotid bruits, or thyromegaly. CHEST EXAMINATION: Trachea is central. Symmetrical expansion. Lung olmstead clear to auscultation and percussion. CARDIAC: Normal S1, S2 with no gallops. No murmurs ABDOMEN: Soft. Bowel sounds normal. No organomegaly. No abdominal bruits. Extremities: Bilateral lower activity significant swelling and redness right greater than left with the right plantar wound. No clubbing or cyanosis Neurologically awake, alert, oriented x3 with well-coordinated movements. No focal deficits noted Skin: No rash or skin lesions. Psychiatric: Cooperative. Nonsuicidal Musculoskeletal: No joint swelling or deformity. Normal range of motion. - Labs CBC & Chem 7: 04/05/18 07:31 04/05/18 07:31 Labs: Abnormal Lab Results - Last 24 Hours (Table) 04/04/18 04/04/18 04/05/18 Range/Units 17:10 20:48 07:25 RBC (4.30-5.90) m/uL Hgb (13.0-17.5) gm/dL Hct (39.0-53.0) % MCV (80.0-100.0) fL RDW (11.5-15.5) % Sodium (137-145) mmol/L Chloride (98-107) mmol/L Carbon Dioxide (22-30) mmol/L BUN (9-20) mg/dL Creatinine (0.66-1.25) mg/dL Glucose (74-99) mg/dL POC Glucose (mg/dL) 207 H 166 H 145 H (75-99) mg/dL Calcium (8.4-10.2) mg/dL 04/05/18 04/05/18 04/05/18 Range/Units 07:31 07:31 11:33 RBC 3.90 L (4.30-5.90) m/uL Hgb 9.9 L (13.0-17.5) gm/dL Hct 31.1 L (39.0-53.0) % MCV 79.6 L (80.0-100.0) fL RDW 17.4 H (11.5-15.5) % Sodium 147 H (137-145) mmol/L Chloride 113 H (98-107) mmol/L Carbon Dioxide 19 L (22-30) mmol/L BUN 46 H (9-20) mg/dL Creatinine 1.94 H (0.66-1.25) mg/dL Glucose 135 H (74-99) mg/dL POC Glucose (mg/dL) 125 H (75-99) mg/dL Calcium 8.0 L (8.4-10.2) mg/dL Microbiology - Last 24 Hours (Table) 04/03/18 15:16 Gram Stain - Preliminary Foot - Right Wound Culture - Preliminary Gram Neg Bacilli Presumptive Staph aureus 04/03/18 14:11 Blood Culture - Preliminary Blood No Growth after 24 hours Assessment and Plan Assessment: Worsening Bilateral chronic lower activity swelling/lymphedema due to chronic venous stasis along with right plantar ulcer possibly diabetic foot ulcer Mild hyperkalemia 5.6--5.5 Acute on chronic kidney disease stage III Coronary artery disease with history of stent placement Diabetes type 2 with hyperglycemia Hyperlipidemia Hypertension fairly controlled History of [place] Gout History of pleural effusion and thoracentesis in August 2016 Morbid obesity with BMI 41.2 DVT prophylaxis Plan: Patient be continued on antibiotics in the form of vancomycin and pain management. Continue with wound dressing and vascular surgery has seen the patient.. Continue the home medications and insulin dosing and follow closely. Discussed with his at bedside. Further recommendations based on the clinical course. Time with Patient: Greater than 30
[2018-04-06 07:16] LABS: Glucose,Whole Blood 98 mg/dL (75-99)
[2018-04-06] MEDS ORDERED: VANCOMYCIN 2,000 MG in SODIUM CHLORIDE 0.9% 500 ML IVPB SCH (09:00)
[2018-04-06] MEDS: INSULIN ASPART 100 UNIT/ML 1 ML 10 ML VIAL SQ SCH ×4 (09:29→21:43)
[2018-04-06] MEDS: LISINOPRIL 10 MG TAB PO SCH (09:34)
[2018-04-06] MEDS: CLOPIDOGREL 75 MG TAB PO SCH (09:34)
[2018-04-06] MEDS: PREGABALIN 100 MG CAP PO SCH ×4 (09:34→21:42)
[2018-04-06] MEDS: ALLOPURINOL 300 MG TAB PO SCH (09:34)
[2018-04-06] MEDS: HYDROCHLOROTHIAZIDE 12.5 MG CAP PO SCH (09:34)
[2018-04-06] MEDS: METOLAZONE 2.5 MG TAB PO SCH (09:34)
[2018-04-06] MEDS: ASPIRIN 81 MG PO SCH (09:34)
[2018-04-06] MEDS: HEPARIN SODIUM,PORCINE 5,000 UNIT/ML 1 ML VIAL SQ SCH ×2 (09:34→16:23)
[2018-04-06] MEDS: PANTOPRAZOLE 40 MG TABLET PO SCH (09:34)
[2018-04-06] MEDS: amLODIPine 5 MG TAB PO SCH ×2 (09:34→21:42)
[2018-04-06 11:39] LABS: Anisocytosis Slight; Basophils % (A) 0 %; Eosinophils # (A) 0.2 k/uL (0-0.7); Eosinophils % (A) 4 %; HCT 28.4 % (39.0-53.0); HGB 8.9 gm/dL (13.0-17.5); Hypochromasia Moderate; Lymphocytes # (A) 1.3 k/uL (1.0-4.8); Lymphocytes % (A) 22 %; MCH 25.3 pg (25.0-35.0); MCHC 31.5 g/dL (31.0-37.0); MCV 80.3 fL (80.0-100.0); Mean Platelet Volume 6.6; Microcytosis Slight; Monocytes # (A) 0.3 k/uL (0-1.0); Monocytes % (A) 5 %; Neutrophils % (A) 68 %; Platelet Count 279 k/uL (150-450); RBC 3.54 m/uL (4.30-5.90); RDW 17.5 % (11.5-15.5); WBC 5.9 k/uL (3.8-10.6)
[2018-04-06 12:02] LABS: Calcium 8.3 mg/dL (8.4-10.2); Potassium 4.7 mmol/L (3.5-5.1)
[2018-04-06 12:02] LABS: Glucose,Whole Blood 129 mg/dL (75-99)
[2018-04-06] MEDS ORDERED: cefTRIAXone IN SWFI 2,000 MG/20 ML SYRINGE IVP SCH (15:00)
[2018-04-06 17:16] LABS: Glucose,Whole Blood 119 mg/dL (75-99)
[2018-04-06] MEDS ORDERED: CIPROFLOXACIN HCL 500 MG TAB PO SCH (21:00)
[2018-04-06 21:20] LABS: Glucose,Whole Blood 129 mg/dL (75-99)
[2018-04-06] MEDS: ATORVASTATIN 40 MG TAB PO SCH (21:42)
[2018-04-06] MEDS: INSULIN DETEMIR 100 UNIT/ML 10 ML VIAL SQ SCH (21:43)
--- NOTE | 2018-04-06 23:09 | CONS ---
CONSULTATION DATE OF SERVICE: 04/06/2018. REASON FOR CONSULTATION: Infected right diabetic foot ulcer. HISTORY OF PRESENT ILLNESS: The patient is a 72 -year-old male, well known to my service from previous hospitalizations and treatment for right diabetic foot ulcer infected. The patient apparently did have blood work done [facility] and subsequently was called in to go to the ER as the patient potassium was elevated. Hemoglobin was low. The patient who did have a right diabetic foot ulcer on the plantar aspect of his right foot for which the patient was evaluated in the outpatient setting by Dr. Bhat at [facility]. Last seen back in November and has been taken care of at home by his visiting nurse. The patient's did mention that his right foot was getting more swollen and red over the last day or two prior to coming to the hospital. The patient has been complaining of some dull aching pain to the right foot and leg area, but no worsening. No significant drainage. The patient did have x-rays of the right foot which showed some soft tissue swelling but no other abnormality. With these symptoms, the patient has been evaluated by the ER physician. On arrival to the ER, the patient did not have any high-grade fever. The patient's white count was normal at 7.5. His creatinine was elevated to 2.30 with repeat down to 1.70, potassium which was 5.6 down to 4.7. The patient did have cultures obtained from the right foot which did show Staph aureus, Klebsiella and gram-negative bacilli. He has been treated with vancomycin with Rocephin added today. However, apparently the patient did have KEFLEX ALLERGY, hence Infectious Disease was consulted for further recommendation regarding antibiotic therapy. The patient did receive that Rocephin without any problem per discussion with the patient's RN. REVIEW OF SYSTEMS: CONSTITUTIONAL: Positive for weakness. No high-grade fever. Eyes no complaint. ENT no complaint. Respiratory no complaint. Cardiovascular no complaint. Genitourinary no complaint. Gastrointestinal: No complaint. Musculoskeletal as per HPI. Integumentary as per HPI. Psychological no complaint. Endocrine no complaint. Neurologic no complaint. PAST MEDICAL HISTORY: Diabetes mellitus, hypertension, hyperlipidemia, coronary artery disease, morbid obesity and diabetic foot ulcer. PAST SURGICAL HISTORY: Significant for PTCA with stent and debridement of the left foot wound. SOCIAL HISTORY: Positive for remote history of smoking. No drinking or drug use. FAMILY HISTORY: Father history of cancer. Mother with history of renal disease. ALLERGIES: CEPHALEXIN, which his fingers went numb. No history of any rash or anaphylaxis. Doubt true penicillin or cephalexin allergy. MEDICATION: Medications include the patient is currently on [place], Zyloprim, Norvasc, aspirin, Lipitor, Rocephin 2 g daily, Plavix, heparin, hydrochlorothiazide, NovoLog, Levemir, Zestril, Zaroxolyn, Narcan Protonix, Lyrica, and vancomycin pharmacy to dose. EXAMINATION: Blood pressure is 152/73 with a pulse of 54, temperature 98.5. He is 96% on room air. General description is an elderly male up in the bed in no distress. No tachypnea or accessory muscles of respiration use. HEENT: Shows no pallor or scleral icterus. Oral mucosa membranes dry. No pharyngeal erythema or thrush. Neck: Trachea central. No thyromegaly. Lungs: Unlabored breathing, clear to auscultation anteriorly. Heart S1, S2. Regular rate and rhythm. ABDOMEN: Soft, no tenderness. No guarding or no rigidity. Extremities: Some chronic venous stasis changes with ulcer on the right foot plantar aspect with no significant slough tissue. Minimal surrounding erythema. No foul smelling drainage. Neurological: Patient is awake, alert, oriented times three. Mood and affect normal. LABS: Hemoglobin 8.8, white count 5.9, BUN of 14, creatinine 1.70. Wound culture with Staph aureus, Klebsiella oxytoca. DIAGNOSTIC IMPRESSION/PLAN: The patient with right diabetic foot ulcer with some secondary cellulitis. Culture showing Staph aureus in addition to the Klebsiella, which is Cipro and Rocephin sensitive. Clinically doubt any deep infection, more of a superficial cellulitis. PLAN: 1. Local wound care with Aquacel Silver packing to be changed daily depending upon the drainage followed by light Odell wrap. 2. The patient to continue vancomycin, pharmacy to dose watching kidney function closely while waiting for sensitivity on the Staph aureus and continue with Rocephin 2 g daily which the patient tolerated. 3. We will follow up on clinical condition and culture to further adjust medication if needed. Thank you for this consultation. We will follow the patient along with you. MMODL / IJN: [id number] /
[2018-04-07] MEDS: HEPARIN SODIUM,PORCINE 5,000 UNIT/ML 1 ML VIAL SQ SCH ×4 (00:26→23:02)
--- NOTE | 2018-04-07 01:11 | XR ---
EXAMINATION TYPE: XR chest 1V portable DATE OF EXAM: 04/07/2018 COMPARISON: 03/08/2017 HISTORY: Short of breath TECHNIQUE: Single frontal view of the chest is obtained. FINDINGS: Heart is enlarged. There is pulmonary vascular congestion. There is blunting of costophren ic angles. Bony thorax is intact. IMPRESSION: Mild congestive heart failure with pleural effusions. No significant change.
[2018-04-07 07:57] LABS: Glucose,Whole Blood 112 mg/dL (75-99)
[2018-04-07] MEDS: INSULIN ASPART 100 UNIT/ML 1 ML 10 ML VIAL SQ SCH ×4 (08:28→21:51)
[2018-04-07] MEDS ORDERED: cefTRIAXone IN SWFI 2,000 MG/20 ML SYRINGE IVP SCH (09:00)
[2018-04-07] MEDS ORDERED: VANCOMYCIN 1,750 MG in SODIUM CHLORIDE 0.9% 500 ML IVPB SCH (09:00)
[2018-04-07] MEDS: amLODIPine 5 MG TAB PO SCH ×2 (09:14→21:50)
[2018-04-07] MEDS: CLOPIDOGREL 75 MG TAB PO SCH (09:14)
[2018-04-07] MEDS: ASPIRIN 81 MG PO SCH (09:14)
[2018-04-07] MEDS: ALLOPURINOL 300 MG TAB PO SCH (09:14)
[2018-04-07] MEDS: LISINOPRIL 10 MG TAB PO SCH (09:15)
[2018-04-07] MEDS: PANTOPRAZOLE 40 MG TABLET PO SCH (09:15)
[2018-04-07] MEDS: METOLAZONE 2.5 MG TAB PO SCH (09:15)
[2018-04-07] MEDS: HYDROCHLOROTHIAZIDE 12.5 MG CAP PO SCH (09:15)
[2018-04-07] MEDS: PREGABALIN 100 MG CAP PO SCH ×4 (09:19→21:49)
--- NOTE | 2018-04-07 09:28 | NM ---
EXAMINATION TYPE: NM pul perfusion DATE OF EXAM: 04/07/2018 COMPARISON: Chest x-ray 04/07/2018 HISTORY: Elevated d-dimer and shortness of breath Following administration of 5.46 mCi Tc 99m MAA. Images obtained post injection. FINDINGS: Patient could only tolerate the perfusion portion of the exam. There is relatively homogenous radioph armaceutical uptake on perfusion images throughout the lungs. Heart is enlarged. IMPRESSION: Normal lung perfusion
[2018-04-07 12:08] LABS: Glucose,Whole Blood 132 mg/dL (75-99)
[2018-04-07 17:19] LABS: Glucose,Whole Blood 215 mg/dL (75-99)
[2018-04-07 21:20] LABS: Glucose,Whole Blood 139 mg/dL (75-99)
[2018-04-07] MEDS: ATORVASTATIN 40 MG TAB PO SCH (21:50)
[2018-04-07] MEDS: INSULIN DETEMIR 100 UNIT/ML 10 ML VIAL SQ SCH (21:51)
[2018-04-07] MEDS: CEPHALEXIN 500 MG CAP PO SCH (23:00)
[2018-04-07] MEDS: CIPROFLOXACIN HCL 500 MG TAB PO SCH (23:02)
--- NOTE | 2018-04-08 01:47 | P.PN ---
Subjective Progress Note Date: 04/06/18 Principal diagnosis: Hyperkalemia and diabetic foot ulcer Patient is a 72-year-old male with a known history of hypertension, diabetes type 2, hyperlipidemia and morbid obesity and chronic bilateral lower extremities swelling came to ER with complaints of abnormal labs.Patient states that he was told his potassium was elevated in his hemoglobin is low. Patient was found have bilateral lower activity swelling and redness which is getting worse especially right lower extremities with opposing serous fluid. Patient also states that he has a wound in his right foot in which she's had in the past and was seeing Dr. Bhat for diabetic foot ulcer. Patient states he stopped seen him in November. Patient states that he has increased odor, sore to his right foot. Patient denies any fevers or chills. Patient states that he has felt tired but denies any chest pain or shortness breath at this time. Patient states that he normally is tired and not more tired than usual. Patient states that he was advised to stop taking one of his blood pressure medications because his PCP felt this is causing his elevated potassium. Patient denies any nausea vomiting diarrhea constipation. Patient says that he has a right plantar ulcer/wound followed by a nail injury. Potassium 5.6 BUN 61 creatinine 2.3 X-ray of the right foot showed soft tissue wound on the plantar surface of the right foot. Prominent soft tissue swelling. Calcaneal heel spur's and 04/04/2018 Patient denied any complaints of chest pain or shortness of breath. Bilateral legs are Odell wraped at this time. Swelling seems to be improving. Otherwise potassium level is 5.5. Since the blood pressure is also elevated only had hydrochlorothiazide along with lisinopril and follow-up potassium level tomorrow. Patient will be seen by vascular surgery and further recommendations to follow. Continue with antibiotics and follow-up culture reports. Wound care will be continued. Blood sugar is better controlled now. 04/05/2018 Patient's leg swelling is improved. Otherwise potassium level came down to 4.6. Wound cultures are growing gram-positive cocci and gram-negative bacilli. ID was consulted. Patient was seen by vascular surgery. Recommended no further debridement at this time. Anticipate discharge and 24 hours with wound culture report and ID recommendations Patient is eager to be discharged home. 04/06/2018 Patient's blood pressure is better now. Hyperkalemia resolved. Otherwise wound cultures are growing Klebsiella and gram-positive cocci. ID was consulted for antibiotic recommendations. Otherwise patient is improving clinically. wants to be discharged home. All other review of systems negative except the above Current medications reviewed Active Medications Hydrocodone Bitart/Acetaminophen ([place] 5-325) 1 each PO Q4HR PRN PRN Reason: Moderate Pain Allopurinol (Zyloprim) 300 mg PO DAILY [facility] Last Admin: 04/04/18 09:22 Dose: 300 mg Amlodipine Besylate (Norvasc) 5 mg PO BID [facility] Last Admin: 04/04/18 22:26 Dose: 5 mg Aspirin (Aspirin) 81 mg PO DAILY [facility] Last Admin: 04/04/18 09:22 Dose: 81 mg Atorvastatin Calcium (Lipitor) 40 mg PO HS [facility] Last Admin: 04/04/18 22:25 Dose: 40 mg Clopidogrel Bisulfate (Plavix) 75 mg PO DAILY [facility] Last Admin: 04/04/18 09:22 Dose: 75 mg Heparin Sodium (Porcine) (Heparin) 5,000 unit SQ Q8HR [facility] Last Admin: 04/04/18 16:55 Dose: 5,000 unit Hydrochlorothiazide (Hydrodiuril) 12.5 mg PO DAILY [facility] Last Admin: 04/04/18 17:17 Dose: 12.5 mg Vancomycin HCl 2,000 mg/ (Sodium Chloride) 500 mls @ 167 mls/hr IVPB Q48H [facility] Sodium Chloride (Saline 0.9%) 1,000 mls @ 75 mls/hr IV .[id number] [facility] Last Admin: 04/04/18 13:05 Dose: 75 mls/hr Insulin Aspart (Novolog) 0 unit SQ ACHS [facility] PRN Reason: Protocol Last Admin: 04/04/18 22:26 Dose: 2 unit Insulin Detemir (Levemir) 60 unit SQ HS [facility] Last Admin: 04/04/18 22:27 Dose: 60 unit Lisinopril (Zestril) 10 mg PO DAILY [facility] Last Admin: 04/04/18 09:43 Dose: 10 mg Metolazone (Zaroxolyn) 2.5 mg PO DAILY [facility] Last Admin: 04/04/18 09:22 Dose: 2.5 mg Miscellaneous Information (Pharmacy To Dose Iv Vancomycin) 1 each MISCELLANE DIRECTED PRN PRN Reason: Per Protocol Naloxone HCl (Narcan) 0.2 mg IV Q2M PRN PRN Reason: Opioid Reversal Pantoprazole Sodium (Protonix) 40 mg PO DAILY [facility] Last Admin: 04/04/18 09:22 Dose: 40 mg Pregabalin (Lyrica) 100 mg PO QID [facility] Last Admin: 04/04/18 22:30 Dose: 100 mg Objective - Vital Signs Vital signs: Vital Signs Temp 98.5 F 04/06/18 14:55 Pulse 54 L 04/06/18 14:55 Resp 16 04/06/18 14:55 BP 152/73 04/06/18 14:55 Pulse Ox 96 04/06/18 14:55 Intake & Output 04/05/18 04/06/18 04/06/18 18:59 06:59 18:59 Intake Total 1200 1100 Balance 1200 1100 Intake: Intake, IV Titration 600 500 Amount Sodium Chloride 0.9% 1, 600 000 ml @ 75 mls/hr IV . [id number] [facility] Rx#:[id number] Vancomycin 1,750 mg In 500 Sodium Chloride 0.9% 500 ml @ 250 mls/hr IVPB Q24H [facility] Rx#:[id number] Oral 600 600 Other: # Voids 1 4 6 - Exam Patient is lying in the bed comfortably, no acute distress, awake alert and oriented. Morbidly obese. HEENT: Normocephalic. Neck is supple. Pupils reactive. Nostrils clear. Oral cavity is moist. Ears reveal no drainage. Neck reveals no JVD, carotid bruits, or thyromegaly. CHEST EXAMINATION: Trachea is central. Symmetrical expansion. Lung olmstead clear to auscultation and percussion. CARDIAC: Normal S1, S2 with no gallops. No murmurs ABDOMEN: Soft. Bowel sounds normal. No organomegaly. No abdominal bruits. Extremities: Bilateral lower activity significant swelling and redness right greater than left with the right plantar wound. No clubbing or cyanosis Neurologically awake, alert, oriented x3 with well-coordinated movements. No focal deficits noted Skin: No rash or skin lesions. Psychiatric: Cooperative. Nonsuicidal Musculoskeletal: No joint swelling or deformity. Normal range of motion. - Labs CBC & Chem 7: 04/06/18 10:40 04/06/18 10:40 Labs: Abnormal Lab Results - Last 24 Hours (Table) 04/05/18 04/05/18 04/06/18 Range/Units 17:05 21:02 10:40 RBC 3.54 L (4.30-5.90) m/uL Hgb 8.9 L (13.0-17.5) gm/dL Hct 28.4 L (39.0-53.0) % RDW 17.5 H (11.5-15.5) % Chloride (98-107) mmol/L Carbon Dioxide (22-30) mmol/L BUN (9-20) mg/dL Creatinine (0.66-1.25) mg/dL Glucose (74-99) mg/dL POC Glucose (mg/dL) 123 H 163 H (75-99) mg/dL Calcium (8.4-10.2) mg/dL 04/06/18 04/06/18 Range/Units 10:40 11:55 RBC (4.30-5.90) m/uL Hgb (13.0-17.5) gm/dL Hct (39.0-53.0) % RDW (11.5-15.5) % Chloride 113 H (98-107) mmol/L Carbon Dioxide 20 L (22-30) mmol/L BUN 40 H (9-20) mg/dL Creatinine 1.70 H (0.66-1.25) mg/dL Glucose 141 H (74-99) mg/dL POC Glucose (mg/dL) 129 H (75-99) mg/dL Calcium 8.3 L (8.4-10.2) mg/dL Microbiology - Last 24 Hours (Table) 04/03/18 15:16 Gram Stain - Preliminary Foot - Right Wound Culture - Preliminary Klebsiella oxytoca Staphylococcus aureus Gram Neg Bacilli 04/03/18 14:11 Blood Culture - Preliminary Blood No Growth after 48 hours Assessment and Plan Assessment: Worsening Bilateral chronic lower activity swelling/lymphedema due to chronic venous stasis along with right plantar ulcer possibly diabetic foot ulcer Mild hyperkalemia 5.6--5.5 Acute on chronic kidney disease stage III Coronary artery disease with history of stent placement Diabetes type 2 with hyperglycemia Hyperlipidemia Hypertension fairly controlled History of [place] Gout History of pleural effusion and thoracentesis in August 2016 Morbid obesity with BMI 41.2 DVT prophylaxis Plan: Patient be continued on antibiotics in the form of vancomycin and pain management. Continue with wound dressing and vascular surgery has seen the patient.. Continue the home medications and insulin dosing and follow closely. Discussed with his at bedside. Further recommendations based on the clinical course. Time with Patient: Greater than 30
--- NOTE | 2018-04-08 01:49 | P.PN ---
Subjective Progress Note Date: 04/07/18 Principal diagnosis: Hyperkalemia and diabetic foot ulcer Patient is a 72-year-old male with a known history of hypertension, diabetes type 2, hyperlipidemia and morbid obesity and chronic bilateral lower extremities swelling came to ER with complaints of abnormal labs.Patient states that he was told his potassium was elevated in his hemoglobin is low. Patient was found have bilateral lower activity swelling and redness which is getting worse especially right lower extremities with opposing serous fluid. Patient also states that he has a wound in his right foot in which she's had in the past and was seeing Dr. Bhat for diabetic foot ulcer. Patient states he stopped seen him in November. Patient states that he has increased odor, sore to his right foot. Patient denies any fevers or chills. Patient states that he has felt tired but denies any chest pain or shortness breath at this time. Patient states that he normally is tired and not more tired than usual. Patient states that he was advised to stop taking one of his blood pressure medications because his PCP felt this is causing his elevated potassium. Patient denies any nausea vomiting diarrhea constipation. Patient says that he has a right plantar ulcer/wound followed by a nail injury. Potassium 5.6 BUN 61 creatinine 2.3 X-ray of the right foot showed soft tissue wound on the plantar surface of the right foot. Prominent soft tissue swelling. Calcaneal heel spur's and 04/04/2018 Patient denied any complaints of chest pain or shortness of breath. Bilateral legs are Odell wraped at this time. Swelling seems to be improving. Otherwise potassium level is 5.5. Since the blood pressure is also elevated only had hydrochlorothiazide along with lisinopril and follow-up potassium level tomorrow. Patient will be seen by vascular surgery and further recommendations to follow. Continue with antibiotics and follow-up culture reports. Wound care will be continued. Blood sugar is better controlled now. 04/05/2018 Patient's leg swelling is improved. Otherwise potassium level came down to 4.6. Wound cultures are growing gram-positive cocci and gram-negative bacilli. ID was consulted. Patient was seen by vascular surgery. Recommended no further debridement at this time. Anticipate discharge and 24 hours with wound culture report and ID recommendations Patient is eager to be discharged home. 04/06/2018 Patient's blood pressure is better now. Hyperkalemia resolved. Otherwise wound cultures are growing Klebsiella and gram-positive cocci. ID was consulted for antibiotic recommendations. Otherwise patient is improving clinically. wants to be discharged home. 04/07/2018 Patient denied any chest pain or shortness of breath. Tolerated ceftriaxone. Wound cultures growing Klebsiella, staph aureus and Pseudomonas. Antibiotics have been changed to Keflex and ciprofloxacin. We will monitor for any ALLERGIC reaction to Keflex. Otherwise patient can be discharged tomorrow morning. ID is following. All other review of systems negative except the above Current medications reviewed Active Medications Hydrocodone Bitart/Acetaminophen ([place] 5-325) 1 each PO Q4HR PRN PRN Reason: Moderate Pain Allopurinol (Zyloprim) 300 mg PO DAILY [facility] Last Admin: 04/04/18 09:22 Dose: 300 mg Amlodipine Besylate (Norvasc) 5 mg PO BID [facility] Last Admin: 04/04/18 22:26 Dose: 5 mg Aspirin (Aspirin) 81 mg PO DAILY [facility] Last Admin: 04/04/18 09:22 Dose: 81 mg Atorvastatin Calcium (Lipitor) 40 mg PO HS [facility] Last Admin: 04/04/18 22:25 Dose: 40 mg Clopidogrel Bisulfate (Plavix) 75 mg PO DAILY [facility] Last Admin: 04/04/18 09:22 Dose: 75 mg Heparin Sodium (Porcine) (Heparin) 5,000 unit SQ Q8HR [facility] Last Admin: 04/04/18 16:55 Dose: 5,000 unit Hydrochlorothiazide (Hydrodiuril) 12.5 mg PO DAILY [facility] Last Admin: 04/04/18 17:17 Dose: 12.5 mg Vancomycin HCl 2,000 mg/ (Sodium Chloride) 500 mls @ 167 mls/hr IVPB Q48H [facility] Sodium Chloride (Saline 0.9%) 1,000 mls @ 75 mls/hr IV .[id number] [facility] Last Admin: 04/04/18 13:05 Dose: 75 mls/hr Insulin Aspart (Novolog) 0 unit SQ ACHS [facility] PRN Reason: Protocol Last Admin: 04/04/18 22:26 Dose: 2 unit Insulin Detemir (Levemir) 60 unit SQ HS [facility] Last Admin: 04/04/18 22:27 Dose: 60 unit Lisinopril (Zestril) 10 mg PO DAILY [facility] Last Admin: 04/04/18 09:43 Dose: 10 mg Metolazone (Zaroxolyn) 2.5 mg PO DAILY [facility] Last Admin: 04/04/18 09:22 Dose: 2.5 mg Miscellaneous Information (Pharmacy To Dose Iv Vancomycin) 1 each MISCELLANE DIRECTED PRN PRN Reason: Per Protocol Naloxone HCl (Narcan) 0.2 mg IV Q2M PRN PRN Reason: Opioid Reversal Pantoprazole Sodium (Protonix) 40 mg PO DAILY [facility] Last Admin: 04/04/18 09:22 Dose: 40 mg Pregabalin (Lyrica) 100 mg PO QID [facility] Last Admin: 04/04/18 22:30 Dose: 100 mg Objective - Vital Signs Vital signs: Vital Signs Temp 97.5 F L 04/07/18 14:12 Pulse 49 L 04/07/18 14:12 Resp 18 04/07/18 14:12 BP 139/58 04/07/18 14:12 Pulse Ox 95 04/07/18 14:12 Intake & Output 04/07/18 04/07/18 04/08/18 06:59 18:59 06:59 Intake Total 100 Balance 100 Intake: Oral 100 Other: Voiding Method Toilet # Voids 2 3 3 - Exam Patient is lying in the bed comfortably, no acute distress, awake alert and oriented. Morbidly obese. HEENT: Normocephalic. Neck is supple. Pupils reactive. Nostrils clear. Oral cavity is moist. Ears reveal no drainage. Neck reveals no JVD, carotid bruits, or thyromegaly. CHEST EXAMINATION: Trachea is central. Symmetrical expansion. Lung olmstead clear to auscultation and percussion. CARDIAC: Normal S1, S2 with no gallops. No murmurs ABDOMEN: Soft. Bowel sounds normal. No organomegaly. No abdominal bruits. Extremities: Bilateral lower activity significant swelling and redness right greater than left with the right plantar wound. No clubbing or cyanosis Neurologically awake, alert, oriented x3 with well-coordinated movements. No focal deficits noted Skin: No rash or skin lesions. Psychiatric: Cooperative. Nonsuicidal Musculoskeletal: No joint swelling or deformity. Normal range of motion. - Labs CBC & Chem 7: 04/06/18 10:40 04/06/18 10:40 Labs: Abnormal Lab Results - Last 24 Hours (Table) 04/07/18 04/07/18 04/07/18 Range/Units 01:06 07:34 12:03 D-Dimer 2.53 H (<0.60) mg/L FEU POC Glucose (mg/dL) 112 H 132 H (75-99) mg/dL 04/07/18 04/07/18 Range/Units 17:17 21:18 D-Dimer (<0.60) mg/L FEU POC Glucose (mg/dL) 215 H 139 H (75-99) mg/dL Microbiology - Last 24 Hours (Table) 04/03/18 14:11 Blood Culture - Preliminary Blood No Growth after 96 hours 04/03/18 15:16 Gram Stain - Final Foot - Right Wound Culture - Final Klebsiella oxytoca Providencia stuartii Staphylococcus aureus Pseudomonas aeruginosa Assessment and Plan Assessment: Worsening Bilateral chronic lower activity swelling/lymphedema due to chronic venous stasis along with right plantar ulcer possibly diabetic foot ulcer Mild hyperkalemia 5.6--5.5 Acute on chronic kidney disease stage III Coronary artery disease with history of stent placement Diabetes type 2 with hyperglycemia Hyperlipidemia Hypertension fairly controlled History of [place] Gout History of pleural effusion and thoracentesis in August 2016 Morbid obesity with BMI 41.2 DVT prophylaxis Plan: Patient be continued on antibiotics in the form of Keflex and Cipro and pain management. Continue with wound dressing and vascular surgery has seen the patient.. Continue the home medications and insulin dosing and follow closely. Further recommendations based on the clinical course. Time with Patient: Greater than 30
--- NOTE | 2018-04-08 04:45 | PN ---
PROGRESS NOTE DATE OF SERVICE: 04/07/2018. REASON FOR FOLLOWUP: Right diabetic foot ulcer with secondary cellulitis. INTERVAL HISTORY: The patient is afebrile, has been breathing comfortably. Denies any chest pain or shortness of breath or cough. No abdominal pain or any worsening pain in the right foot area. The patient has lost IV and nursing staff cannot place another IV. for him. EXAM: Blood pressure is 139/58 with pulse of 49. Temperature 97.5. He is 95% on room air. General description is an elderly male up in the bed in no distress. RESPIRATORY SYSTEM: Unlabored breathing. Clear to auscultation anteriorly. HEART: S1, S2. Regular rate and rhythm. Right foot is currently dressed up. No obvious drainage on dressing. LABS: Wound culture finalized with Klebsiella, Staph aureus and Pseudomonas aeruginosa. DIAGNOSTIC IMPRESSION AND PLAN: Patient with diabetic foot ulcer with secondary cellulitis. Culture with multiple pathogen. Antibiotic will be adjusted to p.o. Cipro and oral Keflex as no IV access available. As far as his KEFLEX ALLERGY, which was numbness in the finger, which is not a true allergy and the patient monitored closely. Tolerated Rocephin without any problem. Continue supportive care. MMODL / IJN: [id number] /
[2018-04-08 07:18] LABS: Glucose,Whole Blood 190 mg/dL (75-99)
[2018-04-08 07:34] VITALS: BP 137/66; PULSE 59; RESP 18; TEMP 97.8
[2018-04-08] MEDS: HEPARIN SODIUM,PORCINE 5,000 UNIT/ML 1 ML VIAL SQ SCH ×2 (07:56→15:37)
[2018-04-08] MEDS: CEPHALEXIN 500 MG CAP PO SCH ×2 (07:56→15:37)
[2018-04-08] MEDS: INSULIN ASPART 100 UNIT/ML 1 ML 10 ML VIAL SQ SCH ×2 (07:56→12:15)
[2018-04-08] MEDS: ALLOPURINOL 300 MG TAB PO SCH (07:57)
[2018-04-08] MEDS: CIPROFLOXACIN HCL 500 MG TAB PO SCH (07:57)
[2018-04-08] MEDS: CLOPIDOGREL 75 MG TAB PO SCH (07:57)
[2018-04-08] MEDS: ASPIRIN 81 MG PO SCH (07:57)
[2018-04-08] MEDS: HYDROCHLOROTHIAZIDE 12.5 MG CAP PO SCH (07:57)
[2018-04-08] MEDS: amLODIPine 5 MG TAB PO SCH (07:57)
[2018-04-08] MEDS: LISINOPRIL 10 MG TAB PO SCH (07:57)
[2018-04-08] MEDS: METOLAZONE 2.5 MG TAB PO SCH (07:58)
[2018-04-08] MEDS: PREGABALIN 100 MG CAP PO SCH ×2 (07:58→13:29)
[2018-04-08] MEDS: PANTOPRAZOLE 40 MG TABLET PO SCH (07:58)
[2018-04-08 08:52] LABS: Potassium 4.7 mmol/L (3.5-5.1)
[2018-04-08 12:07] LABS: Glucose,Whole Blood 139 mg/dL (75-99)
--- NOTE | 2018-04-08 16:28 | PN ---
PROGRESS NOTE DATE OF SERVICE: 04/08/2018. REASON FOR FOLLOWUP: Right diabetic foot ulcer secondary to cellulitis. INTERVAL HISTORY: The patient is afebrile. The patient tolerated Keflex this morning without any problem. Denies any chest pain or shortness of breath. No cough. No abdominal pain, diarrhea. Pain to the right foot area. EXAMINATION: Blood pressure 137/66, pulse of 59, temperature 97.8. He is 94% on room air. General description is an elderly male lying in bed in no distress. RESPIRATORY SYSTEM: Unlabored breathing. Clear to auscultation anteriorly. Heart S1, S2. Regular rate and rhythm. ABDOMEN is soft. No tenderness. Right foot currently dressed up. No obvious drainage on the dressing. LABS: BUN of 46, creatinine is 2.21. DIAGNOSTIC IMPRESSION AND PLAN: Patient with right diabetic foot ulcer with secondary cellulitis. Culture positive for multiple pathogens including MSSA Pseudomonas aeruginosa in a patient who has a questionable allergy to Keflex with numbness in the hands. We tried to call the to get an answer as the patient not sure about the reaction. He did take Keflex without any problem. Antibiotic will be adjusted to Ceftin 500 mg twice a day along with Cipro 500 twice a day. Local wound care with Aquacel Silver packing and follow up in the wound center next week. MMODL / IJN: [id number] /
--- NOTE | 2018-04-08 23:26 | DS ---
DISCHARGE SUMMARY FINAL DIAGNOSES: 1. Bilateral lower extremity swelling and lymphedema due to chronic venostasis with a right plantar ulcer with a diabetic foot ulcer with Klebsiella, Providencia, Staphylococcus aureus and Pseudomonas aeruginosa. 2. Mild hyperkalemia. 3. Acute on chronic kidney disease, stage III. 4. Coronary artery disease, stent placement. 5. Diabetes mellitus, type 2, with hyperglycemia. 6. Hyperlipidemia. 7. Hypertension. 8. History of myocardial infarction. 9. History of gout. 10.History of pleural effusion and thoracocentesis. 11.Morbid obesity. 12.Deep venous thrombosis prophylaxis. DISCHARGE DISPOSITION: The patient will be discharged in stable condition with guarded prognosis. Multiple consultants have cleared the patient for discharge. Total time taken 35 minutes. HISTORY OF PRESENT ILLNESS: This 72-year-old gentleman with a past medical history of multiple medical problems was admitted with bilateral leg swelling, lymphedema, worsening of venostasis and diabetic foot ulcer, treated symptomatically. Infectious Disease saw the patient. The culture showed multiple organisms, including Klebsiella oxytoca, Providencia, Staph aureus and Pseudomonas aeruginosa. The patient was treated with multiple antibiotics. Patient improved significantly. On exam, vital signs are stable. CARDIOVASCULAR SYSTEM: S1, S2 muffled. ABDOMEN: Soft. NERVOUS SYSTEM: No focal deficit. Bilateral leg ulcers. DISCHARGE ADVICE AND MEDICATIONS: 1. Diet is consistent carb. 2. Activity limited until followup. 3. Follow up with Dr. Burnett in 2-3 days. 4. Follow up with Dr. Kelly. 5. Follow up with Infectious Disease as mentioned earlier. 6. Zyloprim 300 mg p.o. daily. 7. Norvasc 5 mg p.o. b.i.d. 8. Ecotrin 81 mg b.i.d. p.o. daily. 9. Lipitor 40 mg at bedtime. 10.Ceftin 500 mg p.o. b.i.d. for 10 days. 11.Cipro 500 mg p.o. b.i.d. for 10 days. 12.Plavix 75 mg p.o. daily. 13.Eucerin ointment. 14.Vitamin D2 50,000 daily. 15.Hydralazine 50 mg p.o. t.i.d. 16.Lantus 60 units subcutaneously at bedtime. 17.Accu-Cheks before meals and at bedtime. Results to Dr. Burnett. 18.Zaroxolyn 2.5 mg p.o. daily. 19.Omeprazole 20 mg p.o. daily. 20.Lyrica 100 mg p.o. q.i.d. Once again, the patient will be discharged in stable condition with guarded prognosis. MMELMIRAL / BELLEN: [id number] /
== END 2018-04-08 16:25 | disposition home health service (06) | DRG 638 ==
LOC: EC 12:51 → 4MS4W 15:18
PROVIDERS: ADMIT Hospitalist; ATTEND Hospitalist
DX: E11.628 Type 2 diabetes mellitus with other skin complications (principal); L03.115 Cellulitis of right lower limb; Z68.41 Body mass index [BMI] 40.0-44.9, adult; I13.0 Hypertensive heart and chronic kidney disease with heart failure and stage 1 through stage 4 chronic kidney disease, or unspecified chronic kidney disease; E11.621 Type 2 diabetes mellitus with foot ulcer; N17.9 Acute kidney failure, unspecified; E11.65 Type 2 diabetes mellitus with hyperglycemia; E11.22 Type 2 diabetes mellitus with diabetic chronic kidney disease; I25.2 Old myocardial infarction; N18.3 Chronic kidney disease, stage 3 (moderate); E66.01 Morbid (severe) obesity due to excess calories; E87.5 Hyperkalemia; I50.9 Heart failure, unspecified; B96.5 Pseudomonas (aeruginosa) (mallei) (pseudomallei) as the cause of diseases classified elsewhere; B95.61 Methicillin susceptible Staphylococcus aureus infection as the cause of diseases classified elsewhere; B96.1 Klebsiella pneumoniae [K. pneumoniae] as the cause of diseases classified elsewhere; B96.89 Other specified bacterial agents as the cause of diseases classified elsewhere; L97.519 Non-pressure chronic ulcer of other part of right foot with unspecified severity; I89.0 Lymphedema, not elsewhere classified; I87.8 Other specified disorders of veins; L84 Corns and callosities; R53.1 Weakness; H26.9 Unspecified cataract; I25.10 Atherosclerotic heart disease of native coronary artery without angina pectoris; E78.5 Hyperlipidemia, unspecified; M10.9 Gout, unspecified; Z79.82 Long term (current) use of aspirin; Z95.5 Presence of coronary angioplasty implant and graft; Z79.899 Other long term (current) drug therapy; Z88.1 Allergy status to other antibiotic agents; Z87.891 Personal history of nicotine dependence; M77.30 Calcaneal spur, unspecified foot; Z79.4 Long term (current) use of insulin; Z79.02 Long term (current) use of antithrombotics/antiplatelets; Z87.828 Personal history of other (healed) physical injury and trauma; Z80.9 Family history of malignant neoplasm, unspecified; Z84.1 Family history of disorders of kidney and ureter
CPT/HCPCS: 36415; 71045; 78580; 80048; 80053; 83605; 85025; 85379; 86140; 87040; 87070; 87077; 87186; 87205; 96365; 99284

== ENCOUNTER 2018-07-22 11:07 | Inpatient (IN) | payer OTHER, MEDICARE ==
[2018-07-22] MEDS ORDERED: ACETAMINOPHEN TAB 500 MG TAB PO STA (11:09)
--- NOTE | 2018-07-22 11:13 | ED ---
Altered Mental Status HPI - General Stated Complaint: altered/sepsis Time Seen by Provider: 07/22/18 11:08 Source: patient, EMS, RN notes reviewed, old records reviewed Mode of arrival: EMS - History of Present Illness Initial Comments: This is a 72-year-old male with a history of CHF diabetes peripheral vascular disease who is brought in for evaluation for decreased level of consciousness shortness of breath he had 86% saturation on 3 L of oxygen it went up to 100% on nonrebreather left basilar crackles per paramedics axillary temperature was 100.9 with nausea vomiting diarrhea. Patient was awake and alert oriented 4 today oriented times one or 2. MD Complaint: altered mental status, confusion, decreased responsiveness - Related Data Home Medications Medication Instructions Recorded Confirmed Aspirin EC [Ecotrin Low Dose] 81 mg PO DAILY 04/01/17 07/22/18 Insulin Glargine [Lantus] 10 unit SQ HS 04/01/17 07/22/18 Allopurinol [Zyloprim] 300 mg PO DAILY 04/03/18 07/22/18 Atorvastatin [Lipitor] 80 mg PO DAILY 04/03/18 07/22/18 Clopidogrel [Plavix] 75 mg PO DAILY 04/03/18 07/22/18 Acetaminophen Tab [Tylenol Tab] 650 mg PO Q4H PRN 07/22/18 07/22/18 Cholecalciferol (Vitamin D3) 2,000 unit PO DAILY 07/22/18 07/22/18 [Vitamin D3] Ferrous Sulfate [Feosol] 325 mg PO DAILY 07/22/18 07/22/18 Furosemide [Lasix] 60 mg PO BID@0800,1600 07/22/18 07/22/18 Ipratropium-Albuterol Nebulize 3 ml INHALATION RT-Q6H PRN 07/22/18 07/22/18 [Duoneb 0.5 mg-3 mg/3 ml Soln] Isosorbide Mononitrate ER [Imdur] 60 mg PO DAILY 07/22/18 07/22/18 Pregabalin [Lyrica] 100 mg PO Q6H 07/22/18 07/22/18 Sodium Bicarbonate Tab 650 mg PO TID 07/22/18 07/22/18 Tamsulosin [Flomax] 0.4 mg PO DAILY 07/22/18 07/22/18 cefTAZidime [Fortaz] 1 gm IVPB Q8HR 07/22/18 07/22/18 hydrALAZINE HCL [Apresoline] 25 mg PO TID@0800,1200,1800 07/22/18 07/22/18 traMADol HCL [Ultram] 50 mg PO Q8H PRN 07/22/18 07/22/18 Allergies Allergy/AdvReac Type Severity Reaction Status Date / Time cephalexin [From Keflex] AdvReac Unknown Verified 07/22/18 11:15 Childhood Review of Systems ROS Statement: Those systems with pertinent positive or pertinent negative responses have been documented in the HPI. ROS Other: All systems not noted in ROS Statement are negative. Past Medical History Past Medical History: Coronary Artery Disease (CAD), Diabetes Mellitus, GERD/ Reflux, Hyperlipidemia, Hypertension, Myocardial Infarction ([place]), Osteoarthritis (OA), Skin Disorder Additional Past Medical History / Comment(s): wound on rt foot, uses cane for balance Last Myocardial Infarction Date:: 7-8 yrs ago History of Any Multi-Drug Resistant Organisms: None Reported Past Surgical History: Heart Catheterization With Stent Additional Past Surgical History / Comment(s): one cardiac stent Past Anesthesia/Blood Transfusion Reactions: No Reported Reaction Additional Past Anesthesia/Blood Transfusion Reaction / Comment(s): . Date of Last Stent Placement:: 7-8 yrs ago, Past Psychological History: No Psychological Hx Reported Additional Psychological History / Comment(s): . Smoking Status: Former smoker Past Alcohol Use History: None Reported Additional Past Alcohol Use History / Comment(s): started smoking at age 22(1968 ), quit approx 40 yrs ago. smoked 1 ppd. Past Drug Use History: None Reported - Past Family History Father Family Medical History: Cancer Mother Family Medical History: Renal Disease General Exam - General Exam Comments Initial Comments: This a well-developed well-nourished awake and confused male General appearance: alert, in no apparent distress Head exam: Present: atraumatic, normocephalic, normal inspection Eye exam: Present: normal appearance, PERRL, EOMI. Absent: scleral icterus, conjunctival injection, periorbital swelling ENT exam: Present: mucous membranes dry Neck exam: Present: normal inspection. Absent: tenderness, meningismus, lymphadenopathy Respiratory exam: Present: rales (Slight left crackle in the bases.), decreased breath sounds. Absent: respiratory distress, wheezes, rhonchi, stridor Cardiovascular Exam: Present: regular rate, normal rhythm, normal heart sounds. Absent: systolic murmur, diastolic murmur, rubs, gallop, clicks GI/Abdominal exam: Present: soft, normal bowel sounds. Absent: distended, tenderness, guarding, rebound, rigid Rectal exam: Present: deferred Extremities exam: Present: normal inspection, full ROM, normal capillary refill , pedal edema, other (Basis changes with dressing is applied to the left and right). Absent: tenderness, joint swelling, calf tenderness Back exam: Present: normal inspection Neurological exam: Present: alert, altered, CN II-XII intact Psychiatric exam: Present: normal affect, normal mood Skin exam: Present: warm, dry. Absent: rash Course Vital Signs 07/22/18 07/22/18 07/22/18 11:11 12:21 12:51 Temperature 98.7 F Pulse Rate 70 60 64 Respiratory 16 18 18 Rate Blood Pressure 105/48 108/52 98/50 O2 Sat by Pulse 100 95 95 Oximetry 07/22/18 07/22/18 13:21 13:51 Temperature Pulse Rate 54 L 55 L Respiratory 18 18 Rate Blood Pressure 99/42 99/49 O2 Sat by Pulse 98 95 Oximetry - Reevaluation(s) Reevaluation #1: 07/22/18 14:33 I did perform a rectal examination the patient with female nurse present brown colored stool Hemoccult pending the patient still refuses a catheter for UA assessment Medical Decision Making - Medical Decision Making Patient will be admitted for treatment of pneumonia and anemia. No evidence of active bleeding at this time. - Lab Data Result diagrams: 07/22/18 11:18 07/22/18 11:18 Lab Results 07/22/18 07/22/18 07/22/18 Range/Units 11:18 11:18 11:18 WBC (3.8-10.6) k/uL RBC (4.30-5.90) m/uL Hgb (13.0-17.5) gm/dL Hct (39.0-53.0) % MCV (80.0-100.0) fL MCH (25.0-35.0) pg MCHC (31.0-37.0) g/dL RDW (11.5-15.5) % Plt Count (150-450) k/uL Neutrophils % % Lymphocytes % % Monocytes % % Eosinophils % % Basophils % % Neutrophils # (1.3-7.7) k/uL Lymphocytes # (1.0-4.8) k/uL Monocytes # (0-1.0) k/uL Eosinophils # (0-0.7) k/uL Basophils # (0-0.2) k/uL Hypochromasia Anisocytosis PT (9.0-12.0) sec INR (<1.2) APTT (22.0-30.0) sec Sodium (137-145) mmol/L Potassium (3.5-5.1) mmol/L Chloride (98-107) mmol/L Carbon Dioxide (22-30) mmol/L Anion Gap mmol/L BUN (9-20) mg/dL Creatinine (0.66-1.25) mg/dL Est GFR (CKD-EPI)AfAm (>60 ml/min/1.73 sqM) Est GFR (CKD-EPI)NonAf (>60 ml/min/1.73 sqM) Glucose (74-99) mg/dL Plasma Lactic Acid Garrick (0.7-2.0) mmol/L Calcium (8.4-10.2) mg/dL Magnesium (1.6-2.3) mg/dL Total Bilirubin (0.2-1.3) mg/dL AST (17-59) U/L ALT (21-72) U/L Alkaline Phosphatase (38-126) U/L Ammonia 17 (<30) umol/L Total Creatine Kinase <20 L (55-170) U/L CK-MB (CK-2) 2.1 (0.0-2.4) ng/mL CK-MB (CK-2) Rel Index Troponin I <0.012 (0.000-0.034) ng/mL NT-Pro-B Natriuret Pep 7000 pg/mL Total Protein (6.3-8.2) g/dL Albumin (3.5-5.0) g/dL Stool Occult Blood (Negative) Blood Type Blood Type Recheck Antibody Screen Spec Expiration Date 07/22/18 07/22/18 07/22/18 Range/Units 11:18 11:18 11:18 WBC 12.3 H (3.8-10.6) k/uL RBC 1.82 L (4.30-5.90) m/uL Hgb 4.9 L* D (13.0-17.5) gm/dL Hct 16.2 L* (39.0-53.0) % MCV 89.1 (80.0-100.0) fL MCH 27.0 (25.0-35.0) pg MCHC 30.3 L (31.0-37.0) g/dL RDW 20.3 H (11.5-15.5) % Plt Count 158 (150-450) k/uL Neutrophils % 84 % Lymphocytes % 10 % Monocytes % 4 % Eosinophils % 0 % Basophils % 0 % Neutrophils # 10.4 H (1.3-7.7) k/uL Lymphocytes # 1.2 (1.0-4.8) k/uL Monocytes # 0.5 (0-1.0) k/uL Eosinophils # 0.0 (0-0.7) k/uL Basophils # 0.0 (0-0.2) k/uL Hypochromasia Marked Anisocytosis Moderate PT (9.0-12.0) sec INR (<1.2) APTT (22.0-30.0) sec Sodium 146 H (137-145) mmol/L Potassium 5.1 (3.5-5.1) mmol/L Chloride 119 H (98-107) mmol/L Carbon Dioxide 18 L (22-30) mmol/L Anion Gap 9 mmol/L BUN 40 H (9-20) mg/dL Creatinine 2.36 H (0.66-1.25) mg/dL Est GFR (CKD-EPI)AfAm 31 (>60 ml/min/1.73 sqM) Est GFR (CKD-EPI)NonAf 27 (>60 ml/min/1.73 sqM) Glucose 67 L (74-99) mg/dL Plasma Lactic Acid Garrick 0.6 L (0.7-2.0) mmol/L Calcium 8.1 L (8.4-10.2) mg/dL Magnesium 1.7 (1.6-2.3) mg/dL Total Bilirubin 0.3 (0.2-1.3) mg/dL AST 6 L (17-59) U/L ALT 15 L (21-72) U/L Alkaline Phosphatase 115 (38-126) U/L Ammonia (<30) umol/L Total Creatine Kinase (55-170) U/L CK-MB (CK-2) (0.0-2.4) ng/mL CK-MB (CK-2) Rel Index Troponin I (0.000-0.034) ng/mL NT-Pro-B Natriuret Pep pg/mL Total Protein 6.2 L (6.3-8.2) g/dL Albumin 2.5 L (3.5-5.0) g/dL Stool Occult Blood (Negative) Blood Type Blood Type Recheck Antibody Screen Spec Expiration Date 07/22/18 07/22/18 07/22/18 Range/Units 11:18 11: 12:45 WBC (3.8-10.6) k/uL RBC (4.30-5.90) m/uL Hgb (13.0-17.5) gm/dL Hct (39.0-53.0) % MCV (80.0-100.0) fL MCH (25.0-35.0) pg MCHC (31.0-37.0) g/dL RDW (11.5-15.5) % Plt Count (150-450) k/uL Neutrophils % % Lymphocytes % % Monocytes % % Eosinophils % % Basophils % % Neutrophils # (1.3-7.7) k/uL Lymphocytes # (1.0-4.8) k/uL Monocytes # (0-1.0) k/uL Eosinophils # (0-0.7) k/uL Basophils # (0-0.2) k/uL Hypochromasia Anisocytosis PT 11.0 (9.0-12.0) sec INR 1.1 (<1.2) APTT 28.3 (22.0-30.0) sec Sodium (137-145) mmol/L Potassium (3.5-5.1) mmol/L Chloride (98-107) mmol/L Carbon Dioxide (22-30) mmol/L Anion Gap mmol/L BUN (9-20) mg/dL Creatinine (0.66-1.25) mg/dL Est GFR (CKD-EPI)AfAm (>60 ml/min/1.73 sqM) Est GFR (CKD-EPI)NonAf (>60 ml/min/1.73 sqM) Glucose (74-99) mg/dL Plasma Lactic Acid Garrick (0.7-2.0) mmol/L Calcium (8.4-10.2) mg/dL Magnesium (1.6-2.3) mg/dL Total Bilirubin (0.2-1.3) mg/dL AST (17-59) U/L ALT (21-72) U/L Alkaline Phosphatase (38-126) U/L Ammonia (<30) umol/L Total Creatine Kinase (55-170) U/L CK-MB (CK-2) (0.0-2.4) ng/mL CK-MB (CK-2) Rel Index Troponin I (0.000-0.034) ng/mL NT-Pro-B Natriuret Pep pg/mL Total Protein (6.3-8.2) g/dL Albumin (3.5-5.0) g/dL Stool Occult Blood Negative (Negative) Blood Type O Negative Blood Type Recheck CABO Indicated Antibody Screen NEGATIVE Spec Expiration Date 07/25/18 8719 - EKG Data -: EKG Interpreted by Me (EKG shows evidence of sinus rhythm with some A-V dissociation rate was 65 ) - Radiology Data Radiology results: report reviewed (X-ray does show evidence of pneumonia right lower lobe, CAT scan shows no acute findings), image reviewed Critical Care Time Critical Care Time: Yes Critical Care Time: 31 minutes of critical care time which includes initial presentation with history physical labs x-rays several reevaluation the patient discussed with paramedics who brought the patient monitoring of the EMS run. Review of old charting discussed with the admitting physician admission orders and documentation of the above Disposition Clinical Impression: Right lower lobe pneumonia, Anemia, Metabolic encephalopathy, Renal insufficiency syndrome Disposition: ADMITTED IP TO THIS [facility] Condition: Stable Referrals: Shon Horner MD [Primary Care Provider] - 1-2 days
[2018-07-22 11:36] LABS: Anisocytosis Moderate; Basophils % (A) 0 %; Eosinophils % (A) 0 %; Hypochromasia Marked; Lymphocytes # (A) 1.2 k/uL (1.0-4.8); Lymphocytes % (A) 10 %; MCHC 30.3 g/dL (31.0-37.0); MCV 89.1 fL (80.0-100.0); Mean Platelet Volume 7.5; Monocytes # (A) 0.5 k/uL (0-1.0); Monocytes % (A) 4 %; Neutrophils # (A) 10.4 k/uL (1.3-7.7); Neutrophils % (A) 84 %; Platelet Count 158 k/uL (150-450); RBC 1.82 m/uL (4.30-5.90); RDW 20.3 % (11.5-15.5); WBC 12.3 k/uL (3.8-10.6)
[2018-07-22 11:53] LABS: HGB 4.9 gm/dL (13.0-17.5)
[2018-07-22 11:54] LABS: Albumin 2.5 g/dL (3.5-5.0); Calcium 8.1 mg/dL (8.4-10.2); HCT 16.2 % (39.0-53.0); Magnesium 1.7 mg/dL (1.6-2.3); Potassium 5.1 mmol/L (3.5-5.1); Total Bilirubin 0.3 mg/dL (0.2-1.3); Total Protein 6.2 g/dL (6.3-8.2)
--- NOTE | 2018-07-22 12:09 | XR ---
EXAMINATION TYPE: XR chest 1V portable DATE OF EXAM: 07/22/2018 COMPARISON: Prior chest x-ray dated 04/07/2018 HISTORY: Fever and altered mental status, abnormal chest x-ray TECHNIQUE: Single frontal view of the chest is obtained. FINDINGS: Heart remains enlarged. Right-sided PICC line shows the distal tip overlying the cavoatria l junction level. No evident pneumothorax. There is increased basilar density in the right, the hemid iaphragm is obscured. Central vascularity mildly prominent. There are overlying cardiac leads. IMPRESSION: There may be right lower lobe pneumonia versus atelectasis or edema and associated effus ion. Cardiomegaly. Rotated expiratory exam. Follow-up as indicated.
[2018-07-22 12:10] LABS: Creatine Kinase <20 U/L (55-170); INR 1.1 (<1.2); Partial Thromboplastin Time 28.3 sec (22.0-30.0)
--- NOTE | 2018-07-22 12:14 | CT ---
EXAMINATION TYPE: CT brain wo con DATE OF EXAM: 07/22/2018 COMPARISON: None HISTORY: Pain Automated exposure control for dose reduction was used. FINDINGS: Changes of chronic sinusitis. Calvarium intact. Mild to moderate generalized degenerative change. Faint periventricular low attenuation is nonspecifi c. No acute hemorrhage or mass effect. Area of low attenuation involving the internal capsule bilater ally may been the basis of previous ischemia. Intracranial atherosclerotic changes noted. There is pr ominent CSF space in the posterior fossa which could been the basis of arachnoid cyst versus giant ci sterna magna. IMPRESSION: 1. DEGENERATIVE AND NONSPECIFIC WHITE MATTER CHANGES MOST TYPICAL REMOTE MICROVASCULAR ISCHEMIA. IF T HERE IS CONCERN FOR ACUTE ISCHEMIA CORRELATE WITH MRI CLINICALLY WARRANTED. 2. A PROMINENT POSTERIOR FOSSA CSF SPACE. DIFFERENTIAL DIAGNOSIS INCLUDES ARACHNOID CYST OR GIANT CI STERNA MAGNA.
[2018-07-22 12:21] LABS: Creatine Kinase MB 2.1 ng/mL (0.0-2.4); Troponin I <0.012 ng/mL (0.000-0.034)
[2018-07-22] MEDS ORDERED: LEVOFLOXACIN 750MG-D5W PMX 750 MG in DEXTROSE/WATER 1 150ML.BAG IVPB STA (14:04)
[2018-07-22] MEDS ORDERED: PNEUMONIA PROTOCOL UTILIZED 1 EACH MISC PO PRN (14:35)
[2018-07-22] MEDS ORDERED: ACETAMINOPHEN TAB 325 MG TAB PO PRN (14:38)
[2018-07-22] MEDS ORDERED: FUROSEMIDE 10 MG/ML 4 ML VIAL IV STA (14:39)
[2018-07-22] MEDS: IPRATROPIUM-ALBUTEROL 3 ML NEB INHALATION SCH ×2 (17:00→21:36)
[2018-07-22] MEDS ORDERED: VANCOMYCIN IV PER PHARMACY 1 EACH MISC MISCELLANE PRN (17:30)
--- NOTE | 2018-07-22 17:37 | P.HPIM ---
History of Present Illness H&P Date: 07/22/18 Chief Complaint: Fever, altered mental status This is a 72-year-old gentleman who is well-known to our service who presented emergency department from [facility]. The patient was found to have a fever and altered mental status. The patient also had hypoxia with O2 saturation 86% . The patient did have a temperature of 100.9. He is awake and alert although he is somewhat combative. His and son are present as well. The patient has a complicated history of peripheral vascular disease with cellulitis and frequent sepsis. He also has a history of third-degree heart block and has been unable to have a pacemaker placed due to his recurrent sepsis and infections. The patient was temporarily on hemodialysis but per his was told that he doesn't need dialysis anymore. He has been following with wound care and infectious disease at [facility]. He is also been following with vascular surgery. As well as cardiology. In the emergency department the patient was found to have a hemoglobin of 7.1 at 7:30 this morning. Upon recheck at 11:20 AM he was found to have a hemoglobin of 4.9. The patient is receiving packed red blood cell transfusion at this time. His vital signs have been stable. The patient is chronically anemic with a hemoglobin between 10 and 12. The patient has been afebrile in the emergency department. He does have a white blood cell count 12. The patient's CT of the brain showed nonspecific white matter changes, prominent posterior fossa CSF space differential includes arachnoid cyst or giant cisterna magna. The patient's chest x-ray shows right lower lobe infiltrate, pneumonia versus atelectasis or edema. Possible pleural effusion. Per the patient's , his heal has been bleeding quite profusely. She states "there is probably 2 pints of blood in the passenger seat of my car right now." Review of Systems All systems: negative Past Medical History Past Medical History: Coronary Artery Disease (CAD), Heart Failure, Diabetes Mellitus, GERD/Reflux, Hyperlipidemia, Hypertension, Myocardial Infarction (RI) , Osteoarthritis (OA), Renal Disease, Skin Disorder Additional Past Medical History / Comment(s): IDDM type II, peripheral neuropathy bilateral hands/feet, PVD with chronic bilateral foot wounds/mrsa per [facility] transfer information, wears bilateral mediboots, spouse states she has been told at [facility] he needs a R leg amputation but she was also told at [facility] that he needs a pacemaker first so nothing was done, bilateral lower leg cellulitis, bilateral lower leg edema, sacral ulcer, chronic kidney disease stage III with recent dialysis at [facility]-3 weeks ago, pleural effusion with thoracentesis (laterallity unknown), gout bilateral feet, cataracts in bilateral eyes-vision is poor-sees shapes only. Last Myocardial Infarction Date:: 2009 History of Any Multi-Drug Resistant Organisms: MRSA Date of last positivie culture/infection: unkn MDRO Source:: bilateral feet [facility]-see note Past Surgical History: Heart Catheterization With Stent Additional Past Surgical History / Comment(s): PCI with stent 2009, R arm double picc line Past Anesthesia/Blood Transfusion Reactions: No Reported Reaction Additional Past Anesthesia/Blood Transfusion Reaction / Comment(s): . Date of Last Stent Placement:: 2009 Past Psychological History: No Psychological Hx Reported Additional Psychological History / Comment(s): Pt currently resides at [facility]. He has been receiving rehab and is up with a walker. He is an [employer] . 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 Smoking Status: Former smoker Past Alcohol Use History: None Reported Additional Past Alcohol Use History / Comment(s): Pt started smoking in 1967 and quit in 1975 Past Drug Use History: None Reported - Past Family History Father Family Medical History: Cancer Additional Family Medical History / Comment(s): Father had cancer, pt's spouse cannot recall type. Mother Family Medical History: Renal Disease Medications and Allergies Home Medications Medication Instructions Recorded Confirmed Type Aspirin EC [Ecotrin Low Dose] 81 mg PO DAILY 04/01/17 07/22/18 History Insulin Glargine [Lantus] 10 unit SQ HS 04/01/17 07/22/18 History Allopurinol [Zyloprim] 300 mg PO DAILY 04/03/18 07/22/18 History Atorvastatin [Lipitor] 80 mg PO DAILY 04/03/18 07/22/18 History Clopidogrel [Plavix] 75 mg PO DAILY 04/03/18 07/22/18 History Acetaminophen Tab [Tylenol Tab] 650 mg PO Q4H PRN 07/22/18 07/22/18 History Cholecalciferol (Vitamin D3) 2,000 unit PO DAILY 07/22/18 07/22/18 History [Vitamin D3] Ferrous Sulfate [Feosol] 325 mg PO DAILY 07/22/18 07/22/18 History Furosemide [Lasix] 60 mg PO BID@0800,1600 07/22/18 07/22/18 History Ipratropium-Albuterol Nebulize 3 ml INHALATION RT-Q6H PRN 07/22/18 07/22/18 History [Duoneb 0.5 mg-3 mg/3 ml Soln] Isosorbide Mononitrate ER [Imdur] 60 mg PO DAILY 07/22/18 07/22/18 History Pregabalin [Lyrica] 100 mg PO Q6H 07/22/18 07/22/18 History Sodium Bicarbonate Tab 650 mg PO TID 07/22/18 07/22/18 History Tamsulosin [Flomax] 0.4 mg PO DAILY 07/22/18 07/22/18 History cefTAZidime [Fortaz] 1 gm IVPB Q8HR 07/22/18 07/22/18 History hydrALAZINE HCL [Apresoline] 25 mg PO TID@0800,1200,1800 07/22/18 07/22/18 History traMADol HCL [Ultram] 50 mg PO Q8H PRN 07/22/18 07/22/18 History Allergies Allergy/AdvReac Type Severity Reaction Status Date / Time cephalexin [From Keflex] AdvReac Unknown Verified 07/22/18 11:15 Childhood Physical Exam Osteopathic Statement: *. No significant issues noted on an osteopathic structural exam other than those noted in the History and Physical/Consult. Vitals: Vital Signs Temp Pulse Resp BP Pulse Ox 07/22/18 16:50 97.5 F L 66 18 128/68 07/22/18 16:20 97.8 F 74 18 128/46 96 07/22/18 16:10 97.6 F 70 14 127/53 91 L 07/22/18 13:51 55 L 18 99/49 95 07/22/18 13:21 54 L 18 99/42 98 07/22/18 12:51 64 18 98/50 95 07/22/18 12:21 60 18 108/52 95 07/22/18 11:11 98.7 F 70 16 105/48 100 Intake and Output 07/22/18 07/22/18 07/22/18 06:59 14:59 22:59 Intake Total 0 Balance 0 Intake: Blood Product 0 Rc Pheresis As-3 Unit 0 [id number] Other: Weight 117.934 kg Gen.: Patient is alert and oriented to time and place. He is somewhat combative Cardiovascular: Bradycardic, regular rate and rhythm, S1/S2 Lungs: Coarse breath sounds bilaterally Abdomen: Soft nontender nondistended positive bowel sounds Extremities: Chronic venous stasis, lymphedema, cellulitis, lower extremity wounds Results CBC & Chem 7: 07/22/18 11:18 07/22/18 11:18 Labs: Abnormal Lab Results - Last 24 Hours (Table) 07/22/18 07/22/18 07/22/18 Range/Units 11:18 11:18 11:18 WBC 12.3 H (3.8-10.6) k/uL RBC 1.82 L (4.30-5.90) m/uL Hgb 4.9 L* D (13.0-17.5) gm/dL Hct 16.2 L* (39.0-53.0) % MCHC 30.3 L (31.0-37.0) g/dL RDW 20.3 H (11.5-15.5) % Neutrophils # 10.4 H (1.3-7.7) k/uL Sodium 146 H (137-145) mmol/L Chloride 119 H (98-107) mmol/L Carbon Dioxide 18 L (22-30) mmol/L BUN 40 H (9-20) mg/dL Creatinine 2.36 H (0.66-1.25) mg/dL Glucose 67 L (74-99) mg/dL Plasma Lactic Acid Garrick (0.7-2.0) mmol/L Calcium 8.1 L (8.4-10.2) mg/dL AST 6 L (17-59) U/L ALT 15 L (21-72) U/L Total Creatine Kinase <20 L (55-170) U/L Total Protein 6.2 L (6.3-8.2) g/dL Albumin 2.5 L (3.5-5.0) g/dL Crossmatch 07/22/18 07/22/18 Range/Units 11:18 11:18 WBC (3.8-10.6) k/uL RBC (4.30-5.90) m/uL Hgb (13.0-17.5) gm/dL Hct (39.0-53.0) % MCHC (31.0-37.0) g/dL RDW (11.5-15.5) % Neutrophils # (1.3-7.7) k/uL Sodium (137-145) mmol/L Chloride (98-107) mmol/L Carbon Dioxide (22-30) mmol/L BUN (9-20) mg/dL Creatinine (0.66-1.25) mg/dL Glucose (74-99) mg/dL Plasma Lactic Acid Garrick 0.6 L (0.7-2.0) mmol/L Calcium (8.4-10.2) mg/dL AST (17-59) U/L ALT (21-72) U/L Total Creatine Kinase (55-170) U/L Total Protein (6.3-8.2) g/dL Albumin (3.5-5.0) g/dL Crossmatch See Detail Chest x-ray: report reviewed, image reviewed CT Scan - head: report reviewed Thrombosis Risk Factor Assmnt - DVT/VTE Prophylaxis DVT/VTE Prophylaxis: Mechanical Prophylaxis ordered - Choose All That Apply Any of the Below Risk Factors Present?: Yes Each Factor Represents 1 point: Medical pt on bed rest, Obesity (BMI >25), Serious lung disease incl. pneumonia (< 1month) Other Risk Factors: Yes Each Risk Factor Represents 2 Points: Age 61-74 years, Patient confined to bed Other congenital or acquired thrombophilia - If yes, enter type in comment: No Thrombosis Risk Factor Assessment Total Risk Factor Score: 7 Thrombosis Risk Factor Assessment Level: High Risk Assessment and Plan Assessment: Acute blood loss anemia on anemia of chronic disease, likely from bleeding lower extremity wound Acute encephalopathy Leukocytosis Right lower lobe infiltrate: CHF versus effusion versus pneumonia Hypernatremia History 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, baseline creatinine 1.8-2.6 AECHF, diastolic, EF 55-60% Lower extremity cellulitis, lymphedema, and PVD - history of MRSA, pseudomonas, E coli Chronic diabetic ulcer of right foot Diabetic neuropathy and DM2 uncontrolled Hypertension Gout Pulmonary hypertension, mild RVSP 43 mmHg Obesity Dyslipidemia Multiple recurrent hospitalizations for sepsis Suspect underlying C[place]/OHS Moderate PCM O2 to maintain saturation > or = 90% Transfuse 2 units PRBC now Agree with Lasix BID Blood, urine, sputum cultures Discussed with ID, we will initiate reece and behzad Nephrology, ID, vascular surgery to be consulted CT chest without contrast Lactic acid 0.6 Hold IVF Consult dietitian Continue patient's home medications Per cardiology team and HF, patient is not a candidate for PPM, he is asymptomatic, continue to monitor Continue Levemir and Novolog sliding scale AM CXR GI and DVT prophylaxis: Protonix and SCDs Monitor urine output and renal function Place gongora catheter Incentive spirometry and pulmonary hygiene Check FOB, monitor for signs/symptoms of bleeding - vascular to assess RLE wound Consult PT and OT Patient seen and examined covering for Dr. Horner as well as for ICU/Critical care management CCT 67 min
[2018-07-22] MEDS ORDERED: VANCOMYCIN 2,000 MG in SODIUM CHLORIDE 0.9% 500 ML 500 ML IVPB ONE (18:30)
--- NOTE | 2018-07-22 20:03 | CT ---
EXAMINATION TYPE: CT chest wo con DATE OF EXAM: 07/22/2018 COMPARISON: Chest radiograph 07/22/2018 11:44 AM HISTORY: RLL pna versus effusion versus atelectasis CT DLP: 607.3 mGycm. Automated Exposure Control for Dose Reduction was Utilized. TECHNIQUE: CT scan of the thorax is performed without IV contrast. FINDINGS: Upper extremity are in the field of view and cause streak artifact which limits visualizati on somewhat. AIRWAYS: Unremarkable. PLEURAL SPACES AND LUNG PARENCHYMA: On the right, the dependent pleural effusion occupies two thirds of the right hemithorax, with asso ciated passive atelectasis of two thirds of the right lung parenchyma. The inflated anterior lung par enchyma is clear. On the left, the pleural spaces negative and the left lung is clear. SOFT TISSUES: There is mild/moderate cardiomegaly with panchamber enlargement. Coronary calcification s evident, with suggestion of mid LAD stent. No pericardial effusion. Nonaneurysmal atherosclerotic t horacic aortic changes noted. A few scattered subcentimeter lymph nodes are noted within the anterior mediastinum and middle mediastinum; nonspecific. OSSEOUS STRUCTURES: Unremarkable. OTHER: No extrathoracic incidentals. IMPRESSION: LARGE RIGHT PLEURAL EFFUSION WITH ASSOCIATED PASSIVE ATELECTASIS.
[2018-07-22] MEDS: INSULIN ASPART 100 UNIT/ML 1 ML 10 ML VIAL SQ SCH (22:00)
[2018-07-22] MEDS: PIPERACILLIN-TAZOBACTAM 3.375 GM in DEXTROSE/WATER 1 50ML.BAG IVPB SCH (22:02)
[2018-07-22 22:18] LABS: Glucose,Whole Blood 83 mg/dL (75-99)
[2018-07-23 00:14] LABS: Anisocytosis Slight; HCT 26.2 % (39.0-53.0); Hypochromasia Moderate; MCH 28.5 pg (25.0-35.0); MCHC 32.4 g/dL (31.0-37.0); MCV 88.1 fL (80.0-100.0); Mean Platelet Volume 7.9; Platelet Count 135 k/uL (150-450); Poikilocytosis Slight; RBC 2.97 m/uL (4.30-5.90); RDW 19.5 % (11.5-15.5); WBC 9.9 k/uL (3.8-10.6)
[2018-07-23 00:16] LABS: HGB 8.5 gm/dL (13.0-17.5)
[2018-07-23] MEDS: traMADol 50 MG TAB PO PRN (03:46)
[2018-07-23] MEDS: FUROSEMIDE 20 MG TAB PO SCH ×3 (03:55→19:21)
[2018-07-23] MEDS: SODIUM CHLORIDE 0.9% 1,000 ML IV SCH (05:55)
[2018-07-23] MEDS: INSULIN ASPART 100 UNIT/ML 1 ML 10 ML VIAL SQ SCH ×5 (05:55→21:33)
[2018-07-23] MEDS: SODIUM BICARBONATE TAB 650 MG TAB PO SCH ×5 (05:55→21:39)
[2018-07-23] MEDS: IPRATROPIUM-ALBUTEROL 3 ML NEB INHALATION SCH ×6 (05:56→20:04)
[2018-07-23] MEDS: hydrALAZINE HCL 25 MG TAB PO SCH ×4 (05:56→19:22)
[2018-07-23] MEDS: PREGABALIN 100 MG CAP PO SCH ×6 (05:56→22:34)
[2018-07-23] MEDS: INSULIN DETEMIR 100 UNIT/ML 10 ML VIAL SQ SCH ×2 (05:56→21:33)
[2018-07-23] MEDS: PIPERACILLIN-TAZOBACTAM 3.375 GM in DEXTROSE/WATER 1 50ML.BAG IVPB SCH ×4 (05:57→22:34)
[2018-07-23 06:26] LABS: Glucose,Whole Blood 98 mg/dL (75-99)
[2018-07-23] MEDS: PANTOPRAZOLE 40 MG TABLET PO SCH (06:36)
--- NOTE | 2018-07-23 06:37 | CONS ---
CONSULTATION DATE OF SERVICE: 07/22/2018 REASON FOR CONSULTATION: 1. Pneumonia. 2. Bilateral diabetic foot wound. HISTORY OF PRESENT ILLNESS: The patient is a 72-year-old male who recently did have extended stay at the [facility] where the patient did have bilateral lower extremity venous stasis ulcer with wound to the right heel area with concern for possible underlying osteomyelitis. Culture grew positive for MRSA, Pseudomonas aeruginosa and E. coli and the patient currently has been on IV vancomycin and Fortaz which the patient has been receiving at the [facility]. The patient apparently did have fever of 100.9 axillary and the patient noticed to have a decreased level of consciousness, shortness of breath with low O2 saturation of 76% on 3 L nasal cannula for with the patient has been brought to the [facility] ER for further evaluation of the same. On arrival to the ER, the patient did have a chest x-ray that shows right lower lobe pneumonia versus atelectasis or edema associated effusion. Patient though had a fever of 100.9 by the EMS, no fever has been recorded here at the hospital. Patient's white count was slightly elevated of 12.3 though his hemoglobin was 4.9. Creatinine was 2.36. The patient subsequently has been started on vancomycin. Infectious Disease was consulted for further recommendation regarding antibiotic therapy. When asked specifically for the patient, he denies significant chest pain or shortness of breath. He did have some cough but not bringing any sputum. Denies having any choking on the food. No nausea, no vomiting and denies having any worsening pain in his bilateral legs wound area, which seems to be currently drying out. REVIEW OF SYSTEMS: CONSTITUTIONAL: Positive for weakness, but no high-grade fever. EYES: No complaint. ENT: No complaint. RESPIRATORY: As per HPI. CARDIOVASCULAR: As per HPI. GENITOURINARY: No complaint. GASTROINTESTINAL: No complaint. MUSCULOSKELETAL: No complaint. INTEGUMENTARY: As per HPI. PSYCHOLOGICAL: No complaint. ENDOCRINE: No complaint. NEUROLOGIC: No complaint. PAST MEDICAL HISTORY: Diabetes mellitus, hypertension, hyperlipidemia, coronary artery disease, morbid obesity, diabetic foot ulcer with secondary MRSA and Pseudomonas infection. PAST SURGICAL HISTORY: PTCA with stent, debridement of right foot and left foot wound. SOCIAL HISTORY: Remote history of smoking. No drinking or drug use. FAMILY HISTORY: Father history of cancer. Mother history of renal disease. ALLERGIES: CEPHALEXIN however has tolerate ceftriaxone as well as Fortaz without any problem. MEDICATIONS: Medications currently include the patient is on Tylenol, DuoNeb, Zyloprim, aspirin, Lipitor, vitamin D3, Plavix, iron sulfate, Lasix, hydralazine, NovoLog, Levemir , Imdur, Protonix, Zosyn, Lyrica, Flomax and vancomycin pharmacy to dose. PHYSICAL EXAMINATION: On examination, blood pressure is 107/43 with a pulse of 51, temperature 97.3. General description is an elderly male lying in bed in no distress. No tachypnea or accessory muscle of respiration use. HEENT examination shows pallor, no scleral icterus. Oral mucous membrane is dry. No pharyngeal erythema or thrush. NECK: Trachea central. No thyromegaly. LUNGS: Unlabored breathing with decreased breath sounds in the bases. No wheeze or crackle. HEART: S1, S2. Regular rate and rhythm. ABDOMEN: Soft, no tenderness. No guarding or rigidity. Extremities with some chronic swelling though no redness was noticed. No drainage on the dressing or any foul smelling. NEUROLOGICAL: Patient is awake, alert, oriented x2. Mood and affect normal. LABS: Hemoglobin is 4.9, white count 12.3 with a BUN of 40, creatinine is 2.36. Liver enzymes are normal. Stool for occult blood has been negative. Chest x-ray report as mentioned above. DIAGNOSTIC IMPRESSION AND PLAN: Patient admitted to the hospital with fever, hypoxemia in a patient who recently did have extended stay at the [facility] and was treated for diabetic foot ulcers with secondary infection with methicillin-resistant Staphylococcus aureus and Pseudomonas aeruginosa with concern for possible right lower lobe pneumonia, question of possible aspiration etiology. PLAN: 1. We will try to obtain sputum for Gram stain culture and sensitivity. 2. Antibiotic in the form of vancomycin pharmacy to dose. Will watch kidney function and Vanco trough closely. Add Zosyn 3.375gm q.8 hours. 3. Local wound care to the leg wound with Aquacel silver dressing. 4. We will follow up on clinical condition and culture to further adjust medication if needed. Plan of care was discussed in detail with the admitting physician. MMODL / IJN: [id number] / [facility] CENTERManjeet
[2018-07-23 08:14] LABS: Anisocytosis Slight; Basophils % (A) 0 %; Eosinophils % (A) 0 %; HCT 28.3 % (39.0-53.0); HGB 8.6 gm/dL (13.0-17.5); Hypochromasia Marked; Lymphocytes # (A) 1.1 k/uL (1.0-4.8); Lymphocytes % (A) 12 %; MCH 27.4 pg (25.0-35.0); MCHC 30.5 g/dL (31.0-37.0); Mean Platelet Volume 8.2; Monocytes # (A) 0.4 k/uL (0-1.0); Monocytes % (A) 4 %; Neutrophils # (A) 6.9 k/uL (1.3-7.7); Neutrophils % (A) 82 %; Platelet Count 135 k/uL (150-450); Poikilocytosis Slight; RBC 3.15 m/uL (4.30-5.90); RDW 19.7 % (11.5-15.5); WBC 8.4 k/uL (3.8-10.6)
[2018-07-23 08:26] LABS: Albumin 2.5 g/dL (3.5-5.0); Calcium 8.1 mg/dL (8.4-10.2); Potassium 5.5 mmol/L (3.5-5.1); Total Bilirubin 0.3 mg/dL (0.2-1.3); Total Protein 6.3 g/dL (6.3-8.2)
[2018-07-23 08:28] LABS: INR 1.2 (<1.2); Partial Thromboplastin Time 29.9 sec (22.0-30.0); Prothrombin Time 11.6 sec (9.0-12.0)
--- NOTE | 2018-07-23 10:08 | XR ---
EXAMINATION TYPE: XR chest 1V portable DATE OF EXAM: 07/23/2018 COMPARISON: 07/22/2018 HISTORY: Abnormal x-ray TECHNIQUE: Single frontal view of the chest is obtained. FINDINGS: There is bilateral consolidation and pleural effusion on the right. Right-sided PICC line noted. Heart is enlarged. No pneumothorax. Mild interstitial prominence. IMPRESSION: 1. Pleural-parenchymal changes are stable. Correlate for pneumonia versus CHF.
[2018-07-23] MEDS: DEXTROSE 5% IN WATER 1,000 ML with SODIUM BICARB (1 MEQ/ML) 150 ML IV SCH (10:17)
[2018-07-23] MEDS: ALLOPURINOL 300 MG TAB PO SCH (11:50)
[2018-07-23] MEDS: ASPIRIN 81 MG PO SCH (11:50)
[2018-07-23] MEDS: ATORVASTATIN 80 MG TAB PO SCH (11:50)
[2018-07-23] MEDS: ISOSORBIDE MONONITRATE ER 60 MG TAB.ER.24H PO SCH (11:51)
[2018-07-23] MEDS: CLOPIDOGREL 75 MG TAB PO SCH (11:51)
[2018-07-23] MEDS: FERROUS SULFATE 325 MG TAB PO SCH (11:51)
[2018-07-23] MEDS: CHOLECALCIFEROL 1,000 UNIT TAB PO SCH (11:51)
[2018-07-23] MEDS: TAMSULOSIN 0.4 MG CAP.ER.24H PO SCH (11:52)
--- NOTE | 2018-07-23 12:17 | P.PN ---
<Gayathri Fritz E - Last Filed: 07/23/18 15:22> Subjective Progress Note Date: 07/23/18 HPI: This is a 72-year-old gentleman who is well-known to our service who presented emergency department from [facility]. The patient was found to have a fever and altered mental status. The patient also had hypoxia with O2 saturation 86% . The patient did have a temperature of 100.9. He is awake and alert although he is somewhat combative. His and son are present as well. The patient has a complicated history of peripheral vascular disease with cellulitis and frequent sepsis. He also has a history of third-degree heart block and has been unable to have a pacemaker placed due to his recurrent sepsis and infections. The patient was temporarily on hemodialysis but per his was told that he doesn't need dialysis anymore. He has been following with wound care and infectious disease at [facility]. He is also been following with vascular surgery. As well as cardiology. In the emergency department the patient was found to have a hemoglobin of 7.1 at 7:30 this morning. Upon recheck at 11:20 AM he was found to have a hemoglobin of 4.9. The patient is receiving packed red blood cell transfusion at this time. His vital signs have been stable. The patient is chronically anemic with a hemoglobin between 10 and 12. The patient has been afebrile in the emergency department. He does have a white blood cell count 12. The patient's CT of the brain showed nonspecific white matter changes, prominent posterior fossa CSF space differential includes arachnoid cyst or giant cisterna magna. The patient's chest x-ray shows right lower lobe infiltrate, pneumonia versus atelectasis or edema. Possible pleural effusion. Per the patient's , his heal has been bleeding quite profusely. She states "there is probably 2 pints of blood in the passenger seat of my car right now." Interval history: 07/23/2018patient is being seen examined and evaluated today on rounds. He is resting up in bed on 2 L of supplemental oxygen via nasal cannula. did receive a total of 2 units of packed red blood cells yesterday. He did have labs obtained this morning his hemoglobin did improve to 8.6, his hematocrit is now 28.3. His sodium is 146, potassium is 5.5, chloride is 119, BUN is 47 and creatinine is 2.9. Nephrology is seeing the patient as well as infectious disease. Gongora catheter will be inserted and urinalysis will be obtained. Still awaiting sputum culture. CT of the chest yesterday was reviewed and does show a large right-sided pleural effusion with associated passive atelectasis. He continues to have confusion intermittently. He was too tired and refused to eat this morning. We will have the patient undergo a swallow evaluation. Unsure on guardianship status will find out from the as well as medical [place]. Objective - Vital Signs Vital signs: Vital Signs Temp 97.0 F L 07/23/18 05:27 Pulse 56 L 07/23/18 09:28 Resp 20 07/23/18 05:30 BP 115/49 07/23/18 05:27 Pulse Ox 98 07/23/18 05:27 Intake & Output 07/22/18 07/23/18 07/23/18 18:59 06:59 18:59 Intake Total 310 100 Balance 310 100 Weight 117.934 kg 120.5 kg Intake: Oral 100 Blood Product 310 0 Rc As-1 Unit 0 0 [id number] Rc Pheresis As-3 Unit 310 [id number] Other: Voiding Method Urinal - Exam Gen.: Patient is alert and oriented to time and place. Does have intermittent confusion He is somewhat combative Cardiovascular: Bradycardic, regular rate and rhythm, S1/S2 Lungs: Coarse breath sounds bilaterally, diminished more so on the right Abdomen: Soft nontender nondistended positive bowel sounds Extremities: Chronic venous stasis, lymphedema, cellulitis, lower extremity wounds, currently wrapped with dressing - Labs CBC & Chem 7: 07/23/18 07:38 07/23/18 07:38 Labs: Abnormal Lab Results - Last 24 Hours (Table) 07/22/18 07/22/18 07/22/18 Range/Units 11:18 11:18 11:18 WBC 12.3 H (3.8-10.6) k/uL RBC 1.82 L (4.30-5.90) m/uL Hgb 4.9 L* D (13.0-17.5) gm/dL Hct 16.2 L* (39.0-53.0) % MCHC 30.3 L (31.0-37.0) g/dL RDW 20.3 H (11.5-15.5) % Plt Count (150-450) k/uL Neutrophils # 10.4 H (1.3-7.7) k/uL INR (<1.2) Sodium (137-145) mmol/L Potassium (3.5-5.1) mmol/L Chloride (98-107) mmol/L Carbon Dioxide (22-30) mmol/L BUN (9-20) mg/dL Creatinine (0.66-1.25) mg/dL Calcium (8.4-10.2) mg/dL AST (17-59) U/L ALT (21-72) U/L Total Creatine Kinase <20 L (55-170) U/L Albumin (3.5-5.0) g/dL Crossmatch See Detail 07/22/18 07/23/18 07/23/18 Range/Units 23:59 07:38 07:38 WBC (3.8-10.6) k/uL RBC 2.97 L 3.15 L (4.30-5.90) m/uL Hgb 8.5 L D 8.6 L (13.0-17.5) gm/dL Hct 26.2 L 28.3 L (39.0-53.0) % MCHC 30.5 L (31.0-37.0) g/dL RDW 19.5 H 19.7 H (11.5-15.5) % Plt Count 135 L 135 L (150-450) k/uL Neutrophils # (1.3-7.7) k/uL INR 1.2 H (<1.2) Sodium (137-145) mmol/L Potassium (3.5-5.1) mmol/L Chloride (98-107) mmol/L Carbon Dioxide (22-30) mmol/L BUN (9-20) mg/dL Creatinine (0.66-1.25) mg/dL Calcium (8.4-10.2) mg/dL AST (17-59) U/L ALT (21-72) U/L Total Creatine Kinase (55-170) U/L Albumin (3.5-5.0) g/dL Crossmatch 07/23/18 Range/Units 07:38 WBC (3.8-10.6) k/uL RBC (4.30-5.90) m/uL Hgb (13.0-17.5) gm/dL Hct (39.0-53.0) % MCHC (31.0-37.0) g/dL RDW (11.5-15.5) % Plt Count (150-450) k/uL Neutrophils # (1.3-7.7) k/uL INR (<1.2) Sodium 146 H (137-145) mmol/L Potassium 5.5 H (3.5-5.1) mmol/L Chloride 119 H (98-107) mmol/L Carbon Dioxide 15 L (22-30) mmol/L BUN 47 H (9-20) mg/dL Creatinine 2.91 H (0.66-1.25) mg/dL Calcium 8.1 L (8.4-10.2) mg/dL AST 6 L (17-59) U/L ALT 14 L (21-72) U/L Total Creatine Kinase (55-170) U/L Albumin 2.5 L (3.5-5.0) g/dL Crossmatch Assessment and Plan Assessment: Assessment Acute blood loss anemia on anemia of chronic disease, likely from bleeding lower extremity wound Acute encephalopathy Leukocytosis Right lower lobe infiltrate: CHF versus effusion versus pneumonia Hypernatremia History 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, baseline creatinine 1.8-2.6 AECHF, diastolic, EF 55-60% Lower extremity cellulitis, lymphedema, and PVD - history of MRSA, pseudomonas, E coli Chronic diabetic ulcer of right foot Diabetic neuropathy and DM2 uncontrolled Hypertension Gout Pulmonary hypertension, mild RVSP 43 mmHg Obesity Dyslipidemia Multiple recurrent hospitalizations for sepsis Suspect underlying [place]/OHS Moderate PCM Large right-sided pleural effusion Plan O2 to maintain saturation > or = 90% Did receive 2 units PRBC on 07/22/18 Agree with Lasix BID Blood, urine, sputum cultures Discussed with ID, we will initiate reece and behzad Nephrology, ID, vascular surgery to be consulted CT chest without contrast reviewed, we'll discuss treatment options with patient and for possible thoracentesis Consult dietitian Speech evaluation Continue patient's home medications Per cardiology team and HF, patient is not a candidate for PPM, he is asymptomatic, continue to monitor Continue Levemir and Novolog sliding scale AM CXR GI and DVT prophylaxis: Protonix and SCDs Monitor urine output and renal function Place gongora catheter Incentive spirometry and pulmonary hygiene Check FOB, monitor for signs/symptoms of bleeding - vascular to assess RLE wound Consult PT and OT Patient seen and examined covering for Dr. Horner as well as for ICU/Critical care management I, the signing physician performed an examination of the patient, discussed and directed their management with the nurse practitioner. I have reviewed the nurse practitioner's note and agree with the documented findings, orders and plan of care. <Aleena Oliver A - Last Filed: 07/23/18 15:30> Objective - Vital Signs Vital signs: Vital Signs Temp 97.0 F L 07/23/18 05:27 Pulse 56 L 07/23/18 13:08 Resp 20 07/23/18 05:30 BP 115/49 07/23/18 05:27 Pulse Ox 98 07/23/18 05:27 Intake & Output 07/22/18 07/23/18 07/23/18 18:59 06:59 18:59 Intake Total 310 100 180 Balance 310 100 180 Weight 117.934 kg 120.5 kg 120.5 kg Intake: Oral 100 180 Blood Product 310 0 Rc As-1 Unit 0 0 [id number] Rc Pheresis As-3 Unit 310 [id number] Other: Voiding Method Urinal - Labs CBC & Chem 7: 07/23/18 07:38 07/23/18 07:38 Labs: Abnormal Lab Results - Last 24 Hours (Table) 07/22/18 07/22/18 07/23/18 Range/Units 11:18 23:59 07:38 RBC 2.97 L 3.15 L (4.30-5.90) m/uL Hgb 8.5 L D 8.6 L (13.0-17.5) gm/dL Hct 26.2 L 28.3 L (39.0-53.0) % MCHC 30.5 L (31.0-37.0) g/dL RDW 19.5 H 19.7 H (11.5-15.5) % Plt Count 135 L 135 L (150-450) k/uL INR (<1.2) Sodium (137-145) mmol/L Potassium (3.5-5.1) mmol/L Chloride (98-107) mmol/L Carbon Dioxide (22-30) mmol/L BUN (9-20) mg/dL Creatinine (0.66-1.25) mg/dL POC Glucose (mg/dL) (75-99) mg/dL Calcium (8.4-10.2) mg/dL AST (17-59) U/L ALT (21-72) U/L Albumin (3.5-5.0) g/dL Urine Protein (Negative) Urine Ketones (Negative) Ur Leukocyte Esterase (Negative) Urine Mucus (None) /hpf Crossmatch See Detail 07/23/18 07/23/18 07/23/18 Range/Units 07:38 07:38 11:45 RBC (4.30-5.90) m/uL Hgb (13.0-17.5) gm/dL Hct (39.0-53.0) % MCHC (31.0-37.0) g/dL RDW (11.5-15.5) % Plt Count (150-450) k/uL INR 1.2 H (<1.2) Sodium 146 H (137-145) mmol/L Potassium 5.5 H (3.5-5.1) mmol/L Chloride 119 H (98-107) mmol/L Carbon Dioxide 15 L (22-30) mmol/L BUN 47 H (9-20) mg/dL Creatinine 2.91 H (0.66-1.25) mg/dL POC Glucose (mg/dL) (75-99) mg/dL Calcium 8.1 L (8.4-10.2) mg/dL AST 6 L (17-59) U/L ALT 14 L (21-72) U/L Albumin 2.5 L (3.5-5.0) g/dL Urine Protein 1+ H (Negative) Urine Ketones Trace H (Negative) Ur Leukocyte Esterase Trace H (Negative) Urine Mucus Rare H (None) /hpf Crossmatch 07/23/18 Range/Units 12:22 RBC (4.30-5.90) m/uL Hgb (13.0-17.5) gm/dL Hct (39.0-53.0) % MCHC (31.0-37.0) g/dL RDW (11.5-15.5) % Plt Count (150-450) k/uL INR (<1.2) Sodium (137-145) mmol/L Potassium (3.5-5.1) mmol/L Chloride (98-107) mmol/L Carbon Dioxide (22-30) mmol/L BUN (9-20) mg/dL Creatinine (0.66-1.25) mg/dL POC Glucose (mg/dL) 107 H (75-99) mg/dL Calcium (8.4-10.2) mg/dL AST (17-59) U/L ALT (21-72) U/L Albumin (3.5-5.0) g/dL Urine Protein (Negative) Urine Ketones (Negative) Ur Leukocyte Esterase (Negative) Urine Mucus (None) /hpf Crossmatch Microbiology - Last 24 Hours (Table) 07/22/18 11:18 Blood Culture - Preliminary Blood No Growth after 24 hours Assessment and Plan Assessment: Patient seen and examined. Patient unable to fully participate in swallow evaluation, will reassess in 24-48 hours as patient's mentation hopefully improves. MADELAINE on CKD worsening with worsening acidosis - NAGMA. Hemoglobin improved post-transfusion. Consult IR for thoracentesis. Patient's overall prognosis is guarded given multiple medical comorbidities. ~Aleena Oliver DO
[2018-07-23 12:38] LABS: Glucose,Whole Blood 107 mg/dL (75-99)
[2018-07-23 13:43] LABS: Appearance,Urine Clear (Clear); Bilirubin,Urine Negative (Negative); Blood,Urine Negative (Negative); Color,Urine Yellow; Glucose,Urine (UA) Negative (Negative); Ketones,Urine Trace (Negative); Leukocyte Esterase,Urine Trace (Negative); Mucus,Urine Rare /hpf; Nitrite,Urine Negative (Negative); Protein,Urine 1+ (Negative); Specific Gravity,Urine 1.017 (1.001-1.035); Squamous Epithelial Cell,Urine <1 /hpf (0-4); Urobilinogen,Urine <2.0 mg/dL (<2.0); WBC,Urine 2 /hpf (0-5)
[2018-07-23] MEDS ORDERED: FUROSEMIDE 10 MG/ML 10 ML VIAL IV STA (13:48)
[2018-07-23] MEDS ORDERED: LEVOFLOXACIN 750MG-D5W PMX 750 MG in DEXTROSE/WATER 1 150ML.BAG IVPB SCH (16:00)
[2018-07-23 17:01] LABS: Glucose,Whole Blood 126 mg/dL (75-99)
[2018-07-23] MEDS ORDERED: VANCOMYCIN 1,750 MG in SODIUM CHLORIDE 0.9% 500 ML 500 ML IVPB SCH (18:00)
--- NOTE | 2018-07-23 18:07 | CONS ---
CONSULTATION REASON FOR CONSULT: Renal failure. HISTORY OF PRESENT ILLNESS: Patient is a 72-year-old male who was brought into the hospital from [facility] with fever and altered mentation. Patient was also hypoxic with oxygen saturations 86%. He had a temperature of 100.9. The patient has bilateral lower extremity wounds which are wrapped. His hemoglobin was low at 7.1 g/dL. Serum creatinine was 2.36 yesterday. It is up to 2.91 now. Previous creatinine was 1.7 to 2 mg/dL in March of 2018. Potassium was elevated at 5.5. The patient has not voided. A Villasenor catheter will be placed. There is no active bleeding noted. Hemoglobin this morning was 8.5 g/dL. Initial hemoglobin was as low as 4.9 g/dL. PAST MEDICAL HISTORY: 1. Hypertension. 2. Chronic kidney disease, stage IIIB to IV, with previous creatinine of 1.7 to 2 in March of 2018. 3. Coronary artery disease. 4. Type 2 diabetes. 5. Gastroesophageal reflux disease. 6. Hyperlipidemia. 7. History of [place]. 8. Osteoarthritis. 9. Chronic lower extremity edema. 10.History of acute kidney injury requiring dialysis during last hospitalization. PAST SURGICAL HISTORY: 1. Cardiac catheterization. 2. Coronary stent placement. 3. PICC line. SOCIAL HISTORY: Patient is a former smoker. No history of drug abuse or alcohol abuse. He currently resides at [facility]. MEDICATIONS: Medications prior to admission included: 1. Aspirin. 2. Insulin. 3. Zyloprim. 4. Lipitor. 5. Plavix. 6. Iron. 7. Lasix. 8. Lyrica. 9. Imdur. 10.Flomax. 11.Fortaz. 12.Ultram. 13.Hydralazine. ALLERGIES: ALLERGIES include KEFLEX. Type of reaction not clear. PHYSICAL EXAMINATION: Patient is currently comfortable. He is not in acute distress. However, he is not communicating much. He does open his eyes. Blood pressure this morning was 115/49, heart rate 55 per minute. He is afebrile. EXAMINATION OF THE HEART: S1, S2. EXAMINATION OF LUNGS: Bilateral breath sounds are heard. ABDOMEN: Soft, non-tender. Examination of lower extremities shows bilateral extremities to be wrapped. Significant wounds are noted bilaterally. There is edema noted as well in the upper and lower extremities. LABS: Labs from today show sodium 146, potassium 5.5, chloride 119, CO2 15, BUN 47, serum creatinine 2.9. I do not have a UA. Hemoglobin was 4.9 on initial admission, currently 8.6 g/dL. Stool for occult blood was negative. ASSESSMENT: 1. Acute kidney injury secondary to severe anemia. Blood pressure has also been on the lower side. There are no nephrotoxic agents on board. Patient is not able to take p.o. medications. I would avoid continued vancomycin dosing, given his advanced renal failure. We will check a bladder scan to rule out urine retention and check a urinalysis as well. 2. Metabolic acidosis secondary to renal failure. Start IV bicarb, as patient cannot take oral sodium bicarb. 3. Severe anemia with stool for occult blood being negative. No active bleeding noted. Status post packed RBCs transfusion. 4. Chronic kidney disease, NKF stage IV, with previous creatinine 1.7 to 1.9 mg/dL in March of 2018. 5. Hyperkalemia associated with acute renal failure and metabolic acidosis. Rule out urine retention. There may be underlying GI bleed. However, stool for occult blood was negative. PLAN: Start IV bicarb at 50 mL/hour. Check bladder scan. Chest urine analysis. I will give one dose of IV Lasix as well. Thank you for this consultation. We will continue to follow the patient with you during his hospitalization. MMELMIRAL / BELLEN: [id number] /
[2018-07-23 18:50] LABS: Hemoglobin A1C 5.2 % (4.0-6.0)
[2018-07-23 19:19] LABS: Calcium 8.3 mg/dL (8.4-10.2); Potassium 5.8 mmol/L (3.5-5.1)
--- NOTE | 2018-07-23 20:28 | PN ---
PROGRESS NOTE DATE OF SERVICE: 07/23/2018. REASON FOR FOLLOWUP: 1. Diabetic foot ulcer with secondary infection. 2. Possible pneumonia. INTERVAL HISTORY: The patient is currently afebrile. He seemed to be breathing comfortably. Denies significant chest pain. Occasional cough. No abdominal pain. No diarrhea or pain is to the leg area. EXAMINATION: Blood pressure is 93/53 with the pulse of 52, temperature 97. He is 97% on 2 L nasal cannula. General description is an elderly male lying in bed in no distress. RESPIRATORY SYSTEM: Unlabored breathing with decreased breath sounds in the bases. No wheeze. HEART: S1, S2. Regular rate and rhythm. ABDOMEN: Soft, no tenderness. Right foot wound did have slight slough tissue. Overall, redness is improved. No foul smelling drainage. LABS: Hemoglobin 8.6, white count 8.4 with a BUN of 53, creatinine is up to 3.16. DIAGNOSTIC IMPRESSION AND PLAN: Patient with right diabetic foot wound with secondary cellulitis. Culture positive for MRSA and Pseudomonas. Patient has been on vancomycin now with significant jump in trough and Vanco will be discontinued. Keep the patient on Zosyn. Check a vancomycin trough once goes below 15. We will add daptomycin to cover for the MRSA. Continue supportive care. MMODL / IJN: [id number] /
[2018-07-23 20:48] LABS: Glucose,Whole Blood 136 mg/dL (75-99)
[2018-07-23] MEDS ORDERED: SODIUM BICARB 8.4% 50 ML SYR (1 MEQ/ML) IV ONE (21:31)
[2018-07-23] MEDS ORDERED: FUROSEMIDE 10 MG/ML 4 ML VIAL IV STA (21:32)
[2018-07-23] MEDS ORDERED: VANCOMYCIN 1,750 MG in SODIUM CHLORIDE 0.9% 500 ML 500 ML IVPB ONE (22:00)
[2018-07-24] MEDS: IPRATROPIUM-ALBUTEROL 3 ML NEB INHALATION SCH ×6 (01:03→19:26)
[2018-07-24] MEDS: PREGABALIN 100 MG CAP PO SCH ×3 (05:35→15:47)
[2018-07-24] MEDS: PANTOPRAZOLE 40 MG TABLET PO SCH (05:35)
[2018-07-24 06:07] LABS: Glucose,Whole Blood 159 mg/dL (75-99)
[2018-07-24 06:45] LABS: Anisocytosis Slight; Basophils % (A) 0 %; Eosinophils % (A) 1 %; HCT 27.1 % (39.0-53.0); HGB 8.4 gm/dL (13.0-17.5); Hypochromasia Marked; Lymphocytes # (A) 0.7 k/uL (1.0-4.8); Lymphocytes % (A) 10 %; MCH 27.5 pg (25.0-35.0); MCHC 30.9 g/dL (31.0-37.0); MCV 89.2 fL (80.0-100.0); Mean Platelet Volume 8.9; Monocytes # (A) 0.3 k/uL (0-1.0); Monocytes % (A) 5 %; Neutrophils # (A) 5.5 k/uL (1.3-7.7); Neutrophils % (A) 82 %; Platelet Count 132 k/uL (150-450); Poikilocytosis Slight; RBC 3.04 m/uL (4.30-5.90); RDW 19.4 % (11.5-15.5); WBC 6.6 k/uL (3.8-10.6)
[2018-07-24 06:58] LABS: Calcium 7.9 mg/dL (8.4-10.2); Potassium 5.3 mmol/L (3.5-5.1)
[2018-07-24] MEDS: hydrALAZINE HCL 25 MG TAB PO SCH ×3 (08:43→15:47)
[2018-07-24] MEDS: INSULIN ASPART 100 UNIT/ML 1 ML 10 ML VIAL SQ SCH ×4 (08:43→21:42)
[2018-07-24] MEDS: FUROSEMIDE 20 MG TAB PO SCH ×2 (08:43→15:46)
[2018-07-24] MEDS: SODIUM BICARBONATE TAB 650 MG TAB PO SCH ×3 (08:44→19:36)
[2018-07-24] MEDS: PIPERACILLIN-TAZOBACTAM 3.375 GM in DEXTROSE/WATER 1 50ML.BAG IVPB SCH ×2 (08:46→19:35)
[2018-07-24 09:03] LABS: ABG Base Excess -6.7 mmol/L; ABG HCO3 21 mmol/L (21-25); ABG Oxygen Saturation 98.9 % (94-97); ABG PCO2 55 mmHg (35-45); ABG PO2 112 mmHg (83-108); ABG TCO2 23 mmol/L (19-24)
--- NOTE | 2018-07-24 09:49 | P.PN ---
Subjective Progress Note Date: 07/24/18 HPI: This is a 72-year-old gentleman who is well-known to our service who presented emergency department from [facility]. The patient was found to have a fever and altered mental status. The patient also had hypoxia with O2 saturation 86% . The patient did have a temperature of 100.9. He is awake and alert although he is somewhat combative. His and son are present as well. The patient has a complicated history of peripheral vascular disease with cellulitis and frequent sepsis. He also has a history of third-degree heart block and has been unable to have a pacemaker placed due to his recurrent sepsis and infections. The patient was temporarily on hemodialysis but per his was told that he doesn't need dialysis anymore. He has been following with wound care and infectious disease at [facility]. He is also been following with vascular surgery. As well as cardiology. In the emergency department the patient was found to have a hemoglobin of 7.1 at 7:30 this morning. Upon recheck at 11:20 AM he was found to have a hemoglobin of 4.9. The patient is receiving packed red blood cell transfusion at this time. His vital signs have been stable. The patient is chronically anemic with a hemoglobin between 10 and 12. The patient has been afebrile in the emergency department. He does have a white blood cell count 12. The patient's CT of the brain showed nonspecific white matter changes, prominent posterior fossa CSF space differential includes arachnoid cyst or giant cisterna magna. The patient's chest x-ray shows right lower lobe infiltrate, pneumonia versus atelectasis or edema. Possible pleural effusion. Per the patient's , his heal has been bleeding quite profusely. She states "there is probably 2 pints of blood in the passenger seat of my car right now." Interval history: 07/23/2018patient is being seen examined and evaluated today on rounds. He is resting up in bed on 2 L of supplemental oxygen via nasal cannula. did receive a total of 2 units of packed red blood cells yesterday. He did have labs obtained this morning his hemoglobin did improve to 8.6, his hematocrit is now 28.3. His sodium is 146, potassium is 5.5, chloride is 119, BUN is 47 and creatinine is 2.9. Nephrology is seeing the patient as well as infectious disease. Villasenor catheter will be inserted and urinalysis will be obtained. Still awaiting sputum culture. CT of the chest yesterday was reviewed and does show a large right-sided pleural effusion with associated passive atelectasis. He continues to have confusion intermittently. He was too tired and refused to eat this morning. We will have the patient undergo a swallow evaluation. Unsure on guardianship status will find out from the as well as medical [place]. 07/24/18- patient is being seen examined and evaluated today on rounds. He is quite lethargic. We did obtain stat ABGs. Which did reveal a pH of 7.4, pCO2 of 55, pO2 of 112, HCO3 of 21. patient will be started on BiPAP. His labs today do reveal a hemoglobin that is stable at 8.4, sodium is 146, potassium is 5.3, chloride 116, carbon dioxide 19, BUN 51, creatinine 3.66. We'll also obtain a stat lactic acid. And sections disease continues to follow and has adjusted his antibiotics. He remains in contact precautions for his right diabetic foot wound and bilateral cellulitis his cultures were positive for MRSA and Pseudomonas previously per infectious disease. IR was consulted yesterday for possible thoracentesis as he has a right large pleural effusion. Objective - Vital Signs Vital signs: Vital Signs Temp 96.9 F L 07/24/18 08:00 Pulse 60 07/24/18 08:55 Resp 20 07/24/18 08:00 BP 96/50 07/24/18 08:00 Pulse Ox 98 07/24/18 08:00 Intake & Output 07/23/18 07/24/18 07/24/18 18:59 06:59 18:59 Intake Total 180 Output Total 390 Balance 180 -390 Weight 120.5 kg 124 kg Intake: Oral 180 Output: Urine 390 Other: Voiding Method Urinal Indwelling Catheter Indwelling Catheter # Voids 1 - Exam Gen.: Patient is lethargic, with confusion Cardiovascular: Bradycardic, regular rate and rhythm, S1/S2 Lungs: Coarse breath sounds bilaterally, diminished more so on the right Abdomen: Soft nontender nondistended positive bowel sounds Extremities: Chronic venous stasis, lymphedema, cellulitis, lower extremity wounds, currently wrapped with dressing - Labs CBC & Chem 7: 07/24/18 06:18 07/24/18 06:18 Labs: Abnormal Lab Results - Last 24 Hours (Table) 07/23/18 07/23/18 07/23/18 Range/Units 11:45 12:22 16:53 RBC (4.30-5.90) m/uL Hgb (13.0-17.5) gm/dL Hct (39.0-53.0) % MCHC (31.0-37.0) g/dL RDW (11.5-15.5) % Plt Count (150-450) k/uL Lymphocytes # (1.0-4.8) k/uL ABG pH (7.35-7.45) ABG pCO2 (35-45) mmHg ABG pO2 (83-108) mmHg ABG O2 Saturation (94-97) % Sodium (137-145) mmol/L Potassium (3.5-5.1) mmol/L Chloride (98-107) mmol/L Carbon Dioxide (22-30) mmol/L BUN (9-20) mg/dL Creatinine (0.66-1.25) mg/dL Glucose (74-99) mg/dL POC Glucose (mg/dL) 107 H 126 H (75-99) mg/dL Calcium (8.4-10.2) mg/dL Urine Protein 1+ H (Negative) Urine Ketones Trace H (Negative) Ur Leukocyte Esterase Trace H (Negative) Urine Mucus Rare H (None) /hpf 07/23/18 07/23/18 07/24/18 Range/Units 18:23 20:46 06:06 RBC (4.30-5.90) m/uL Hgb (13.0-17.5) gm/dL Hct (39.0-53.0) % MCHC (31.0-37.0) g/dL RDW (11.5-15.5) % Plt Count (150-450) k/uL Lymphocytes # (1.0-4.8) k/uL ABG pH (7.35-7.45) ABG pCO2 (35-45) mmHg ABG pO2 (83-108) mmHg ABG O2 Saturation (94-97) % Sodium (137-145) mmol/L Potassium 5.8 H (3.5-5.1) mmol/L Chloride 118 H (98-107) mmol/L Carbon Dioxide 16 L (22-30) mmol/L BUN 53 H (9-20) mg/dL Creatinine 3.16 H (0.66-1.25) mg/dL Glucose 122 H (74-99) mg/dL POC Glucose (mg/dL) 136 H 159 H (75-99) mg/dL Calcium 8.3 L (8.4-10.2) mg/dL Urine Protein (Negative) Urine Ketones (Negative) Ur Leukocyte Esterase (Negative) Urine Mucus (None) /hpf 07/24/18 07/24/18 07/24/18 Range/Units 06:18 06:18 09:00 RBC 3.04 L (4.30-5.90) m/uL Hgb 8.4 L (13.0-17.5) gm/dL Hct 27.1 L (39.0-53.0) % MCHC 30.9 L (31.0-37.0) g/dL RDW 19.4 H (11.5-15.5) % Plt Count 132 L (150-450) k/uL Lymphocytes # 0.7 L (1.0-4.8) k/uL ABG pH 7.20 L (7.35-7.45) ABG pCO2 55 H (35-45) mmHg ABG pO2 112 H (83-108) mmHg ABG O2 Saturation 98.9 H (94-97) % Sodium 146 H (137-145) mmol/L Potassium 5.3 H (3.5-5.1) mmol/L Chloride 116 H (98-107) mmol/L Carbon Dioxide 19 L (22-30) mmol/L BUN 51 H (9-20) mg/dL Creatinine 3.66 H (0.66-1.25) mg/dL Glucose 147 H (74-99) mg/dL POC Glucose (mg/dL) (75-99) mg/dL Calcium 7.9 L (8.4-10.2) mg/dL Urine Protein (Negative) Urine Ketones (Negative) Ur Leukocyte Esterase (Negative) Urine Mucus (None) /hpf Microbiology - Last 24 Hours (Table) 07/23/18 11:45 Urine Culture - Preliminary Urine,Catheterized 07/22/18 11:18 Blood Culture - Preliminary Blood No Growth after 24 hours Assessment and Plan Assessment: Assessment Acute blood loss anemia on anemia of chronic disease, likely from bleeding lower extremity wound Acute encephalopathy Leukocytosis Right lower lobe infiltrate: CHF versus effusion versus pneumonia Hypernatremia History 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, baseline creatinine 1.8-2.6 AECHF, diastolic, EF 55-60% Lower extremity cellulitis, lymphedema, and PVD - history of MRSA, pseudomonas, E coli Chronic diabetic ulcer of right foot Diabetic neuropathy and DM2 uncontrolled Hypertension Gout Pulmonary hypertension, mild RVSP 43 mmHg Obesity Dyslipidemia Multiple recurrent hospitalizations for sepsis Suspect underlying [place]/OHS Moderate PCM Large right-sided pleural effusion Plan Patient will be started on BiPAP 07/18 Stat lactic acid to be drawn O2 to maintain saturation > or = 90% Did receive 2 units PRBC on 07/22/18 Agree with Lasix BID Blood, urine, sputum cultures- pending Nephrology, ID, vascular surgery to be consulted CT chest without contrast reviewed Interventional radiology consulted for possible right thoracentesis Consult dietitian Speech evaluation attempted however patient was participating in the complete assessment Continue patient's home medications Per cardiology team and HF, patient is not a candidate for PPM, he is asymptomatic, continue to monitor Continue Levemir and Novolog sliding scale AM CXR GI and DVT prophylaxis: Protonix and SCDs Monitor urine output and renal function Continue with indwelling Villasenor catheter, monitor I's and O's Incentive spirometry and pulmonary hygiene Check FOB, monitor for signs/symptoms of bleeding - vascular to assess RLE wound Consult PT and OT Patient seen and examined covering for Dr. Horner as well as for ICU/Critical care management I, the signing physician performed an examination of the patient, discussed and directed their management with the nurse practitioner. I have reviewed the nurse practitioner's note and agree with the documented findings, orders and plan of care.
[2018-07-24 11:30] LABS: Glucose,Whole Blood 147 mg/dL (75-99)
--- NOTE | 2018-07-24 13:31 | XR ---
EXAMINATION TYPE: XR chest 1V portable DATE OF EXAM: 07/24/2018 COMPARISON: Prior chest x-ray 07/23/2018 HISTORY: Pneumonia and difficulty breathing TECHNIQUE: Single frontal view of the chest is obtained. FINDINGS: Right-sided PICC line is noted, distal tip overlying the right atrium region, patient is r otated. There is bilateral blunting of the costophrenic angles. Lung volumes are low. Heart size is l ikely stable. Central vascularity is increased. Patchy bibasilar density noted. IMPRESSION: Bilateral pleural effusions and associated atelectasis, correlate for possible associate d pneumonia or edema, congestive heart failure. Rotated expiratory exam. Follow-up recommended.
[2018-07-24] MEDS: CHOLECALCIFEROL 1,000 UNIT TAB PO SCH (15:44)
[2018-07-24] MEDS: ASPIRIN 81 MG PO SCH (15:44)
[2018-07-24] MEDS: ATORVASTATIN 80 MG TAB PO SCH (15:44)
[2018-07-24] MEDS: FERROUS SULFATE 325 MG TAB PO SCH (15:45)
[2018-07-24] MEDS: CLOPIDOGREL 75 MG TAB PO SCH (15:45)
[2018-07-24] MEDS: TAMSULOSIN 0.4 MG CAP.ER.24H PO SCH (15:45)
[2018-07-24] MEDS: ISOSORBIDE MONONITRATE ER 60 MG TAB.ER.24H PO SCH (15:45)
[2018-07-24 17:10] LABS: Glucose,Whole Blood 152 mg/dL (75-99)
--- NOTE | 2018-07-24 17:29 | PN ---
PROGRESS NOTE DATE OF SERVICE: 07/24/2018 REASON FOR FOLLOWUP: 1. Right foot diabetic foot ulcer with secondary cellulitis. 2. Possible pneumonia. INTERVAL HISTORY: The patient is currently afebrile. He seems to be in respiratory distress, requiring BiPAP support. Hemodynamically stable, not requiring any pressor support. No fever has been recorded. No nausea, vomiting or diarrhea reported by nursing staff. He is unable to provide any history. PHYSICAL EXAMINATION: Blood pressure 104/53 with a pulse of 59, temperature 96.8. He is 100% on BiPAP. General description is an elderly male lying in bed in no distress. RESPIRATORY SYSTEM: Unlabored breathing with decreased breath sounds in the base. No wheeze. HEART: S1, S2. Regular rate and rhythm. ABDOMEN: Soft. No tenderness. LEGS: Wounds are currently dressed up. No obvious drainage on the dressing. LABS: Hemoglobin 8.4, white count 6.6 with a BUN of 51, creatinine of 3.66. DIAGNOSTIC IMPRESSION AND PLAN: Patient with right diabetic foot ulcer with secondary cellulitis. Culture as outpatient positive for MRSA and pseudomonas. Patient admitted to hospital with respiratory distress and possible concern for aspiration pneumonia. The patient is currently on Zosyn. In view of worsening of his kidney function, vancomycin was discontinued and the patient will be switched to daptomycin. Local care to continue with Medihoney to the wound with slough and Aquacel Silver to the clean wound. Continue with supportive care. MMODL / IJN: [id number] /
[2018-07-24] MEDS ORDERED: DEXTROSE 5% IN WATER 1,000 ML IV SCH (19:30)
--- NOTE | 2018-07-24 20:20 | PN ---
PROGRESS NOTE Patient is seen for followup for acute kidney injury. His mentation appears slightly better today. EXAMINATION: This morning, blood pressure was 104/53, heart rate of 59 per minute. Patient is afebrile. Examination of the heart S1, S2. Examination lungs bilateral breath sounds are heard. Decreased breath sounds in the bases. ABDOMEN: Soft, morbidly obese. Examination of lower extremities shows bilateral extremities to be wrapped. There is edema noted in upper and lower extremities, which appears to be mainly chronic. LABS SHOW: Sodium 146, potassium 5.3, chloride 116, CO2 is 19, BUN 51, serum creatinine 3.6, calcium 7.9, hemoglobin 8.4 g/dL. ASSESSMENT: 1. Acute kidney injury, acute tubular necrosis and nonoliguric. Patient also had urine retention when the Villasenor catheter was first placed yesterday. We will continue with the Villasenor catheter. The patient is maintained on IV bicarb. I will decrease the rate back down to 50 mL an hour given his edema. The patient received IV Lasix x2 yesterday. He is not able to take any p.o. medications, although his mentation appears slightly improved today. 2. Hyperkalemia associated with acute kidney injury, improving. 3. Anion gap metabolic acidosis secondary to renal failure, maintained on IV bicarb. 4. Bilateral chronic lower extremity wounds and cellulitis. Currently, both extremities are wrapped. 5. Mild hypernatremia. Continue with bicarb drip. I will change the IV fluids tomorrow depending on his serum sodium level. 6. History of complete heart block. 7. Chronic kidney disease NKF stage IIIB to 4 with previous creatinine 1.7-2 mg/dL in March of 2018 secondary to nephrosclerosis with previous history of dialysis for about 2-3 days on his last admission. PLAN: 1. Continue Villasenor catheter. 2. Decrease bicarb drip to 50 mL an hour. 3. Continue to avoid nephrotoxic agents. 4. Repeat labs in a.m. MMODL / IJN: [id number] /
[2018-07-24 20:45] LABS: Glucose,Whole Blood 138 mg/dL (75-99)
[2018-07-24] MEDS: INSULIN DETEMIR 100 UNIT/ML 10 ML VIAL SQ SCH (21:42)
[2018-07-24] MEDS: DEXTROSE 5% IN WATER 1,000 ML with SODIUM BICARB (1 MEQ/ML) 150 ML IV SCH (21:42)
[2018-07-25] MEDS: PREGABALIN 100 MG CAP PO SCH ×5 (00:23→23:04)
[2018-07-25] MEDS: traMADol 50 MG TAB PO PRN (00:24)
[2018-07-25] MEDS: DEXTROSE 5% IN WATER 1,000 ML with SODIUM BICARB (1 MEQ/ML) 150 ML IV SCH (00:36)
[2018-07-25] MEDS: IPRATROPIUM-ALBUTEROL 3 ML NEB INHALATION SCH ×6 (00:46→20:54)
[2018-07-25] MEDS: HYDROmorphone 1 MG/ML 1 ML SYRINGE IVP PRN ×2 (01:25→16:04)
[2018-07-25] MEDS: LORazepam 2 MG/ML INJ IV PRN (03:13)
[2018-07-25] MEDS: PANTOPRAZOLE 40 MG TABLET PO SCH (05:51)
[2018-07-25 06:16] LABS: Glucose,Whole Blood 147 mg/dL (75-99)
[2018-07-25] MEDS: INSULIN ASPART 100 UNIT/ML 1 ML 10 ML VIAL SQ SCH ×4 (06:18→21:21)
[2018-07-25 07:05] LABS: Albumin 2.4 g/dL (3.5-5.0); Calcium 7.8 mg/dL (8.4-10.2); Magnesium 1.8 mg/dL (1.6-2.3); Potassium 4.8 mmol/L (3.5-5.1); Total Bilirubin 0.2 mg/dL (0.2-1.3); Total Protein 6.1 g/dL (6.3-8.2)
[2018-07-25 07:09] LABS: Anisocytosis Slight; HCT 25.7 % (39.0-53.0); Hypochromasia Marked; MCH 31.4 pg (25.0-35.0); MCV 89.6 fL (80.0-100.0); Mean Platelet Volume 7.7; Platelet Count 177 k/uL (150-450); Poikilocytosis Slight; RBC 2.87 m/uL (4.30-5.90); RDW 19.5 % (11.5-15.5); WBC 10.4 k/uL (3.8-10.6)
[2018-07-25 07:10] LABS: Vancomycin,Random 20.1 ug/mL
[2018-07-25 08:03] LABS: Lymphocytes # (M) 1.87 k/uL (1.0-4.8); Monocytes # (M) 0.31 k/uL (0-1.0); Neutrophils # (M) 8.22 k/uL (1.3-7.7); Neutrophils % (M) 79 %; Nucleated Red Blood Cells 0 /100 WBC (0-0); Total Cells Counted 100; Toxic Vacuolation Present
[2018-07-25] MEDS: FUROSEMIDE 20 MG TAB PO SCH (08:46)
[2018-07-25] MEDS: SODIUM BICARBONATE TAB 650 MG TAB PO SCH ×3 (08:46→20:57)
[2018-07-25] MEDS: hydrALAZINE HCL 25 MG TAB PO SCH ×3 (08:46→19:03)
[2018-07-25] MEDS: PIPERACILLIN-TAZOBACTAM 3.375 GM in DEXTROSE/WATER 1 50ML.BAG IVPB SCH ×2 (08:48→21:01)
[2018-07-25] MEDS ORDERED: FUROSEMIDE 10 MG/ML 10 ML VIAL IV STA (08:54)
--- NOTE | 2018-07-25 09:12 | XR ---
EXAMINATION TYPE: XR chest 1V portable DATE OF EXAM: 07/25/2018 COMPARISON: 07/24/2018 HISTORY: Pneumonia TECHNIQUE: Single frontal view of the chest is obtained. FINDINGS: Right-sided PICC line is noted, distal tip overlying the right atrium region, patient is r otated. There is bilateral blunting of the costophrenic angles. Lung volumes are low. Heart size is l ikely stable. Central vascularity is increased. Patchy bibasilar density noted. IMPRESSION: 1. Bilateral consolidation and pleural effusion. Interstitial pattern noted. Correlate for CHF versus pneumonia.
--- NOTE | 2018-07-25 10:03 | P.PN ---
Subjective Progress Note Date: 07/25/18 HPI: This is a 72-year-old gentleman who is well-known to our service who presented emergency department from [facility]. The patient was found to have a fever and altered mental status. The patient also had hypoxia with O2 saturation 86% . The patient did have a temperature of 100.9. He is awake and alert although he is somewhat combative. His and son are present as well. The patient has a complicated history of peripheral vascular disease with cellulitis and frequent sepsis. He also has a history of third-degree heart block and has been unable to have a pacemaker placed due to his recurrent sepsis and infections. The patient was temporarily on hemodialysis but per his was told that he doesn't need dialysis anymore. He has been following with wound care and infectious disease at [facility]. He is also been following with vascular surgery. As well as cardiology. In the emergency department the patient was found to have a hemoglobin of 7.1 at 7:30 this morning. Upon recheck at 11:20 AM he was found to have a hemoglobin of 4.9. The patient is receiving packed red blood cell transfusion at this time. His vital signs have been stable. The patient is chronically anemic with a hemoglobin between 10 and 12. The patient has been afebrile in the emergency department. He does have a white blood cell count 12. The patient's CT of the brain showed nonspecific white matter changes, prominent posterior fossa CSF space differential includes arachnoid cyst or giant cisterna magna. The patient's chest x-ray shows right lower lobe infiltrate, pneumonia versus atelectasis or edema. Possible pleural effusion. Per the patient's , his heal has been bleeding quite profusely. She states "there is probably 2 pints of blood in the passenger seat of my car right now." Interval history: 07/23/2018patient is being seen examined and evaluated today on rounds. He is resting up in bed on 2 L of supplemental oxygen via nasal cannula. did receive a total of 2 units of packed red blood cells yesterday. He did have labs obtained this morning his hemoglobin did improve to 8.6, his hematocrit is now 28.3. His sodium is 146, potassium is 5.5, chloride is 119, BUN is 47 and creatinine is 2.9. Nephrology is seeing the patient as well as infectious disease. Villasenor catheter will be inserted and urinalysis will be obtained. Still awaiting sputum culture. CT of the chest yesterday was reviewed and does show a large right-sided pleural effusion with associated passive atelectasis. He continues to have confusion intermittently. He was too tired and refused to eat this morning. We will have the patient undergo a swallow evaluation. Unsure on guardianship status will find out from the as well as medical [place]. 07/24/18- patient is being seen examined and evaluated today on rounds. He is quite lethargic. We did obtain stat ABGs. Which did reveal a pH of 7.4, pCO2 of 55, pO2 of 112, HCO3 of 21. patient will be started on BiPAP. His labs today do reveal a hemoglobin that is stable at 8.4, sodium is 146, potassium is 5.3, chloride 116, carbon dioxide 19, BUN 51, creatinine 3.66. We'll also obtain a stat lactic acid. And sections disease continues to follow and has adjusted his antibiotics. He remains in contact precautions for his right diabetic foot wound and bilateral cellulitis his cultures were positive for MRSA and Pseudomonas previously per infectious disease. IR was consulted yesterday for possible thoracentesis as he has a right large pleural effusion. 07/25/18- patient is being seen examined and evaluated today on rounds. He did utilizes BiPAP overnight and tolerated that well. His BUN is 56 and his creatinine is 4.05 today. He may require dialysis. Nephrology is following him closely. He continues to these develop Villasenor catheter. Chest x-ray was reviewed remains relatively the same CHF versus pneumonia. Objective - Vital Signs Vital signs: Vital Signs Temp 96.9 F L 07/25/18 08:00 Pulse 60 07/25/18 08:40 Resp 20 07/25/18 08:00 BP 108/49 07/25/18 08:00 Pulse Ox 100 07/25/18 08:00 Intake & Output 07/24/18 07/25/18 07/25/18 18:59 06:59 18:59 Intake Total 650 300 Output Total 400 200 Balance 250 100 Weight 121 kg Intake: Intake, IV Titration 650 300 Amount Dextrose 5% in Water 1, 600 300 000 ml @ 50 mls/hr IV . Q23H BILLY with Sodium Bicarb (1 Meq/ml) 150 ml Rx#:[id number] Piperacillin-Tazobactam 3 50 .375 gm In Dextrose/Water 1 50ml.bag @ 12.5 mls/hr IVPB Q12H REPLACED BY [facility] Rx#: [id number] Output: Urine 400 200 Other: Voiding Method Indwelling Catheter Indwelling Catheter Indwelling Catheter - Exam Gen.: Patient is lethargic, with confusion Cardiovascular: Bradycardic, regular rate and rhythm, S1/S2 Lungs: Coarse breath sounds bilaterally, diminished more so on the right Abdomen: Soft nontender nondistended positive bowel sounds Extremities: Chronic venous stasis, lymphedema, cellulitis, lower extremity wounds, currently wrapped with dressing - Labs CBC & Chem 7: 07/25/18 06:28 07/25/18 06:28 Labs: Abnormal Lab Results - Last 24 Hours (Table) 07/24/18 07/24/18 07/24/18 Range/Units 11:29 17:06 20:44 RBC (4.30-5.90) m/uL Hgb (13.0-17.5) gm/dL Hct (39.0-53.0) % RDW (11.5-15.5) % Neutrophils # (Manual) (1.3-7.7) k/uL Chloride (98-107) mmol/L Carbon Dioxide (22-30) mmol/L BUN (9-20) mg/dL Creatinine (0.66-1.25) mg/dL Glucose (74-99) mg/dL POC Glucose (mg/dL) 147 H 152 H 138 H (75-99) mg/dL Calcium (8.4-10.2) mg/dL AST (17-59) U/L ALT (21-72) U/L Total Protein (6.3-8.2) g/dL Albumin (3.5-5.0) g/dL 07/25/18 07/25/18 07/25/18 Range/Units 06:15 06:28 06:28 RBC 2.87 L (4.30-5.90) m/uL Hgb 9.0 L (13.0-17.5) gm/dL Hct 25.7 L (39.0-53.0) % RDW 19.5 H (11.5-15.5) % Neutrophils # (Manual) 8.22 H (1.3-7.7) k/uL Chloride 112 H (98-107) mmol/L Carbon Dioxide 21 L (22-30) mmol/L BUN 56 H (9-20) mg/dL Creatinine 4.05 H (0.66-1.25) mg/dL Glucose 142 H (74-99) mg/dL POC Glucose (mg/dL) 147 H (75-99) mg/dL Calcium 7.8 L (8.4-10.2) mg/dL AST 4 L (17-59) U/L ALT 17 L (21-72) U/L Total Protein 6.1 L (6.3-8.2) g/dL Albumin 2.4 L (3.5-5.0) g/dL Microbiology - Last 24 Hours (Table) 07/23/18 11:45 Urine Culture - Final Urine,Catheterized 07/22/18 11:18 Blood Culture - Preliminary Blood No Growth after 48 hours Assessment and Plan Assessment: Assessment Acute blood loss anemia on anemia of chronic disease, likely from bleeding lower extremity wound Acute encephalopathy Leukocytosis Right lower lobe infiltrate: CHF versus effusion versus pneumonia Hypernatremia History 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, baseline creatinine 1.8-2.6 AECHF, diastolic, EF 55-60% Lower extremity cellulitis, lymphedema, and PVD - history of MRSA, pseudomonas, E coli Chronic diabetic ulcer of right foot Diabetic neuropathy and DM2 uncontrolled Hypertension Gout Pulmonary hypertension, mild RVSP 43 mmHg Obesity Dyslipidemia Multiple recurrent hospitalizations for sepsis Suspect underlying [place]/OHS Moderate PCM Large right-sided pleural effusion Plan BiPAP 07/18 at night and as needed Patient may require dialysis O2 to maintain saturation > or = 90% Did receive 2 units PRBC on 07/22/18 Agree with Lasix BID Blood, urine, sputum cultures- pending Nephrology, ID, vascular surgery to be consulted CT chest without contrast reviewed Interventional radiology consulted for possible right thoracentesis Consult dietitian Speech evaluation attempted however patient was participating in the complete assessment Continue patient's home medications Per cardiology team and HF, patient is not a candidate for PPM, he is asymptomatic, continue to monitor Continue Levemir and Novolog sliding scale GI and DVT prophylaxis: Protonix and SCDs Monitor urine output and renal function Continue with indwelling Villasenor catheter, monitor I's and O's Incentive spirometry and pulmonary hygiene Check FOB, monitor for signs/symptoms of bleeding - vascular to assess RLE wound Consult PT and OT Patient seen and examined covering for Dr. Horner as well as for ICU/Critical care management I, the signing physician performed an examination of the patient, discussed and directed their management with the nurse practitioner. I have reviewed the nurse practitioner's note and agree with the documented findings, orders and plan of care.
[2018-07-25] MEDS: FERROUS SULFATE 325 MG TAB PO SCH (11:53)
[2018-07-25] MEDS: CHOLECALCIFEROL 1,000 UNIT TAB PO SCH (11:53)
[2018-07-25] MEDS: ATORVASTATIN 80 MG TAB PO SCH (11:53)
[2018-07-25] MEDS: ASPIRIN 81 MG PO SCH (11:53)
[2018-07-25] MEDS: ALLOPURINOL 100 MG TAB PO SCH (11:53)
[2018-07-25] MEDS: ISOSORBIDE MONONITRATE ER 60 MG TAB.ER.24H PO SCH (11:54)
[2018-07-25] MEDS: TAMSULOSIN 0.4 MG CAP.ER.24H PO SCH (11:54)
[2018-07-25 12:04] LABS: Glucose,Whole Blood 136 mg/dL (75-99)
--- NOTE | 2018-07-25 12:44 | CDI ---
Last Revision, September 2017 Documentation Clarification Form Date: 07/25/2018 12:35:40 PM From: Lucero WelchJAYDEN, CCDS Admit Date: 07/22/2018 2:36:00 PM Patient Name: Liang Guerin Visit Number: [id number] Discharge Date: ATTENTION: The Clinical Documentation Specialists (CDI) and [facility] Coding Staff appreciate your assistance in clarifying documentation. Please respond to the clarification below the line at the bottom and electronically sign. The CDI & [facility] Coding staff will review the response and follow-up if needed. Please note: Queries are made part of the Legal Health Record. If you have any questions, please contact the author of this message via ITS. Aleena Salcedo, DO: Patient has a documented history of Diabetes Mellitus II lower extremity ulcers , neuropathy & CKD. History/Risk Factors: Multiple admissions with Sepsis, previously on hemodialysis, Morbid Obesity & chronic anemia. Clinical Indicators: Per the 07/25 progress note: Diabetic neuropathy and DM II uncontrolled. Glucose: 81 - 126 - 147 - 136 Treatment: Bicarb drip, I&Os, Insulin sliding scale, pulmonary support: BiPAP & O2 2-3L nc, Villasenor inserted 07/23, wound care. In order to capture the severity of Illness and necessary documentation specificity, please clarify: DM Type 2 o With Hyperglycemia o Without Hyperglycemia Other, please specify Unable to Determine DM 2 with hypergylcemia MTDD
--- NOTE | 2018-07-25 13:51 | PN ---
PROGRESS NOTE Patient is seen for followup for acute kidney injury. He remains quite sleepy. Patient was agitated last night and received Ativan. Currently, he is on BiPAP. He is barely arousable. PHYSICAL EXAMINATION: Blood pressure is 110/61, heart rate 57 per minute. He is afebrile. Examination of the, heart S1, S2. Examination of the lungs, decreased breath sounds at the bases. Abdomen is soft, obese. Examination of the lower extremities shows significant wounds. Bilateral extremities are wrapped, there is edema noted. Upper and lower extremities about 2+ bilaterally. LABS: From this morning show sodium 143, potassium 4.8, chloride 112, BUN 56, serum creatinine 4.04, hemoglobin 9.0 g/dL. Vancomycin level was 20.1. ASSESSMENT: 1. Acute kidney injury, ATN, currently nonoliguric. However, urine output is on the lower side with 24 hour documented at only 600 mL. Renal function has been worsening and given his mental status changes, patient will need to start renal replacement therapy. I tried to call his , I did not get an answer. We will get in touch with her again regarding renal replacement therapy. In the meantime, we will give 1 dose of Lasix. I will hold off on the IV fluids. 2. Non anion gap metabolic acidosis secondary to renal failure, currently improved with IV bicarb. 3. Hyperkalemia associated with acute kidney injury, currently improved. 4. Anemia. No active bleeding noted. Initial hemoglobin was 4.9 g/dL on admission, now it is at 9. Stool for occult blood was negative. 5. Bilateral lower extremity wounds, currently dressed. Patient had been on vancomycin, which we should avoid given his renal failure. Currently patient is on Zosyn. PLAN: Lasix x1 switched to IV push Lasix, hold off on IV bicarb. Start dialysis once we are able to get in touch with the . MMODL / IJN: [id number] /
[2018-07-25] MEDS ORDERED: DARBEPOETIN ALFA 40 MCG/0.4 ML SYRINGE SQ SCH (14:00)
[2018-07-25] MEDS ORDERED: fentaNYL (PF) 50 MCG/ML 2 ML AMP IV ONE (14:41)
[2018-07-25] MEDS ORDERED: LIDOCAINE 1% INJ 10MG/ML (20 ML MDV) SQ ONE (14:41)
[2018-07-25] MEDS ORDERED: IOPAMIDOL-250 50ML BTL IV ONE (15:18)
[2018-07-25] MEDS: DAPTOmycin 750 MG in SODIUM CHLORIDE 0.9% 50 ML IVPB SCH (15:47)
--- NOTE | 2018-07-25 18:14 | IR ---
Fluoroscopy HISTORY: Central venous catheter placement 7.2 minutes fluoroscopy time supplied to the referring clinician. 224 intraoperative C-arm images do cument the procedure. See dictated report from vascular surgery.
--- NOTE | 2018-07-25 20:09 | CONS ---
CONSULTATION This is a 72-year-old gentleman who is known to me from the past. Patient has been coming to the wound clinic. A couple of times he has been admitted to [facility] with large wound on his right lower extremity with chronic venous ulcers bilaterally. The patient was treated with local wound care. The patient was advised to have a right AKA amputation. Patient went to [facility] for an opinion. Patient has been sent back to [place]. This time he has been admitted to [facility] with history of acute and chronic renal failure. The patient also has a history of third-degree heart block. Patient was seen by Cardiology. I was consulted by Dr. Kelly for placement of dialysis catheter. The patient is denying major amputation at this point. We have been treating with local wound care. PAST MEDICAL HISTORY: Past medical history includes: 1. History of diabetes mellitus. 2. Hypertension. 3. Coronary artery disease. 4. Morbid obesity. 5. Bilateral lower extremity ulcers, more on the right foot than on the left foot with MRSA and pseudomonas infection, under the care of Infectious Disease. PLAN: Placement of dialysis catheter. We will continue with local wound care. MMODL / IJN: [id number] /
--- NOTE | 2018-07-25 20:33 | PCN ---
PROCEDURE NOTE PREOP DIAGNOSIS: Acute on chronic renal failure. PROCEDURE PERFORMED: Ultrasound-guided dialysis placement, right femoral approach. DESCRIPTION OF PROCEDURE: Patient brought to the lab courier. Right groin was prepped and draped in usual sterile manner. 1% lidocaine was infiltrated. Ultrasound-guided. Micropuncture introduced right common femoral vein. Micropuncture guidewire passed and 4 Pashto dilator advanced on top of the guidewire. Then we passed a regular guidewire and dilator was advanced on the top of the guidewire and then we placed a 50 cm dialysis catheter which was flushed with heparin saline and hep-locked and secured with 3-0 nylon. The patient tolerated the procedure well. MMODL / IJN: [id number] /
[2018-07-25] MEDS: FUROSEMIDE 10 MG/ML 10 ML VIAL IV SCH (21:02)
[2018-07-25] MEDS: INSULIN DETEMIR 100 UNIT/ML 10 ML VIAL SQ SCH (21:21)
[2018-07-25 21:22] LABS: Glucose,Whole Blood 121 mg/dL (75-99)
--- NOTE | 2018-07-25 23:54 | PN ---
PROGRESS NOTE DATE OF SERVICE: 07/25/2018. REASON FOR FOLLOWUP: 1. Right diabetic foot ulcer with secondary peritonitis. 2. Possible pneumonia. INTERVAL HISTORY: The patient is afebrile, however, the patient remains to be BiPAP dependent. He was lethargic, sleepy, and unable to provide any history. No nausea or vomiting has been reported. per nursing staff. EXAMINATION: Blood pressure 112/64 with a pulse of 50, temperature 96.6. He is 96% on 3 L nasal cannula. GENERAL DESCRIPTION: An elderly male lying in bed in no distress. RESPIRATORY SYSTEM: Unlabored breathing. Clear to auscultation anteriorly. HEART: S1, S2. Regular rate and rhythm. ABDOMEN: Soft. EXTREMITIES: Leg wounds are currently dressed up. No obvious drainage on the dressing. LABS: Hemoglobin 9, white count 10.4, BUN of 56, creatinine 4.05. DIAGNOSTIC IMPRESSION AND PLAN: Patient with right diabetic foot ulcer with secondary cellulitis, culture positive for methicillin resistant Staphylococcus aeruginosa and Pseudomonas in the outpatient setting. He has been on vancomycin and Fortaz. This has been switched to Zosyn with concern for possible aspiration pneumonitis. Vancomycin has to be stopped because of his elevated creatinine. Daptomycin has been added and that will be continued. Local wound care with Medihoney and Aquacel Silver. Care was discussed with the vascular surgeon. Continue supportive care. MMODL / IJN: [id number] / RUTHY
[2018-07-26] MEDS ORDERED: IPRATROPIUM-ALBUTEROL 3 ML NEB INHALATION PRN (00:48)
[2018-07-26] MEDS: IPRATROPIUM-ALBUTEROL 3 ML NEB INHALATION SCH ×5 (00:51→19:44)
[2018-07-26] MEDS: HYDROmorphone 1 MG/ML 1 ML SYRINGE IVP PRN ×4 (01:24→23:41)
[2018-07-26 04:50] LABS: Hepatitis B Surface AB- Quant 3.5 mIU/mL
[2018-07-26] MEDS: PREGABALIN 100 MG CAP PO SCH ×4 (06:12→23:30)
[2018-07-26] MEDS: LORazepam 2 MG/ML INJ IV PRN ×2 (06:17→22:51)
[2018-07-26 06:29] LABS: Glucose,Whole Blood 111 mg/dL (75-99)
[2018-07-26] MEDS: PANTOPRAZOLE 40 MG TABLET PO SCH (06:30)
[2018-07-26] MEDS: INSULIN ASPART 100 UNIT/ML 1 ML 10 ML VIAL SQ SCH ×4 (06:31→21:54)
[2018-07-26 07:43] LABS: Anisocytosis Slight; Basophils % (A) 0 %; Eosinophils # (A) 0.1 k/uL (0-0.7); Eosinophils % (A) 1 %; HCT 29.2 % (39.0-53.0); HGB 8.5 gm/dL (13.0-17.5); Hypochromasia Marked; Lymphocytes # (A) 0.8 k/uL (1.0-4.8); Lymphocytes % (A) 11 %; MCH 26.8 pg (25.0-35.0); MCHC 29.3 g/dL (31.0-37.0); MCV 91.4 fL (80.0-100.0); Mean Platelet Volume 8.5; Monocytes # (A) 0.2 k/uL (0-1.0); Monocytes % (A) 3 %; Neutrophils # (A) 6.1 k/uL (1.3-7.7); Neutrophils % (A) 84 %; Platelet Count 153 k/uL (150-450); Poikilocytosis Slight; RBC 3.19 m/uL (4.30-5.90); RDW 19.4 % (11.5-15.5); WBC 7.3 k/uL (3.8-10.6)
[2018-07-26 08:06] LABS: Albumin 2.5 g/dL (3.5-5.0); Calcium 7.6 mg/dL (8.4-10.2); Magnesium 1.8 mg/dL (1.6-2.3); Potassium 4.8 mmol/L (3.5-5.1); Total Bilirubin 0.4 mg/dL (0.2-1.3); Total Protein 6.3 g/dL (6.3-8.2)
[2018-07-26] MEDS ORDERED: fentaNYL (PF) 50 MCG/ML 2 ML AMP IV ONE (08:56)
[2018-07-26] MEDS ORDERED: LIDOCAINE 1% INJ 10MG/ML (20 ML MDV) SQ ONE (08:57)
[2018-07-26] MEDS ORDERED: IOPAMIDOL-250 50ML BTL IV ONE (09:01)
[2018-07-26] MEDS ORDERED: IV FLUID CONTINUATION 900 ML IV ONE (09:03)
--- NOTE | 2018-07-26 09:58 | PCN ---
PROCEDURE NOTE PREOP DIAGNOSIS: Myocardial infarction, right femoral catheter. PROCEDURE: 1. Inferior vena cavogram. 2. Placement of a 30 cm dialysis catheter. The patient was brought to the laboratory secretary. Right groin was prepped and draped in sterile manner. After that, 1% lidocaine was infiltrated in the groin area and a guidewire was passed through the previous catheter and then the catheter was removed. Then we placed a longer catheter. Prior to that we did the venacavogram which was found to be patent. Then 30 cm catheter was advanced on top of the guidewire, checked with the C-arm. It was in good position. Flushed with heparin and saline and hep-locked and secured with 3- 0 nylon dressing applied. Patient tolerated the procedure well. BETZY / BELLEN: [id number] /
[2018-07-26] MEDS: PIPERACILLIN-TAZOBACTAM 3.375 GM in DEXTROSE/WATER 1 50ML.BAG IVPB SCH ×2 (09:59→20:07)
[2018-07-26] MEDS: SODIUM CHLORIDE 0.9% 1,000 ML IV SCH (10:42)
[2018-07-26] MEDS: ALLOPURINOL 300 MG TAB PO SCH (10:42)
[2018-07-26 11:13] LABS: Glucose,Whole Blood 103 mg/dL (75-99)
[2018-07-26] MEDS ORDERED: HEPARIN SODIUM,PORCINE 5,000 UNIT/ML 1 ML VIAL ONE (13:00)
--- NOTE | 2018-07-26 13:27 | P.PN ---
Subjective Progress Note Date: 07/26/18 Principal diagnosis: This is a 72-year-old male seen on dialysis today. His blood pressure is in the 90s and occasionally his heart rate goes into the 40s. This is his second attempt on dialysis yesterday the catheter did not work and had to be repositioned. Currently we have a fairly adequate blood flow for dialysis. He remains somewhat obtunded opens eyes but does not respond to questions or commands. He is a detention resident who came in because of altered mental status fever and cellulitis of his lower extremities. 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 Objective - Vital Signs Vital signs: Vital Signs Temp 97 F L 07/26/18 11:11 Pulse 68 07/26/18 11:11 Resp 18 07/26/18 11:11 BP 136/66 07/26/18 11:11 Pulse Ox 98 07/26/18 11:11 Intake & Output 07/25/18 07/26/18 07/26/18 18:59 06:59 18:59 Intake Total 450 50 Output Total 50 100 Balance 400 -50 Weight 121 kg 117 kg Intake: IV 50 Intake, IV Titration 450 Amount Dextrose 5% in Water 1, 400 000 ml @ 50 mls/hr IV . Q23H [facility] with Sodium Bicarb (1 Meq/ml) 150 ml Rx#:[id number] Piperacillin-Tazobactam 3 50 .375 gm In Dextrose/Water 1 50ml.bag @ 12.5 mls/hr IVPB Q12H [facility] Rx#: [id number] Output: Urine 50 100 Other: Voiding Method Indwelling Catheter Indwelling Catheter Indwelling Catheter # Voids 1 On examination is arousable but opens eyes but does not follow any commands mumbles when asked any questions or commands. HEENT exam difficult exam short neck. Obvious JVD lymphadenopathy neck is supple His pupils are equal with the left pupil is about 3-4 mm whereas the right one is about 1-2 mm. Lungs are clear but the inspiratory effort is less than optimal Heart sounds are unremarkable for any murmur rub gallop Abdomen is obese protuberant nontender Extreme exam was 2+ edema with cellulitis. Neurologically as mentioned about - Labs CBC & Chem 7: 07/26/18 06:48 10/13/18 06:48 Labs: Abnormal Lab Results - Last 24 Hours (Table) 07/25/18 07/26/18 07/26/18 Range/Units 21:18 06:27 06:48 RBC 3.19 L (4.30-5.90) m/uL Hgb 8.5 L (13.0-17.5) gm/dL Hct 29.2 L (39.0-53.0) % MCHC 29.3 L (31.0-37.0) g/dL RDW 19.4 H (11.5-15.5) % Lymphocytes # 0.8 L (1.0-4.8) k/uL Sodium (137-145) mmol/L Chloride (98-107) mmol/L Carbon Dioxide (22-30) mmol/L BUN (9-20) mg/dL Creatinine (0.66-1.25) mg/dL Glucose (74-99) mg/dL POC Glucose (mg/dL) 121 H 111 H (75-99) mg/dL Calcium (8.4-10.2) mg/dL AST (17-59) U/L ALT (21-72) U/L Albumin (3.5-5.0) g/dL 07/26/18 07/26/18 Range/Units 06:48 11:07 RBC (4.30-5.90) m/uL Hgb (13.0-17.5) gm/dL Hct (39.0-53.0) % MCHC (31.0-37.0) g/dL RDW (11.5-15.5) % Lymphocytes # (1.0-4.8) k/uL Sodium 146 H (137-145) mmol/L Chloride 114 H (98-107) mmol/L Carbon Dioxide 18 L (22-30) mmol/L BUN 55 H (9-20) mg/dL Creatinine 4.12 H (0.66-1.25) mg/dL Glucose 107 H (74-99) mg/dL POC Glucose (mg/dL) 103 H (75-99) mg/dL Calcium 7.6 L (8.4-10.2) mg/dL AST 6 L (17-59) U/L ALT 14 L (21-72) U/L Albumin 2.5 L (3.5-5.0) g/dL Microbiology - Last 24 Hours (Table) 07/22/18 11:18 Blood Culture - Preliminary Blood No Growth after 72 hours Assessment and Plan Assessment: Impression 1. Acute kidney injury with ATN secondary to prerenal from leg cellulitis with uremia. Currently on dialysis with a catheter in his right groin. 2. 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 3. Obtundation secondary to possible uremia. 4. [facility] resident. 5. Right femoral Vasyl catheter for dialysis. 6. Anemia off chronic illness hemoglobin is 8.5. 7. Severe metabolic acidosis with a small gap of 14 bicarb is 18. Recommendation 1. Start sodium bicarb by mouth 2. Will continue to dialyze him tomorrow again
[2018-07-26] MEDS: ALLOPURINOL 100 MG TAB PO SCH (16:22)
[2018-07-26] MEDS: SODIUM BICARBONATE TAB 650 MG TAB PO SCH ×3 (16:22→20:10)
[2018-07-26] MEDS: ISOSORBIDE MONONITRATE ER 60 MG TAB.ER.24H PO SCH (16:22)
[2018-07-26] MEDS: ASPIRIN 81 MG PO SCH (16:22)
[2018-07-26] MEDS: hydrALAZINE HCL 25 MG TAB PO SCH ×3 (16:22→17:06)
[2018-07-26] MEDS: FERROUS SULFATE 325 MG TAB PO SCH (16:22)
[2018-07-26] MEDS: CHOLECALCIFEROL 1,000 UNIT TAB PO SCH (16:22)
[2018-07-26] MEDS: FUROSEMIDE 10 MG/ML 10 ML VIAL IV SCH ×2 (16:22→20:08)
[2018-07-26] MEDS: TAMSULOSIN 0.4 MG CAP.ER.24H PO SCH (16:23)
[2018-07-26 17:21] LABS: Glucose,Whole Blood 95 mg/dL (75-99)
--- NOTE | 2018-07-26 17:28 | PN ---
PROGRESS NOTE Liang Guerin was seen again on 07/26/2018. He has been hemodynamically stable. He is sleepy but arousable and will be undergoing dialysis shortly. He complains of pain in his foot. PHYSICAL EXAMINATION: Blood pressure is 136/66, respiratory rate of 18, pulse of 68, temperature 97 degrees Fahrenheit, O2 saturation on 3 L by nasal cannula is 98%. HEENT reveals redundant tissue in the posterior pharynx, large tongue. Short thick neck. Chest reveals decreased breath sounds. No wheeze. Cardiovascular system reveals a S1, S2. Abdomen is soft. There is 2+ pedal edema with wounds that are dressed at the ankle. White count of 7.3, hemoglobin of 8.5. Sodium 140, potassium 4.8, chloride 114, bicarb 18, BUN 55, creatinine of 4.12. IMPRESSION: At this time: 1. Acute blood loss anemia. 2. Metabolic encephalopathy. 3. Hypernatremia. 4. Acute renal failure. 5. Pleural effusion in part due to fluid status. 6. Congestive heart failure. 7. Obstructive sleep apnea, severe, suspected relatively untreated. At this point in time: Watch his electrolytes. Initiate dialysis. Continue BiPAP. Continue supplemental oxygen. Continue antibiotics. Consultants input and intervention is appreciated. MMODL / IJN: [id number] /
[2018-07-26 21:42] LABS: Glucose,Whole Blood 98 mg/dL (75-99)
[2018-07-26] MEDS: INSULIN DETEMIR 100 UNIT/ML 10 ML VIAL SQ SCH (21:54)
--- NOTE | 2018-07-26 23:04 | PN ---
PROGRESS NOTE DATE OF SERVICE: 07/26/2018. REASON FOR FOLLOWUP: 1. Right diabetic foot ulcer with secondary cellulitis, MRSA and Pseudomonas. 2. Possible pneumonia. INTERVAL HISTORY: The patient is currently afebrile. The patient did have dialysis catheter placement. He remains to be lethargic with no reported history. No nausea, vomiting, diarrhea per the nursing staff. EXAMINATION: Blood pressure 132/95 with a pulse of 68, temperature 97. He is 100% on 3 L nasal cannula. GENERAL DESCRIPTION: An elderly male lying in bed in no distress. RESPIRATORY SYSTEM: Unlabored breathing. Decreased breath sounds in the bases. No wheeze. HEART: S1, S2. Regular rate and rhythm. ABDOMEN: Soft, no tenderness. The right heel wound is currently dressed up, no obvious drainage on the dressing. LABS: Hemoglobin 8.5, white count 7.3, BUN 55, creatinine 4.12. DIAGNOSTIC IMPRESSION AND PLAN: Patient admitted to the hospital with acute kidney injury and hypoxemia, with concern for possible pneumonitis in a patient who has right diabetic foot ulcer with secondary cellulitis. Outpatient culture positive for MRSA and Pseudomonas aeruginosa. The patient is currently on daptomycin and Zosyn will be continued. Local wound care to continue as ordered. Continue supportive care. MMODL / IJN: [id number] /
[2018-07-27 05:13] LABS: Anisocytosis Slight; Basophils % (A) 0 %; Eosinophils # (A) 0.1 k/uL (0-0.7); Eosinophils % (A) 1 %; HCT 30.1 % (39.0-53.0); Hypochromasia Marked; Lymphocytes % (A) 11 %; MCH 26.6 pg (25.0-35.0); MCHC 29.8 g/dL (31.0-37.0); MCV 89.2 fL (80.0-100.0); Mean Platelet Volume 8.1; Monocytes # (A) 0.3 k/uL (0-1.0); Monocytes % (A) 3 %; Neutrophils # (A) 7.2 k/uL (1.3-7.7); Neutrophils % (A) 83 %; Platelet Count 137 k/uL (150-450); Poikilocytosis Slight; RBC 3.38 m/uL (4.30-5.90); RDW 19.3 % (11.5-15.5); WBC 8.7 k/uL (3.8-10.6)
[2018-07-27] MEDS: HYDROmorphone 1 MG/ML 1 ML SYRINGE IVP PRN ×2 (05:24→11:20)
[2018-07-27 05:26] LABS: Albumin 2.5 g/dL (3.5-5.0); Calcium 7.5 mg/dL (8.4-10.2); Magnesium 1.8 mg/dL (1.6-2.3); Potassium 4.3 mmol/L (3.5-5.1); Total Bilirubin 0.4 mg/dL (0.2-1.3); Total Protein 6.3 g/dL (6.3-8.2)
[2018-07-27 05:58] LABS: Anisocytosis Slight; Basophils % (A) 0 %; Eosinophils # (A) 0.1 k/uL (0-0.7); Eosinophils % (A) 1 %; HCT 28.7 % (39.0-53.0); HGB 8.7 gm/dL (13.0-17.5); Hypochromasia Marked; Lymphocytes % (A) 12 %; MCH 27.1 pg (25.0-35.0); MCHC 30.5 g/dL (31.0-37.0); MCV 88.8 fL (80.0-100.0); Mean Platelet Volume 8.4; Monocytes # (A) 0.2 k/uL (0-1.0); Monocytes % (A) 3 %; Neutrophils # (A) 6.5 k/uL (1.3-7.7); Neutrophils % (A) 82 %; Platelet Count 119 k/uL (150-450); Poikilocytosis Slight; RBC 3.23 m/uL (4.30-5.90); RDW 19.4 % (11.5-15.5); WBC 7.9 k/uL (3.8-10.6)
[2018-07-27 06:17] LABS: Glucose,Whole Blood 99 mg/dL (75-99)
[2018-07-27] MEDS: PREGABALIN 100 MG CAP PO SCH ×4 (06:17→23:33)
[2018-07-27] MEDS: INSULIN ASPART 100 UNIT/ML 1 ML 10 ML VIAL SQ SCH ×4 (06:18→21:02)
[2018-07-27] MEDS: PANTOPRAZOLE 40 MG TABLET PO SCH (06:18)
[2018-07-27] MEDS: IPRATROPIUM-ALBUTEROL 3 ML NEB INHALATION SCH ×4 (06:52→20:49)
[2018-07-27] MEDS: CHOLECALCIFEROL 1,000 UNIT TAB PO SCH (08:02)
[2018-07-27] MEDS: ASPIRIN 81 MG PO SCH (08:02)
[2018-07-27] MEDS: FERROUS SULFATE 325 MG TAB PO SCH (08:02)
[2018-07-27] MEDS: hydrALAZINE HCL 25 MG TAB PO SCH ×3 (08:02→17:43)
[2018-07-27] MEDS: ALLOPURINOL 100 MG TAB PO SCH (08:02)
[2018-07-27] MEDS: TAMSULOSIN 0.4 MG CAP.ER.24H PO SCH (08:03)
[2018-07-27] MEDS: SODIUM BICARBONATE TAB 650 MG TAB PO SCH ×3 (08:03→21:02)
[2018-07-27] MEDS: ISOSORBIDE MONONITRATE ER 60 MG TAB.ER.24H PO SCH (08:03)
[2018-07-27] MEDS: PIPERACILLIN-TAZOBACTAM 3.375 GM in DEXTROSE/WATER 1 50ML.BAG IVPB SCH ×2 (08:03→20:05)
[2018-07-27] MEDS ORDERED: IV FLUID CONTINUATION 700 ML IV ONE ×2 (08:25)
[2018-07-27] MEDS ORDERED: fentaNYL (PF) 50 MCG/ML 2 ML AMP IV ONE (08:47)
[2018-07-27] MEDS ORDERED: HEPARIN SODIUM 1,000 UN/ML (10ML VL) IV ONE (09:04)
--- NOTE | 2018-07-27 09:32 | PCN ---
PROCEDURE NOTE PREOP DIAGNOSIS: Acute on chronic renal failure. PROCEDURE: Ultrasound-guided right IJ catheter placed jugular approach. PROCEDURE: This patient had a femoral catheter placed yesterday. Patient pulled this catheter out this morning after dialysis. Nephrology called for placement of the new dialysis catheter. Patient was brought to the dock or pier laborer. Right side of the neck and chest was prepped and drapes applied in usual sterile manner. 1% lidocaine was infiltrated into the neck and chest area. Ultrasound-guided micropuncture right internal jugular vein micropuncture guidewire was passed and 4 Polish dilator advanced on top of the guidewire. After that, a tunnel was created. Through the tunnel we brought 23 cm dialysis catheter. We passed a guidewire through the catheter which was parked in the inferior vena cava. Then dilator was advanced. Then, sheath was advanced. Through the sheath we introduced the dialysis catheter. Tip of the catheter in superior vena cava and atrium flushed with heparin saline and hep-locked. The catheter was secured with 3-0 nylon. Dressing applied patient. The patient tolerated the procedure well. MMODL / IJN: [id number] /
--- NOTE | 2018-07-27 10:07 | IR ---
EXAMINATION TYPE: IR cvc replace peripheral DATE OF EXAM: 07/26/2018 COMPARISON: NONE HISTORY: Replaced temporary hemocath Fluoroscopy support supplied to the referring clinician. See dictated report from vascular surgery, 0.4 minutes fluoroscopy time, 388 intraoperative images document the procedure
--- NOTE | 2018-07-27 10:08 | P.PN ---
Subjective Progress Note Date: 07/27/18 Principal diagnosis: This is a 72-year-old male seen with acute kidney injury and chronic kidney disease, has been placed back on dialysis. He was dialyzed yesterday after the attempt on dialysis day before yesterday was rather unsuccessful because of catheter flow problems. Yesterday's dialysis was uneventful and complete. He did have some bradycardia during the episode but was able to complete his dialysis. This morning he pulled out his dialysis catheter and a new catheter has been placed in the right chest just now. He remains obtunded ever since admission. Currently he has had some fentanyl during the procedure. He was admitted with mental status changes. Question of pneumonia and cellulitis of the legs was considered to because of his mental status changes. His admission creatinine was 2 and it is unlikely that uremia was the cause of his mental status changes and he came in. His blood pressure remains low, in the 80s to 90s systolic, bradycardic in the 30s to 40s. He is afebrile. He remains somewhat obtunded opens eyes but does not respond to questions or commands. He has unequal pupils and stiff neck He is a group home resident who came in because of altered mental status fever and cellulitis of his lower extremities. 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 Supposedly he was on dialysis for a short period of time recently but details of that are not available Objective - Vital Signs Vital signs: Vital Signs Temp 96.6 F L 07/26/18 20:00 Pulse 38 L 07/27/18 08:30 Resp 20 07/27/18 09:33 BP 88/45 07/27/18 09:51 Pulse Ox 98 07/27/18 09:33 Intake & Output 07/26/18 07/27/18 07/27/18 18:59 06:59 18:59 Intake Total 100 Output Total 100 Balance 0 Weight 117 kg Intake: IV 50 Intake, IV Titration 50 Amount Piperacillin-Tazobactam 3 50 .375 gm In Dextrose/Water 1 50ml.bag @ 12.5 mls/hr IVPB Q12H [facility] Rx#: [id number] Output: Urine 100 Other: Voiding Method Indwelling Catheter Indwelling Catheter Indwelling Catheter On examination he is warm to touch obtunded confused. HEENT exam the left pupil is about 3-4 mm in the right is about 1-2 mm with are barely reactive. He might have a cataract on the left side. Neck is stiff. No JVD noted no lymph nodes noted Lungs are clear to auscultation but air entry is less than optimal Heart sounds are unremarkable for any murmur rub gallop Abdomen is obese protuberant nontender. Extremity exam was 2+ edema with the dressings on. Neurologically as about obtunded. Unequal pupils and stiff neck - Labs CBC & Chem 7: 07/27/18 05:49 07/27/18 05:01 Labs: Abnormal Lab Results - Last 24 Hours (Table) 07/26/18 07/27/18 07/27/18 Range/Units 11:07 05:01 05:01 RBC 3.38 L (4.30-5.90) m/uL Hgb 9.0 L (13.0-17.5) gm/dL Hct 30.1 L (39.0-53.0) % MCHC 29.8 L (31.0-37.0) g/dL RDW 19.3 H (11.5-15.5) % Plt Count 137 L (150-450) k/uL Chloride 112 H (98-107) mmol/L Carbon Dioxide 19 L (22-30) mmol/L BUN 47 H (9-20) mg/dL Creatinine 3.62 H (0.66-1.25) mg/dL POC Glucose (mg/dL) 103 H (75-99) mg/dL Calcium 7.5 L (8.4-10.2) mg/dL AST 6 L (17-59) U/L Albumin 2.5 L (3.5-5.0) g/dL 07/27/18 Range/Units 05:49 RBC 3.23 L (4.30-5.90) m/uL Hgb 8.7 L (13.0-17.5) gm/dL Hct 28.7 L (39.0-53.0) % MCHC 30.5 L (31.0-37.0) g/dL RDW 19.4 H (11.5-15.5) % Plt Count 119 L (150-450) k/uL Chloride (98-107) mmol/L Carbon Dioxide (22-30) mmol/L BUN (9-20) mg/dL Creatinine (0.66-1.25) mg/dL POC Glucose (mg/dL) (75-99) mg/dL Calcium (8.4-10.2) mg/dL AST (17-59) U/L Albumin (3.5-5.0) g/dL Microbiology - Last 24 Hours (Table) 07/22/18 11:18 Blood Culture - Preliminary Blood No Growth after 96 hours Assessment and Plan Assessment: Impression 1. Acute kidney injury with ATN secondary to prerenal from leg cellulitis with possible uremia. Started on dialysis with a catheter in his right groin, first attempt on Saturday was not successful , his dialysis yesterday was uneventful, this morning he pulled out his femoral catheter and a new catheter is in place in the right chest. 2. 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 3. Obtundation secondary to possible uremia. But need to rule out any neurological causes based on unequal pupils, stiff neck and obtundation 4. care home resident. 5. Right femoral Vasyl catheter for dialysis, pulled out by the patient today on 07/27/2018 and replace with a permacath cath on the right chest. 6. Anemia off chronic illness hemoglobin is 8.5. 7. metabolic acidosis , bicarb is 19 stable, gap is 13 stable Recommendation 1. Will be dialyzed today and tomorrow to ensure any possible uremia is completely resolved and we can reassess his mental status and look for other causes such as SUPERVISOR HOME ENERGY CONSULTANT lesions and or infectious causes. 2. Watch bicarb and maintained sodium bicarb by mouth, if possible. 2. Will continue to dialyze him tomorrow again
--- NOTE | 2018-07-27 10:09 | IR ---
Fluoroscopy HISTORY: Central venous catheter placement 1.8 minutes fluoroscopy time supplied to the referring clinician. 725 intraoperative C-arm images do cument the procedure. See dictated report from vascular surgery.
[2018-07-27] MEDS: FUROSEMIDE 10 MG/ML 10 ML VIAL IV SCH ×2 (10:13→20:01)
--- NOTE | 2018-07-27 10:27 | XR ---
EXAMINATION TYPE: XR chest 1V confirm line plcmt DATE OF EXAM: 07/27/2018 HISTORY: HD catheter placement . REFERENCE: Previous study dated 07/25/2018. FINDINGS: A large-bore, double-lumen catheter is been inserted via a right internal jugular approach. Its tip appears to be in the right atrium. The heart is enlarged. There are bilateral effusions. There is bibasilar airspace disease. This has w orsened slightly from previous. The right basilic PICC line remains in place. Its tip appears to be the cavoatrial junction. IMPRESSION: I DO NOT SEE A POST CATHETER INSERTION COMPLICATION.
[2018-07-27] MEDS ORDERED: NALOXONE 0.4 MG/ML 1 ML VIAL IV STA (10:45)
[2018-07-27] MEDS: LORazepam 2 MG/ML INJ IV PRN ×2 (10:57→20:23)
[2018-07-27 12:35] LABS: Glucose,Whole Blood 120 mg/dL (75-99)
--- NOTE | 2018-07-27 12:41 | P.CRDCN ---
History of Present Illness Consult date: 07/27/18 Chief complaint: AVB History of present illness: This is a 72-year-old gentleman who unfortunately very sick with multiple comorbid conditions. The patient initially was admitted to the hospital was a change in mental status as well as with fever. He was diagnosed subsequently with what it seems to be critical limb ischemia of bilateral lower extremities with possible osteomyelitis as well. Beside that the patient does have advanced chronic kidney disease, hypertension, and dyslipidemia. We get involved in his care for further evaluation of cardiac arrhythmia. The patient is known to have third degree AV block. As a matter of fact he was seen by our service in the past. He was seen recently at [facility] and he was evaluated for possible permanent pacemaker implantation and that was never performed because of the sepsis status. When I came in to evaluate the patient, the patient currently is very lethargic and poor historian. He was given Narcan recently because he was quite agitated. Currently he is on dialysis. I did review the EKG and telemetry strips and that did indicate third degree AV block but the patient has been maintaining normal blood pressure and heart rate in the 50s. He underwent an echocardiogram in 2016 and that revealed normal LV function without any significant valvular abnormalities. In view of the sepsis status and the current osteomyelitis, I would recommend a conservative medical approach in this gentleman and not to implant any device at this point. Meanwhile I will get an echocardiogram was Doppler. We'll continue following up with him. Please note that the prognosis is very poor. Past Medical History Past Medical History: Coronary Artery Disease (CAD), Heart Failure, Diabetes Mellitus, GERD/Reflux, Hyperlipidemia, Hypertension, Myocardial Infarction (CO) , Osteoarthritis (OA), Renal Disease, Skin Disorder Additional Past Medical History / Comment(s): IDDM type II, peripheral neuropathy bilateral hands/feet, PVD with chronic bilateral foot wounds/mrsa per [facility] transfer information, wears bilateral mediboots, spouse states she has been told at [facility] he needs a R leg amputation but she was also told at [facility] that he needs a pacemaker first so nothing was done, bilateral lower leg cellulitis, bilateral lower leg edema, sacral ulcer, chronic kidney disease stage III with recent dialysis at [facility]-3 weeks ago, pleural effusion with thoracentesis (laterallity unknown), gout bilateral feet, cataracts in bilateral eyes-vision is poor-sees shapes only. Last Myocardial Infarction Date:: 2009 History of Any Multi-Drug Resistant Organisms: MRSA Date of last positivie culture/infection: unkn MDRO Source:: [facility]-see note Past Surgical History: Heart Catheterization With Stent Additional Past Surgical History / Comment(s): PCI with stent 2009, R arm double picc line Past Anesthesia/Blood Transfusion Reactions: No Reported Reaction Additional Past Anesthesia/Blood Transfusion Reaction / Comment(s): . Date of Last Stent Placement:: 2009 Past Psychological History: No Psychological Hx Reported Additional Psychological History / Comment(s): Pt currently resides at [facility]. He has been receiving rehab and is up with a walker. He is an [employer] . 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 Smoking Status: Former smoker Past Alcohol Use History: None Reported Additional Past Alcohol Use History / Comment(s): Pt started smoking in 1967 and quit in 1975 Past Drug Use History: None Reported - Past Family History Father Family Medical History: Cancer Additional Family Medical History / Comment(s): Father had cancer, pt's spouse cannot recall type. Mother Family Medical History: Renal Disease Medications and Allergies Home Medications Medication Instructions Recorded Confirmed Type Aspirin EC [Ecotrin Low Dose] 81 mg PO DAILY 04/01/17 07/22/18 History Insulin Glargine [Lantus] 10 unit SQ HS 04/01/17 07/22/18 History Allopurinol [Zyloprim] 300 mg PO DAILY 04/03/18 07/22/18 History Atorvastatin [Lipitor] 80 mg PO DAILY 04/03/18 07/22/18 History Clopidogrel [Plavix] 75 mg PO DAILY 04/03/18 07/22/18 History Acetaminophen Tab [Tylenol Tab] 650 mg PO Q4H PRN 07/22/18 07/22/18 History Cholecalciferol (Vitamin D3) 2,000 unit PO DAILY 07/22/18 07/22/18 History [Vitamin D3] Ferrous Sulfate [Feosol] 325 mg PO DAILY 07/22/18 07/22/18 History Furosemide [Lasix] 60 mg PO BID@0800,1600 07/22/18 07/22/18 History Ipratropium-Albuterol Nebulize 3 ml INHALATION RT-Q6H PRN 07/22/18 07/22/18 History [Duoneb 0.5 mg-3 mg/3 ml Soln] Isosorbide Mononitrate ER [Imdur] 60 mg PO DAILY 07/22/18 07/22/18 History Pregabalin [Lyrica] 100 mg PO Q6H 07/22/18 07/22/18 History Sodium Bicarbonate Tab 650 mg PO TID 07/22/18 07/22/18 History Tamsulosin [Flomax] 0.4 mg PO DAILY 07/22/18 07/22/18 History cefTAZidime [Fortaz] 1 gm IVPB Q8HR 07/22/18 07/22/18 History hydrALAZINE HCL [Apresoline] 25 mg PO TID@0800,1200,1800 07/22/18 07/22/18 History traMADol HCL [Ultram] 50 mg PO Q8H PRN 07/22/18 07/22/18 History Allergies Allergy/AdvReac Type Severity Reaction Status Date / Time cephalexin [From Keflex] AdvReac Unknown Verified 07/22/18 11:15 Childhood Physical Exam Vitals: Vital Signs Temp Pulse Resp BP BP Pulse Ox 07/27/18 11:26 142/64 07/27/18 11:17 158/64 07/27/18 11:10 58 L 20 96 07/27/18 10:57 54 L 20 101/48 99 07/27/18 10:45 14 07/27/18 10:17 45 L 97/43 07/27/18 09:51 43 L 20 88/45 99 07/27/18 09:33 20 95/34 98 07/27/18 08:30 38 L 18 98/45 98 07/27/18 08:00 20 98/45 98 07/27/18 04:00 42 L 18 110/51 98 07/26/18 23:30 56 L 18 132/74 94 L 07/26/18 20:00 96.6 F L 40 L 18 94/46 98 07/26/18 16:00 55 L 18 132/95 100 07/26/18 14:14 44 L 95/45 Intake and Output 07/26/18 07/27/18 07/27/18 22:59 06:59 14:59 Intake Total 50 Output Total 200 Balance 50 -200 Intake: Intake, IV Titration 50 Amount Piperacillin-Tazobactam 3 50 .375 gm In Dextrose/Water 1 50ml.bag @ 12.5 mls/hr IVPB Q12H [facility] Rx#: [id number] Output: Urine 200 Other: Voiding Method Indwelling Catheter Indwelling Catheter Indwelling Catheter Weight 117 kg - Constitutional General appearance: mild distress - Respiratory Respiratory: bilateral: diminished - Cardiovascular Rhythm: irregularly irregular Heart sounds: normal: S1, S2 Results 07/27/18 05:49 07/27/18 05:01 Cardiac Enzymes 07/27/18 Range/Units 05:01 AST 6 L (17-59) U/L CBC 07/27/18 07/27/18 Range/Units 05:01 05:49 WBC 8.7 7.9 (3.8-10.6) k/uL RBC 3.38 L 3.23 L (4.30-5.90) m/uL Hgb 9.0 L 8.7 L (13.0-17.5) gm/dL Hct 30.1 L 28.7 L (39.0-53.0) % Plt Count 137 L 119 L (150-450) k/uL Comprehensive Metabolic Panel 07/27/18 Range/Units 05:01 Sodium 144 (137-145) mmol/L Potassium 4.3 (3.5-5.1) mmol/L Chloride 112 H (98-107) mmol/L Carbon Dioxide 19 L (22-30) mmol/L BUN 47 H (9-20) mg/dL Creatinine 3.62 H (0.66-1.25) mg/dL Glucose 97 (74-99) mg/dL Calcium 7.5 L (8.4-10.2) mg/dL AST 6 L (17-59) U/L ALT 21 (21-72) U/L Alkaline Phosphatase 87 (38-126) U/L Total Protein 6.3 (6.3-8.2) g/dL Albumin 2.5 L (3.5-5.0) g/dL Current Medications Generic Name Dose Route Start Last Admin Trade Name Freq PRN Reason Stop Dose Admin Acetaminophen 650 mg 07/22/18 14:38 Tylenol Tab PO Q4H PRN Mild Pain Albuterol/Ipratropium 3 ml 07/26/18 00:48 Duoneb 0.5 Mg-3 Mg/3 Ml Soln INHALATION RT-QID PRN Shortness Of Breath Or Wheezing Albuterol/Ipratropium 3 ml 07/26/18 08:00 07/27/18 11:22 Duoneb 0.5 Mg-3 Mg/3 Ml Soln INHALATION Not Given RT-QID [facility] Allopurinol 200 mg 07/25/18 09:00 07/27/18 08:02 Zyloprim PO Not Given DAILY [facility] Aspirin 81 mg 07/23/18 09:00 07/27/18 08:02 Aspirin PO Not Given DAILY [facility] Cholecalciferol 2,000 unit 07/23/18 09:00 07/27/18 08:02 Vitamin D3 PO Not Given DAILY [facility] Darbepoetin Jaxon 40 mcg 07/25/18 14:00 07/25/18 16:15 Aranesp SQ 40 mcg Q7D [facility] Administration Ferrous Sulfate 325 mg 07/23/18 09:00 07/27/18 08:02 Feosol PO Not Given DAILY [facility] Furosemide 60 mg 07/25/18 21:00 07/27/18 10:13 Lasix IV Not Given Q12HR [facility] Hydralazine HCl 25 mg 07/22/18 18:00 07/27/18 08:02 Apresoline PO Not Given TID@0800,1200,1800 [facility] Hydromorphone HCl 0.5 mg 07/25/18 01:10 07/27/18 11:20 Dilaudid IVP 0.5 mg Q6HR PRN Administration Pain Piperacillin/Tazobactam/ 50 mls @ 12.5 mls/hr 07/24/18 20:00 07/27/18 08:03 Dextrose 3.375 gm/ IV Solution IVPB 12.5 mls/hr Q12H [facility] Administration Daptomycin 750 mg/ Sodium 50 mls @ 100 mls/hr 07/25/18 14:00 07/25/18 15:47 Chloride IVPB 100 mls/hr Q48H [facility] Administration Protocol Insulin Aspart 0 unit 07/22/18 17:30 07/27/18 06:18 Novolog SQ Not Given ACHS [facility] Protocol Insulin Detemir 10 unit 07/22/18 21:00 07/26/18 21:54 Levemir SQ Not Given HS [facility] Isosorbide Mononitrate 60 mg 07/23/18 09:00 07/27/18 08:03 Imdur PO Not Given DAILY [facility] Lorazepam 1 mg 07/27/18 10:52 07/27/18 10:57 Ativan IV 1 mg Q6HR PRN Administration Anxiety Miscellaneous Information 1 each 07/22/18 14:35 Pneumonia Protocol Utilized PO ONCE PRN Per Protocol Pantoprazole Sodium 40 mg 07/23/18 07:30 07/27/18 06:18 Protonix PO Not Given AC-BRKFST [facility] Pregabalin 100 mg 07/22/18 18:00 07/27/18 06:17 Lyrica PO Not Given Q6H [facility] Sodium Bicarbonate 650 mg 07/22/18 16:00 07/27/18 08:03 Sodium Bicarbonate Tab PO Not Given TID [facility] Tamsulosin HCl 0.4 mg 07/23/18 09:00 07/27/18 08:03 Flomax PO Not Given DAILY [facility] Tramadol HCl 50 mg 07/22/18 14:38 07/25/18 00:24 Ultram PO 50 mg Q8H PRN Administration Pain Intake and Output 07/26/18 07/27/18 07/27/18 22:59 06:59 14:59 Intake Total 50 Output Total 200 Balance 50 -200 Intake: Intake, IV Titration 50 Amount Piperacillin-Tazobactam 3 50 .375 gm In Dextrose/Water 1 50ml.bag @ 12.5 mls/hr IVPB Q12H [facility] Rx#: [id number] Output: Urine 200 Other: Voiding Method Indwelling Catheter Indwelling Catheter Indwelling Catheter Weight 117 kg 07/27/18 05:49 07/27/18 05:01 Assessment and Plan Assessment: Assessment End stage renal disease on hemodialysis Osteomyelitis of bilateral lower extremities Hypertension Dyslipidemia Third degree AV block Multiple comorbid conditions Plan The patient has been maintaining reasonable blood pressure and heart rate in the 50s Avoid any kind of AV francis shelbi agents Avoid electrolytes imbalance Conservative medical approach Avoid any device implantation Echocardiogram was Doppler Follow-up with the patient
[2018-07-27] MEDS: DAPTOmycin 750 MG in SODIUM CHLORIDE 0.9% 50 ML IVPB SCH (14:30)
--- NOTE | 2018-07-27 14:47 | CONS ---
CONSULTATION DATE OF SERVICE: 07/27/2018. HISTORY: He underwent right-sided subclavian area dialysis catheter placement and had been given fentanyl for the procedure. He was moved to the [facility] and was unresponsive. Subsequently, he arouses to sternal rub and follows simple commands. He had a blood pressure of 98/43 and a heart rate in the 40s and 50s with third-degree AV block. He did not complain of any pain. PHYSICAL EXAMINATION: On physical examination, blood pressure was 98/53, respiratory rate of 20, pulse rate of 58. He was afebrile. HEENT reveals short thick neck with redundant tissue in the posterior pharynx. Chest revealed decreased breath sounds. Cardiovascular system revealed distant heart sounds, S1, S2, no S3, no S4. No murmurs. Abdomen is soft. There is 1+ to 2+ pedal edema. There is a surgical dressing on the right chest wall. LABS: Labs were reviewed. IMPRESSION: 1. Acute on chronic renal failure for which he is to undergo dialysis. 2. Acute blood loss anemia. 3. Metabolic encephalopathy. 4. Hypernatremia. 5. Pleural effusion. 6. Obstructive sleep apnea suspected, for which he is on BiPAP. 7. Chronic wounds. At this point in time, continue antibiotics, dialysis per Nephrology. Have Neurology further evaluate the patient. Give him a single dose of Narcan and watch him closely. He may require transfer to the ICU if he does not improve. Further evaluation by Cardiology for possible pacemaker placement may be required. His prognosis is guarded. MMELMIRAL / IJN: [id number] /
[2018-07-27] MEDS ORDERED: NALOXONE 0.4 MG/ML 1 ML VIAL IV PRN (15:12)
[2018-07-27] MEDS ORDERED: HYDROcodone/APAP 5-325MG 1 EACH TAB PO PRN (15:13)
[2018-07-27 16:19] LABS: Glucose,Whole Blood 91 mg/dL (75-99)
[2018-07-27] MEDS ORDERED: KETOROLAC 30 MG/ML 1 ML VIAL IVP PRN (16:33)
[2018-07-27] MEDS ORDERED: KETOROLAC 30 MG/ML 1 ML VIAL IVP SCH (18:00)
[2018-07-27 20:50] LABS: Glucose,Whole Blood 81 mg/dL (75-99)
[2018-07-27] MEDS: INSULIN DETEMIR 100 UNIT/ML 10 ML VIAL SQ SCH (21:02)
--- NOTE | 2018-07-27 23:53 | PN ---
PROGRESS NOTE DATE OF SERVICE: 07/27/2018 SUBJECTIVE: This is a 72-year-old white male who was admitted to the hospital with severe anemia, fever, change in mental status, ischemia bilateral lower extremities, osteomyelitis due to sepsis of his legs and gangrene, permanent pacemaker was not placed done at [facility] recently. He is on dialysis. He is very lethargic. He has been given Narcan. He still is very agitated. He has been restrained due to severe ripping out Villas[place]or catheters and IV lines, status post port placement in his chest by Dr. Bhat yesterday. Cardiology was consulted as well as renal physician. He has been very confused, yelling and screaming out loud today. Psych, neurology consulted as well. He ordered CT scan of the brain which is pending. Cardiology, vascular surgery consults are all pending. His labs have been fairly good today. CBCs show hemoglobin from 8.6 up to a 8.7, since stable he has been in the hospital. Legs look better than they have in days. He has lymphedema type changes, but infection appears to be greatly improving. Cardiovascular S1-S2. Lungs are clear. ENT is some exudate on his tongue. He is very groggy, unresponsive despite he was getting fentanyl for his dialysis catheter placement and possibly has anesthesia effect from this. His AV francis block is unchanged. IMPRESSION: 1. He has acute on chronic renal failure. He is undergoing dialysis. 2. Acute blood loss anemia. 3. Metabolic encephalopathy. 4. Hyponatremia. 5. Pleural effusion. 6. Obstructive sleep apnea. He is on BiPAP. 7. Chronic wounds. He is on antibiotics, dialysis. Neurology has been consulted. Agitation will be treated with Ativan. Cardiology is being consulted. Renal physician consulted. Infectious Disease has been consulted. Please see further orders. MMODL / IJN: [id number] /
--- NOTE | 2018-07-28 00:28 | P.CNNES ---
History of Present Illness Consult date: 07/27/18 Reason for Consult: Patient with altered mental status and hypotension. History of Present Illness: This patient is a 72-year-old right-handed white male who was admitted to [facility] back on 07/22/2018. The patient has complex and extensive medical issues with comorbid conditions worsening his overall status. The patient was residing at a nursing facility and had to come in to the hospital due to altered mental status and increased confusion. Soon after admission he was found to have evidence of limb ischemia bilaterally in the lower extremities. There was also concern for osteomyelitis. The patient also has a history of third-degree AV block. He has been evaluated at [facility] for possible pacemaker placement. The patient also has history of chronic renal failure and is on dialysis. He had to go for surgical procedure to open up a block dialysis catheter. Apparently his site was changed by Gen. surgery. Did perform this procedure however he required a great deal of sedation be IV. He completed his procedure but when he came back to his room he was noted to be severely obtunded. Is very hard to arouse at all. He was so obtunded that he appeared to be in drunken stupor. He was stabilized and was treated with Narcan for possible drug overdose. The patient was examined today in his room and appears to be confused and disoriented. He does follow some simple commands easily. Apparently he did require 2 doses of Narcan before showing signs of retrieval. He is now resting in bed but is not opening his eyes. His speech appears to be garbled at this time. His memory and intellectual functions are impaired. He is resting in his lung room but does have wrist restraints in position. The patient appears to have some slurring of his speech when he attempts to talk. We will get a follow-up scan of the brain and we'll give further recommendations pending those results. Overall the patient seems to be doing quite well. We have recommended the patient undergo a lumbar puncture tomorrow by anesthesia. He should be checked for meningitis panel as well as rare meningeal components of West Nile virus and herpes simplex virus 1 and 2. These are very rare conditions but should be evaluated given his history. The patient remains very confused and disoriented in the ICU. He is not following commands. His memory and intellectual functions are impaired. Even though the patient is afebrile this evening we will follow-up in terms of his spinal fluid analysis. His overall prognosis at this time remains guarded. Review of Systems Constitutional: Denies chills, Denies fever Eyes: right loss of vision, denies blurred vision, denies pain Ears, nose, mouth and throat: Denies headache, Denies sore throat Cardiovascular: Denies chest pain, Denies shortness of breath Respiratory: Denies cough Gastrointestinal: Denies abdominal pain, Denies diarrhea, Denies nausea, Denies vomiting Musculoskeletal: Reports muscle weakness, Denies myalgias Integumentary: Denies pruritus, Denies rash Neurological: Denies numbness, Denies weakness Psychiatric: Denies anxiety, Denies depression Endocrine: Denies fatigue, Denies weight change Past Medical History Past Medical History: Coronary Artery Disease (CAD), Heart Failure, Diabetes Mellitus, GERD/Reflux, Hyperlipidemia, Hypertension, Myocardial Infarction (ND) , Osteoarthritis (OA), Renal Disease, Skin Disorder Additional Past Medical History / Comment(s): IDDM type II, peripheral neuropathy bilateral hands/feet, PVD with chronic bilateral foot wounds[facility], wears bilateral mediboots, spouse states she has been told at [facility] he needs a R leg amputation but she was also told at [facility] that he needs a pacemaker first so nothing was done, bilateral lower leg cellulitis, bilateral lower leg edema, sacral ulcer, chronic kidney disease stage III with recent dialysis at [facility]-3 weeks ago, pleural effusion with thoracentesis (laterallity unknown), gout bilateral feet, cataracts in bilateral eyes-vision is poor-sees shapes only. Last Myocardial Infarction Date:: 2009 History of Any Multi-Drug Resistant Organisms: MRSA Date of last positivie culture/infection: unkn MDRO [facility] Past Surgical History: Heart Catheterization With Stent Additional Past Surgical History / Comment(s): PCI with stent 2009, R arm double picc line Past Anesthesia/Blood Transfusion Reactions: No Reported Reaction Additional Past Anesthesia/Blood Transfusion Reaction / Comment(s): . Date of Last Stent Placement:: 2009 Past Psychological History: No Psychological Hx Reported Additional Psychological History / Comment(s): Pt currently resides at [facility]. He has been receiving rehab and is up with a walker. He is an [employer] . 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 Smoking Status: Former smoker Past Alcohol Use History: None Reported Additional Past Alcohol Use History / Comment(s): Pt started smoking in 1967 and quit in 1975 Past Drug Use History: None Reported - Past Family History Father Family Medical History: Cancer Additional Family Medical History / Comment(s): Father had cancer, pt's spouse cannot recall type. Mother Family Medical History: Renal Disease Medications and Allergies Home Medications Medication Instructions Recorded Confirmed Type Aspirin EC [Ecotrin Low Dose] 81 mg PO DAILY 04/01/17 07/22/18 History Insulin Glargine [Lantus] 10 unit SQ HS 04/01/17 07/22/18 History Allopurinol [Zyloprim] 300 mg PO DAILY 04/03/18 07/22/18 History Atorvastatin [Lipitor] 80 mg PO DAILY 04/03/18 07/22/18 History Clopidogrel [Plavix] 75 mg PO DAILY 04/03/18 07/22/18 History Acetaminophen Tab [Tylenol Tab] 650 mg PO Q4H PRN 07/22/18 07/22/18 History Cholecalciferol (Vitamin D3) 2,000 unit PO DAILY 07/22/18 07/22/18 History [Vitamin D3] Ferrous Sulfate [Feosol] 325 mg PO DAILY 07/22/18 07/22/18 History Furosemide [Lasix] 60 mg PO BID@0800,1600 07/22/18 07/22/18 History Ipratropium-Albuterol Nebulize 3 ml INHALATION RT-Q6H PRN 07/22/18 07/22/18 History [Duoneb 0.5 mg-3 mg/3 ml Soln] Isosorbide Mononitrate ER [Imdur] 60 mg PO DAILY 07/22/18 07/22/18 History Pregabalin [Lyrica] 100 mg PO Q6H 07/22/18 07/22/18 History Sodium Bicarbonate Tab 650 mg PO TID 07/22/18 07/22/18 History Tamsulosin [Flomax] 0.4 mg PO DAILY 07/22/18 07/22/18 History cefTAZidime [Fortaz] 1 gm IVPB Q8HR 07/22/18 07/22/18 History hydrALAZINE HCL [Apresoline] 25 mg PO TID@0800,1200,1800 07/22/18 07/22/18 History traMADol HCL [Ultram] 50 mg PO Q8H PRN 07/22/18 07/22/18 History Allergies Allergy/AdvReac Type Severity Reaction Status Date / Time cephalexin [From Keflex] AdvReac Unknown Verified 07/22/18 11:15 Childhood Physical Examination - Vital Signs Vital Signs: Vital Signs Temp Pulse Resp BP BP Pulse Ox 07/27/18 20:00 97.1 F L 43 L 15 110/60 98 07/27/18 17:00 16 07/27/18 16:00 42 L 16 107/51 99 07/27/18 15:23 108/51 07/27/18 15:18 12 07/27/18 12:00 14 07/27/18 11:26 142/64 07/27/18 11:17 158/64 07/27/18 11:10 58 L 20 96 07/27/18 10:57 54 L 20 101/48 99 07/27/18 10:45 14 07/27/18 10:17 45 L 97/43 07/27/18 09:51 43 L 20 88/45 99 07/27/18 09:33 20 95/34 98 07/27/18 08:30 38 L 18 98/45 98 07/27/18 08:00 20 98/45 98 07/27/18 04:00 42 L 18 110/51 98 07/26/18 23:30 56 L 18 132/74 94 L Intake and Output 07/27/18 07/27/18 07/27/18 06:59 14:59 22:59 Output Total 200 200 Balance -200 -200 Output: Urine 200 200 Other: Voiding Method Indwelling Catheter Indwelling Catheter Indwelling Catheter Weight 117 kg - Constitutional General appearance: average body habitus, cooperative - EENT EENT: PERRL, mucous membranes moist - Respiratory Respiratory: lungs clear, normal breath sounds - Cardiovascular Cardiovascular: regular rate, normal S1, normal S2 Extremities: no peripheral edema bilaterally - Gastrointestinal Gastrointestinal: normoactive bowel sounds - Integumentary Integumentary: normal - Neurologic Cranial nerve examination: PERRL, EOMI, VFF, face symmetric, tongue midline, intact gag reflex, intact corneal reflex Sensorimotor examination: intact Motor examination - right side: 4/5: biceps, triceps, wrist flexion, wrist extension, chiropractic doctor, hip flexors, knee extensors, dorsiflexion, toe extension (EHL) , plantarflexion Motor examination - left side: 4/5: biceps, triceps, wrist flexion, wrist extension, chiropractic doctor, hip flexors, knee extensors, dorsiflexion, toe extension (EHL) , plantarflexion Detailed sensory examination: intact Reflex and gait examination: intact Reflexes: 1+: ankle, bicep, knee, tricep - Musculoskeletal Musculoskeletal: no pain - Psychiatric Psychiatric: mood/affect appropriate, cooperative Results - Laboratory Findings CBC and BMP: 07/27/18 05:49 07/27/18 05:01 Abnormal Lab Findings: Abnormal Labs 07/22/18 07/22/18 07/22/18 11:18 11:18 11:18 WBC 12.3 H RBC 1.82 L Hgb 4.9 L* D Hct 16.2 L* MCHC 30.3 L RDW 20.3 H Plt Count Neutrophils # 10.4 H Neutrophils # (Manual) Lymphocytes # INR ABG pH ABG pCO2 ABG pO2 ABG O2 Saturation Sodium 146 H Potassium Chloride 119 H Carbon Dioxide 18 L BUN 40 H Creatinine 2.36 H Glucose 67 L POC Glucose (mg/dL) Plasma Lactic Acid Garrick Calcium 8.1 L AST 6 L ALT 15 L Total Creatine Kinase <20 L Total Protein 6.2 L Albumin 2.5 L Urine Protein Urine Ketones Ur Leukocyte Esterase Urine Mucus Crossmatch 07/22/18 07/22/18 07/22/18 11:18 11:18 23:59 WBC RBC 2.97 L Hgb 8.5 L D Hct 26.2 L MCHC RDW 19.5 H Plt Count 135 L Neutrophils # Neutrophils # (Manual) Lymphocytes # INR ABG pH ABG pCO2 ABG pO2 ABG O2 Saturation Sodium Potassium Chloride Carbon Dioxide BUN Creatinine Glucose POC Glucose (mg/dL) Plasma Lactic Acid Garrick 0.6 L Calcium AST ALT Total Creatine Kinase Total Protein Albumin Urine Protein Urine Ketones Ur Leukocyte Esterase Urine Mucus Crossmatch See Detail 07/23/18 07/23/18 07/23/18 07:38 07:38 07:38 WBC RBC 3.15 L Hgb 8.6 L Hct 28.3 L MCHC 30.5 L RDW 19.7 H Plt Count 135 L Neutrophils # Neutrophils # (Manual) Lymphocytes # INR 1.2 H ABG pH ABG pCO2 ABG pO2 ABG O2 Saturation Sodium 146 H Potassium 5.5 H Chloride 119 H Carbon Dioxide 15 L BUN 47 H Creatinine 2.91 H Glucose POC Glucose (mg/dL) Plasma Lactic Acid Garrick Calcium 8.1 L AST 6 L ALT 14 L Total Creatine Kinase Total Protein Albumin 2.5 L Urine Protein Urine Ketones Ur Leukocyte Esterase Urine Mucus Crossmatch 07/23/18 07/23/18 07/23/18 11:45 12:22 16:53 WBC RBC Hgb Hct MCHC RDW Plt Count Neutrophils # Neutrophils # (Manual) Lymphocytes # INR ABG pH ABG pCO2 ABG pO2 ABG O2 Saturation Sodium Potassium Chloride Carbon Dioxide BUN Creatinine Glucose POC Glucose (mg/dL) 107 H 126 H Plasma Lactic Acid Garrick Calcium AST ALT Total Creatine Kinase Total Protein Albumin Urine Protein 1+ H Urine Ketones Trace H Ur Leukocyte Esterase Trace H Urine Mucus Rare H Crossmatch 07/23/18 07/23/18 07/24/18 18:23 20:46 06:06 WBC RBC Hgb Hct MCHC RDW Plt Count Neutrophils # Neutrophils # (Manual) Lymphocytes # INR ABG pH ABG pCO2 ABG pO2 ABG O2 Saturation Sodium Potassium 5.8 H Chloride 118 H Carbon Dioxide 16 L BUN 53 H Creatinine 3.16 H Glucose 122 H POC Glucose (mg/dL) 136 H 159 H Plasma Lactic Acid Garrick Calcium 8.3 L AST ALT Total Creatine Kinase Total Protein Albumin Urine Protein Urine Ketones Ur Leukocyte Esterase Urine Mucus Crossmatch 07/24/18 07/24/18 07/24/18 06:18 06:18 09:00 WBC RBC 3.04 L Hgb 8.4 L Hct 27.1 L MCHC 30.9 L RDW 19.4 H Plt Count 132 L Neutrophils # Neutrophils # (Manual) Lymphocytes # 0.7 L INR ABG pH 7.20 L ABG pCO2 55 H ABG pO2 112 H ABG O2 Saturation 98.9 H Sodium 146 H Potassium 5.3 H Chloride 116 H Carbon Dioxide 19 L BUN 51 H Creatinine 3.66 H Glucose 147 H POC Glucose (mg/dL) Plasma Lactic Acid Garrick Calcium 7.9 L AST ALT Total Creatine Kinase Total Protein Albumin Urine Protein Urine Ketones Ur Leukocyte Esterase Urine Mucus Crossmatch 07/24/18 07/24/18 07/24/18 11:29 17:06 20:44 WBC RBC Hgb Hct MCHC RDW Plt Count Neutrophils # Neutrophils # (Manual) Lymphocytes # INR ABG pH ABG pCO2 ABG pO2 ABG O2 Saturation Sodium Potassium Chloride Carbon Dioxide BUN Creatinine Glucose POC Glucose (mg/dL) 147 H 152 H 138 H Plasma Lactic Acid Garrick Calcium AST ALT Total Creatine Kinase Total Protein Albumin Urine Protein Urine Ketones Ur Leukocyte Esterase Urine Mucus Crossmatch 07/25/18 07/25/18 07/25/18 06:15 06:28 06:28 WBC RBC 2.87 L Hgb 9.0 L Hct 25.7 L MCHC RDW 19.5 H Plt Count Neutrophils # Neutrophils # (Manual) 8.22 H Lymphocytes # INR ABG pH ABG pCO2 ABG pO2 ABG O2 Saturation Sodium Potassium Chloride 112 H Carbon Dioxide 21 L BUN 56 H Creatinine 4.05 H Glucose 142 H POC Glucose (mg/dL) 147 H Plasma Lactic Acid Garrick Calcium 7.8 L AST 4 L ALT 17 L Total Creatine Kinase Total Protein 6.1 L Albumin 2.4 L Urine Protein Urine Ketones Ur Leukocyte Esterase Urine Mucus Crossmatch 07/25/18 07/25/18 07/26/18 11:52 21:18 06:27 WBC RBC Hgb Hct MCHC RDW Plt Count Neutrophils # Neutrophils # (Manual) Lymphocytes # INR ABG pH ABG pCO2 ABG pO2 ABG O2 Saturation Sodium Potassium Chloride Carbon Dioxide BUN Creatinine Glucose POC Glucose (mg/dL) 136 H 121 H 111 H Plasma Lactic Acid Garrick Calcium AST ALT Total Creatine Kinase Total Protein Albumin Urine Protein Urine Ketones Ur Leukocyte Esterase Urine Mucus Crossmatch 07/26/18 07/26/18 07/26/18 06:48 06:48 11:07 WBC RBC 3.19 L Hgb 8.5 L Hct 29.2 L MCHC 29.3 L RDW 19.4 H Plt Count Neutrophils # Neutrophils # (Manual) Lymphocytes # 0.8 L INR ABG pH ABG pCO2 ABG pO2 ABG O2 Saturation Sodium 146 H Potassium Chloride 114 H Carbon Dioxide 18 L BUN 55 H Creatinine 4.12 H Glucose 107 H POC Glucose (mg/dL) 103 H Plasma Lactic Acid Garrick Calcium 7.6 L AST 6 L ALT 14 L Total Creatine Kinase Total Protein Albumin 2.5 L Urine Protein Urine Ketones Ur Leukocyte Esterase Urine Mucus Crossmatch 07/27/18 07/27/18 07/27/18 05:01 05:01 05:49 WBC RBC 3.38 L 3.23 L Hgb 9.0 L 8.7 L Hct 30.1 L 28.7 L MCHC 29.8 L 30.5 L RDW 19.3 H 19.4 H Plt Count 137 L 119 L Neutrophils # Neutrophils # (Manual) Lymphocytes # INR ABG pH ABG pCO2 ABG pO2 ABG O2 Saturation Sodium Potassium Chloride 112 H Carbon Dioxide 19 L BUN 47 H Creatinine 3.62 H Glucose POC Glucose (mg/dL) Plasma Lactic Acid Garrick Calcium 7.5 L AST 6 L ALT Total Creatine Kinase Total Protein Albumin 2.5 L Urine Protein Urine Ketones Ur Leukocyte Esterase Urine Mucus Crossmatch 07/27/18 11:53 WBC RBC Hgb Hct MCHC RDW Plt Count Neutrophils # Neutrophils # (Manual) Lymphocytes # INR ABG pH ABG pCO2 ABG pO2 ABG O2 Saturation Sodium Potassium Chloride Carbon Dioxide BUN Creatinine Glucose POC Glucose (mg/dL) 120 H Plasma Lactic Acid Garrick Calcium AST ALT Total Creatine Kinase Total Protein Albumin Urine Protein Urine Ketones Ur Leukocyte Esterase Urine Mucus Crossmatch Assessment and Plan (1) Acute metabolic encephalopathy Current Visit: Yes Status: Acute Code(s): G93.41 - METABOLIC ENCEPHALOPATHY SNOMED Code(s): 12256333 (2) Renal insufficiency syndrome Current Visit: Yes Status: Acute Code(s): N28.9 - DISORDER OF KIDNEY AND URETER, UNSPECIFIED SNOMED Code(s): 809847847 (3) Acute kidney injury Current Visit: No Status: Acute Code(s): N17.9 - ACUTE KIDNEY FAILURE, UNSPECIFIED SNOMED Code(s): 95607642 Plan: This patient is a 72-year-old male with multiple complex medical conditions prior to his admission to hospital. Patient was brought in due to altered mental status and confusion. He was seen in the emergency room and underwent a computed tomography scan of the brain and admitted to the hospital. He is a very poor historian. He went for a procedure for catheter placement and following the procedure he was extremely obtunded. He was treated with Narcan and only slight improvement was noted. The patient did spike a low-grade temperature. 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 We will continue close monitoring of this patient during this admission. Apparently he was much more talkative when he was admitted and there is been a slow and steady decline. His overall prognosis at this time remains very guarded. Case was discussed with the ICU nursing staff. They will monitor his condition closely. His overall prognosis at this time remains very guarded. Time with Patient: Greater than 30
--- NOTE | 2018-07-28 01:08 | PN ---
PROGRESS NOTE DATE OF SERVICE: 07/27/2018. REASON FOR FOLLOWUP: Right diabetic foot wound with secondary cellulitis, possible pneumonia. INTERVAL HISTORY: The patient is afebrile. He is slightly more awake and alert today. Did answer some simple questions. No nausea or vomiting has been noticed or any diarrhea. EXAMINATION: Blood pressure 110/60 with a pulse of 43, temperature of 97.1. He is 98% on 3 L nasal cannula. General description is a elderly male lying in bed in no distress. Respiratory system: Unlabored breathing, decreased breath sounds in the bases. No wheeze. Heart S1 , S2. Regular rate and rhythm. Abdomen soft. No tenderness. Right foot wound is currently dressed up. No obvious drainage on the dressing. LABS: Hemoglobin is 8.8, white count 7.9. DIAGNOSTIC IMPRESSION AND PLAN: Patient with right diabetic foot wound with secondary cellulitis. Outpatient culture has been positive for MRSA and Pseudomonas aeruginosa. The patient admitted to the hospital with possible pneumonia. The patient is currently covered with Zosyn and vancomycin. We will continue local wound care to continue as ordered. Continue supportive care. MMODL / IJN: [id number] / RUTHY
[2018-07-28] MEDS: LORazepam 2 MG/ML INJ IV PRN ×3 (04:40→22:59)
[2018-07-28 05:44] LABS: Glucose,Whole Blood 76 mg/dL (75-99)
[2018-07-28] MEDS: PANTOPRAZOLE 40 MG TABLET PO SCH (06:06)
[2018-07-28] MEDS: INSULIN ASPART 100 UNIT/ML 1 ML 10 ML VIAL SQ SCH ×4 (06:06→22:38)
[2018-07-28] MEDS: PREGABALIN 100 MG CAP PO SCH ×4 (06:06→23:16)
[2018-07-28 07:48] LABS: Anisocytosis Slight; Basophils % (A) 0 %; Eosinophils % (A) 1 %; HCT 26.7 % (39.0-53.0); HGB 8.1 gm/dL (13.0-17.5); Hypochromasia Marked; Lymphocytes # (A) 0.8 k/uL (1.0-4.8); Lymphocytes % (A) 13 %; MCH 27.2 pg (25.0-35.0); MCHC 30.2 g/dL (31.0-37.0); MCV 90.1 fL (80.0-100.0); Mean Platelet Volume 9.6; Monocytes # (A) 0.2 k/uL (0-1.0); Monocytes % (A) 3 %; Neutrophils % (A) 81 %; Platelet Count 109 k/uL (150-450); Poikilocytosis Slight; RBC 2.97 m/uL (4.30-5.90); RDW 19.4 % (11.5-15.5); WBC 6.1 k/uL (3.8-10.6)
[2018-07-28 08:00] LABS: Albumin 2.3 g/dL (3.5-5.0); Calcium 7.4 mg/dL (8.4-10.2); Magnesium 1.8 mg/dL (1.6-2.3); Total Bilirubin 0.4 mg/dL (0.2-1.3); Total Protein 5.8 g/dL (6.3-8.2)
[2018-07-28] MEDS: PIPERACILLIN-TAZOBACTAM 3.375 GM in DEXTROSE/WATER 1 50ML.BAG IVPB SCH ×2 (08:22→20:04)
[2018-07-28] MEDS: IPRATROPIUM-ALBUTEROL 3 ML NEB INHALATION SCH ×4 (09:30→21:23)
[2018-07-28] MEDS: CHOLECALCIFEROL 1,000 UNIT TAB PO SCH (09:57)
[2018-07-28] MEDS: hydrALAZINE HCL 25 MG TAB PO SCH ×3 (09:57→19:39)
[2018-07-28] MEDS: ALLOPURINOL 100 MG TAB PO SCH (09:57)
[2018-07-28] MEDS: ASPIRIN 81 MG PO SCH (09:57)
[2018-07-28] MEDS: FUROSEMIDE 10 MG/ML 10 ML VIAL IV SCH ×2 (09:58→20:09)
[2018-07-28] MEDS: TAMSULOSIN 0.4 MG CAP.ER.24H PO SCH (09:58)
[2018-07-28] MEDS: SODIUM BICARBONATE TAB 650 MG TAB PO SCH ×3 (09:58→22:39)
[2018-07-28] MEDS: FERROUS SULFATE 325 MG TAB PO SCH (09:58)
[2018-07-28] MEDS: ISOSORBIDE MONONITRATE ER 60 MG TAB.ER.24H PO SCH (09:58)
--- NOTE | 2018-07-28 10:05 | P.PN ---
<Gayathri Fritz E - Last Filed: 07/28/18 09:54> Subjective Progress Note Date: 07/28/18 HPI: This is a 72-year-old gentleman who is well-known to our service who presented emergency department from [facility]. The patient was found to have a fever and altered mental status. The patient also had hypoxia with O2 saturation 86% . The patient did have a temperature of 100.9. He is awake and alert although he is somewhat combative. His and son are present as well. The patient has a complicated history of peripheral vascular disease with cellulitis and frequent sepsis. He also has a history of third-degree heart block and has been unable to have a pacemaker placed due to his recurrent sepsis and infections. The patient was temporarily on hemodialysis but per his was told that he doesn't need dialysis anymore. He has been following with wound care and infectious disease at [facility]. He is also been following with vascular surgery. As well as cardiology. In the emergency department the patient was found to have a hemoglobin of 7.1 at 7:30 this morning. Upon recheck at 11:20 AM he was found to have a hemoglobin of 4.9. The patient is receiving packed red blood cell transfusion at this time. His vital signs have been stable. The patient is chronically anemic with a hemoglobin between 10 and 12. The patient has been afebrile in the emergency department. He does have a white blood cell count 12. The patient's CT of the brain showed nonspecific white matter changes, prominent posterior fossa CSF space differential includes arachnoid cyst or giant cisterna magna. The patient's chest x-ray shows right lower lobe infiltrate, pneumonia versus atelectasis or edema. Possible pleural effusion. Per the patient's , his heal has been bleeding quite profusely. She states "there is probably 2 pints of blood in the passenger seat of my car right now." Interval history: 07/23/2018patient is being seen examined and evaluated today on rounds. He is resting up in bed on 2 L of supplemental oxygen via nasal cannula. did receive a total of 2 units of packed red blood cells yesterday. He did have labs obtained this morning his hemoglobin did improve to 8.6, his hematocrit is now 28.3. His sodium is 146, potassium is 5.5, chloride is 119, BUN is 47 and creatinine is 2.9. Nephrology is seeing the patient as well as infectious disease. Villasenor catheter will be inserted and urinalysis will be obtained. Still awaiting sputum culture. CT of the chest yesterday was reviewed and does show a large right-sided pleural effusion with associated passive atelectasis. He continues to have confusion intermittently. He was too tired and refused to eat this morning. We will have the patient undergo a swallow evaluation. Unsure on guardianship status will find out from the as well as medical [place]. 07/24/18- patient is being seen examined and evaluated today on rounds. He is quite lethargic. We did obtain stat ABGs. Which did reveal a pH of 7.4, pCO2 of 55, pO2 of 112, HCO3 of 21. patient will be started on BiPAP. His labs today do reveal a hemoglobin that is stable at 8.4, sodium is 146, potassium is 5.3, chloride 116, carbon dioxide 19, BUN 51, creatinine 3.66. We'll also obtain a stat lactic acid. And sections disease continues to follow and has adjusted his antibiotics. He remains in contact precautions for his right diabetic foot wound and bilateral cellulitis his cultures were positive for MRSA and Pseudomonas previously per infectious disease. IR was consulted yesterday for possible thoracentesis as he has a right large pleural effusion. 07/25/18- patient is being seen examined and evaluated today on rounds. He did utilizes BiPAP overnight and tolerated that well. His BUN is 56 and his creatinine is 4.05 today. He may require dialysis. Nephrology is following him closely. He continues to these develop Villasenor catheter. Chest x-ray was reviewed remains relatively the same CHF versus pneumonia. 07/26/18- 07/27/18- Please see Dr Guerrero notes 07/28/18- patient is being seen examined and evaluated today on rounds. He is resting up in bed on 3-4 L of supplemental oxygen via nasal cannula. Apparently over the weekend the patient did pull out his dialysis catheter and a new temporary dialysis catheter was inserted. He was also noted to be lethargic postprocedure and did receive Narcan. His mentation has still been confused. He is more awake today. He did utilize the BiPAP overnight. He did have a CT of the brain and those results are pending. Currently has a safety center at bedside. All labs and reports have been reviewed. Afebrile Objective - Vital Signs Vital signs: Vital Signs Temp 96.9 F L 07/28/18 04:00 Pulse 60 07/28/18 09:42 Resp 20 07/28/18 04:00 BP 100/49 07/28/18 04:00 Pulse Ox 99 07/28/18 04:00 Intake & Output 07/27/18 07/28/18 07/28/18 18:59 06:59 18:59 Intake Total 50 Output Total 400 Balance -400 50 Weight 117.5 kg Intake: Intake, IV Titration 50 Amount Piperacillin-Tazobactam 3 50 .375 gm In Dextrose/Water 1 50ml.bag @ 12.5 mls/hr IVPB Q12H [facility] Rx#: [id number] Oral 0 Output: Urine 400 Other: Voiding Method Indwelling Catheter Indwelling Catheter - Exam Gen.: Patient is more awake today, continues with confusion Cardiovascular: Bradycardic, regular rate and rhythm, S1/S2 Lungs: Coarse breath sounds bilaterally, diminished more so on the right Abdomen: Soft nontender nondistended positive bowel sounds Extremities: Chronic venous stasis, lymphedema, cellulitis, lower extremity wounds, currently wrapped with dressing - Labs CBC & Chem 7: 07/28/18 07:17 07/28/18 07:17 Labs: Abnormal Lab Results - Last 24 Hours (Table) 07/27/18 07/28/18 07/28/18 Range/Units 11:53 07:17 07:17 RBC 2.97 L (4.30-5.90) m/uL Hgb 8.1 L (13.0-17.5) gm/dL Hct 26.7 L (39.0-53.0) % MCHC 30.2 L (31.0-37.0) g/dL RDW 19.4 H (11.5-15.5) % Plt Count 109 L (150-450) k/uL Lymphocytes # 0.8 L (1.0-4.8) k/uL Chloride 108 H (98-107) mmol/L Carbon Dioxide 21 L (22-30) mmol/L BUN 32 H (9-20) mg/dL Creatinine 3.30 H (0.66-1.25) mg/dL POC Glucose (mg/dL) 120 H (75-99) mg/dL Calcium 7.4 L (8.4-10.2) mg/dL AST 5 L (17-59) U/L ALT 14 L (21-72) U/L Total Protein 5.8 L (6.3-8.2) g/dL Albumin 2.3 L (3.5-5.0) g/dL Microbiology - Last 24 Hours (Table) 07/22/18 11:18 Blood Culture - Preliminary Blood No Growth after 120 hours Assessment and Plan Assessment: Assessment Acute blood loss anemia on anemia of chronic disease, likely from bleeding lower extremity wound Acute encephalopathy Leukocytosis Right lower lobe infiltrate: CHF versus effusion versus pneumonia Hypernatremia History 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, baseline creatinine 1.8-2.6 AECHF, diastolic, EF 55-60% Lower extremity cellulitis, lymphedema, and PVD - history of MRSA, pseudomonas, E coli Chronic diabetic ulcer of right foot Diabetic neuropathy and DM2 uncontrolled Hypertension Gout Pulmonary hypertension, mild RVSP 43 mmHg Obesity Dyslipidemia Multiple recurrent hospitalizations for sepsis Suspect underlying [place]/OHS Moderate PCM Large right-sided pleural effusion Plan BiPAP 07/18 at night and as needed Patient receiving dialysis per nephro O2 to maintain saturation > or = 90% Did receive 2 units PRBC on 07/22/18 Agree with Lasix BID Blood, urine, cultures- negative Unable to give sputum sample Nephrology, ID, vascular surgery to be consulted CT chest without contrast reviewed Interventional radiology consulted for possible right thoracentesis Consult dietitian Speech evaluation attempted however patient was participating in the complete assessment Per cardiology team and HF, patient is not a candidate for PPM, he is asymptomatic, continue to monitor Continue Levemir and Novolog sliding scale GI and DVT prophylaxis: Protonix and SCDs Monitor urine output and renal function Continue with indwelling Villasenor catheter, monitor I's and O's Incentive spirometry and pulmonary hygiene Consult PT and OT We will continue to monitor labs/results and adjust treatment as necessary I, the signing physician performed an examination of the patient, discussed and directed their management with the nurse practitioner. I have reviewed the nurse practitioner's note and agree with the documented findings, orders and plan of care. <Aleena Oliver - Last Filed: 07/28/18 15:29> Objective - Vital Signs Vital signs: Vital Signs Temp 97.5 F L 07/28/18 07:55 Pulse 64 07/28/18 12:03 Resp 16 07/28/18 07:55 BP 97/49 07/28/18 07:55 Pulse Ox 97 07/28/18 07:55 Intake & Output 07/27/18 07/28/18 07/28/18 18:59 06:59 18:59 Intake Total 50 50 Output Total 400 Balance -400 50 50 Weight 117.5 kg 117.5 kg Intake: Intake, IV Titration 50 50 Amount Piperacillin-Tazobactam 3 50 50 .375 gm In Dextrose/Water 1 50ml.bag @ 12.5 mls/hr IVPB Q12H [facility] Rx#: [id number] Oral 0 0 Output: Urine 400 Other: Voiding Method Indwelling Catheter Indwelling Catheter Indwelling Catheter - Labs CBC & Chem 7: 07/28/18 07:17 07/28/18 07:17 Labs: Abnormal Lab Results - Last 24 Hours (Table) 07/28/18 07/28/18 Range/Units 07:17 07:17 RBC 2.97 L (4.30-5.90) m/uL Hgb 8.1 L (13.0-17.5) gm/dL Hct 26.7 L (39.0-53.0) % MCHC 30.2 L (31.0-37.0) g/dL RDW 19.4 H (11.5-15.5) % Plt Count 109 L (150-450) k/uL Lymphocytes # 0.8 L (1.0-4.8) k/uL Chloride 108 H (98-107) mmol/L Carbon Dioxide 21 L (22-30) mmol/L BUN 32 H (9-20) mg/dL Creatinine 3.30 H (0.66-1.25) mg/dL Calcium 7.4 L (8.4-10.2) mg/dL AST 5 L (17-59) U/L ALT 14 L (21-72) U/L Total Protein 5.8 L (6.3-8.2) g/dL Albumin 2.3 L (3.5-5.0) g/dL Microbiology - Last 24 Hours (Table) 07/22/18 11:18 Blood Culture - Final Blood No Growth after 144 hours Assessment and Plan Assessment: Patient seen and examined. Patient undergoing HD with 2L ultrafiltration. Patient tolerated well. He remains encephalopathic. Repeat CXR in AM. Hemoglobin stable. Continue bipap nightly. Continue ABX per ID. ~Aleena Oliver DO
--- NOTE | 2018-07-28 10:07 | CT ---
EXAMINATION TYPE: CT brain wo con DATE OF EXAM: 07/28/2018 HISTORY: Altered mental status. CT DLP: 2440 mGycm. Automated Exposure Control for Dose Reduction was Utilized. TECHNIQUE: CT scan of the head is performed without contrast. COMPARISON: CT brain 6 days ago. FINDINGS: Exam noted suboptimal as is significant motion artifact degradation despite repeat attempt s. There is no obvious acute intracranial hemorrhage or midline shift identified. There is diffuse ve ntricular and sulcal prominence consistent with diffuse age-related cerebral atrophy. There is low-a ttenuation in the periventricular white matter consistent with chronic small vessel ischemic change. Stable prominent posterior fossa CSF space posteriorly axial image 19 series 3. The globes are intac t and the visualized sinuses are clear. IMPRESSION: Suboptimal study without new acute intracranial hemorrhage or midline shift identified. There is moderate diffuse age-related cerebral atrophy and mild chronic small vessel ischemic change redemonstrated without significant interval change.
--- NOTE | 2018-07-28 11:10 | P.PN ---
Subjective Progress Note Date: 07/28/18 This is a 72-year-old gentleman multiple comorbid conditions area and he initially was admitted to the hospital with change in mental status as well as fever. Subsequently he was diagnosed what seems to be critical limb ischemia of bilateral lower extremities with possible osteomyelitis as well. Patient also does have advanced chronic kidney disease, on hemodialysis, hypertension, dyslipidemia. Cardiology was consulted for further evaluation of arrhythmia. Patient is known to have third degree AV block and has been seen by our service in the past. He was recently seen at [facility] and evaluated for possible permanent pacemaker implantation. This is never performed because of the sepsis status. On examination today, patient remains very lethargic, opens eyes to stimuli but not answering questions. Currently on BiPAP. He apparently has been quite agitated on and off. EKG and telemetry strips and U to show third-degree AV block but the patient is maintaining normal blood pressure and heart rates in the 50s. Echocardiogram has been ordered and these results are pending. Objective - Vital Signs Vital signs: Vital Signs Temp 97.5 F L 07/28/18 07:55 Pulse 60 07/28/18 09:42 Resp 16 07/28/18 07:55 BP 97/49 07/28/18 07:55 Pulse Ox 97 07/28/18 07:55 Intake & Output 07/27/18 07/28/18 07/28/18 18:59 06:59 18:59 Intake Total 50 50 Output Total 400 Balance -400 50 50 Weight 117.5 kg Intake: Intake, IV Titration 50 50 Amount Piperacillin-Tazobactam 3 50 50 .375 gm In Dextrose/Water 1 50ml.bag @ 12.5 mls/hr IVPB Q12H [facility] Rx#: [id number] Oral 0 0 Output: Urine 400 Other: Voiding Method Indwelling Catheter Indwelling Catheter Indwelling Catheter - Exam PHYSICAL EXAMINATION: HEENT: Head is atraumatic, normocephalic. Pupils equal, round. Neck is supple. There is no elevated jugular venous pressure. HEART EXAMINATION: Heart sounds regular, S1 and S2 with a systolic murmur at the apex. CHEST EXAMINATION: Lungs feel diminished air entry bilaterally. No chest wall tenderness is noted on palpation or with deep breathing. ABDOMEN: Soft, nontender. Bowel sounds are heard. No organomegaly noted. EXTREMITIES: Bilateral lower extremity Odell wraps in place. NEUROLOGIC patient is awake, alert and oriented x3. . - Labs CBC & Chem 7: 07/28/18 07:17 07/28/18 07:17 Labs: Abnormal Lab Results - Last 24 Hours (Table) 07/27/18 07/28/18 07/28/18 Range/Units 11:53 07:17 07:17 RBC 2.97 L (4.30-5.90) m/uL Hgb 8.1 L (13.0-17.5) gm/dL Hct 26.7 L (39.0-53.0) % MCHC 30.2 L (31.0-37.0) g/dL RDW 19.4 H (11.5-15.5) % Plt Count 109 L (150-450) k/uL Lymphocytes # 0.8 L (1.0-4.8) k/uL Chloride 108 H (98-107) mmol/L Carbon Dioxide 21 L (22-30) mmol/L BUN 32 H (9-20) mg/dL Creatinine 3.30 H (0.66-1.25) mg/dL POC Glucose (mg/dL) 120 H (75-99) mg/dL Calcium 7.4 L (8.4-10.2) mg/dL AST 5 L (17-59) U/L ALT 14 L (21-72) U/L Total Protein 5.8 L (6.3-8.2) g/dL Albumin 2.3 L (3.5-5.0) g/dL Microbiology - Last 24 Hours (Table) 07/22/18 11:18 Blood Culture - Preliminary Blood No Growth after 120 hours Assessment and Plan Assessment: #1 end-stage renal disease on hemodialysis #2 osteomyelitis of bilateral lower extremities #3 hypertension #4 dyslipidemia #5 third-degree AV block #6 multiple comorbid conditions Plan: On cardiology's perspective, in view of sepsis and current osteomyelitis, we recommend conservative medical approach and not to implant any device at this point. We will review the echocardiogram with Doppler. Continue to follow the patient and provide further recommendations accordingly. Overall patient prognosis is very poor. RN CARE MANAGER note has been reviewed, I agree with a documented findings and plan of care. Patient was seen and examined.
[2018-07-28 11:24] LABS: Glucose,Whole Blood 91 mg/dL (75-99)
[2018-07-28 14:15] VITALS: BMI 39.4
--- NOTE | 2018-07-28 16:24 | PN ---
PROGRESS NOTE Patient is seen for followup for acute kidney injury. Currently he is seen on dialysis. Patient is tolerating his treatment well. He is on BiPAP. He is minimally responsive. Blood pressure was 97/49. Blood pressure on dialysis currently is 125/50, heart rate about 60 per minute. Patient is afebrile. EXAMINATION OF THE HEART: S1, S2. EXAMINATION OF LUNGS: Decreased breath sounds at the bases. ABDOMEN: Soft, distended, obese. Examination of lower extremities shows chronic skin changes, chronic edema bilaterally. Bilateral lower extremities are wrapped. Labs show sodium 142, potassium 4.0, BUN 32, serum creatinine 3.3, hemoglobin 8.1. ASSESSMENT: 1. Acute kidney injury, acute tubular necrosis, currently nonoliguric. Patient has an indwelling Villasenor catheter, 24-hour urine output at about 400 mL. Patient is currently seen on dialysis. We will dialyze him again tomorrow to see there is any change in his mentation. 2. Fluid overload. We will try for about 1 to 2 L of ultrafiltration with hemodialysis. 3. Third-degree AV block; not a candidate for permanent pacemaker placement secondary to ongoing infection in the legs. 4. Anemia with no evidence of active bleeding, maintained on Aranesp. 5. Bilateral lower extremity cellulitis, currently on Zosyn. PLAN: Repeat hemodialysis tomorrow. I will hold off on the Toradol, given that this is an acute kidney injury and patient's serum creatinine had been as low as 1.7 in March of 2018. MMODL / IJN: [id number] /
[2018-07-28 16:43] LABS: Glucose,Whole Blood 75 mg/dL (75-99)
--- NOTE | 2018-07-28 20:00 | PN ---
PROGRESS NOTE SUBJECTIVE: A 72-year-old white male who has had metabolic encephalopathy due to worsening renal function and worsening cellulitis getting osteomyelitis of his legs. His creatinine today is 3.3. He had a brain CT due to increased confusion by Neurology. Brain CT was negative for any intracranial damage. He had apparently 3 attempts at dialysis catheter placed, 3 different surgeries over the past week and maybe has to do with confusion. Currently, he does wake up and say some things and pulls on his lines but is pretty much confused. His blood pressure is 90s to low 100 over 50s, heart rate 60, afebrile. Heart rate S1, S2. Breath sounds are decreased. Bilateral lower extremities are wrapped. Sodium 142, potassium 4. He does not wake up when I yell at him. He is obtunded. He is responsive to pain CT scan of the brain was negative as mentioned above. Neurology ordered a spinal tap to be done to rule out sepsis or metabolic infection and meningitis. ASSESSMENT: 1. Acute kidney injury. 2. Acute tubular necrosis, nonoliguric. He is on dialysis every other day has fluid overload. 3. Third-degree AV block. Cardiology is seeing. 4. Bilateral lower extremity cellulitis, osteomyelitis, gangrene. Dr. Bhat will operate as family requests. 5. Continue with broad-spectrum antibiotics at this time. Continued to have dialysis. 6. Continue workup for confusion and metabolic encephalopathy, possibly confusion is poly sources, multiple sources. A PEG tube was requested by dietitian for which surgical consult will be done for feeding if he is not eaten for multiple days and last time we heard, family and patient both wanted everything done and when I talked to him last and he did not want an amputation but wanted to keep trying everything he could to heal his legs. Please see further orders. MMODL / IJN: [id number] /
[2018-07-28] MEDS: SODIUM FERRIC GLUCONAT-SUCROSE 125 MG in SODIUM CHLORIDE 0.9% 100 ML IVPB SCH (20:03)
[2018-07-28 21:09] LABS: Glucose,Whole Blood 73 mg/dL (75-99)
--- NOTE | 2018-07-28 22:21 | PN ---
PROGRESS NOTE DATE OF SERVICE: 07/28/2018. REASON FOR FOLLOWUP: 1. Right foot diabetic foot wound with secondary cellulitis, methicillin-resistant Staphylococcus aureus and Pseudomonas. 2. Possible aspiration pneumonia. INTERVAL HISTORY: The patient is currently afebrile. The patient remains to be lethargic, though hemoglobin is stable. Has been breathing comfortably. No nausea, vomiting or diarrhea. He was unable to provide any history and was undergoing dialysis. EXAMINATION: Blood pressure 129/60 with a pulse of 58, temperature 98.3, he is 94% on 4 L nasal cannula. GENERAL DESCRIPTION: An elderly male lying in bed in no distress. RESPIRATORY SYSTEM: Unlabored breathing with decreased breath sounds in the bases. No wheeze. HEART: S1, S2. Regular. ABDOMEN: Soft, no tenderness. LABS: Hemoglobin 8.1, white count 6.1 with a BUN of 32, creatinine 3.30. DIAGNOSTIC IMPRESSION AND PLAN: Patient with right diabetic foot wound with secondary cellulitis. Culture has been positive for methicillin-resistant Staphylococcus aureus and Pseudomonas in the outpatient setting. The patient is currently covered with daptomycin and Zosyn, to continue. All local wound care to continue. Medihoney and Aquacel Silver dressing as ordered. Overall prognosis remains to be guarded. Continue supportive care. MMODL / IJN: [id number] /
[2018-07-28] MEDS: INSULIN DETEMIR 100 UNIT/ML 10 ML VIAL SQ SCH (22:38)
--- NOTE | 2018-07-29 00:04 | P.PN ---
Subjective Progress Note Date: 07/28/18 This patient is a 72-year-old male who was seen in neurology consultation yesterday for evaluation of altered mental status increased confusion. Patient was seen by Dr. Justina Davila and Dr. Berrios yesterday and was showing signs of increase confusion and lethargy. There was concern for possibility of meningitis versus encephalitis in this patient who was showing increasing confusion with sepsis. We have recommended a lumbar puncture to be arranged and done for this patient yesterday. We are still awaiting for anesthesia to perform this hopefully tomorrow. Patient is not showing not much change in his overall mental status. He did undergo a recent computed tomography scan of the brain which failed to reveal any new or acute changes. The patient's clinical findings suggest more of a metabolic encephalopathy. He is being treated for acute kidney injury as well. He has remained minimally responsive throughout the day but is arousable. He is undergoing dialysis as well and nephrology is following him closely. As noted computed tomography scan of the brain was performed today as follow-up which showed suboptimal study without any evidence of new or acute intracranial hemorrhage or midline shift. There was moderate diffuse age-related cerebral atrophy seen with mild chronic small vessel ischemic changes. His overall prognosis at this time remains guarded. We will continue close neurological follow-up with this patient during this admission. Objective - Vital Signs Vital signs: Vital Signs Temp 97.5 F L 07/28/18 20:00 Pulse 54 L 07/28/18 20:00 Resp 19 07/28/18 20:00 BP 120/58 07/28/18 20:00 Pulse Ox 98 07/28/18 20:00 Intake & Output 07/28/18 07/28/18 07/29/18 06:59 18:59 06:59 Intake Total 50 210 20 Output Total 2150 Balance 50 -1940 20 Weight 117.5 kg 117.5 kg Intake: IV 20 Invasive Line 3 20 Intake, IV Titration 50 210 Amount IV Fluid Continuation 700 160 ml @ 0 mls/hr IV .STK- [facility] Rx#:[id number] Piperacillin-Tazobactam 3 50 50 .375 gm In Dextrose/Water 1 50ml.bag @ 12.5 mls/hr IVPB Q12H [facility] Rx#: [id number] Oral 0 0 Output: Gastric Drainage 2000 Urine 150 Other: Voiding Method Indwelling Catheter Indwelling Catheter Indwelling Catheter # Bowel Movements 1 - Exam Physical examination: PHYSICAL EXAMINATION: Patient is resting comfortably in bed. VITAL SIGNS: Blood pressure is [120/58]. Heart rate is [54]. Respiration is [19] . Temperature is [97.5]. HEENT: Head is atraumatic, neck is supple, there were no carotid bruits. CHEST: Lungs are clear to auscultation and percussion. CARDIAC: S1, S2 normal rate and rhythm. There is no murmur. ABDOMEN: Soft and nontender. Bowel sounds are present. EXTREMITIES: There is no pedal edema. Peripheral pulses are present. Neurological examination: - Labs CBC & Chem 7: 07/28/18 07:17 07/28/18 07:17 Labs: Abnormal Lab Results - Last 24 Hours (Table) 07/28/18 07/28/18 07/28/18 Range/Units 07:17 07:17 21:08 RBC 2.97 L (4.30-5.90) m/uL Hgb 8.1 L (13.0-17.5) gm/dL Hct 26.7 L (39.0-53.0) % MCHC 30.2 L (31.0-37.0) g/dL RDW 19.4 H (11.5-15.5) % Plt Count 109 L (150-450) k/uL Lymphocytes # 0.8 L (1.0-4.8) k/uL Chloride 108 H (98-107) mmol/L Carbon Dioxide 21 L (22-30) mmol/L BUN 32 H (9-20) mg/dL Creatinine 3.30 H (0.66-1.25) mg/dL POC Glucose (mg/dL) 73 L (75-99) mg/dL Calcium 7.4 L (8.4-10.2) mg/dL AST 5 L (17-59) U/L ALT 14 L (21-72) U/L Total Protein 5.8 L (6.3-8.2) g/dL Albumin 2.3 L (3.5-5.0) g/dL Microbiology - Last 24 Hours (Table) 07/22/18 11:18 Blood Culture - Final Blood No Growth after 144 hours Assessment and Plan (1) Acute metabolic encephalopathy Current Visit: Yes Status: Acute Code(s): G93.41 - METABOLIC ENCEPHALOPATHY SNOMED Code(s): 36782372 (2) Renal insufficiency syndrome Current Visit: Yes Status: Acute Code(s): N28.9 - DISORDER OF KIDNEY AND URETER, UNSPECIFIED SNOMED Code(s): 469135216 (3) Acute kidney injury Current Visit: No Status: Acute Code(s): N17.9 - ACUTE KIDNEY FAILURE, UNSPECIFIED SNOMED Code(s): 99410078 Plan: This patient is a 72-year-old male with multiple complex medical conditions prior to his admission to hospital. Patient was brought in due to altered mental status and confusion. He was seen in the emergency room and underwent a computed tomography scan of the brain and admitted to the hospital. He is a very poor historian. He went for a procedure for catheter placement and following the procedure he was extremely obtunded. He was treated with Narcan and only slight improvement was noted. The patient did spike a low-grade temperature. For this reason we have recommended a lumbar puncture to be done to rule out DRUG SAFETY ASSISTANT encephalitis. We will continue close monitoring of this patient during this admission. Apparently he was much more talkative when he was admitted and there is been a slow and steady decline. His overall prognosis at this time remains very guarded. Case was discussed with the ICU nursing staff. They will monitor his condition closely. His overall prognosis at this time remains very guarded.
[2018-07-29] MEDS: PANTOPRAZOLE 40 MG TABLET PO SCH ×2 (05:34→12:58)
[2018-07-29] MEDS: INSULIN ASPART 100 UNIT/ML 1 ML 10 ML VIAL SQ SCH ×3 (05:34→17:17)
[2018-07-29] MEDS: PREGABALIN 100 MG CAP PO SCH ×3 (05:34→17:18)
[2018-07-29 05:46] LABS: Glucose,Whole Blood 71 mg/dL (75-99)
[2018-07-29] MEDS: LORazepam 2 MG/ML INJ IV PRN ×2 (06:54→13:31)
[2018-07-29 08:19] LABS: Anisocytosis Slight; Basophils % (A) 0 %; Eosinophils % (A) 1 %; HCT 25.3 % (39.0-53.0); Hypochromasia Moderate; Lymphocytes # (A) 0.8 k/uL (1.0-4.8); Lymphocytes % (A) 15 %; MCH 27.7 pg (25.0-35.0); MCHC 31.6 g/dL (31.0-37.0); MCV 87.7 fL (80.0-100.0); Mean Platelet Volume 8.1; Monocytes # (A) 0.3 k/uL (0-1.0); Monocytes % (A) 5 %; Neutrophils # (A) 4.3 k/uL (1.3-7.7); Neutrophils % (A) 78 %; Platelet Count 102 k/uL (150-450); Poikilocytosis Slight; RBC 2.88 m/uL (4.30-5.90); RDW 19.3 % (11.5-15.5); WBC 5.6 k/uL (3.8-10.6)
[2018-07-29] MEDS: SODIUM BICARBONATE TAB 650 MG TAB PO SCH ×2 (08:19→16:03)
[2018-07-29] MEDS: hydrALAZINE HCL 25 MG TAB PO SCH ×3 (08:19→17:17)
[2018-07-29 08:37] LABS: Albumin 2.4 g/dL (3.5-5.0); Calcium 7.5 mg/dL (8.4-10.2); Potassium 3.8 mmol/L (3.5-5.1); Total Bilirubin 0.5 mg/dL (0.2-1.3)
[2018-07-29] MEDS: PIPERACILLIN-TAZOBACTAM 3.375 GM in DEXTROSE/WATER 1 50ML.BAG IVPB SCH (08:37)
--- NOTE | 2018-07-29 08:43 | XR ---
EXAMINATION TYPE: XR chest 1V portable DATE OF EXAM: 07/29/2018 COMPARISON: 07/27/2018 HISTORY: Shortness of breath TECHNIQUE: Single frontal view of the chest is obtained. FINDINGS: There is bilateral consolidation and pleural effusion. No overt failure. The heart is enla rged. There is a dialysis catheter and right-sided PICC line. There appears to be approximately 10% r ight-sided pneumothorax. IMPRESSION: 1. Findings are suggestive of a right-sided pneumothorax measuring approximately 10%. Consolidation p leural effusion and possible venous congestion remains stable. Findings were called to the patient's nurse.
[2018-07-29] MEDS: IPRATROPIUM-ALBUTEROL 3 ML NEB INHALATION SCH ×2 (09:01→12:30)
--- NOTE | 2018-07-29 10:05 | P.GSCN ---
History of Present Illness Consult date: 07/29/18 Reason for Consult: Possible PEG tube placement History of present illness: 72-year-old chronically looking ill male being seen at the request of the attending for surgical eval for possible PEG tube placement. No family at the bedside. [facility] and altered mental status. Patient was hypoxic O2 sats 85- 90%. Patient currently is being followed by multiple consulting physicians. CAT scan of the brain obtained showed nonspecific matter changes. Chest x-ray right lower lobe infiltrate CAT scan of the chest done on the showed a large right pleural effusion. Patient continues to be confused oriented to self patient has been refusing to eat. Patient additionally is being followed by Dr. Ling infectious disease white count 8 patient has a right diabetic foot wound with secondary cellulitis. Wound cultures have been growing MRSA and Pseudomonas in the outpatient setting. Currently on daptomycin and Zosyn per infectious disease with local wound care to continue. Bilateral Odell wrap's to the lower extremities and place positive edema. Additionally patient has a sacral decubitus ulcer as well currently the dressing is dry Patient does not follow simple commands nor does he open his eyes to simple verbal stimuli patient's CAT scan report of the brain done on the reviewing indicates there was cerebral atrophy with mild chronic small vessel ischemic changes no new or acute intracranial hemorrhage or midline shift neurology has been following the patient for altered mental status with increased confusion. Overall prognosis per neurology is guarded Nursing reports that the patient's has indicated at this point in the hospitalization she is requesting a hospice referral patient is a no CODE STATUS. Review of Systems Not able to adequately obtain patient not able to give adequate recall Past Medical History Past Medical History: Coronary Artery Disease (CAD), Heart Failure, Diabetes Mellitus, GERD/Reflux, Hyperlipidemia, Hypertension, Myocardial Infarction (PA) , Osteoarthritis (OA), Renal Disease, Skin Disorder Additional Past Medical History / Comment(s): IDDM type II, peripheral neuropathy bilateral hands/feet, PVD with chronic bilateral foot wounds/mrsa per [facility] transfer information, wears bilateral mediboots, spouse states she has been told at [facility] he needs a R leg amputation but she was also told at [facility] that he needs a pacemaker first so nothing was done, bilateral lower leg cellulitis, bilateral lower leg edema, sacral ulcer, chronic kidney disease stage III with recent dialysis at [facility]-3 weeks ago, pleural effusion with thoracentesis (laterallity unknown), gout bilateral feet, cataracts in bilateral eyes-vision is poor-sees shapes only. Last Myocardial Infarction Date:: 2009 History of Any Multi-Drug Resistant Organisms: MRSA Year Discovered:: unkn MDRO Source:: bilateral feet per [facility] of transfer documentation-see note Past Surgical History: Heart Catheterization With Stent Additional Past Surgical History / Comment(s): PCI with stent 2009, R arm double picc line Past Anesthesia/Blood Transfusion Reactions: No Reported Reaction Additional Past Anesthesia/Blood Transfusion Reaction / Comm: . Date of Last Stent Placement:: 2009 Past Psychological History: No Psychological Hx Reported Additional Psychological History / Comment(s): Pt currently resides at [facility]. He has been receiving rehab and is up with a walker. He is an [employer] . 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 Smoking Status: Former smoker Past Alcohol Use History: None Reported Additional Past Alcohol Use History / Comment(s): Pt started smoking in 1967 and quit in 1975 Past Drug Use History: None Reported - Past Family History Father Family Medical History: Cancer Additional Family Medical History / Comment(s): Father had cancer, pt's spouse cannot recall type. Mother Family Medical History: Renal Disease Medications and Allergies Home Medications Medication Instructions Recorded Confirmed Type Aspirin EC [Ecotrin Low Dose] 81 mg PO DAILY 04/01/17 07/22/18 History Insulin Glargine [Lantus] 10 unit SQ HS 04/01/17 07/22/18 History Allopurinol [Zyloprim] 300 mg PO DAILY 04/03/18 07/22/18 History Atorvastatin [Lipitor] 80 mg PO DAILY 04/03/18 07/22/18 History Clopidogrel [Plavix] 75 mg PO DAILY 04/03/18 07/22/18 History Acetaminophen Tab [Tylenol Tab] 650 mg PO Q4H PRN 07/22/18 07/22/18 History Cholecalciferol (Vitamin D3) 2,000 unit PO DAILY 07/22/18 07/22/18 History [Vitamin D3] Ferrous Sulfate [Feosol] 325 mg PO DAILY 07/22/18 07/22/18 History Furosemide [Lasix] 60 mg PO BID@0800,1600 07/22/18 07/22/18 History Ipratropium-Albuterol Nebulize 3 ml INHALATION RT-Q6H PRN 07/22/18 07/22/18 History [Duoneb 0.5 mg-3 mg/3 ml Soln] Isosorbide Mononitrate ER [Imdur] 60 mg PO DAILY 07/22/18 07/22/18 History Pregabalin [Lyrica] 100 mg PO Q6H 07/22/18 07/22/18 History Sodium Bicarbonate Tab 650 mg PO TID 07/22/18 07/22/18 History Tamsulosin [Flomax] 0.4 mg PO DAILY 07/22/18 07/22/18 History cefTAZidime [Fortaz] 1 gm IVPB Q8HR 07/22/18 07/22/18 History hydrALAZINE HCL [Apresoline] 25 mg PO TID@0800,1200,1800 07/22/18 07/22/18 History traMADol HCL [Ultram] 50 mg PO Q8H PRN 07/22/18 07/22/18 History Allergies Allergy/AdvReac Type Severity Reaction Status Date / Time cephalexin [From Keflex] AdvReac Unknown Verified 07/22/18 11:15 Childhood Surgical - Exam Vital Signs Temp Pulse Resp BP Pulse Ox 98.7 F 70 16 105/48 100 07/22/18 11:11 07/22/18 11:11 07/22/18 11:11 07/22/18 11:11 07/22/18 11:11 GENERAL APPEARANCE: 72 -year-old male thin chronically ill looking incontinent of stool does not consistently open eyes to verbal stimuli currently resting in bed in no acute distress. Currently nothing by mouth VITAL SIGNS: Reviewed HEENT: Head is normocephalic and atraumatic. Pupils are equal and reactive. The nares are patent. Oropharynx is clear without lesions. NECK: Supple without lymphadenopathy. Traches midline. HEART: S1, S2. Regular rate and rhythm. No murmur noted LUNGS: No crackles or wheezes are heard. Posterior diminished at the bases ABDOMEN: Soft, nontender, nondistended incontinent brown stool moderate amount of scrotal edema noted moderate amount indwelling Villasenor catheter in place EXTREMITIES: Bilateral Odell wraps to the lower extremities edematous Skin decubitus ulcer noted with the dressing in place Results - Labs 07/29/18 07:16 07/29/18 07:16 Abnormal Lab Results - Last 24 Hours (Table) 07/28/18 07/29/18 07/29/18 Range/Units 21:08 05:45 07:16 RBC 2.88 L (4.30-5.90) m/uL Hgb 8.0 L (13.0-17.5) gm/dL Hct 25.3 L (39.0-53.0) % RDW 19.3 H (11.5-15.5) % Plt Count 102 L (150-450) k/uL Lymphocytes # 0.8 L (1.0-4.8) k/uL BUN (9-20) mg/dL Creatinine (0.66-1.25) mg/dL Glucose (74-99) mg/dL POC Glucose (mg/dL) 73 L 71 L (75-99) mg/dL Calcium (8.4-10.2) mg/dL AST (17-59) U/L ALT (21-72) U/L Total Protein (6.3-8.2) g/dL Albumin (3.5-5.0) g/dL 07/29/18 Range/Units 07:16 RBC (4.30-5.90) m/uL Hgb (13.0-17.5) gm/dL Hct (39.0-53.0) % RDW (11.5-15.5) % Plt Count (150-450) k/uL Lymphocytes # (1.0-4.8) k/uL BUN 25 H (9-20) mg/dL Creatinine 2.81 H (0.66-1.25) mg/dL Glucose 72 L (74-99) mg/dL POC Glucose (mg/dL) (75-99) mg/dL Calcium 7.5 L (8.4-10.2) mg/dL AST 7 L (17-59) U/L ALT 17 L (21-72) U/L Total Protein 6.0 L (6.3-8.2) g/dL Albumin 2.4 L (3.5-5.0) g/dL Microbiology - Last 24 Hours (Table) 07/22/18 11:18 Blood Culture - Final Blood No Growth after 144 hours Diabetes panel 07/29/18 Range/Units 07:16 Sodium 141 (137-145) mmol/L Potassium 3.8 (3.5-5.1) mmol/L Chloride 107 (98-107) mmol/L Carbon Dioxide 23 (22-30) mmol/L BUN 25 H (9-20) mg/dL Creatinine 2.81 H (0.66-1.25) mg/dL Glucose 72 L (74-99) mg/dL Calcium 7.5 L (8.4-10.2) mg/dL AST 7 L (17-59) U/L ALT 17 L (21-72) U/L Alkaline Phosphatase 104 (38-126) U/L Total Protein 6.0 L (6.3-8.2) g/dL Albumin 2.4 L (3.5-5.0) g/dL Calcium panel 07/29/18 Range/Units 07:16 Calcium 7.5 L (8.4-10.2) mg/dL Albumin 2.4 L (3.5-5.0) g/dL Pituitary panel 07/29/18 Range/Units 07:16 Sodium 141 (137-145) mmol/L Potassium 3.8 (3.5-5.1) mmol/L Chloride 107 (98-107) mmol/L Carbon Dioxide 23 (22-30) mmol/L BUN 25 H (9-20) mg/dL Creatinine 2.81 H (0.66-1.25) mg/dL Glucose 72 L (74-99) mg/dL Calcium 7.5 L (8.4-10.2) mg/dL Adrenal panel 07/29/18 Range/Units 07:16 Sodium 141 (137-145) mmol/L Potassium 3.8 (3.5-5.1) mmol/L Chloride 107 (98-107) mmol/L Carbon Dioxide 23 (22-30) mmol/L BUN 25 H (9-20) mg/dL Creatinine 2.81 H (0.66-1.25) mg/dL Glucose 72 L (74-99) mg/dL Calcium 7.5 L (8.4-10.2) mg/dL Total Bilirubin 0.5 (0.2-1.3) mg/dL AST 7 L (17-59) U/L ALT 17 L (21-72) U/L Alkaline Phosphatase 104 (38-126) U/L Total Protein 6.0 L (6.3-8.2) g/dL Albumin 2.4 L (3.5-5.0) g/dL Assessment and Plan Assessment: Impression Right lower lobe infiltrate present on admission Acute encephalopathy present on admission Poor caloric intake Moderate protein calorie malnutrition due to poor caloric intake Chronic diabetic ulcer right foot Present on admission left lower extremity cellulitis with lymphedema and peripheral vascular disease History of MRSA Pseudomonas E. coli Mild pulmonary hypertension Multiple recurrent hospitalizations for sepsis Large right pleural effusion Plan defer to the consulting team further recommendations and management We'll hold putting a PEG tube in at this time until decision is made by as to hospice care versus home no code status Will follow with you with further surgical recommendations pending clinical course Surgical consultation note dictated for Dr. doshi The above impression and plan of care have been discussed and directed by signing physician. Tierney Stevens nurse practitioner acting as scribe for signing physician.
--- NOTE | 2018-07-29 10:58 | P.PN ---
Subjective Progress Note Date: 07/29/18 HPI: This is a 72-year-old gentleman who is well-known to our service who presented emergency department from [facility]. The patient was found to have a fever and altered mental status. The patient also had hypoxia with O2 saturation 86% . The patient did have a temperature of 100.9. He is awake and alert although he is somewhat combative. His and son are present as well. The patient has a complicated history of peripheral vascular disease with cellulitis and frequent sepsis. He also has a history of third-degree heart block and has been unable to have a pacemaker placed due to his recurrent sepsis and infections. The patient was temporarily on hemodialysis but per his was told that he doesn't need dialysis anymore. He has been following with wound care and infectious disease at [facility]. He is also been following with vascular surgery. As well as cardiology. In the emergency department the patient was found to have a hemoglobin of 7.1 at 7:30 this morning. Upon recheck at 11:20 AM he was found to have a hemoglobin of 4.9. The patient is receiving packed red blood cell transfusion at this time. His vital signs have been stable. The patient is chronically anemic with a hemoglobin between 10 and 12. The patient has been afebrile in the emergency department. He does have a white blood cell count 12. The patient's CT of the brain showed nonspecific white matter changes, prominent posterior fossa CSF space differential includes arachnoid cyst or giant cisterna magna. The patient's chest x-ray shows right lower lobe infiltrate, pneumonia versus atelectasis or edema. Possible pleural effusion. Per the patient's , his heal has been bleeding quite profusely. She states "there is probably 2 pints of blood in the passenger seat of my car right now." Interval history: 07/23/2018patient is being seen examined and evaluated today on rounds. He is resting up in bed on 2 L of supplemental oxygen via nasal cannula. did receive a total of 2 units of packed red blood cells yesterday. He did have labs obtained this morning his hemoglobin did improve to 8.6, his hematocrit is now 28.3. His sodium is 146, potassium is 5.5, chloride is 119, BUN is 47 and creatinine is 2.9. Nephrology is seeing the patient as well as infectious disease. Villasenor catheter will be inserted and urinalysis will be obtained. Still awaiting sputum culture. CT of the chest yesterday was reviewed and does show a large right-sided pleural effusion with associated passive atelectasis. He continues to have confusion intermittently. He was too tired and refused to eat this morning. We will have the patient undergo a swallow evaluation. Unsure on guardianship status will find out from the as well as medical [place]. 07/24/18- patient is being seen examined and evaluated today on rounds. He is quite lethargic. We did obtain stat ABGs. Which did reveal a pH of 7.4, pCO2 of 55, pO2 of 112, HCO3 of 21. patient will be started on BiPAP. His labs today do reveal a hemoglobin that is stable at 8.4, sodium is 146, potassium is 5.3, chloride 116, carbon dioxide 19, BUN 51, creatinine 3.66. We'll also obtain a stat lactic acid. And sections disease continues to follow and has adjusted his antibiotics. He remains in contact precautions for his right diabetic foot wound and bilateral cellulitis his cultures were positive for MRSA and Pseudomonas previously per infectious disease. IR was consulted yesterday for possible thoracentesis as he has a right large pleural effusion. 07/25/18- patient is being seen examined and evaluated today on rounds. He did utilizes BiPAP overnight and tolerated that well. His BUN is 56 and his creatinine is 4.05 today. He may require dialysis. Nephrology is following him closely. He continues to these develop Villasenor catheter. Chest x-ray was reviewed remains relatively the same CHF versus pneumonia. 07/26/18- 07/27/18- Please see Dr Guerrero notes 07/28/18- patient is being seen examined and evaluated today on rounds. He is resting up in bed on 3-4 L of supplemental oxygen via nasal cannula. Apparently over the weekend the patient did pull out his dialysis catheter and a new temporary dialysis catheter was inserted. He was also noted to be lethargic postprocedure and did receive Narcan. His mentation has still been confused. He is more awake today. He did utilize the BiPAP overnight. He did have a CT of the brain and those results are pending. Currently has a safety center at bedside. All labs and reports have been reviewed. Afebrile 10/16/18- patient is being seen examined and evaluated today on rounds. He is resting up in bed on 4 L of supplemental oxygen via nasal cannula. Continues to be intermittently confused. He is more awake today. He did receive dialysis again yesterday. Per the nursing staff the patient is going to be having an informative hospice meeting today with the . He did have a chest x-ray this morning which did reveal a 10% pneumothorax on the right with continued bilateral consolidation and effusions. Cardiothoracic's was consulted for the pneumothorax and case is discussed in detail. He currently is in no respiratory distress. Did utilize the BiPAP overnight. Surgical services was also consulted for possible PEG tube placement in case the patient' s decided not to go forth with hospice. Of note the patient did make the patient a DO NOT RESUSCITATE. Objective - Vital Signs Vital signs: Vital Signs Temp 97.4 F L 07/29/18 04:00 Pulse 64 07/29/18 09:09 Resp 21 07/29/18 04:00 BP 126/57 07/29/18 04:00 Pulse Ox 96 07/29/18 04:00 Intake & Output 07/28/18 07/29/18 07/29/18 18:59 06:59 18:59 Intake Total 210 210 Output Total 2150 50 30 Balance -1940 160 -30 Weight 117.5 kg 116 kg Intake: IV 60 Invasive Line 3 60 Intake, IV Titration 210 150 Amount IV Fluid Continuation 700 160 ml @ 0 mls/hr IV .STK- [facility] Rx#:[id number] Piperacillin-Tazobactam 3 50 50 .375 gm In Dextrose/Water 1 50ml.bag @ 12.5 mls/hr IVPB Q12H [facility] Rx#: [id number] Sodium Ferric Gluconat- 100 Sucrose 125 mg In Sodium Chloride 0.9% 100 ml @ 100 mls/hr IVPB DAILY [facility] Rx#:[id number] Oral 0 0 Output: Gastric Drainage 1999 Urine 150 50 30 Uretheral (Villasenor) 50 Other: Voiding Method Indwelling Catheter Indwelling Catheter # Bowel Movements 1 - Exam Gen.: Patient is more awake today, continues with confusion Cardiovascular: Bradycardic, regular rate and rhythm, S1/S2 Lungs: Coarse breath sounds bilaterally, diminished more so on the right Abdomen: Soft nontender nondistended positive bowel sounds Extremities: Chronic venous stasis, lymphedema, cellulitis, lower extremity wounds, currently wrapped with dressing - Labs CBC & Chem 7: 07/29/18 07:16 07/29/18 07:16 Labs: Abnormal Lab Results - Last 24 Hours (Table) 07/28/18 07/29/18 07/29/18 Range/Units 21:08 05:45 07:16 RBC 2.88 L (4.30-5.90) m/uL Hgb 8.0 L (13.0-17.5) gm/dL Hct 25.3 L (39.0-53.0) % RDW 19.3 H (11.5-15.5) % Plt Count 102 L (150-450) k/uL Lymphocytes # 0.8 L (1.0-4.8) k/uL BUN (9-20) mg/dL Creatinine (0.66-1.25) mg/dL Glucose (74-99) mg/dL POC Glucose (mg/dL) 73 L 71 L (75-99) mg/dL Calcium (8.4-10.2) mg/dL AST (17-59) U/L ALT (21-72) U/L Total Protein (6.3-8.2) g/dL Albumin (3.5-5.0) g/dL 07/29/18 Range/Units 07:16 RBC (4.30-5.90) m/uL Hgb (13.0-17.5) gm/dL Hct (39.0-53.0) % RDW (11.5-15.5) % Plt Count (150-450) k/uL Lymphocytes # (1.0-4.8) k/uL BUN 25 H (9-20) mg/dL Creatinine 2.81 H (0.66-1.25) mg/dL Glucose 72 L (74-99) mg/dL POC Glucose (mg/dL) (75-99) mg/dL Calcium 7.5 L (8.4-10.2) mg/dL AST 7 L (17-59) U/L ALT 17 L (21-72) U/L Total Protein 6.0 L (6.3-8.2) g/dL Albumin 2.4 L (3.5-5.0) g/dL Microbiology - Last 24 Hours (Table) 07/22/18 11:18 Blood Culture - Final Blood No Growth after 144 hours Assessment and Plan Assessment: Assessment Acute blood loss anemia on anemia of chronic disease, likely from bleeding lower extremity wound Acute encephalopathy Leukocytosis Right lower lobe infiltrate: CHF versus effusion versus pneumonia Hypernatremia History 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, baseline creatinine 1.8-2.6 AECHF, diastolic, EF 55-60% Lower extremity cellulitis, lymphedema, and PVD - history of MRSA, pseudomonas, E coli Chronic diabetic ulcer of right foot Diabetic neuropathy and DM2 uncontrolled Hypertension Gout Pulmonary hypertension, mild RVSP 43 mmHg Obesity Dyslipidemia Multiple recurrent hospitalizations for sepsis Suspect underlying [place]/OHS Moderate PCM Large right-sided pleural effusion 10% right-sided pneumothorax Plan Patient's to have an informative meeting with hospice today Patient is currently a DO NOT RESUSCITATE Surgical services was consulted in case the patient Is needed Cardiothoracic was consulted for pneumothorax BiPAP 07/18 at night and as needed Patient receiving dialysis per nephro O2 to maintain saturation > or = 90% Did receive 2 units PRBC on 07/22/18 Agree with Lasix BID Blood, urine, cultures- negative Unable to give sputum sample Nephrology, ID, vascular surgery to be consulted CT chest without contrast reviewed Interventional radiology consulted for possible right thoracentesis Consult dietitian Speech evaluation attempted however patient was participating in the complete assessment Per cardiology team and HF, patient is not a candidate for PPM, he is asymptomatic, continue to monitor Continue Levemir and Novolog sliding scale GI and DVT prophylaxis: Protonix and SCDs Monitor urine output and renal function Continue with indwelling Villasenor catheter, monitor I's and O's Incentive spirometry and pulmonary hygiene Consult PT and OT We will continue to monitor labs/results and adjust treatment as necessary I, the signing physician performed an examination of the patient, discussed and directed their management with the nurse practitioner. I have reviewed the nurse practitioner's note and agree with the documented findings, orders and plan of care.
--- NOTE | 2018-07-29 11:04 | P.PN ---
Subjective Patient is seen in follow for acute kidney injury, currently hemodialysis dependent. Currently resting in bed. Patient remains quite lethargic and confused. Oral intake is poor. He is maintained on IV Lasix. Urine output remains low. Hemoglobin stable at 8.0. Vital signs are stable. General: The patient appeared well nourished and normally developed. HEENT: Head exam is unremarkable. Neck is without jugular venous distension. LUNGS: Lungs are clear to auscultation and percussion. Breath sounds decreased. HEART: Rate and Rhythm are regular. First and second heart sounds normal. No murmurs, rubs or gallops. ABDOMEN: Abdominal exam reveals normal bowel sounds. Non-tender and non- distended. No evidence of peritonitis. EXTREMITITES: No clubbing, cyanosis, or edema. Objective - Vital Signs Vital signs: Vital Signs Temp 97.4 F L 07/29/18 04:00 Pulse 64 07/29/18 09:09 Resp 21 07/29/18 04:00 BP 126/57 07/29/18 04:00 Pulse Ox 96 07/29/18 04:00 Intake & Output 07/28/18 07/29/18 07/29/18 18:59 06:59 18:59 Intake Total 210 210 Output Total 2150 50 30 Balance -1940 160 -30 Weight 117.5 kg 116 kg Intake: IV 60 Invasive Line 3 60 Intake, IV Titration 210 150 Amount IV Fluid Continuation 700 160 ml @ 0 mls/hr IV .STK- [facility] Rx#:[id number] Piperacillin-Tazobactam 3 50 50 .375 gm In Dextrose/Water 1 50ml.bag @ 12.5 mls/hr IVPB Q12H [facility] Rx#: [id number] Sodium Ferric Gluconat- 100 Sucrose 125 mg In Sodium Chloride 0.9% 100 ml @ 100 mls/hr IVPB DAILY [facility] Rx#:[id number] Oral 0 0 Output: Gastric Drainage 2000 Urine 150 50 30 Uretheral (Villasenor) 50 Other: Voiding Method Indwelling Catheter Indwelling Catheter # Bowel Movements 1 - Labs CBC & Chem 7: 07/29/18 07:16 07/29/18 07:16 Labs: Abnormal Lab Results - Last 24 Hours (Table) 07/28/18 07/29/18 07/29/18 Range/Units 21:08 05:45 07:16 RBC 2.88 L (4.30-5.90) m/uL Hgb 8.0 L (13.0-17.5) gm/dL Hct 25.3 L (39.0-53.0) % RDW 19.3 H (11.5-15.5) % Plt Count 102 L (150-450) k/uL Lymphocytes # 0.8 L (1.0-4.8) k/uL BUN (9-20) mg/dL Creatinine (0.66-1.25) mg/dL Glucose (74-99) mg/dL POC Glucose (mg/dL) 73 L 71 L (75-99) mg/dL Calcium (8.4-10.2) mg/dL AST (17-59) U/L ALT (21-72) U/L Total Protein (6.3-8.2) g/dL Albumin (3.5-5.0) g/dL 07/29/18 Range/Units 07:16 RBC (4.30-5.90) m/uL Hgb (13.0-17.5) gm/dL Hct (39.0-53.0) % RDW (11.5-15.5) % Plt Count (150-450) k/uL Lymphocytes # (1.0-4.8) k/uL BUN 25 H (9-20) mg/dL Creatinine 2.81 H (0.66-1.25) mg/dL Glucose 72 L (74-99) mg/dL POC Glucose (mg/dL) (75-99) mg/dL Calcium 7.5 L (8.4-10.2) mg/dL AST 7 L (17-59) U/L ALT 17 L (21-72) U/L Total Protein 6.0 L (6.3-8.2) g/dL Albumin 2.4 L (3.5-5.0) g/dL Microbiology - Last 24 Hours (Table) 07/22/18 11:18 Blood Culture - Final Blood No Growth after 144 hours Assessment and Plan Plan: Assessment: 1. Acute kidney injury secondary to ATN secondary to severe anemia and infection. Patient was also on vancomycin which has been discontinued. Currently hemodialysis dependent. 2. Lower extremity cellulitis with wound culture positive for MRSA and pseudomonas. 3. Anemia of chronic kidney disease maintained on Aranesp. Also received IV iron 07/28. 4. 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 5. Volume overload. Improving with ultrafiltration. 6. Concern for aspiration pneumonia. 7. Metabolic acidosis is maintained on oral bicarb. Expect further improvement to dialysis. Plan: Hemodialysis today. I will schedule him for another treatment tomorrow. Antibiotics per infectious disease. Hospice is also been consulted. Check phosphorus level.
[2018-07-29 11:25] LABS: Glucose,Whole Blood 82 mg/dL (75-99)
--- NOTE | 2018-07-29 12:39 | P.PN ---
Subjective Progress Note Date: 07/29/18 This is a 72-year-old gentleman multiple comorbid conditions area and he initially was admitted to the hospital with change in mental status as well as fever. Subsequently he was diagnosed what seems to be critical limb ischemia of bilateral lower extremities with possible osteomyelitis as well. Patient also does have advanced chronic kidney disease, on hemodialysis, hypertension, dyslipidemia. Cardiology was consulted for further evaluation of arrhythmia. Patient is known to have third degree AV block and has been seen by our service in the past. He was recently seen at [facility] and evaluated for possible permanent pacemaker implantation. This is never performed because of the sepsis status. EKG and telemetry strips continue to show third-degree AV block but the patient is maintaining normal blood pressure and heart rates in the 50s. On examination, patient remains minimally responsive. He will answer yes and no questions at this time but does have episodes of agitation as well as episodes of being much less responsive. Objective - Vital Signs Vital signs: Vital Signs Temp 98 F 07/29/18 12:00 Pulse 55 L 07/29/18 12:00 Resp 20 07/29/18 12:00 BP 122/56 07/29/18 12:00 Pulse Ox 98 07/29/18 12:00 Intake & Output 07/28/18 07/29/18 07/29/18 18:59 06:59 18:59 Intake Total 210 210 Output Total 2150 50 30 Balance -1940 160 -30 Weight 117.5 kg 116 kg Intake: IV 60 Invasive Line 3 60 Intake, IV Titration 210 150 Amount IV Fluid Continuation 700 160 ml @ 0 mls/hr IV .STK- [facility] Rx#:[id number] Piperacillin-Tazobactam 3 50 50 .375 gm In Dextrose/Water 1 50ml.bag @ 12.5 mls/hr IVPB Q12H [facility] Rx#: [id number] Sodium Ferric Gluconat- 100 Sucrose 125 mg In Sodium Chloride 0.9% 100 ml @ 100 mls/hr IVPB DAILY [facility] Rx#:[id number] Oral 0 0 Output: Gastric Drainage 2000 Urine 150 50 30 Uretheral (Villasenor) 50 Other: Voiding Method Indwelling Catheter Indwelling Catheter Indwelling Catheter # Bowel Movements 1 - Exam PHYSICAL EXAMINATION: HEENT: Head is atraumatic, normocephalic. Pupils equal, round. Neck is supple. There is elevated jugular venous pressure. HEART EXAMINATION: Heart sounds regular, S1 and S2 with a systolic murmur at the apex. CHEST EXAMINATION: Lungs reveal diminished air entry bilaterally. No chest wall tenderness is noted on palpation or with deep breathing. ABDOMEN: Soft, nontender. Bowel sounds are heard. No organomegaly noted. EXTREMITIES: Bilateral lower extremity Odell wraps in place. NEUROLOGIC patient is lethargic and alert and oriented 1-2 with periods of less responsiveness, more confusion and agitation. . - Labs CBC & Chem 7: 07/29/18 07:16 07/29/18 07:16 Labs: Abnormal Lab Results - Last 24 Hours (Table) 07/28/18 07/29/18 07/29/18 Range/Units 21:08 05:45 07:16 RBC 2.88 L (4.30-5.90) m/uL Hgb 8.0 L (13.0-17.5) gm/dL Hct 25.3 L (39.0-53.0) % RDW 19.3 H (11.5-15.5) % Plt Count 102 L (150-450) k/uL Lymphocytes # 0.8 L (1.0-4.8) k/uL BUN (9-20) mg/dL Creatinine (0.66-1.25) mg/dL Glucose (74-99) mg/dL POC Glucose (mg/dL) 73 L 71 L (75-99) mg/dL Calcium (8.4-10.2) mg/dL AST (17-59) U/L ALT (21-72) U/L Total Protein (6.3-8.2) g/dL Albumin (3.5-5.0) g/dL 07/29/18 Range/Units 07:16 RBC (4.30-5.90) m/uL Hgb (13.0-17.5) gm/dL Hct (39.0-53.0) % RDW (11.5-15.5) % Plt Count (150-450) k/uL Lymphocytes # (1.0-4.8) k/uL BUN 25 H (9-20) mg/dL Creatinine 2.81 H (0.66-1.25) mg/dL Glucose 72 L (74-99) mg/dL POC Glucose (mg/dL) (75-99) mg/dL Calcium 7.5 L (8.4-10.2) mg/dL AST 7 L (17-59) U/L ALT 17 L (21-72) U/L Total Protein 6.0 L (6.3-8.2) g/dL Albumin 2.4 L (3.5-5.0) g/dL Microbiology - Last 24 Hours (Table) 07/22/18 11:18 Blood Culture - Final Blood No Growth after 144 hours Assessment and Plan Assessment: #1 end-stage renal disease on hemodialysis #2 osteomyelitis of bilateral lower extremities #3 hypertension #4 dyslipidemia #5 third-degree AV block #6 multiple comorbid conditions Plan: On cardiology's perspective, in view of sepsis and current osteomyelitis, we recommend conservative medical approach and not to implant any device at this point. We would agree with consultation with hospice. At this time, we will follow the patient on an as needed basis depending on whether or not hospice is agreed upon. Please do not hesitate to contact us with questions. LAMINATE FLOOR INSTALLER note has been reviewed, I agree with a documented findings and plan of care. Patient was seen and examined.
[2018-07-29] MEDS: FERROUS SULFATE 325 MG TAB PO SCH (12:49)
[2018-07-29] MEDS: CHOLECALCIFEROL 1,000 UNIT TAB PO SCH (12:49)
[2018-07-29] MEDS: ALLOPURINOL 100 MG TAB PO SCH (12:57)
[2018-07-29] MEDS: ISOSORBIDE MONONITRATE ER 60 MG TAB.ER.24H PO SCH (12:57)
[2018-07-29] MEDS: SODIUM FERRIC GLUCONAT-SUCROSE 125 MG in SODIUM CHLORIDE 0.9% 100 ML IVPB SCH (13:06)
[2018-07-29] MEDS: FUROSEMIDE 10 MG/ML 10 ML VIAL IV SCH (13:07)
[2018-07-29] MEDS: ASPIRIN 81 MG PO SCH (13:18)
[2018-07-29] MEDS: TAMSULOSIN 0.4 MG CAP.ER.24H PO SCH (13:18)
[2018-07-29] MEDS ORDERED: DAPTOmycin 750 MG in SODIUM CHLORIDE 0.9% 50 ML IVPB SCH (14:00)
[2018-07-29 15:49] VITALS: BP 98/49; PULSE 47; RESP 18; TEMP 97.1
[2018-07-29] MEDS ORDERED: PIPERACILLIN-TAZOBACTAM 3.375 GM in DEXTROSE/WATER 1 50ML.BAG IVPB SCH ×2 (16:00→20:00)
[2018-07-29 16:22] LABS: Iron Saturation 76.59 (15.00-50.00)
[2018-07-29 16:28] LABS: Glucose,Whole Blood 87 mg/dL (75-99)
--- NOTE | 2018-07-29 18:37 | PN ---
PROGRESS NOTE DATE OF SERVICE: 07/29/2018 REASON FOR FOLLOWUP: Right diabetic foot wound with secondary cellulitis. The patient was seen on rounds earlier this morning. The patient has been afebrile. He remained slightly lethargic. No nausea or vomiting has been noticed or any diarrhea. He was unable to provide any history. He did pull out his PICC line on the left arm. Another was placed this morning. PHYSICAL EXAMINATION: Blood pressure 122/56 with a pulse of 55, temperature 98. He is 98% on 4 L nasal cannula. General description is an elderly male lying in bed in no distress. RESPIRATORY SYSTEM: Unlabored breathing with decreased breath sounds at the bases. No wheeze. HEART: S1, S2. Regular rate and rhythm. ABDOMEN: Soft. No tenderness. Right foot is currently dressed up. Minimal drainage on the dressing. LABS: Hemoglobin 8, white count 5.6, BUN of 25, creatinine 2.81. DIAGNOSTIC IMPRESSION AND PLAN: Patient with right diabetic foot wound with secondary cellulitis. Culture has been positive with MRSA and pseudomonas , patient currently on daptomycin and zosyn to cover for possible aspiration pneumonia secondary to gram-negative. Overall prognosis remains guarded. Continue with supportive care. MMODL / IJN: [id number] / [email or web address]
--- NOTE | 2018-08-06 00:37 | DS ---
DISCHARGE SUMMARY ADMITTED: 07/22/2018. DISCHARGED: 07/29/2018. DISCHARGE MEDICATIONS: 1. Lantus 10 units daily. 2. Aspirin 81 mg daily. 3. Plavix 75 mg daily. 4. Lipitor 80 mg daily. 5. Zyloprim 300 mg daily. 6. Tramadol 50 mg every 8 hours. 7. Lyrica 100 mg every 6 hours. 8. DuoNeb q.i.d. 9. Hydralazine 25 mg t.i.d. 10.Sodium bicarb 650 t.i.d. 11.Fortaz 1 g IV piggyback every 8 hours. 12.Lasix 60 mg b.i.d. 13.Ferrous sulfate 325 daily. 14.Vitamin D3, 2000 units daily. 15.Flomax 0.4 mg daily. 16.Imdur 60 mg daily. CONDITION: Poor. PROGNOSIS: Poor. The patient was sent home on hospice with comfort care measures only per family. DISCHARGE DIAGNOSES: 1. Chronic renal disease. 2. Osteomyelitis of the legs. 3. Metabolic encephalopathy. 4. Generalized weakness. 5. Acute kidney injury. 6. Obstructive sleep apnea. 7. Diastolic congestive heart failure. The patient was sent home on comfort care after exhausting all care per Infectious Disease, commercial loan specialist, fire eater, Cardiology, Infectious Disease. Follow up as an outpatient. MMODL / IJN: [id number] /
== END 2018-07-29 17:17 | disposition hospice, home (50) | DRG 637 ==
LOC: EC 11:07 → 6SEL 14:36 → 3SCARD 07-27 10:30
PROVIDERS: ADMIT Family Medicine; ATTEND Family Medicine
PROC: B5191ZZ Fluoroscopy of Inferior Vena Cava using Low Osmolar Contrast (ICD-10-PCS; 2018-07-22)
PROC: 30233N1 Transfusion of Nonautologous Red Blood Cells into Peripheral Vein, Percutaneous Approach (ICD-10-PCS; 2018-07-22)
PROC: 5A09457 Assistance with Respiratory Ventilation, 24-96 Consecutive Hours, Continuous Positive Airway Pressure (ICD-10-PCS; 2018-07-24)
PROC: 02H633Z Insertion of Infusion Device into Right Atrium, Percutaneous Approach (ICD-10-PCS; 2018-07-25)
PROC: 5A1D70Z Performance of Urinary Filtration, Intermittent, Less than 6 Hours Per Day (ICD-10-PCS; principal; 2018-07-25 14:17)
PROC: 02PY33Z Removal of Infusion Device from Great Vessel, Percutaneous Approach (ICD-10-PCS; 2018-07-26)
PROC: 02HV33Z Insertion of Infusion Device into Superior Vena Cava, Percutaneous Approach (ICD-10-PCS; 2018-07-26)
PROC: 0JH63XZ Insertion of Tunneled Vascular Access Device into Chest Subcutaneous Tissue and Fascia, Percutaneous Approach (ICD-10-PCS; 2018-07-27)
PROC: 02HV33Z Insertion of Infusion Device into Superior Vena Cava, Percutaneous Approach (ICD-10-PCS; 2018-07-27)
DX: E11.621 Type 2 diabetes mellitus with foot ulcer (principal); G93.41 Metabolic encephalopathy; I50.33 Acute on chronic diastolic (congestive) heart failure; J69.0 Pneumonitis due to inhalation of food and vomit; L03.115 Cellulitis of right lower limb; D62 Acute posthemorrhagic anemia; E11.52 Type 2 diabetes mellitus with diabetic peripheral angiopathy with gangrene; E44.0 Moderate protein-calorie malnutrition; E87.0 Hyperosmolality and hypernatremia; E87.2 Acidosis; I13.2 Hypertensive heart and chronic kidney disease with heart failure and with stage 5 chronic kidney disease, or end stage renal disease; I44.2 Atrioventricular block, complete; J93.9 Pneumothorax, unspecified; J98.11 Atelectasis; L03.116 Cellulitis of left lower limb; M86.9 Osteomyelitis, unspecified; E11.628 Type 2 diabetes mellitus with other skin complications; L97.519 Non-pressure chronic ulcer of other part of right foot with unspecified severity; B96.5 Pseudomonas (aeruginosa) (mallei) (pseudomallei) as the cause of diseases classified elsewhere; B95.62 Methicillin resistant Staphylococcus aureus infection as the cause of diseases classified elsewhere; D63.1 Anemia in chronic kidney disease; E11.22 Type 2 diabetes mellitus with diabetic chronic kidney disease; E11.42 Type 2 diabetes mellitus with diabetic polyneuropathy; E11.65 Type 2 diabetes mellitus with hyperglycemia; E66.01 Morbid (severe) obesity due to excess calories; E78.5 Hyperlipidemia, unspecified; E87.5 Hyperkalemia; G47.33 Obstructive sleep apnea (adult) (pediatric); I25.10 Atherosclerotic heart disease of native coronary artery without angina pectoris; I25.2 Old myocardial infarction; I27.20 Pulmonary hypertension, unspecified; I89.0 Lymphedema, not elsewhere classified; K21.9 Gastro-esophageal reflux disease without esophagitis; L89.152 Pressure ulcer of sacral region, stage 2; M10.9 Gout, unspecified; N17.0 Acute kidney failure with tubular necrosis; N18.6 End stage renal disease; R09.02 Hypoxemia; I95.9 Hypotension, unspecified; R00.1 Bradycardia, unspecified; R06.03 Acute respiratory distress; R33.9 Retention of urine, unspecified; I87.8 Other specified disorders of veins; M19.90 Unspecified osteoarthritis, unspecified site; Z66 Do not resuscitate; Z68.38 Body mass index [BMI] 38.0-38.9, adult; Z79.02 Long term (current) use of antithrombotics/antiplatelets; Z79.4 Long term (current) use of insulin; Z79.82 Long term (current) use of aspirin; Z79.899 Other long term (current) drug therapy; Z88.1 Allergy status to other antibiotic agents; Z95.5 Presence of coronary angioplasty implant and graft; Z87.891 Personal history of nicotine dependence; Z86.14 Personal history of Methicillin resistant Staphylococcus aureus infection; Z80.9 Family history of malignant neoplasm, unspecified; Z84.1 Family history of disorders of kidney and ureter
CPT/HCPCS: 36415; 36556; 36558; 36584; 36600; 70450; 71045; 71250; 76937; 77001; 80048; 80053; 80202; 81001; 82140; 82272; 82550; 82553; 82728; 82805; 83036; 83540; 83550; 83605; 83735; 83880; 84484; 85025; 85027; 85610; 85730; 86706; 86850; 86900; 86901; 86920; 87040; 87086; 87340; 90935; 93005; 94640; 94660; 95816; 96365; 96366; 96367; 99291

== ENCOUNTER 2018-07-29 17:21 | Inpatient (IN) | payer MEDICAID ==
[2018-07-29] MEDS ORDERED: ACETAMINOPHEN SUPPOSITORY 650 MG SUPP RECTAL PRN (17:41)
[2018-07-29] MEDS ORDERED: HYDROcodone/APAP 5-325MG 1 EACH TAB PO PRN (17:41)
[2018-07-29] MEDS ORDERED: ATROPINE OPHTH SOLN 1% 5ML BTL SUBLINGUAL PRN (17:41)
[2018-07-29] MEDS ORDERED: ONDANSETRON 4 MG/2 ML VIAL IVP PRN (17:41)
[2018-07-29] MEDS ORDERED: BISACODYL 10 MG SUPP RECTAL PRN (17:53)
[2018-07-29 18:01] VITALS: BMI 38.9
[2018-07-29] MEDS ORDERED: SCOPOLAMINE 1.5MG/72HR PATCH TRANSDERM SCH (19:00)
[2018-07-29 20:49] LABS: Glucose,Whole Blood 90 mg/dL (75-99)
--- NOTE | 2018-07-29 22:04 | PN ---
PROGRESS NOTE SUBJECTIVE: This is a 72-year-old white male whose wants him to go to comfort care measures, as he is still confused and inappropriate, pulling out multiple lines. He did wake up enough to take pain medicine with some applesauce. He is mostly obtunded. Family wants medicine stopped and comfort care measures with hospice. Discussed case with Hospice and family. comfort care at this time other medicines have been stopped at this time. MMODL / IJN: [id number] /
[2018-07-30] MEDS: MORPHINE SULFATE 2 MG/ML SYRINGE IV PRN ×2 (01:42→12:13)
[2018-07-30] MEDS: LORazepam 2 MG/ML INJ IV PRN ×2 (01:43→15:30)
[2018-07-30 06:31] LABS: Glucose,Whole Blood 79 mg/dL (75-99)
[2018-07-31] MEDS: MORPHINE SULFATE 2 MG/ML SYRINGE IV PRN ×2 (01:50→15:11)
[2018-07-31] MEDS: LORazepam 2 MG/ML INJ IV PRN (02:42)
[2018-08-01] MEDS: LORazepam 2 MG/ML INJ IV PRN (02:02)
[2018-08-01] MEDS: MORPHINE SULFATE 2 MG/ML SYRINGE IV PRN ×3 (08:40→15:17)
--- NOTE | 2018-08-01 13:49 | DS ---
DISCHARGE SUMMARY Discharge to hospice on 08/01/2018 on liquid Roxanol 0.1 to 0.5 mL q.6 hours p.r.n. for pain and Ativan solution for anxiety. Medicines other than that were discontinued by who had power of attorneys. FINAL DIAGNOSES: 1. Osteomyelitis of the leg. 2. Sepsis. 3. Peripheral arterial disease. 4. Gangrene. 5. Obstructive sleep apnea. 6. Metabolic encephalopathy, sepsis. Comfort care was given by family in the hospital. Once he became confused and was not responsive for multiple days despite multiple treatments by multiple physicians including IV antibiotics and Neurology, Infectious Disease consults, Burnisher consult, Cardiology consult. He has third-degree heart block also and had worsening condition, unable to ambulate. He also has history lymphedema. Please see further orders on discharge. MMODL / IJN: [id number] /
[2018-08-01 14:54] VITALS: PULSE 49; RESP 16
== END 2018-08-01 16:03 | disposition hospice, home (50) | DRG 871 ==
LOC: 3SCARD 17:21 → 4MS4W 07-30 23:01
PROVIDERS: ADMIT Family Medicine; ATTEND Family Medicine
DX: A41.9 Sepsis, unspecified organism (principal); G93.41 Metabolic encephalopathy; I50.33 Acute on chronic diastolic (congestive) heart failure; I44.2 Atrioventricular block, complete; I96 Gangrene, not elsewhere classified; M86.9 Osteomyelitis, unspecified; I13.2 Hypertensive heart and chronic kidney disease with heart failure and with stage 5 chronic kidney disease, or end stage renal disease; N18.5 Chronic kidney disease, stage 5; E11.52 Type 2 diabetes mellitus with diabetic peripheral angiopathy with gangrene; D62 Acute posthemorrhagic anemia; G47.33 Obstructive sleep apnea (adult) (pediatric); Z51.5 Encounter for palliative care; E78.5 Hyperlipidemia, unspecified; I25.2 Old myocardial infarction; Z87.891 Personal history of nicotine dependence; Z66 Do not resuscitate; E11.22 Type 2 diabetes mellitus with diabetic chronic kidney disease; E11.65 Type 2 diabetes mellitus with hyperglycemia; Z79.4 Long term (current) use of insulin; M19.90 Unspecified osteoarthritis, unspecified site; Z80.9 Family history of malignant neoplasm, unspecified; Z84.1 Family history of disorders of kidney and ureter; I87.8 Other specified disorders of veins; Z88.1 Allergy status to other antibiotic agents; F41.9 Anxiety disorder, unspecified; Z79.82 Long term (current) use of aspirin; Z79.899 Other long term (current) drug therapy; E11.621 Type 2 diabetes mellitus with foot ulcer; E11.40 Type 2 diabetes mellitus with diabetic neuropathy, unspecified; I25.10 Atherosclerotic heart disease of native coronary artery without angina pectoris; M10.9 Gout, unspecified; E66.9 Obesity, unspecified; Z68.38 Body mass index [BMI] 38.0-38.9, adult; K21.9 Gastro-esophageal reflux disease without esophagitis; D63.8 Anemia in other chronic diseases classified elsewhere
CPT/HCPCS: 94760